=== PATIENT | male | born 1960 | race Caucasian/White ===

== ENCOUNTER → 2019-07-08 | Outpatient (CLI) | payer BC ==
--- NOTE | 2019-07-08 10:59 | CT ---
EXAMINATION TYPE: CT abdomen pelvis w con DATE OF EXAM: 07/08/2019 COMPARISON: None HISTORY: Abdomen and pelvic pain CT DLP: 511.60 mGycm Automated exposure control for dose reduction was used. CONTRAST: CT scan of the abdomen pelvis is performed with IV Contrast, patient injected with 100 ml mL of Isovu e 300. FINDINGS- LUNG BASES-findings suggestive of COPD.. LIVER/GB- No gross abnormality is appreciated. A fat attenuation near the ligamentum teres is most likely related to fatty infiltration PANCREAS- No gross abnormality is seen. SPLEEN- No gross abnormality is seen. ADRENALS- No gross abnormality is seen. KIDNEYS/BLADDER- no hydronephrosis nephrolithiasis or renal mass. BOWEL-there is a hiatal hernia with wall thickening of the distal esophagus correlate for esophagitis or mucosal lesion. Evidence of previous gastric surgery noted. Diverticulosis of the colon. Assessme nt of the colon is limited due to incomplete distention and retained debris.. LYMPH NODES- No greater than 1cm abdominal or pelvic lymph nodes areappreciated. OSSEOUS STRUCTURES-there is a scoliosis with severe multilevel degenerative disc disease and hypertro phic changes. Benign-appearing lucent lesion involving the left iliac bone.. OTHER- atherosclerotic change aorta with no evidence of aneurysm. Prostate calcifications are seen. IMPRESSION- 1. Diverticulosis of the colon. Portions of the colon are limited in assessment due to incomplete dis tention and retained debris correlate with direct visualization as clinically warranted. 2. Postsurgical changes involving the stomach. It does appear to be a hiatal hernia with wall thicken ing of the distal esophagus. Correlate clinically for symptoms of pulsatile lesion or esophagitis. 3. COPD.
== END | disposition home or self-care (01) ==
LOC: RADCTMAIN 08:55
PROVIDERS: ATTEND Family Medicine
DX: K57.30 Diverticulosis of large intestine without perforation or abscess without bleeding (principal); Z98.890 Other specified postprocedural states
CPT/HCPCS: 74177; Q9967

== ENCOUNTER → 2019-07-13 | Outpatient (CLI) | payer BC ==
--- NOTE | 2019-07-14 09:12 | US ---
EXAMINATION TYPE: US prostate transrectal DATE OF EXAM: 07/13/2019 COMPARISON: NONE CLINICAL HISTORY: R97.20 elevated PSA. Elevated PSA This examination was performed using the transrectal probe. EXAM MEASUREMENTS: Gland Size: 3.8 x 2.3 x 4.2cm Volume: 19.41ml Predicted PSA: 2.3 Actual PSA (if available):6.62 on 06/27/19 Heterogeneous gland, calcifications noted. No distinct nodule visualized within peripheral zone at th is time IMPRESSION: Heterogenous prostate gland related to benign prostatic hyperplasia in the enlarged pros pinon gland. No distinct nodule in the peripheral zone on ultrasound. However given the elevated PSA s creening prostate MRI could be performed. Predicted PSA = volume x 0.12 ng/ml Calculated Volume = 0.5236 x L x W x H
== END | disposition home or self-care (01) ==
LOC: RADUSMAIN 07:56
PROVIDERS: ATTEND Family Medicine
DX: N40.0 Benign prostatic hyperplasia without lower urinary tract symptoms (principal)
CPT/HCPCS: 76872

== ENCOUNTER 2020-06-28 10:14 | Day surgery (SDC) | payer BC ==
[2020-06-27 09:15] VITALS: BMI 21.2
[~2020-06-28 10:14] MED LIST: LACTATED RINGERS 1,000 ML IV SCH; LIDOCAINE 1% (10MG/ML) FOR IV START INTRADERMA PRN
[2020-06-28 11:06] VITALS: RESP 16; TEMP 97.8
[2020-06-28] MEDS ORDERED: PROPOFOL 10 MG/ML 20 ML VIAL IV ONE (11:51)
--- NOTE | 2020-06-28 11:58 | P.GSHP ---
History of Present Illness H&P Date: 06/28/20 Chief Complaint: Constipation This a 59-year-old male today for colonoscopy. She's had issues with constipation. Past Medical History Additional Past Medical History / Comment(s): CHANGE IN BOWEL MOVEMENTS History of Any Multi-Drug Resistant Organisms: None Reported Past Surgical History: Bariatric Surgery, Tonsillectomy Additional Past Surgical History / Comment(s): STOMACH STAPLING Past Anesthesia/Blood Transfusion Reactions: No Reported Reaction Smoking Status: Former smoker - Past Family History Mother Family Medical History: No Reported History Medications and Allergies Home Medications Medication Instructions Recorded Confirmed Type Ibuprofen [Motrin] 600 mg PO Q8HR PRN 06/27/20 06/28/20 History Allergies Allergy/AdvReac Type Severity Reaction Status Date / Time No Known Allergies Allergy Verified 06/28/20 11:12 Surgical - Exam Vital Signs Temp Pulse Resp BP Pulse Ox 97.8 F 64 16 114/70 98 06/28/20 11:04 06/28/20 11:04 06/28/20 11:04 06/28/20 11:04 06/28/20 11:04 - General well developed, well nourished, no distress - Eyes PERRL - ENT normal pinna - Neck no masses - Respiratory normal expansion - Cardiovascular Rhythm: regular - Abdomen Abdomen: soft, non tender Assessment and Plan Assessment: Constipation. We'll perform colonoscopy.
--- NOTE | 2020-06-28 12:10 | P.OP ---
Date of Procedure: 06/28/20 Preoperative Diagnosis: Constipation Postoperative Diagnosis: Normal colon Procedure(s) Performed: Colonoscopy Anesthesia: MAC Surgeon: Villa Bynum Pathology: none sent Condition: stable Disposition: PACU Description of Procedure: PROCEDURE: The patient was placed on the endoscopy table in the lateral position. Digital rectal examination was performed which revealed no abnormalities. The prostate was symmetrical without nodules. Flexible colonoscope was then placed in the patient's anus and passed throughout the entire colon. The ileocecal valve was visualized. The cecum, ascending, transverse, descending and sigmoid colon were normal. The rectum was normal as well. There were no masses, polyps or diverticula noted in the entire colon. SUMMARY OF FINDINGS: Normal colonoscopy.
[2020-06-28 12:37] VITALS: BP 120/88; PULSE 61
== END 2020-06-28 13:00 | disposition home or self-care (01) ==
LOC: ORWHC2ENDO 10:14
PROVIDERS: ATTEND Surgery
DX: K59.09 Other constipation (principal); K57.30 Diverticulosis of large intestine without perforation or abscess without bleeding; M25.569 Pain in unspecified knee; N40.0 Benign prostatic hyperplasia without lower urinary tract symptoms; L89.90 Pressure ulcer of unspecified site, unspecified stage; L08.9 Local infection of the skin and subcutaneous tissue, unspecified; J44.9 Chronic obstructive pulmonary disease, unspecified; K20.90 Esophagitis, unspecified without bleeding; I25.10 Atherosclerotic heart disease of native coronary artery without angina pectoris; R97.20 Elevated prostate specific antigen [PSA]; M15.9 Polyosteoarthritis, unspecified; Z80.0 Family history of malignant neoplasm of digestive organs; Z87.891 Personal history of nicotine dependence; Z79.899 Other long term (current) drug therapy; Z98.84 Bariatric surgery status; Z90.89 Acquired absence of other organs; Z97.2 Presence of dental prosthetic device (complete) (partial)
CPT/HCPCS: 45378; J2704

== ENCOUNTER 2021-08-07 17:05 | Inpatient (IN) | payer BC ==
[2021-08-07] MEDS ORDERED: KETOROLAC 15 MG/ML 1 ML VIAL IVP STA (17:29)
--- NOTE | 2021-08-07 17:32 | ED ---
SOB HPI - General Chief Complaint: Shortness of Breath Stated Complaint: possible collapsed lung Time Seen by Provider: 08/07/21 17:13 Source: patient, RN notes reviewed Mode of arrival: wheelchair - History of Present Illness Initial Comments: 60-year-old male who presents with complaints of sharp right-sided chest pain gets worse with coughing movement deep breathing states this started today. Somewhat yesterday. He was seen at a local outpatient clinic and sent here for evaluation for possible pneumothorax. Per family the patient was afebrile at the clinic but on arrival here he was noted have a fever. He has minimal phlegm production. No earache sore throat. Patient states the pain is sharp and 10/10 in severity. MD Complaint: shortness of breath, cough, chest pain - Related Data Home Medications Medication Instructions Recorded Confirmed Omeprazole Magnesium [PriLOSEC OTC] 20 mg PO DAILY PRN 08/07/21 08/07/21 Allergies Allergy/AdvReac Type Severity Reaction Status Date / Time No Known Allergies Allergy Verified 08/07/21 17:45 Review of Systems ROS Statement: Those systems with pertinent positive or pertinent negative responses have been documented in the HPI. ROS Other: All systems not noted in ROS Statement are negative. Past Medical History Additional Past Medical History / Comment(s): CHANGE IN BOWEL MOVEMENTS History of Any Multi-Drug Resistant Organisms: None Reported Past Surgical History: Bariatric Surgery, Tonsillectomy Additional Past Surgical History / Comment(s): STOMACH STAPLING Past Anesthesia/Blood Transfusion Reactions: No Reported Reaction Past Psychological History: No Psychological Hx Reported Smoking Status: Former smoker Past Alcohol Use History: Daily Past Drug Use History: Marijuana - Past Family History Mother Family Medical History: No Reported History General Exam - General Exam Comments Initial Comments: This is a well-developed asthenic appearing male was awake alert oriented 3 General appearance: alert, anxious, in distress Head exam: Present: atraumatic, normocephalic, normal inspection Eye exam: Present: normal appearance, PERRL, EOMI. Absent: scleral icterus, conjunctival injection, periorbital swelling ENT exam: Present: mucous membranes dry Neck exam: Present: normal inspection, full ROM, other. Absent: tenderness, meningismus, lymphadenopathy Respiratory exam: Present: decreased breath sounds (No stridor JVD or bruits). Absent: respiratory distress, wheezes, rales, rhonchi, stridor Cardiovascular Exam: Present: regular rate, normal rhythm, normal heart sounds. Absent: systolic murmur, diastolic murmur, rubs, gallop, clicks GI/Abdominal exam: Present: soft, normal bowel sounds. Absent: distended, tenderness, guarding, rebound, rigid Extremities exam: Present: normal inspection, full ROM, normal capillary refill. Absent: tenderness, pedal edema, joint swelling, calf tenderness Back exam: Present: normal inspection Neurological exam: Present: alert, oriented X3, CN II-XII intact Psychiatric exam: Present: normal affect, normal mood Skin exam: Present: warm, dry, intact, normal color. Absent: rash Course Vital Signs 08/07/21 17:06 Temperature 101.4 F H Pulse Rate 91 Respiratory 18 Rate Blood Pressure 140/77 O2 Sat by Pulse 96 Oximetry - Reevaluation(s) Reevaluation #1: 08/07/21 19:31 Reevaluation patient he is feeling improved with respect to pain and shortness of breath has improved also. Medical Decision Making - Medical Decision Making I did discuss the findings with the patient and family members as well as with Dr. Phillips. Patient be admitted place an IV antibiotics IV fluids consultation by pulmonary medicine - Lab Data Result diagrams: 08/07/21 17:35 08/07/21 17:35 Lab Results 08/07/21 08/07/21 08/07/21 Range/Units 17:35 17:35 17:35 WBC 30.4 H (3.8-10.6) k/uL RBC 4.09 L (4.30-5.90) m/uL Hgb 12.9 L (13.0-17.5) gm/dL Hct 38.1 L (39.0-53.0) % MCV 93.0 (80.0-100.0) fL MCH 31.4 (25.0-35.0) pg MCHC 33.8 (31.0-37.0) g/dL RDW 13.3 (11.5-15.5) % Plt Count 682 H (150-450) k/uL MPV 7.0 Neutrophils % 90 % Lymphocytes % 7 % Monocytes % 3 % Eosinophils % 0 % Basophils % 0 % Neutrophils # 27.3 H (1.3-7.7) k/uL Lymphocytes # 2.0 (1.0-4.8) k/uL Monocytes # 0.8 (0-1.0) k/uL Eosinophils # 0.0 (0-0.7) k/uL Basophils # 0.1 (0-0.2) k/uL Manual Slide Review Performed PT 12.0 (9.0-12.0) sec INR 1.1 (<1.2) APTT 26.7 (22.0-30.0) sec D-Dimer 2.52 H (<0.60) mg/L FEU Sodium 135 L (137-145) mmol/L Potassium 3.9 (3.5-5.1) mmol/L Chloride 98 (98-107) mmol/L Carbon Dioxide 24 (22-30) mmol/L Anion Gap 13 mmol/L BUN 16 (9-20) mg/dL Creatinine 0.71 (0.66-1.25) mg/dL Est GFR (CKD-EPI)AfAm >90 (>60 ml/min/1.73 sqM) Est GFR (CKD-EPI)NonAf >90 (>60 ml/min/1.73 sqM) Glucose 104 H (74-99) mg/dL Plasma Lactic Acid Kaz (0.7-2.0) mmol/L Calcium 8.8 (8.4-10.2) mg/dL Magnesium 2.0 (1.6-2.3) mg/dL Total Bilirubin 0.7 (0.2-1.3) mg/dL AST 38 (17-59) U/L ALT 27 (4-49) U/L Alkaline Phosphatase 123 (38-126) U/L Troponin I (0.000-0.034) ng/mL NT-Pro-B Natriuret Pep pg/mL Total Protein 7.1 (6.3-8.2) g/dL Albumin 3.4 L (3.5-5.0) g/dL 08/07/21 08/07/21 08/07/21 Range/Units 17:35 17:35 17:35 WBC (3.8-10.6) k/uL RBC (4.30-5.90) m/uL Hgb (13.0-17.5) gm/dL Hct (39.0-53.0) % MCV (80.0-100.0) fL MCH (25.0-35.0) pg MCHC (31.0-37.0) g/dL RDW (11.5-15.5) % Plt Count (150-450) k/uL MPV Neutrophils % % Lymphocytes % % Monocytes % % Eosinophils % % Basophils % % Neutrophils # (1.3-7.7) k/uL Lymphocytes # (1.0-4.8) k/uL Monocytes # (0-1.0) k/uL Eosinophils # (0-0.7) k/uL Basophils # (0-0.2) k/uL Manual Slide Review PT (9.0-12.0) sec INR (<1.2) APTT (22.0-30.0) sec D-Dimer (<0.60) mg/L FEU Sodium (137-145) mmol/L Potassium (3.5-5.1) mmol/L Chloride (98-107) mmol/L Carbon Dioxide (22-30) mmol/L Anion Gap mmol/L BUN (9-20) mg/dL Creatinine (0.66-1.25) mg/dL Est GFR (CKD-EPI)AfAm (>60 ml/min/1.73 sqM) Est GFR (CKD-EPI)NonAf (>60 ml/min/1.73 sqM) Glucose (74-99) mg/dL Plasma Lactic Acid Kaz 1.3 (0.7-2.0) mmol/L Calcium (8.4-10.2) mg/dL Magnesium (1.6-2.3) mg/dL Total Bilirubin (0.2-1.3) mg/dL AST (17-59) U/L ALT (4-49) U/L Alkaline Phosphatase (38-126) U/L Troponin I <0.012 (0.000-0.034) ng/mL NT-Pro-B Natriuret Pep 642 pg/mL Total Protein (6.3-8.2) g/dL Albumin (3.5-5.0) g/dL - EKG Data -: EKG Interpreted by Me EKG shows normal: sinus rhythm EKG Comments: Sinus rhythm a 93. Interval 161 QRS yarsanism 87 daily since QTC 361/411 possible left atrial enlargement possible right ventricular conduction delay - Radiology Data Radiology results: report reviewed (Imaging reviewed evidence of right lower lobe infiltrate no pneumothorax.), image reviewed Disposition Clinical Impression: Right lower lobe pneumonia, Pleural effusion, right, Febrile illness, acute, Leukocytosis, Atypical chest pain, D-dimer, elevated Disposition: ADMITTED IP TO THIS HOSP Condition: Fair Referrals: Beka Phillips MD [Primary Care Provider] - 1-2 days
[2021-08-07 17:56] LABS: Basophils # (A) 0.1 k/uL (0-0.2); Basophils % (A) 0 %; Eosinophils % (A) 0 %; HCT 38.1 % (39.0-53.0); HGB 12.9 gm/dL (13.0-17.5); Lymphocytes % (A) 7 %; MCH 31.4 pg (25.0-35.0); MCHC 33.8 g/dL (31.0-37.0); Monocytes # (A) 0.8 k/uL (0-1.0); Monocytes % (A) 3 %; Neutrophils # (A) 27.3 k/uL (1.3-7.7); Neutrophils % (A) 90 %; Platelet Count 682 k/uL (150-450); RBC 4.09 m/uL (4.30-5.90); RDW 13.3 % (11.5-15.5); WBC 30.4 k/uL (3.8-10.6)
[2021-08-07 18:00] LABS: ALT 27 U/L (4-49); AST 38 U/L (17-59); African American GFR (CKD) >90 (>60 ml/min/1.73 sqM); Albumin 3.4 g/dL (3.5-5.0); Alkaline Phosphatase 123 U/L (38-126); Anion Gap 13 mmol/L; Blood Urea Nitrogen 16 mg/dL (9-20); Calcium 8.8 mg/dL (8.4-10.2); Carbon Dioxide 24 mmol/L (22-30); Chloride 98 mmol/L (98-107); Glucose 104 mg/dL (74-99); Non-African American GFR(CKD) >90 (>60 ml/min/1.73 sqM); Potassium 3.9 mmol/L (3.5-5.1); Sodium 135 mmol/L (137-145); Total Bilirubin 0.7 mg/dL (0.2-1.3); Total Protein 7.1 g/dL (6.3-8.2)
[2021-08-07 18:11] LABS: INR 1.1 (<1.2); Partial Thromboplastin Time 26.7 sec (22.0-30.0)
--- NOTE | 2021-08-07 18:13 | XR ---
EXAMINATION TYPE: XR chest 1V portable DATE OF EXAM: 08/07/2021 COMPARISON: NONE HISTORY: Right-sided chest pain and fever. TECHNIQUE: Single frontal view of the chest is obtained. FINDINGS: There is mild to moderate right basilar opacity with small pleural effusion. There is elev ation of the right hemidiaphragm. There is background of mild interstitial edema. No pneumothorax see n. The cardiac silhouette size is within normal limits. The osseous structures are intact. IMPRESSION: Right basilar opacity with small pleural effusion, concerning for infiltrates. Associated elevated right hemidiaphragm and underlying mild interstitial edema.
[2021-08-07] MEDS ORDERED: cefTRIAXone IN SWFI 1,000 MG/10 ML SYRINGE IVP STA ×2 (18:14→19:50)
[2021-08-07] MEDS ORDERED: ACETAMINOPHEN TAB 500 MG TAB PO STA (18:14)
--- NOTE | 2021-08-07 19:04 | CT ---
EXAMINATION TYPE: CT angio chest DATE OF EXAM: 08/07/2021 6:46 PM COMPARISON: CT abdomen 07/08/2019 HISTORY: Suspected PE. SOB. Denies cardiopulmonary hx. CT DLP: 270 mGycm Automated exposure control for dose reduction was used. CONTRAST: CTA scan of the thorax is performed with IV Contrast, patient injected with 100 mL of Isovue 370, pul monary embolism protocol. MIP images are created and reviewed. FINDINGS: LUNGS: There is small to moderate right pleural effusion with accompanying mild to moderate right low er lobe opacities. Focal eventration of the right hemidiaphragm seen. No pneumothorax seen. The trac heobronchial tree is patent. MEDIASTINUM: There is satisfactory enhancement of the pulmonary artery and its branches, there is no CT evidence for pulmonary embolism. There are no greater than 1 cm hilar or mediastinal lymph nodes. No pericardial effusion is seen. OTHER: Moderate thoracic spondylosis with dextroconvex curvature. Incidental 1.6 cm nodule within the left lateral lower chest wall subcutaneous soft tissue at the level of the seventh rib. IMPRESSION: NO ACUTE PE. SMALL TO MODERATE RIGHT PLEURAL EFFUSION WITH ACCOMPANYING BASILAR OPACITIES WHICH MAY REPRESENT ATEL ECTASIS OR DEVELOPING INFILTRATES. Incidental left lower chest wall subcutaneous soft tissue nodule, nonspecific.
[2021-08-07] MEDS ORDERED: PNEUMONIA PROTOCOL UTILIZED 1 EACH MISC PO PRN (19:46)
[2021-08-07] MEDS ORDERED: AZITHROMYCIN 500 MG in SODIUM CHLORIDE 0.9% 250 ML IVPB STA (19:49)
[2021-08-07] MEDS ORDERED: PANTOPRAZOLE 40 MG TABLET PO PRN (19:53)
[2021-08-07] MEDS: SODIUM CHLORIDE 0.9% 1,000 ML IV SCH (21:51)
[2021-08-07] MEDS: HEPARIN SODIUM,PORCINE/PF 5,000 UNIT/0.5 ML SYRINGE SQ SCH (22:50)
[2021-08-07] MEDS: ACETAMINOPHEN TAB 325 MG TAB PO PRN (23:30)
[2021-08-08] MEDS: SODIUM CHLORIDE 0.9% 1,000 ML IV SCH ×2 (05:14→09:45)
[2021-08-08] MEDS: ACETAMINOPHEN TAB 325 MG TAB PO PRN ×3 (07:51→19:25)
[2021-08-08] MEDS: HEPARIN SODIUM,PORCINE/PF 5,000 UNIT/0.5 ML SYRINGE SQ SCH ×2 (08:45→16:46)
[2021-08-08] MEDS: IPRATROPIUM-ALBUTEROL 3 ML NEB INHALATION PRN (09:19)
--- NOTE | 2021-08-08 13:21 | P.CNPUL ---
History of Present Illness Consult date: 08/08/21 Reason for consult: dyspnea, chest pain Chief complaint: Shortness of breath, pleuritic chest pain History of present illness: 60-year-old outpatient with past medical history of bariatric surgery, stomach stapling 30 years ago, former smoker, who came into the emergency department on the 08/07/2021 with complaints of right-sided pleuritic chest pain and shortness of breath. he states initial symptom onset was about a week ago and progressively became worse, he went to the urgent care initially, chest x-ray was taken and he was told that he needed to go to the emergency department as he was right lung appear to be collapsed at the bottom. In addition patient was febrile, and coughing up some purulent phlegm. In the emergency department chest x-ray showing right basilar opacity with small pleural effusion, CTA chest showing small to moderate right pleural effusion with accompanying basilar atelectasis. Lab work showed white blood cell count of 30.4, hemoglobin of 12.9, platelet count of 682, INR of 1.1, d-dimer was 2.5 to but CTA showed no evidence of pulmonary embolism. COVID 19 PCR is negative. Patient was started on azithromycin and Rocephin. This morning he seen sitting up in bed, is still having some pleuritic right lower rib cage pain with inspiration and coughing, but appears to be in no acute distress. On 2 L of oxygen his saturation 94-96%. Review of Systems All systems: negative Constitutional: Denies chills, Denies fever Eyes: denies blurred vision, denies pain Ears, nose, mouth and throat: Denies headache, Denies sore throat Cardiovascular: Reports chest pain, Denies shortness of breath Respiratory: Reports dyspnea, Denies cough Gastrointestinal: Denies abdominal pain, Denies diarrhea, Denies nausea, Denies vomiting Musculoskeletal: Denies myalgias Integumentary: Denies pruritus, Denies rash Neurological: Denies numbness, Denies weakness Psychiatric: Denies anxiety, Denies depression Endocrine: Denies fatigue, Denies weight change Past Medical History Past Medical History: Coronary Artery Disease (CAD), COPD, Prostate Disorder Additional Past Medical History / Comment(s): diverticulitis History of Any Multi-Drug Resistant Organisms: None Reported Past Surgical History: Bariatric Surgery, Tonsillectomy Additional Past Surgical History / Comment(s): STOMACH STAPLING Past Anesthesia/Blood Transfusion Reactions: No Reported Reaction Past Psychological History: No Psychological Hx Reported Smoking Status: Former smoker Past Alcohol Use History: Daily Additional Past Alcohol Use History / Comment(s): QUIT SMOKING 2019. DRINKS 2-3 BEERS DAILY Past Drug Use History: Marijuana Additional Drug Use History / Comment(s): SMOKES MARIJUANA 2-3 TIMES A WEEK- INSTRUCTED TO REFRAIN FROM USE OF MARIJUANA AND ALCOHOL FOR AT LEAST 24 HOURS PRIOR TO PROCEDURE - Past Family History Mother Family Medical History: No Reported History Medications and Allergies Home Medications Medication Instructions Recorded Confirmed Type Omeprazole Magnesium [PriLOSEC OTC] 20 mg PO DAILY PRN 08/07/21 08/07/21 History Allergies Allergy/AdvReac Type Severity Reaction Status Date / Time No Known Allergies Allergy Verified 08/07/21 17:45 Physical Exam Vitals: Vital Signs Temp Pulse Pulse Resp BP BP Pulse Ox 08/08/21 09:22 88 08/08/21 07:51 98.9 F 77 28 H 130/80 96 08/08/21 02:00 98.7 F 85 18 105/70 94 L 08/07/21 22:46 98.8 F 89 16 105/65 95 08/07/21 22:00 87 22 98/65 98 08/07/21 21:51 98.3 F 08/07/21 21:30 87 22 103/67 98 08/07/21 21:00 90 22 102/61 98 08/07/21 20:30 91 20 101/62 97 08/07/21 20:00 22 117/68 99 08/07/21 19:30 105 H 24 135/43 99 08/07/21 18:30 105 H 30 H 177/98 95 08/07/21 18:00 101.1 F H 100 36 H 134/77 92 L 08/07/21 17:30 90 16 140/89 94 L 08/07/21 17:06 101.4 F H 91 18 140/77 96 Intake and Output 08/07/21 08/08/21 08/08/21 22:59 06:59 14:59 Intake Total 600 Output Total 300 Balance 600 -300 Intake: Intake, IV Titration 600 Amount Sodium Chloride 0.9% 1, 600 000 ml @ 100 mls/hr IV . Q10H [facility] Rx#:[id number] Output: Urine 300 Other: Weight 61.235 kg GENERAL EXAM: Alert, very pleasant, 60-year-old white male, on 2 L of oxygen pulse ox of 94-96%, comfortable in no apparent distress. HEAD: Normocephalic/atraumatic. EYES: Normal reaction of pupils, equal size. Conjunctiva pink, sclera white. NOSE: Clear with pink turbinates. THROAT: No erythema or exudates. NECK: No masses, no JVD, no thyroid enlargement, no adenopathy. CHEST: No chest wall deformity. Symmetrical expansion. LUNGS: Equal air entry with diminished breath sounds on the right lower base CVS: Regular rate and rhythm, normal S1 and S2, no gallops, no murmurs, no rubs ABDOMEN: Soft, nontender. No hepatosplenomegaly, normal bowel sounds, no guarding or rigidity. EXTREMITIES: No clubbing, no edema, no cyanosis, 2+ pulses and upper and lower extremities. MUSCULOSKELETAL: Muscle strength and tone normal. SPINE: No scoliosis or deformity SKIN: No rashes CENTRAL NERVOUS SYSTEM: Alert and oriented -3. No focal deficits, tone is normal in all 4 extremities. PSYCHIATRIC: Alert and oriented -3. Appropriate affect. Intact judgment and insight. Results - Laboratory Findings CBC and BMP: 08/07/21 17:35 08/07/21 17:35 PT/INR, D-dimer PT 12.0 sec (9.0-12.0) 08/07/21 17:35 INR 1.1 (<1.2) 08/07/21 17:35 D-Dimer 2.52 mg/L FEU (<0.60) H 08/07/21 17:35 Abnormal lab findings: Abnormal Labs 08/07/21 08/07/21 08/07/21 17:35 17:35 17:35 WBC 30.4 H RBC 4.09 L Hgb 12.9 L Hct 38.1 L Plt Count 682 H Neutrophils # 27.3 H D-Dimer 2.52 H Sodium 135 L Glucose 104 H Albumin 3.4 L - Diagnostic Findings Chest x-ray: report reviewed, image reviewed CT scan - chest: report reviewed, image reviewed Assessment and Plan Plan: Assessment: #1. Acute hypoxic respiratory failure related to right lower lobe pneumonia parapneumonic effusion, community-acquired #2. Former smoker #3. Pleuritic chest pain #4. History of bariatric surgery, with stomach stapling #5. Coronary artery disease #6. BPH #7. COPD Plan: Continue current antibiotics Continue breathing treatments Chest x-ray and CT scan of the chest has been reviewed Radiologic findings, lab work, and clinical findings are consistent with pneumonia, with parapneumonic effusion We'll send a sputum culture Obtain ultrasound of the chest on the right to measure right pleural effusion pocket We may consider right-sided thoracentesis if ultrasound the chest shows sizable pleural effusion pocket For now continue with same antibiotics including azithromycin and Rocephin I have personally seen and examined the patient, performed the documentation and the assessment and plan as written. Number of minutes spent on the visit: [20] Time with Patient: Greater than 30
--- NOTE | 2021-08-08 15:18 | US ---
EXAMINATION TYPE: US chest DATE OF EXAM: 08/08/2021 COMPARISON: CT dated 08/07/2021 CLINICAL HISTORY: chest pain, pleural effusion, pneumonia. TECHNIQUE: Targeted ultrasound of the posterior lower bilateral hemithoraces EXAM MEASUREMENTS: Right Pleural Effusion pocket size to lun.3 cm Left Pleural Effusion pocket size: 0 cm Right side NOT marked for possible thoracentesis outside the dept due to lung location and internal e choes. Left side NOT marked for possible thoracentesis outside the dept. Pulmonologists are able to review the images in the patient?s EMR. Limited scanning performed of the posterior chest IMPRESSIONS: Right pleural effusion
--- NOTE | 2021-08-08 20:15 | HP ---
HISTORY AND PHYSICAL HISTORY OF PRESENT ILLNESS: 60-year-old white male with past medical history of bariatric surgery 30 years ago, came in with right-sided pleuritic chest pain, shortness of breath with pleural effusion and pneumonia with a white count of 30,000, admitted for possible empyema versus pneumonia. Ultrasound of the chest shows just 2.3 cm septal fluid, started on broad-spectrum antibiotics. His pleuritic right lower rib cage pain with inspiration, coughing, no acute distress. 2 L sat 94 to 96. REVIEW OF SYMPTOMS: 14-point review of systems otherwise negative. PAST MEDICAL HISTORY: Coronary artery disease, COPD, prostate disorder. PAST SURGICAL HISTORY: Bariatric surgery, tonsillectomy. SOCIAL HISTORY: Quit smoking in 2019, 2-3 beers a day. MEDICATIONS: Home medicines: Omeprazole. ALLERGIES: Negative. PHYSICAL EXAMINATION: Temperature 98.2 to T-max of 101.4, respiratory 18-20, pulse is 80s to 90s, blood pressure 140/77. HEENT: Normocephalic, atraumatic. Pupils equal, round, reactive. LUNGS show decreased breath sounds right side. CARDIOVASCULAR: S1-S2. PSYCH: Fair mood and affect. NEUROLOGIC: Alert and oriented x3. INTEGUMENT: Some mild dryness to skin and decreased skin turgor. White count 30.4, hemoglobin 12.9, platelets 632. Sodium 135, potassium 3.9. D-dimer is 2.52. IMPRESSION: 1. CT of the chest shows right lower lobe pneumonia, apparent pneumonic effusion community-acquired. 2. Hypoxemic respiratory failure. 3. History of nicotine addiction. 4. History of bariatric surgery. 5. Coronary artery disease. 6. Benign prostatic hypertrophy. 7. Chronic obstructive pulmonary disease. PLAN: Antibiotics updraft treatments. I doubt there is enough fluid to drain. Continue broad-spectrum antibiotics. Home soon. MMODL / IJN: [id number] /
[2021-08-08] MEDS: AZITHROMYCIN 500 MG TAB PO SCH (20:47)
[2021-08-09] MEDS: HEPARIN SODIUM,PORCINE/PF 5,000 UNIT/0.5 ML SYRINGE SQ SCH ×4 (00:02→23:33)
[2021-08-09] MEDS: ACETAMINOPHEN TAB 325 MG TAB PO PRN ×2 (03:58→13:17)
[2021-08-09] MEDS: SODIUM CHLORIDE 0.9% 1,000 ML IV SCH ×3 (03:58→20:34)
[2021-08-09 04:21] LABS: Appearance,Urine Clear (Clear); Bilirubin,Urine Negative (Negative); Blood,Urine Small (Negative); Color,Urine Yellow; Glucose,Urine (UA) Negative (Negative); Ketones,Urine Negative (Negative); Leukocyte Esterase,Urine Negative (Negative); Mucus,Urine Many /hpf; Nitrite,Urine Negative (Negative); Protein,Urine Trace (Negative); RBC,Urine 12 /hpf (0-5); WBC,Urine 6 /hpf (0-5)
[2021-08-09 09:31] LABS: HCT 41.2 % (39.6-50.0); HGB 13.1 g/dL (13.0-17.0); MCHC 31.8 g/dL (32.0-37.0); MCV 91.2 fL (80.0-97.0); Mean Platelet Volume 9.9 fL (9.5-12.2); NRBC Per 100 WBC 0 /100 WBCS (0.0-0.0); Platelet Count 635 X 10*3/uL (140-440); RBC 4.52 X 10*6/uL (4.40-5.60); RDW 13.4 % (11.5-14.5); WBC 27.41 X 10*3/uL (4.50-10.00)
[2021-08-09 10:07] LABS: African American GFR (CKD) 127.6 (60.0-200.0); Albumin 2.5 g/dL (3.8-4.9); Albumin/Globulin Ratio 0.83 (1.60-3.17); Anion Gap 13.6 mmol/L (10.00-18.00); BUN/Creat Ratio 22.67 Ratio (12.00-20.00); Blood Urea Nitrogen 13.6 mg/dL (9.0-27.0); Calcium 8.4 mg/dL (8.7-10.3); Carbon Dioxide 20.4 mmol/L (20.0-27.5); Non-African American GFR(CKD) 110.1 (60.0-200.0); Potassium 4.1 mmol/L (3.5-5.5); Total Bilirubin 0.4 mg/dL (0.30-1.20); Total Protein 5.5 g/dL (6.2-8.2)
[2021-08-09 10:34] LABS: Basophils # (A) 0.08 X 10*3/uL (0.00-0.10); Basophils % (A) 0.3 %; Eosinophils # (A) 0.03 X 10*3/uL (0.04-0.35); Eosinophils % (A) 0.1 %; Immature Grans, Automated 0.8 %; Lymphocytes # (A) 1.57 X 10*3/uL (0.90-5.00); Lymphocytes % (A) 5.7 %; Monocytes # (A) 1.49 X 10*3/uL (0.20-1.00); Monocytes % (A) 5.4 %; Neutrophils # (A) 24.03 X 10*3/uL (1.80-7.70); Neutrophils % (A) 87.7 %
[2021-08-09 10:35] LABS: Acanthocytes 2+
--- NOTE | 2021-08-09 12:12 | P.PN ---
Subjective Progress Note Date: 08/09/21 Principal diagnosis: Shortness of breath, right chest pleuritic pain 60-year-old outpatient with past medical history of bariatric surgery, stomach stapling 30 years ago, former smoker, who came into the emergency department on the 08/07/2021 with complaints of right-sided pleuritic chest pain and shortness of breath. he states initial symptom onset was about a week ago and progressively became worse, he went to the urgent care initially, chest x-ray was taken and he was told that he needed to go to the emergency department as he was right lung appear to be collapsed at the bottom. In addition patient was febrile, and coughing up some purulent phlegm. In the emergency department chest x-ray showing right basilar opacity with small pleural effusion, CTA chest showing small to moderate right pleural effusion with accompanying basilar atelectasis. Lab work showed white blood cell count of 30.4, hemoglobin of 12.9, platelet count of 682, INR of 1.1, d-dimer was 2.5 to but CTA showed no evidence of pulmonary embolism. COVID 19 PCR is negative. Patient was started on azithromycin and Rocephin. This morning he seen sitting up in bed, is still having some pleuritic right lower rib cage pain with inspiration and coughing, but appears to be in no acute distress. On 2 L of oxygen his saturation 94-96%. On 08/09/2021 patient seen in follow-up. Patient is awake and alert, he states he is breathing easier, and right-sided pleuritic chest pain is improved alt mitch still there with deep breathing and coughing. Ultrasound the chest has been reviewed showing 2.3 centimeter pleural fluid pocket and it was not possible to market related to the pocket, lung location and internal echoes. Labs have been reviewed, white blood cell count is slightly improved and is down to 27.4, hemoglobin is 13.1, platelet count is 635, sodium is 134, depressed electrolytes and renal profile are unremarkable. Urinalysis showed small amount of blood, white blood cells, but no clear evidence of infection. COVID-19 PCR was negative. Objective - Vital Signs Vital signs: Vital Signs Temp 98.3 F 08/09/21 07:36 Pulse 81 08/09/21 07:36 Resp 18 08/09/21 07:36 BP 124/83 08/09/21 07:36 Pulse Ox 97 08/09/21 07:36 Intake & Output 08/08/21 08/09/21 08/09/21 18:59 06:59 18:59 Output Total 300 Balance -300 Output: Urine 300 Other: Voiding Method Urinal Urinal # Voids 1 500 - Exam GENERAL EXAM: Alert, very pleasant, 60-year-old white male, on 2 L of oxygen pulse ox of 97%, comfortable in no apparent distress. HEAD: Normocephalic/atraumatic. EYES: Normal reaction of pupils, equal size. Conjunctiva pink, sclera white. NOSE: Clear with pink turbinates. THROAT: No erythema or exudates. NECK: No masses, no JVD, no thyroid enlargement, no adenopathy. CHEST: No chest wall deformity. Symmetrical expansion. LUNGS: Equal air entry with diminished breath sounds on the right lower base CVS: Regular rate and rhythm, normal S1 and S2, no gallops, no murmurs, no rubs ABDOMEN: Soft, nontender. No hepatosplenomegaly, normal bowel sounds, no guarding or rigidity. EXTREMITIES: No clubbing, no edema, no cyanosis, 2+ pulses and upper and lower extremities. MUSCULOSKELETAL: Muscle strength and tone normal. SPINE: No scoliosis or deformity SKIN: No rashes CENTRAL NERVOUS SYSTEM: Alert and oriented -3. No focal deficits, tone is normal in all 4 extremities. PSYCHIATRIC: Alert and oriented -3. Appropriate affect. Intact judgment and insight. - Labs CBC & Chem 7: 08/09/21 04:20 08/09/21 04:20 Labs: Abnormal Lab Results - Last 24 Hours (Table) 08/09/21 08/09/21 08/09/21 Range/Units 03:45 04:20 04:20 WBC 27.41 H (4.50-10.00) X 10*3/uL MCHC 31.8 L (32.0-37.0) g/dL Plt Count 635 H (140-440) X 10*3/uL Plt Count Comment INCREASED A Immature Gran # 0.21 H (0.00-0.04) X 10*3/uL Neutrophils # 24.03 H (1.80-7.70) X 10*3/uL Monocytes # 1.49 H (0.20-1.00) X 10*3/uL Eosinophils # 0.03 L (0.04-0.35) X 10*3/uL Sodium 134 L (135-145) mmol/L BUN/Creatinine Ratio 22.67 H (12.00-20.00) Ratio Calcium 8.4 L (8.7-10.3) mg/dL Total Protein 5.5 L (6.2-8.2) g/dL Albumin 2.5 L (3.8-4.9) g/dL Albumin/Globulin Ratio 0.83 L (1.60-3.17) g/dL Urine Protein Trace H (Negative) Urine Blood Small H (Negative) Urine RBC 12 H (0-5) /hpf Urine WBC 6 H (0-5) /hpf Urine Mucus Many H (None) /hpf Microbiology - Last 24 Hours (Table) 08/08/21 20:11 Gram Stain - Preliminary Sputum Sputum Culture - Preliminary 08/07/21 17:50 Blood Culture - Preliminary Blood No Growth after 24 hours 08/07/21 17:35 Blood Culture - Preliminary Blood No Growth after 24 hours Assessment and Plan Plan: Assessment: #1. Acute hypoxic respiratory failure related to right lower lobe pneumonia parapneumonic effusion, community-acquired. Ultrasound of the chest showed a 2.3 cm fluid pocket with internal echoes. We'll consult interventional radiology for ultrasound-guided thoracentesis #2. Former smoker #3. Pleuritic chest pain #4. History of bariatric surgery, with stomach stapling #5. Coronary artery disease #6. BPH #7. COPD Plan: Continue current antibiotics Continue breathing treatments The findings of the ultrasound of the chest have been discussed with the patient Fluid pocket is not large enough for drainage, and his possibility of loculated fluid We'll consult interventional radiology for possibility of ultrasound-guided thoracentesis Pleural fluid cultures will be sent, we'll request pleural fluid analysis, We'll continue to follow patient's clinical course Continue on current antibiotics Continue GI and DVT prophylaxis I have personally seen and examined the patient, performed the documentation and the assessment and plan as written. Number of minutes spent on the visit: [10] Time with Patient: Less than 30
--- NOTE | 2021-08-09 14:14 | P.PCN ---
Date of Procedure: 08/09/21 Preoperative Diagnosis: pleural effusion Postoperative Diagnosis: same Anesthesia: local Estimated Blood Loss (ml): 5 Pathology: other (serous and sanguinous fluid 15 cc for cytology and lab analysis) Condition: stable Disposition: no change
--- NOTE | 2021-08-09 14:32 | XR ---
EXAMINATION TYPE: XR chest 1V DATE OF EXAM: 08/09/2021 HISTORY: Status post right-sided thoracentesis. COMPARISON: 08/07/2021 TECHNIQUE: Single view of the chest is submitted. FINDINGS: There is a large right-sided pleural effusion. Underlying infiltrate mass and/or atelectasis is diffi cult to exclude. No evidence for pneumothorax. The left lung is clear with granuloma noted at the lef t lung base. The heart is stable. Hilar and mediastinal structures are within normal limits. Degenerative changes are seen of the dorsal spine. IMPRESSION: 1. There is a large right-sided pleural effusion. Underlying infiltrate mass and/or atelectasis is d ifficult to exclude. No evidence for pneumothorax.
--- NOTE | 2021-08-09 15:09 | P.PN ---
Progress Note - Text Progress Note Date: 08/09/21 Discussed abnormal post thoracentesis chest xray with Dr. Daniel, requested evaluation. Patient stable clinically at this time, states "feeling better".
--- NOTE | 2021-08-09 15:40 | US ---
EXAMINATION TYPE: US thoracentesis DATE OF EXAM: 08/09/2021 COMPARISON: NONE HISTORY: Pleural effusion on the right. FINDINGS: Maximal barrier technique was utilized. The skin overlying a suitable pocket of fluid was localized and the overlying skin prepped and draped. Lidocaine was used for local anesthesia. Ultras ound was used with sterile technique. A 5 Setswana catheter over guide needle was advanced into the pl eural fluid collection using ultrasound guidance and the catheter advanced, needle removed. 5 cc of l idocaine were aspirated. Catheter was removed. 20-gauge Angiocath was subsequently advanced under ult rasound guidance. 15 cc of grayish turbid fluid were obtained. Catheter was withdrawn and hemostasis achieved. There is no immediate complication. The patient discharged in stable condition without co mplication. Post procedure chest x-ray pending. IMPRESSION: STATUS POST ULTRASOUND GUIDED THORACENTESIS, POST PROCEDURE CHEST X-RAY PENDING. THIS NV OCEDURE WAS PERFORMED BY THE UNDERSIGNED. Specimen sent for laboratory analysis.
--- NOTE | 2021-08-09 18:39 | PN ---
PROGRESS NOTE The patient was admitted with right lower lobe pneumonia, parapneumonic effusion. He had possible empyema with severe white count up to 30,000. He had apparently two little brown tubes of fluid taken out today he states. Suggests he has some empyema. Temperature 98.3, pulse 81, respiratory 18, blood pressure is 120s over 80s, O2 97 on 2 L cardiovascular S1-S2. Lungs clear. GI soft. Hematology: Negative Homans. Psych: Fair mood and affect. ASSESSMENT AND PLAN: 1. Possible empyema versus pneumonia with elevated white count secondary to this. 2. Acute hypoxemic respiratory failure. 3. Right lower lobe pneumonia. 4. Wait for the drainage to be evaluated in the lab. 5. Continue with broad-spectrum antibiotics. 6. He feels much better status post thoracentesis. 7. Continue on current antibiotics. 8. We will check white count in the morning. 9. Await for the fluid analysis. MMODL / IJN: [id number] /
[2021-08-09] MEDS: AZITHROMYCIN 500 MG TAB PO SCH (20:33)
[2021-08-09 23:41] LABS: Appearance,BF CLOUDY CLUMPED
[2021-08-10] MEDS: ACETAMINOPHEN TAB 325 MG TAB PO PRN ×2 (02:14→14:22)
[2021-08-10 05:59] LABS: T. Protein, Body Fluid Source Pleural Fluid; Total Protein, Body Fluid 4190 mg/dL
[2021-08-10 06:09] LABS: Glucose, BF Source Pleural Fluid; Glucose, Body Fluid <2 mg/dL
[2021-08-10 06:11] LABS: LDH, Body Fluid Source Pleural Fluid
--- NOTE | 2021-08-10 07:09 | XR ---
EXAMINATION TYPE: XR chest 2V DATE OF EXAM: 08/10/2021 COMPARISON: 08/09/2021 HISTORY: Shortness of breath TECHNIQUE: Frontal and lateral views of the chest are obtained. FINDINGS: There is a large right pleural effusion unchanged compared to previous. The left lung suad ins clear. The pulmonary vasculature is not congested. The osseous structures are intact. IMPRESSION: Large right pleural effusion unchanged compared to previous.
[2021-08-10] MEDS: HEPARIN SODIUM,PORCINE/PF 5,000 UNIT/0.5 ML SYRINGE SQ SCH ×3 (07:44→22:28)
[2021-08-10] MEDS: SODIUM CHLORIDE 0.9% 1,000 ML IV SCH ×2 (07:45→17:18)
[2021-08-10] MEDS: IPRATROPIUM-ALBUTEROL 3 ML NEB INHALATION PRN ×2 (08:16→21:41)
[2021-08-10 08:37] LABS: Basophils # (A) 0.04 X 10*3/uL (0.00-0.10); Basophils % (A) 0.2 %; Eosinophils # (A) 0.05 X 10*3/uL (0.04-0.35); Eosinophils % (A) 0.2 %; HGB 11.4 g/dL (13.0-17.0); Immature Grans, Automated 1.4 %; Lymphocytes # (A) 1.51 X 10*3/uL (0.90-5.00); Lymphocytes % (A) 6.5 %; MCH 29.8 pg (27.0-32.0); MCHC 32.6 g/dL (32.0-37.0); MCV 91.6 fL (80.0-97.0); Mean Platelet Volume 9.5 fL (9.5-12.2); Monocytes # (A) 1.44 X 10*3/uL (0.20-1.00); Monocytes % (A) 6.2 %; NRBC Per 100 WBC 0 /100 WBCS (0.0-0.0); Neutrophils # (A) 20.04 X 10*3/uL (1.80-7.70); Neutrophils % (A) 85.5 %; Platelet Count 512 X 10*3/uL (140-440); RBC 3.82 X 10*6/uL (4.40-5.60); RDW 13.6 % (11.5-14.5)
[2021-08-10 08:48] LABS: African American GFR (CKD) 127.6 (60.0-200.0); Albumin 2.3 g/dL (3.8-4.9); Albumin/Globulin Ratio 0.92 (1.60-3.17); Anion Gap 11.2 mmol/L (10.00-18.00); Blood Urea Nitrogen 14.4 mg/dL (9.0-27.0); Calcium 7.9 mg/dL (8.7-10.3); Carbon Dioxide 21.8 mmol/L (20.0-27.5); Globulin 2.5 g/dL (1.6-3.3); Non-African American GFR(CKD) 110.1 (60.0-200.0); Total Bilirubin 0.3 mg/dL (0.30-1.20); Total Protein 4.8 g/dL (6.2-8.2)
--- NOTE | 2021-08-10 15:03 | PN ---
PROGRESS NOTE White male, 60 years old, who is status post paracentesis, thoracentesis for pleural effusion on the right side for pneumonia. Repeat chest x-ray today shows large right pleural effusion, unchanged compared to previous even after the fluid was drained out on prior thoracentesis done yesterday. His white count continues to improve from 30,000-27,000, now 23,000. Remains on broad-spectrum antibiotics. We are waiting for the pleural fluid to be evaluated. It came out brown thick stuff, maybe some empyema going on. So far blood cultures are no growth. Acid-fast bacilli is pending as well as other cultures of the fluid. Continue broad-spectrum antibiotics. Await for further recommendations from Pulmonary. So far, sating 97 on 2 L which is improved. Blood pressure is 112/75, temp 96, pulse 80, respiratory 16 to 18. Please see further orders. Await for broad-spectrum antibiotics for pleural effusion and community-acquired pneumonia. PROGNOSIS: Guarded. MMODL / IJN: [id number] /
--- NOTE | 2021-08-10 15:40 | P.PN ---
Subjective Progress Note Date: 08/10/21 Principal diagnosis: Pneumonia with parapneumonic effusion. Shortness of breath, right chest pleuritic pain 60-year-old outpatient with past medical history of bariatric surgery, stomach stapling 30 years ago, former smoker, who came into the emergency department on the 08/07/2021 with complaints of right-sided pleuritic chest pain and shortness of breath. he states initial symptom onset was about a week ago and progressively became worse, he went to the urgent care initially, chest x-ray was taken and he was told that he needed to go to the emergency department as he was right lung appear to be collapsed at the bottom. In addition patient was febrile, and coughing up some purulent phlegm. In the emergency department chest x-ray showing right basilar opacity with small pleural effusion, CTA chest showing small to moderate right pleural effusion with accompanying basilar atelectasis. Lab work showed white blood cell count of 30.4, hemoglobin of 12.9, platelet count of 682, INR of 1.1, d-dimer was 2.5 to but CTA showed no evidence of pulmonary embolism. COVID 19 PCR is negative. Patient was started on azithromycin and Rocephin. This morning he seen sitting up in bed, is still having some pleuritic right lower rib cage pain with inspiration and coughing, but appears to be in no acute distress. On 2 L of oxygen his saturation 94-96%. On 08/09/2021 patient seen in follow-up. Patient is awake and alert, he states he is breathing easier, and right-sided pleuritic chest pain is improved although still there with deep breathing and coughing. Ultrasound the chest has been reviewed showing 2.3 centimeter pleural fluid pocket and it was not possible to market related to the pocket, lung location and internal echoes. Labs have been reviewed, white blood cell count is slightly improved and is down to 27.4, hemoglobin is 13.1, platelet count is 635, sodium is 134, depressed electrolytes and renal profile are unremarkable. Urinalysis showed small amount of blood, white blood cells, but no clear evidence of infection. COVID-19 PCR was negative. Progress note dated 08/10/2021. This is a 60-year-old male, again seen in room 457. Yesterday, Dr. Erickson did a diagnostic thoracentesis on the patient. He states that the material that he was able to get out of the right pleural space, was purulent. He sent for cytology, chemistry, and microbiology. It appears to be pus. The glucose extremely low. It is an exudate. There is a predominance of white blood cells, mostly polymorphonuclear neutrophils. We are going to ask interventional r adiology to consider placing a pigtail catheter. We did ask cardiothoracic surgery to see the patient. They would prefer to avoid chest tube placement. Currently, the patient doesn't feel horrible. He remains on 3 L of oxygen. Saturations are between 94 to 97%. White count 23.4, hemoglobin 11.4, hematocrit 35, and platelet count 512,000. Sodium 133, potassium, chloride, CO2, anion gap, BUN, and creatinine all normal. Sputum was only positive for Milli. Fluid analysis reveals 28,971 white blood cells, of which 97% of PMNs. In addition, the glucose was less than 2. The protein was 4.19 g, and the LDH was greater than 2500. This is consistent with an empyema. We will ask interventional radiology consider placing a pigtail catheter. Objective - Vital Signs Vital signs: Vital Signs Temp 102.3 F H 08/10/21 14:00 Pulse 92 08/10/21 14:00 Resp 18 08/10/21 14:00 BP 132/88 08/10/21 14:00 Pulse Ox 94 L 08/10/21 14:00 Intake & Output 08/09/21 08/10/21 08/10/21 18:59 06:59 18:59 Intake Total 100 Balance 100 Intake: Intake, IV Titration 100 Amount cefTRIAXone 2 gm In 100 Sodium Chloride 0.9% 50 ml @ 100 mls/hr IVPB Q24HR [facility] Rx#:[id number] Other: Voiding Method Urinal Urinal - Exam No acute distress, oriented 3. No respiratory distress or difficulty. No conversational dyspnea or use of accessory muscles. HEENT examination is grossly unremarkable. Neck supple. Full range of motion. No adenopathy thyromegaly or neck vein distention. Cardiovascular examination reveals regular rhythm rate. S1-S2 normal. No S3 or S4. No discernible murmur noted. Heart rate 92 bpm. Lungs reveal clear breath sounds on the left. Significantly diminished breath sounds on the right. No wheezes, rhonchi, or crackles. Abdomen soft bowel sounds are heard. No masses or tenderness. Extremities are intact. No cyanosis clubbing or edema. Skin is without rash or lesion. Neurologic examination is brief but nonfocal. - Labs CBC & Chem 7: 08/10/21 04:53 08/10/21 04:53 Labs: Abnormal Lab Results - Last 24 Hours (Table) 08/10/21 08/10/21 Range/Units 04:53 04:53 WBC 23.40 H (4.50-10.00) X 10*3/uL RBC 3.82 L (4.40-5.60) X 10*6/uL Hgb 11.4 L (13.0-17.0) g/dL Hct 35.0 L (39.6-50.0) % Plt Count 512 H (140-440) X 10*3/uL Immature Gran # 0.32 H (0.00-0.04) X 10*3/uL Neutrophils # 20.04 H (1.80-7.70) X 10*3/uL Monocytes # 1.44 H (0.20-1.00) X 10*3/uL Sodium 133 L (135-145) mmol/L BUN/Creatinine Ratio 24.00 H (12.00-20.00) Ratio Calcium 7.9 L (8.7-10.3) mg/dL Total Protein 4.8 L (6.2-8.2) g/dL Albumin 2.3 L (3.8-4.9) g/dL Albumin/Globulin Ratio 0.92 L (1.60-3.17) g/dL Microbiology - Last 24 Hours (Table) 08/08/21 20:11 Gram Stain - Final Sputum Sputum Culture - Final Milli albicans 08/09/21 14:20 Gram Stain - Preliminary Pleural Fluid Body Fluid Culture - Preliminary 08/09/21 14:20 Acid Fast Bacilli Culture - Preliminary Pleural Fluid 08/09/21 14:20 Fungal Culture - Preliminary Pleural Fluid 08/07/21 17:50 Blood Culture - Preliminary Blood No Growth after 48 hours 08/07/21 17:35 Blood Culture - Preliminary Blood No Growth after 48 hours Assessment and Plan Assessment: Pneumonia, right lower lobe, with parapneumonic effusion/empyema. Previous history of tobacco use. Pleuritic chest pain, secondary to process, within the right lung. Previous bariatric surgery with stomach stapling. History of CAD. History of BPH. History of COPD. Plan: Plan dated 08/10/2021. The fluid analysis, from the diagnostic thoracentesis performed by interventional radiology, suggested empyema. We will ask interventional radiology to consider pigtail catheter placement. We did ask thoracic surgery to see the patient, but they felt that pigtail catheter placement by interventional radiology would be more appropriate than chest tube placement. We will continue to follow along. The patient's currently on antibiotics. The patient doesn't feel any worse today than he did yesterday. I did explain the process to the patient, and what to expect. He does understand. We will continue to follow along and make recommendations where appropriate. Prognosis is guarded. Time with Patient: Less than 30
[2021-08-10] MEDS: AZITHROMYCIN 500 MG TAB PO SCH (22:28)
[2021-08-11] MEDS: ACETAMINOPHEN TAB 325 MG TAB PO PRN ×2 (03:20→14:14)
[2021-08-11] MEDS: SODIUM CHLORIDE 0.9% 1,000 ML IV SCH ×3 (07:01→23:16)
[2021-08-11] MEDS: HEPARIN SODIUM,PORCINE/PF 5,000 UNIT/0.5 ML SYRINGE SQ SCH ×3 (07:46→23:16)
--- NOTE | 2021-08-11 08:40 | P.GSCN ---
History of Present Illness Consult date: 08/11/21 Reason for Consult: Right chest empyema Requesting physician: Steve Daniel History of present illness: This is a 60-year-old active gentleman who follows on an outpatient basis with Dr. Beka Phillips. He has a previous medical history of tobacco dependence which he quit 3 years ago, 2 beers per day EtOH use, occasional marijuana use, previous stomach stapling, and family history of heart and lung disease. He pre sented to [facility] emergency room on 08/07/2021 with complaints of right-sided chest pain and shortness of breath. His symptoms have been ongoing for approximately 1 week but had been getting progressively worse. He initially presented to an urgent care center, a chest x-ray was taken and he was recommended to report to the emergency room. Associated symptoms include productive cough as well as fever. In the ER chest x-ray demonstrated right basilar opacity with small pleural effusion. CTA of the chest was also completed demonstrating no acute pulmonary embolism but confirming small to moderate right pleural effusion with accompanying basilar opacities. WBC was 30.4, d-dimer was 2.52, lactic acid was 1.3, troponin was negative, and coronavirus PCR was undetected. The patient was admitted with right lower lobe pneumonia and pleural effusion, started on antibiotics, and consultation was placed to pulmonology for treatment recommendations. The patient did have an ultrasound of the chest, diagnostic thoracentesis was completed 08/09/2021 demonstrating 28,971 white blood cells protein 4190, LDH greater than 2500, and glucose less than 2, felt to be consistent with empyema. Consultation was then placed to Dr. Irene from cardiothoracic surgery for possible chest tube placement. Review of Systems Review of systems was completed and was negative except as noted - Constitutional Reports fever - Cardiovascular Reports chest pain, Reports shortness of breath - Respiratory Reports cough with sputum Past Medical History Past Medical History: COPD, Prostate Disorder Additional Past Medical History / Comment(s): diverticulitis History of Any Multi-Drug Resistant Organisms: None Reported Past Surgical History: Appendectomy, Bariatric Surgery, Tonsillectomy Additional Past Surgical History / Comment(s): STOMACH STAPLING Past Anesthesia/Blood Transfusion Reactions: No Reported Reaction Past Psychological History: No Psychological Hx Reported Smoking Status: Former smoker Past Alcohol Use History: Daily Additional Past Alcohol Use History / Comment(s): QUIT SMOKING 2019. DRINKS 2-3 BEERS DAILY Past Drug Use History: Marijuana Additional Drug Use History / Comment(s): SMOKES MARIJUANA 2-3 TIMES A WEEK - Past Family History Mother Family Medical History: COPD Father Family Medical History: Coronary Artery Disease (CAD) Medications and Allergies Home Medications Medication Instructions Recorded Confirmed Type Omeprazole Magnesium [PriLOSEC OTC] 20 mg PO DAILY PRN 08/07/21 08/07/21 History Allergies Allergy/AdvReac Type Severity Reaction Status Date / Time No Known Allergies Allergy Verified 08/07/21 17:45 Surgical - Exam Vital Signs Temp Pulse Resp BP Pulse Ox 101.4 F H 91 18 140/77 96 08/07/21 17:06 08/07/21 17:06 08/07/21 17:06 08/07/21 17:06 08/07/21 17:06 CONSTITUTIONAL: Awake and alert, appears comfortable, cooperative, well- developed, well-nourished, no pain, no acute distress EYES: Pupils equal, round, reactive to light, normal ocular movement ENT: Moist mucous membranes without oral lesions present NECK: No masses, no bruits, trachea midline RESPIRATORY: Lungs sounds diminished bilaterally, right greater than left especially in the right base. Respirations even, nonlabored. Currently on 2 L nasal cannula with oxygen saturation 96%. Strong productive cough. CARDIOVASCULAR: S1, S2 present. Regular rate and rhythm. Palpable peripheral pulses bilaterally. No edema present. GASTROINTESTINAL: Abdomen soft, nontender, nondistended without masses or organomegaly noted. There is no rebound or guarding present. Active bowel sounds present 4 quadrants. GENITOURINARY: Deferred INTEGUMENTARY: Skin is warm and dry with evidence of good perfusion. NEUROLOGIC: Cranial nerves II through XII intact, normal coordination, no obvious motor or sensory deficits, speech is normal MUSKULOSKELETAL: Able to move all extremities, strength equal bilaterally, normal posture PSYCHIATRIC: Alert and oriented to person place and time, appropriate affect, intact judgment and insight Results - Labs 08/10/21 04:53 08/10/21 04:53 Abnormal Lab Results - Last 24 Hours (Table) 08/10/21 08/10/21 Range/Units 04:53 04:53 WBC 23.40 H (4.50-10.00) X 10*3/uL RBC 3.82 L (4.40-5.60) X 10*6/uL Hgb 11.4 L (13.0-17.0) g/dL Hct 35.0 L (39.6-50.0) % Plt Count 512 H (140-440) X 10*3/uL Immature Gran # 0.32 H (0.00-0.04) X 10*3/uL Neutrophils # 20.04 H (1.80-7.70) X 10*3/uL Monocytes # 1.44 H (0.20-1.00) X 10*3/uL Sodium 133 L (135-145) mmol/L BUN/Creatinine Ratio 24.00 H (12.00-20.00) Ratio Calcium 7.9 L (8.7-10.3) mg/dL Total Protein 4.8 L (6.2-8.2) g/dL Albumin 2.3 L (3.8-4.9) g/dL Albumin/Globulin Ratio 0.92 L (1.60-3.17) g/dL Microbiology - Last 24 Hours (Table) 08/09/21 14:20 Acid Fast Bacilli Smear - Final Pleural Fluid Acid Fast Bacilli Culture - Preliminary 08/07/21 17:50 Blood Culture - Preliminary Blood No Growth after 72 hours 08/09/21 14:20 Gram Stain - Preliminary Pleural Fluid Body Fluid Culture - Preliminary 08/07/21 17:35 Blood Culture - Preliminary Blood No Growth after 72 hours 08/08/21 20:11 Gram Stain - Final Sputum Sputum Culture - Final Milli albicans Diabetes panel 08/10/21 Range/Units 04:53 Sodium 133 L (135-145) mmol/L Potassium 4.0 (3.5-5.5) mmol/L Chloride 100 (96-109) mmol/L Carbon Dioxide 21.8 (20.0-27.5) mmol/L BUN 14.4 (9.0-27.0) mg/dL Creatinine 0.6 (0.6-1.5) mg/dL Glucose 87 (70-110) mg/dL Calcium 7.9 L (8.7-10.3) mg/dL AST 20 (14-35) U/L ALT 17 (10-49) U/L Alkaline Phosphatase 80 (41-126) U/L Total Protein 4.8 L (6.2-8.2) g/dL Albumin 2.3 L (3.8-4.9) g/dL Calcium panel 08/10/21 Range/Units 04:53 Calcium 7.9 L (8.7-10.3) mg/dL Albumin 2.3 L (3.8-4.9) g/dL Pituitary panel 08/10/21 Range/Units 04:53 Sodium 133 L (135-145) mmol/L Potassium 4.0 (3.5-5.5) mmol/L Chloride 100 (96-109) mmol/L Carbon Dioxide 21.8 (20.0-27.5) mmol/L BUN 14.4 (9.0-27.0) mg/dL Creatinine 0.6 (0.6-1.5) mg/dL Glucose 87 (70-110) mg/dL Calcium 7.9 L (8.7-10.3) mg/dL Adrenal panel 08/10/21 Range/Units 04:53 Sodium 133 L (135-145) mmol/L Potassium 4.0 (3.5-5.5) mmol/L Chloride 100 (96-109) mmol/L Carbon Dioxide 21.8 (20.0-27.5) mmol/L BUN 14.4 (9.0-27.0) mg/dL Creatinine 0.6 (0.6-1.5) mg/dL Glucose 87 (70-110) mg/dL Calcium 7.9 L (8.7-10.3) mg/dL Total Bilirubin 0.30 (0.30-1.20) mg/dL AST 20 (14-35) U/L ALT 17 (10-49) U/L Alkaline Phosphatase 80 (41-126) U/L Total Protein 4.8 L (6.2-8.2) g/dL Albumin 2.3 L (3.8-4.9) g/dL - Imaging Chest x-ray: report reviewed, image reviewed CT scan - chest: report reviewed, image reviewed Assessment and Plan Assessment: 1. Right lower lobe pneumonia, parapneumonic effusion, thoracentesis fluid analysis consistent with empyema 2. Shortness of breath, right-sided chest pain secondary to above 3. History of tobacco dependence with cessation 3 years ago 4. Daily EtOH use 5. Occasional marijuana use 6. Previous stomach stapling 7. Family history of heart and lung disease Plan: The patient was seen and examined this morning at the bedside sitting up eating breakfast in no acute distress. He states he feels better since admission. Remains on 2 L nasal cannula with good oxygen saturation. Remains on Zithromax and ceftriaxone for antibiotics. The patient's films were reviewed in detail by Dr. Irene yesterday, discussion was had between Dr. Irene and Dr. Daniel. At this time our recommendation is for right-sided pigtail catheter placement by interventional radiology for drainage of his effusion. Will monitor daily x- rays. Incentive spirometry ordered and should be encouraged. Medical management with her comorbidities per primary care service. More recommendations to follow. Thank you Dr. Daniel for this consult. We look forward to working with you in the care of your patient. I have personally seen and examined the patient, performed the documentation and the assessment and plan as written. Number of minutes spent on the visit: 30. Time with Patient: Greater than 30
[2021-08-11 09:22] LABS: Basophils # (A) 0.03 X 10*3/uL (0.00-0.10); Basophils % (A) 0.2 %; Eosinophils # (A) 0.04 X 10*3/uL (0.04-0.35); Eosinophils % (A) 0.2 %; HCT 32.6 % (39.6-50.0); HGB 10.3 g/dL (13.0-17.0); Immature Grans, Automated 0.6 %; Lymphocytes % (A) 8.5 %; MCH 28.8 pg (27.0-32.0); MCHC 31.6 g/dL (32.0-37.0); MCV 91.1 fL (80.0-97.0); Mean Platelet Volume 9.4 fL (9.5-12.2); Monocytes # (A) 1.35 X 10*3/uL (0.20-1.00); Monocytes % (A) 7.6 %; NRBC Per 100 WBC 0 /100 WBCS (0.0-0.0); Neutrophils # (A) 14.66 X 10*3/uL (1.80-7.70); Neutrophils % (A) 82.9 %; Platelet Count 458 X 10*3/uL (140-440); RBC 3.58 X 10*6/uL (4.40-5.60); RDW 13.5 % (11.5-14.5); WBC 17.68 X 10*3/uL (4.50-10.00)
[2021-08-11 09:33] LABS: African American GFR (CKD) 136.1 (60.0-200.0); Albumin 2.1 g/dL (3.8-4.9); Albumin/Globulin Ratio 0.84 (1.60-3.17); Anion Gap 11.4 mmol/L (10.00-18.00); BUN/Creat Ratio 16.72 Ratio (12.00-20.00); Blood Urea Nitrogen 8.6 mg/dL (9.0-27.0); Calcium 7.7 mg/dL (8.7-10.3); Carbon Dioxide 20.7 mmol/L (20.0-27.5); Globulin 2.5 g/dL (1.6-3.3); Non-African American GFR(CKD) 117.5 (60.0-200.0); Potassium 3.5 mmol/L (3.5-5.5); Total Bilirubin 0.3 mg/dL (0.30-1.20); Total Protein 4.6 g/dL (6.2-8.2)
[2021-08-11] MEDS: IPRATROPIUM-ALBUTEROL 3 ML NEB INHALATION PRN ×2 (11:19→11:23)
--- NOTE | 2021-08-11 12:35 | PN ---
PROGRESS NOTE This 60-year-old white male had a large pleural effusion. White cell count was protein 4190. LDH greater than 2500. Glucose less than 2. with empyema. Cardiothoracic Surgery is going to possibly put a chest tube in to drain the rest of the pus. There still remains a large pleural effusion. He is having shortness of breath with deep breathing and right-sided chest pain. HEART: S1, S2. He is saturating 96 on 2 L. GI soft. White count 23,000, hemoglobin 11.4. ASSESSMENT: 1. Right lower lobe pneumonia. 2. Parapneumonic effusion. 3. Empyema. 4. Shortness of breath. 5. Chest pain secondary to above. 6. Nicotine addiction. 7. Alcohol abuse. 8. Marijuana use. 9. Previous stomach stapling. Remains on 2 L going to do a catheter by Interventional Radiology for drainage of his effusion. Will monitor daily x-rays. Prognosis guarded. MMODL / IJN: [id number] /
--- NOTE | 2021-08-11 13:02 | P.PN ---
Subjective Progress Note Date: 08/11/21 60-year-old outpatient with past medical history of bariatric surgery, stomach stapling 30 years ago, former smoker, who came into the emergency department on the 08/07/2021 with complaints of right-sided pleuritic chest pain and shortness of breath. he states initial symptom onset was about a week ago and progressively became worse, he went to the urgent care initially, chest x-ray was taken and he was told that he needed to go to the emergency department as he was right lung appear to be collapsed at the bottom. In addition patient was febrile, and coughing up some purulent phlegm. In the emergency department chest x-ray showing right basilar opacity with small pleural effusion, CTA chest showing small to moderate right pleural effusion with accompanying basilar atelectasis. Lab work showed white blood cell count of 30.4, hemoglobin of 12.9, platelet count of 682, INR of 1.1, d-dimer was 2.5 to but CTA showed no evidence of pulmonary embolism. COVID 19 PCR is negative. Patient was started on azithromycin and Rocephin. This morning he seen sitting up in bed, is still having some pleuritic right lower rib cage pain with inspiration and coughing, but appears to be in no acute distress. On 2 L of oxygen his saturation 94-96%. On 08/09/2021 patient seen in follow-up. Patient is awake and alert, he states he is breathing easier, and right-sided pleuritic chest pain is improved although still there with deep breathing and coughing. Ultrasound the chest has been reviewed showing 2.3 centimeter pleural fluid pocket and it was not possible to market related to the pocket, lung location and internal echoes. Labs have been reviewed, white blood cell count is slightly improved and is down to 27.4, hemoglobin is 13.1, platelet count is 635, sodium is 134, depressed electrolytes and renal profile are unremarkable. Urinalysis showed small amount of blood, white blood cells, but no clear evidence of infection. COVID-19 PCR was negative. Progress note dated 08/10/2021. This is a 60-year-old male, again seen in room 457. Yesterday, Dr. Erickson did a diagnostic thoracentesis on the patient. He states that the material that he was able to get out of the right pleural space, was purulent. He sent for cytology, chemistry, and microbiology. It appears to be pus. The glucose extremely low. It is an exudate. There is a predominance of white blood cells, mostly polymorphonuclear neutrophils. We are going to ask interventional radiology to consider placing a pigtail catheter. We did ask cardiothoracic surgery to see the patient. They would prefer to avoid chest tube placement. Currently, the patient doesn't feel horrible. He remains on 3 L of oxygen. Saturations are between 94 to 97%. White count 23.4, hemoglobin 11.4, hematocrit 35, and platelet count 512,000. Sodium 133, potassium, chloride, CO2, anion gap, BUN, and creatinine all normal. Sputum was only positive for Milli. Fluid analysis reveals 28,971 white blood cells, of which 97% of PMNs. In addition, the glucose was less than 2. The protein was 4.19 g, and the LDH was greater than 2500. This is consistent with an empyema. We will ask interventional radiology consider placing a pigtail catheter. The patient is seen today 08/11/2021 in follow-up on the regular medical floor. He has been up ambulating in the room. He is still dyspneic with minimal exertion. Denies any fever, chills or night sweats. He is maintaining good O2 saturations in the mid to upper 90s on 3 L/m per nasal cannula. He remains afebrile. Hemodynamically stable. Pleural fluid cultures are pending. Sputum culture positive for Milli only. Blood cultures are showing no growth. White count 18. Hemoglobin 10.3. Platelets 455. Sodium 1:30. Potassium 3.5. Bicarb 21. Creatinine 0.5. He remains on antibiotics in the form of ceftriaxone and azithromycin. Continue bronchodilators. Heparin for DVT prophylaxis. Normal saline at 100 ML's per hour. He has been seen by CT services who are recommending INR place a pigtail catheter. He'll be nothing by mouth tonight. Objective - Vital Signs Vital signs: Vital Signs Temp 98.4 F 08/11/21 08:00 Pulse 87 08/11/21 11:31 Resp 18 08/11/21 08:00 BP 119/76 08/11/21 08:00 Pulse Ox 98 08/11/21 11:23 Intake & Output 08/10/21 08/11/21 08/11/21 17:59 06:59 18:59 Intake Total Balance Intake: Intake, IV Titration Amount Sodium Chloride 0.9% 1, 000 ml @ 100 mls/hr IV . Q10H [facility] Rx#:[id number] Oral Other: Voiding Method # Voids # Bowel Movements - Exam GENERAL EXAM: Alert, active, pleasant 60-year-old male patient, on 3 L nasal cannula, comfortable in no apparent distress. HEAD: Normocephalic. EYES: Normal reaction of pupils, equal size. NOSE: Clear with pink turbinates. THROAT: No erythema or exudates. NECK: No masses, no JVD. CHEST: No chest wall deformity. LUNGS: Equal air entry with crackles in the right lung base. Diminished.. CVS: S1 and S2 normal with no audible murmur, regular rhythm. ABDOMEN: No hepatosplenomegaly, normal bowel sounds, no guarding or rigidity. SPINE: No scoliosis or deformity SKIN: No rashes CENTRAL NERVOUS SYSTEM: No focal deficits, tone is normal in all 4 extremities. EXTREMITIES: There is no peripheral edema. No clubbing, no cyanosis. Peripheral pulses are intact. - Labs CBC & Chem 7: 08/11/21 04:08 08/11/21 04:08 Labs: Abnormal Lab Results - Last 24 Hours (Table) 08/11/21 08/11/21 Range/Units 04:08 04:08 WBC 17.68 H (4.50-10.00) X 10*3/uL RBC 3.58 L (4.40-5.60) X 10*6/uL Hgb 10.3 L (13.0-17.0) g/dL Hct 32.6 L (39.6-50.0) % MCHC 31.6 L (32.0-37.0) g/dL Plt Count 458 H (140-440) X 10*3/uL MPV 9.4 L (9.5-12.2) fL Immature Gran # 0.10 H (0.00-0.04) X 10*3/uL Neutrophils # 14.66 H (1.80-7.70) X 10*3/uL Monocytes # 1.35 H (0.20-1.00) X 10*3/uL Sodium 130 L (135-145) mmol/L BUN 8.6 L (9.0-27.0) mg/dL Creatinine 0.5 L (0.6-1.5) mg/dL Calcium 7.7 L (8.7-10.3) mg/dL Total Protein 4.6 L (6.2-8.2) g/dL Albumin 2.1 L (3.8-4.9) g/dL Albumin/Globulin Ratio 0.84 L (1.60-3.17) g/dL Microbiology - Last 24 Hours (Table) 08/09/21 14:20 Acid Fast Bacilli Smear - Final Pleural Fluid Acid Fast Bacilli Culture - Preliminary 08/07/21 17:50 Blood Culture - Preliminary Blood No Growth after 72 hours 08/09/21 14:20 Gram Stain - Preliminary Pleural Fluid Body Fluid Culture - Preliminary 08/07/21 17:35 Blood Culture - Preliminary Blood No Growth after 72 hours 08/08/21 20:11 Gram Stain - Final Sputum Sputum Culture - Final Milli albicans Assessment and Plan Assessment: 1 Acute hypoxemic respiratory failure secondary to community acquired pneumonia, right lower lobe, with parapneumonic effusion/empyema. 2 Previous history of tobacco use. 3 Pleuritic chest pain, secondary to pneumonia within the right lung. 4 Previous bariatric surgery with stomach stapling. 5 History of CAD. 6 History of BPH. 7 History of COPD. Plan: The patient was seen and evaluated Plan is for pigtail catheter placement tomorrow with interventional radiology Nothing by mouth after midnight Continue ceftriaxone and azithromycin for now We will continue to follow I have personally seen and examined the patient, performed the documentation and the assessment and plan as written. Number of minutes spent on the visit: 10.
[2021-08-11] MEDS: AZITHROMYCIN 500 MG TAB PO SCH (20:12)
[2021-08-12] MEDS: ACETAMINOPHEN TAB 325 MG TAB PO PRN ×3 (00:43→20:32)
--- NOTE | 2021-08-12 08:21 | XR ---
EXAMINATION TYPE: XR chest 2V DATE OF EXAM: 08/12/2021 COMPARISON: 08/10/2021 HISTORY: 60-year-old male pneumonia TECHNIQUE: PA and lateral views FINDINGS: Slight leftward cardiac shift. Stable calcified granuloma left base. Worsening white out of the right hemithorax with worsening aeration now of the medial right upper lobe. Levoconvex curvature of the t horacic spine. IMPRESSION: Interval worsening now with white out of the right hemithorax. Suspect some mass effect causing sligh t leftward shift of the heart.
--- NOTE | 2021-08-12 08:57 | P.PN ---
Subjective Progress Note Date: 08/12/21 Principal diagnosis: Right lower lobe pneumonia, parapneumonic effusion, thoracentesis fluid analysis consistent with empyema. Previous medical history of tobacco dependence with cessation 3 years ago, daily EtOH use, occasional marijuana use, previous stomach stapling The patient was seen and examined sitting up in bed this morning on the medical surgical unit in no acute distress. Patient is a little bit more short of breath this morning with activity, no increased oxygen demand, actively using incentive spirometry. Chest x-ray reviewed this morning, right lung appears worse, awaiting placement of pigtail catheter. Remains on IV antibiotics. No other new concerns. Objective - Vital Signs Vital signs: Vital Signs Temp 98.6 F 08/12/21 07:31 Pulse 95 08/12/21 07:31 Resp 17 08/12/21 07:31 BP 127/81 08/12/21 07:31 Pulse Ox 95 08/12/21 07:31 Intake & Output 08/11/21 08/12/21 08/12/21 18:59 06:59 18:59 Intake Total 1400 Balance 1400 Intake: Intake, IV Titration 1100 Amount Sodium Chloride 0.9% 1, 1100 000 ml @ 100 mls/hr IV . Q10H [facility] Rx#:[id number] Oral 300 Other: Voiding Method Urinal # Voids 2 3 - Exam CONSTITUTIONAL: Appears comfortable, cooperative, no acute distress RESPIRATORY: Lungs sounds diminished bilaterally. Respirations even, non labored. Currently on 3 L nasal cannula with oxygen saturation 95%. Able to achieve 1250 mL on incentive spirometry. Strong cough. CARDIOVASCULAR: S1, S2 present. Regular rate and rhythm, sinus rhythm on telemetry. Palpable peripheral pulses bilaterally. No edema present. No calf pain or tenderness noted. SCDs present. GASTROINTESTINAL: Abdomen soft, nontender, nondistended. Active bowel sounds present 4 quadrants. Currently nothing by mouth for procedure GENITOURINARY: Continues to void clear, yellow urine INTEGUMENTARY: Skin is warm and dry with evidence of good perfusion NEUROLOGIC: Cranial nerves II through XII intact MUSKULOSKELETAL: Able to move all extremities, strength equal bilaterally, gait normal PSYCHIATRIC: Alert and oriented to person place and time, appropriate affect, intact judgment and insight - Allied health notes Allied health notes reviewed: nursing - Labs CBC & Chem 7: 08/11/21 04:08 08/11/21 04:08 Labs: Abnormal Lab Results - Last 24 Hours (Table) 08/11/21 08/11/21 Range/Units 04:08 04:08 WBC 17.68 H (4.50-10.00) X 10*3/uL RBC 3.58 L (4.40-5.60) X 10*6/uL Hgb 10.3 L (13.0-17.0) g/dL Hct 32.6 L (39.6-50.0) % MCHC 31.6 L (32.0-37.0) g/dL Plt Count 458 H (140-440) X 10*3/uL MPV 9.4 L (9.5-12.2) fL Immature Gran # 0.10 H (0.00-0.04) X 10*3/uL Neutrophils # 14.66 H (1.80-7.70) X 10*3/uL Monocytes # 1.35 H (0.20-1.00) X 10*3/uL Sodium 130 L (135-145) mmol/L BUN 8.6 L (9.0-27.0) mg/dL Creatinine 0.5 L (0.6-1.5) mg/dL Calcium 7.7 L (8.7-10.3) mg/dL Total Protein 4.6 L (6.2-8.2) g/dL Albumin 2.1 L (3.8-4.9) g/dL Albumin/Globulin Ratio 0.84 L (1.60-3.17) g/dL Microbiology - Last 24 Hours (Table) 08/07/21 17:50 Blood Culture - Preliminary Blood No Growth after 96 hours 08/07/21 17:35 Blood Culture - Preliminary Blood No Growth after 96 hours - Imaging and Cardiology Chest x-ray: report reviewed, image reviewed Assessment and Plan Assessment: 1. Right lower lobe pneumonia, parapneumonic effusion, thoracentesis fluid analysis consistent with empyema 2. Shortness of breath, right-sided chest pain secondary to above 3. History of tobacco dependence with cessation 3 years ago 4. Daily EtOH use 5. Occasional marijuana use 6. Previous stomach stapling 7. Family history of heart and lung disease Plan: 1. Await placement of pigtail catheter by interventional radiology 2. Wean O2 as tolerated. Encourage incentive spirometry use 10 times every hour while awake 3. Continue with antibiotics 4. Increase activity as tolerated 5. Medical management of other comorbidities per primary care service 6. More recommendations to follow Time with Patient: Greater than 30
[2021-08-12 09:42] LABS: HCT 35.3 % (39.6-50.0); HGB 11.2 g/dL (13.0-17.0); MCH 28.9 pg (27.0-32.0); MCHC 31.7 g/dL (32.0-37.0); Mean Platelet Volume 9.7 fL (9.5-12.2); NRBC Per 100 WBC 0 /100 WBCS (0.0-0.0); Platelet Count 504 X 10*3/uL (140-440); RBC 3.88 X 10*6/uL (4.40-5.60); RDW 13.6 % (11.5-14.5); WBC 17.12 X 10*3/uL (4.50-10.00)
[2021-08-12 09:52] LABS: African American GFR (CKD) 137.5 (60.0-200.0); Albumin 2.5 g/dL (3.8-4.9); Anion Gap 11.9 mmol/L (10.00-18.00); BUN/Creat Ratio 15.6 Ratio (12.00-20.00); Blood Urea Nitrogen 7.8 mg/dL (9.0-27.0); Calcium 7.8 mg/dL (8.7-10.3); Carbon Dioxide 22.1 mmol/L (20.0-27.5); Globulin 2.5 g/dL (1.6-3.3); Non-African American GFR(CKD) 118.6 (60.0-200.0); Potassium 3.5 mmol/L (3.5-5.5); Total Bilirubin 0.4 mg/dL (0.30-1.20)
--- NOTE | 2021-08-12 10:21 | US ---
EXAMINATION TYPE: US guided chest tube insertion DATE OF EXAM: 08/12/2021 COMPARISON: NONE HISTORY: Right Pleural effusion. FINDINGS: Maximal barrier technique was utilized. The skin overlying a suitable pocket of fluid in t he posterior right chest was localized and the overlying skin prepped and draped. Lidocaine was used for local anesthesia. Ultrasound was used with sterile technique. A 21-gauge needle was advanced in to the pleural fluid collection in the posterior right chest using ultrasound guidance and turbid ser ous fluid was aspirated. 0.018 inch wire was advanced and the access site was upsized with a transiti onal dilator, 0.038 inch wire advanced and the access site was dilated and subsequently an 8.5 Kinyarwanda tube was advanced over the wire deployed within the right chest. Catheter attached to water seal. Po st procedure chest x-ray pending. There is no immediate complication. The patient discharged in stab le condition without complication with unchanged disposition. IMPRESSION: STATUS POST ULTRASOUND GUIDED PLEURAL DRAINAGE TUBE CATHETER PLACEMENT, POST PROCEDURE CH EST X-RAY PENDING. THIS PROCEDURE WAS PERFORMED BY THE UNDERSIGNED.
--- NOTE | 2021-08-12 10:39 | XR ---
EXAMINATION TYPE: XR chest 1V portable DATE OF EXAM: 08/12/2021 COMPARISON: Chest x-ray 08/12/2021 HISTORY: Chest tube placement TECHNIQUE: Single frontal view of the chest is obtained. FINDINGS: There is been interval placement of a pigtail catheter in the posterior right chest. There is an interval improvement in aeration, diminution in the right-sided pleural effusion. No evident p neumothorax. IMPRESSION: Interval chest tube placement as described.
[2021-08-12 10:57] LABS: Basophils # (A) 0.04 X 10*3/uL (0.00-0.10); Basophils % (A) 0.2 %; Eosinophils # (A) 0.04 X 10*3/uL (0.04-0.35); Eosinophils % (A) 0.2 %; Immature Grans, Automated 0.7 %; Lymphocytes # (A) 1.75 X 10*3/uL (0.90-5.00); Lymphocytes % (A) 10.2 %; Monocytes # (A) 1.69 X 10*3/uL (0.20-1.00); Monocytes % (A) 9.9 %; Neutrophils # (A) 13.48 X 10*3/uL (1.80-7.70); Neutrophils % (A) 78.8 %; RBC Morphology NORMAL
[2021-08-12] MEDS: HEPARIN SODIUM,PORCINE/PF 5,000 UNIT/0.5 ML SYRINGE SQ SCH ×4 (11:28→23:19)
[2021-08-12] MEDS: SODIUM CHLORIDE 0.9% 1,000 ML IV SCH ×2 (11:28→20:32)
[2021-08-12] MEDS: ALBUTEROL NEBULIZED 2.5 MG/3 ML INHALATION PRN (12:03)
--- NOTE | 2021-08-12 13:01 | XR ---
EXAMINATION TYPE: XR chest 1V portable DATE OF EXAM: 08/12/2021 Comparison: 08/12/2021 Clinical History: 60-year-old male S/P R pigtail drainage, F/U effusion Findings: Heart normal size. Mild hyperinflation. Decreasing, now moderate sized right pleural effusion though it continues to extend up to the apex. A right basilar pigtail pleural catheter is present. No pneumo thorax. Bilateral rotator cuff arthropathy. Impression: Decreasing, now moderate-sized right effusion though the meniscus of the effusion continues to extend to the apex. Pigtail pleural catheter is present at the right base.
[2021-08-12] MEDS ORDERED: ALTEPLASE 10 MG in SODIUM CHLORIDE 0.9% 50 ML IRRIGATION ONE (13:34)
[2021-08-12] MEDS ORDERED: DORNASE ALFA 5 MG in SODIUM CHLORIDE 0.9% 50 ML IRRIGATION ONE (13:34)
--- NOTE | 2021-08-12 13:57 | PN ---
PROGRESS NOTE This 60-year-old white male was admitted with empyema. He had a chest tube placed in his right chest today for drainage. His white count remains 17,000. Waiting for pathology on the prior tap tube fluid to take his pain away. He has Milli albicans in his sputum. Will possibly have to put him on Diflucan for now. Blood cultures are negative. Waiting for other cultures at this point. Prognosis is guarded. He continues to have less chest pain breathing. Lungs with scattered rhonchi and wheeze. Cardiovascular S1, S2. He is 96% on 3 L. Blood pressure 130/78, pulse 90s, respiratory rate 16 to 18. PLAN: Continue drainage with pleural tube. Wait for cultures. Continue broad-spectrum antibiotics. Get infectious disease consult. Prognosis guarded. MMODL / IJN: [id number] /
--- NOTE | 2021-08-12 15:52 | P.PN ---
<Cyn Jackson M - Last Filed: 08/12/21 15:45> Subjective Progress Note Date: 08/12/21 Principal diagnosis: Shortness of breath, right chest pleuritic pain 60-year-old outpatient with past medical history of bariatric surgery, stomach stapling 30 years ago, former smoker, who came into the emergency department on the 08/07/2021 with complaints of right-sided pleuritic chest pain and shortness of breath. he states initial symptom onset was about a week ago and progressively became worse, he went to the urgent care initially, chest x-ray was taken and he was told that he needed to go to the emergency department as he was right lung appear to be collapsed at the bottom. In addition patient was febrile, and coughing up some purulent phlegm. In the emergency department chest x-ray showing right basilar opacity with small pleural effusion, CTA chest showing small to moderate right pleural effusion with accompanying basilar atelectasis. Lab work showed white blood cell count of 30.4, hemoglobin of 12.9, platelet count of 682, INR of 1.1, d-dimer was 2.5 to but CTA showed no evidence of pulmonary embolism. COVID 19 PCR is negative. Patient was started on azithromycin and Rocephin. This morning he seen sitting up in bed, is still having some pleuritic right lower rib cage pain with inspiration and coughing, but appears to be in no acute distress. On 2 L of oxygen his saturation 94-96%. On 08/09/2021 patient seen in follow-up. Patient is awake and alert, he states he is breathing easier, and right-sided pleuritic chest pain is improved although still there with deep breathing and coughing. Ultrasound the chest has been reviewed showing 2.3 centimeter pleural fluid pocket and it was not possible to market related to the pocket, lung location and internal echoes. Labs have been reviewed, white blood cell count is slightly improved and is down to 27.4, hemoglobin is 13.1, platelet count is 635, sodium is 134, depressed electrolytes and renal profile are unremarkable. Urinalysis showed small amount of blood, white blood cells, but no clear evidence of infection. COVID-19 PCR was negative. On 08/12/2021 patient is seen in follow-up on medical surgical floor. Patient had a right-sided pigtail chest tube catheter inserted and there was 1.5 L of purulent pleural fluid evacuated into the Pleur-evac. Chest tube remains in place, patient tolerated procedure very well. He is on 2 L of oxygen pulse ox is 94%, he is afebrile. Blood pressure stable, no altered mentation. Remains on combination of azithromycin and Rocephin. His white blood cell count is improved and is down to 17.1 on today's labs compared to 30.4 on admission, Hemoglobin is 11.2, sodium is 133, dressed electrolytes and renal profile are negative. Pleural fluid analysis has been reviewed and was consistent with empyema. Pleural fluid cultures remain negative so far. Sputum culture only showed Milli albicans, blood cultures have been negative. Objective - Vital Signs Vital signs: Vital Signs Temp 98.9 F 08/12/21 14:00 Pulse 113 H 08/12/21 14:00 Resp 18 08/12/21 14:00 BP 118/69 08/12/21 14:00 Pulse Ox 94 L 08/12/21 14:00 Intake & Output 08/11/21 08/12/21 08/12/21 18:59 06:59 18:59 Intake Total 1400 Output Total 1650 Balance 1400 -1650 Intake: Intake, IV Titration 1100 Amount Sodium Chloride 0.9% 1, 1100 000 ml @ 100 mls/hr IV . Q10H [facility] Rx#:[id number] Oral 300 Output: Chest Tube Drainage 1650 Chest Tube Right 1650 Other: Voiding Method Urinal Toilet # Voids 2 3 - Exam GENERAL EXAM: Alert, very pleasant, 60-year-old white male, on 2 L of oxygen pulse ox of 94%, comfortable in no apparent distress. HEAD: Normocephalic/atraumatic. EYES: Normal reaction of pupils, equal size. Conjunctiva pink, sclera white. NOSE: Clear with pink turbinates. THROAT: No erythema or exudates. NECK: No masses, no JVD, no thyroid enlargement, no adenopathy. CHEST: No chest wall deformity. Symmetrical expansion. Right-sided PICC down chest catheter connected to a Pleur-evac with 1500 mL of purulent colored pleural fluid LUNGS: Equal air entry with diminished breath sounds on the right lower base CVS: Regular rate and rhythm, normal S1 and S2, no gallops, no murmurs, no rubs ABDOMEN: Soft, nontender. No hepatosplenomegaly, normal bowel sounds, no g uarding or rigidity. EXTREMITIES: No clubbing, no edema, no cyanosis, 2+ pulses and upper and lower extremities. MUSCULOSKELETAL: Muscle strength and tone normal. SPINE: No scoliosis or deformity SKIN: No rashes CENTRAL NERVOUS SYSTEM: Alert and oriented -3. No focal deficits, tone is normal in all 4 extremities. PSYCHIATRIC: Alert and oriented -3. Appropriate affect. Intact judgment and insight. - Labs CBC & Chem 7: 08/12/21 04:31 08/12/21 04:31 Labs: Abnormal Lab Results - Last 24 Hours (Table) 08/12/21 08/12/21 Range/Units 04:31 04:31 WBC 17.12 H (4.50-10.00) X 10*3/uL RBC 3.88 L (4.40-5.60) X 10*6/uL Hgb 11.2 L (13.0-17.0) g/dL Hct 35.3 L (39.6-50.0) % MCHC 31.7 L (32.0-37.0) g/dL Plt Count 504 H (140-440) X 10*3/uL Plt Count Comment INCREASED A Immature Gran # 0.12 H (0.00-0.04) X 10*3/uL Neutrophils # 13.48 H (1.80-7.70) X 10*3/uL Monocytes # 1.69 H (0.20-1.00) X 10*3/uL Sodium 133 L (135-145) mmol/L BUN 7.8 L (9.0-27.0) mg/dL Creatinine 0.5 L (0.6-1.5) mg/dL Calcium 7.8 L (8.7-10.3) mg/dL Total Protein 5.0 L (6.2-8.2) g/dL Albumin 2.5 L (3.8-4.9) g/dL Albumin/Globulin Ratio 1.00 L (1.60-3.17) g/dL Microbiology - Last 24 Hours (Table) 08/07/21 17:50 Blood Culture - Preliminary Blood No Growth after 96 hours 08/07/21 17:35 Blood Culture - Preliminary Blood No Growth after 96 hours Assessment and Plan Plan: Assessment: #1. Acute hypoxic respiratory failure related to right lower lobe pneumonia parapneumonic effusion, community-acquired. Ultrasound of the chest showed a 2.3 cm fluid pocket with internal echoes. Patient had diagnostic right-sided thoracentesis done by interventional radiology, and pleural fluid analysis was consistent with empyema. Patient had right-sided pigtail chest tube insertion on 08/12/2021, with evacuation of 1.5 L of purulent pleural fluid. So far pleural fluid cultures are negative. #2. Former smoker #3. Pleuritic chest pain #4. History of bariatric surgery, with stomach stapling #5. Coronary artery disease #6. BPH #7. COPD Plan: Continue current antibiotics Continue breathing treatments Chest tube has been inserted on the right side with evacuation of large amount of purulent pleural fluid Follow-up chest x-ray tomorrow CT surgeries on the case May possibly need TPA, CT surgery recs We will follow cultures I have personally seen and examined the patient, performed the documentation and the assessment and plan as written. Number of minutes spent on the visit: [10] Time with Patient: Less than 30 <Renata Bermeo - Last Filed: 08/12/21 18:15> Objective - Vital Signs Vital signs: Vital Signs Temp 98.9 F 08/12/21 14:00 Pulse 102 H 08/12/21 15:57 Resp 18 08/12/21 14:00 BP 118/69 08/12/21 14:00 Pulse Ox 94 L 08/12/21 15:57 Intake & Output 08/11/21 08/12/21 08/12/21 18:59 06:59 18:59 Intake Total 1400 Output Total 1750 Balance 1400 -1750 Intake: Intake, IV Titration 1100 Amount Sodium Chloride 0.9% 1, 1100 000 ml @ 100 mls/hr IV . Q10H [facility] Rx#:[id number] Oral 300 Output: Chest Tube Drainage 1650 Chest Tube Right 1650 Urine 100 Other: Voiding Method Urinal Toilet # Voids 2 3 - Labs CBC & Chem 7: 08/12/21 04:31 08/12/21 04:31 Labs: Abnormal Lab Results - Last 24 Hours (Table) 08/12/21 08/12/21 Range/Units 04:31 04:31 WBC 17.12 H (4.50-10.00) X 10*3/uL RBC 3.88 L (4.40-5.60) X 10*6/uL Hgb 11.2 L (13.0-17.0) g/dL Hct 35.3 L (39.6-50.0) % MCHC 31.7 L (32.0-37.0) g/dL Plt Count 504 H (140-440) X 10*3/uL Plt Count Comment INCREASED A Immature Gran # 0.12 H (0.00-0.04) X 10*3/uL Neutrophils # 13.48 H (1.80-7.70) X 10*3/uL Monocytes # 1.69 H (0.20-1.00) X 10*3/uL Sodium 133 L (135-145) mmol/L BUN 7.8 L (9.0-27.0) mg/dL Creatinine 0.5 L (0.6-1.5) mg/dL Calcium 7.8 L (8.7-10.3) mg/dL Total Protein 5.0 L (6.2-8.2) g/dL Albumin 2.5 L (3.8-4.9) g/dL Albumin/Globulin Ratio 1.00 L (1.60-3.17) g/dL Microbiology - Last 24 Hours (Table) 08/07/21 17:50 Blood Culture - Preliminary Blood No Growth after 96 hours 08/07/21 17:35 Blood Culture - Preliminary Blood No Growth after 96 hours Assessment and Plan Plan: I have personally seen and examined the patient and reviewed the documentation. I performed a joint evaluation with the nurse practitioner in this evaluation was done more than 20 minutes. I fully agree with the documentation above and the plan of care.. I evaluated this patient. I discussed the case with the cardiothoracic surgeon. The chest tube will be kept in place for now. May need alteplase within next 2448 hrs. Daily chest x-rays.
[2021-08-12] MEDS: KETOROLAC 15 MG/ML 1 ML VIAL IVP PRN (23:18)
[2021-08-12] MEDS: CLINDAMYCIN 900 MG in DEXTROSE 5% IN WATER 50 ML IVPB SCH ×2 (23:19)
--- NOTE | 2021-08-13 00:24 | P.CONS ---
History of Present Illness - Reason for Consult Consult date: 08/12/21 Empyema Requesting physician: Beka Phillips - Chief Complaint Shortness of breath and cough x few weeks - History of Present Illness Patient is a 60-year male presenting to the ER about a week ago for evaluation of sharp right-sided chest pain that apparently started the day of presentation to the hospital patient pain was sharp intensity almost 7-8 out of 10 and no radiation and was worse with deep breathing and coughing, patient on presentation to the hospital did have a fever of 101.4 F and the patient has been running a fever for the last 3 to 4 days patient did have elevated white count of 27,000 creatinine has been normal, patient did have a CT angiogram of the chest negative for PE did shows moderate right pleural effusion with accompanying infiltrate the patient is status post chest tube placement on the in the pleural fluid did shows 28,000 WBC patient has been treated with Rocephin infectious disease was consulted today for empyema and further management of antibiotic therapy Review of Systems Positive point has been mentioned in the HPI rest of the systems are negative Past Medical History Past Medical History: COPD, Prostate Disorder Additional Past Medical History / Comment(s): diverticulitis History of Any Multi-Drug Resistant Organisms: None Reported Past Surgical History: Appendectomy, Bariatric Surgery, Tonsillectomy Additional Past Surgical History / Comment(s): STOMACH STAPLING Past Anesthesia/Blood Transfusion Reactions: No Reported Reaction Past Psychological History: No Psychological Hx Reported Smoking Status: Former smoker Past Alcohol Use History: Daily Additional Past Alcohol Use History / Comment(s): QUIT SMOKING 2019. DRINKS 2-3 BEERS DAILY Past Drug Use History: Marijuana Additional Drug Use History / Comment(s): SMOKES MARIJUANA 2-3 TIMES A WEEK - Past Family History Mother Family Medical History: COPD Father Family Medical History: Coronary Artery Disease (CAD) Medications and Allergies Home Medications Medication Instructions Recorded Confirmed Type Omeprazole Magnesium [PriLOSEC OTC] 20 mg PO DAILY PRN 08/07/21 08/07/21 History Allergies Allergy/AdvReac Type Severity Reaction Status Date / Time No Known Allergies Allergy Verified 08/07/21 17:45 Physical Exam Vitals: Vital Signs Temp Pulse Pulse Resp BP Pulse Ox 08/12/21 12:11 84 08/12/21 12:03 82 08/12/21 10:30 94 18 130/78 96 03/14/22 10:00 96 18 132/79 97 08/12/21 09:40 89 18 129/78 98 08/12/21 07:31 98.6 F 95 17 127/81 95 08/11/21 19:13 17 08/11/21 19:12 99.6 F 94 17 133/79 97 08/11/21 14:30 101.2 F H 96 17 120/73 95 Intake and Output 08/11/21 08/12/21 08/12/21 22:59 06:59 14:59 Intake Total 1400 Balance 1400 Intake: Intake, IV Titration 1100 Amount Sodium Chloride 0.9% 1, 1100 000 ml @ 100 mls/hr IV . Q10H [facility] Rx#:[id number] Oral 300 Other: Voiding Method Urinal Toilet # Voids 1 3 GENERAL DESCRIPTION: Middle-aged male up in the chair, no distress. No tachypnea or accessory muscle of respiration use. HEENT: Shows Pallor , no scleral icterus. Oral mucous membrane is dry. No pharyngeal erythema or thrush NECK: Trachea central, no thyromegaly. LUNGS: Unlabored breathing. Decreased breath sound At the Base. No wheeze or crackle. HEART: S1, S2, regular rate and rhythm. No loud murmur ABDOMEN: Soft, no tenderness , guarding or rigidity, no organomegaly EXTREMITIES: No edema of feet. SKIN: No rash, no masses palpable. NEUROLOGICAL: The patient is awake, alert, oriented x3, mood and affect normal. Results CBC & Chem 7: 08/12/21 04:31 08/12/21 04:31 Labs: Abnormal Lab Results - Last 24 Hours (Table) 08/12/21 08/12/21 Range/Units 04:31 04:31 WBC 17.12 H (4.50-10.00) X 10*3/uL RBC 3.88 L (4.40-5.60) X 10*6/uL Hgb 11.2 L (13.0-17.0) g/dL Hct 35.3 L (39.6-50.0) % MCHC 31.7 L (32.0-37.0) g/dL Plt Count 504 H (140-440) X 10*3/uL Plt Count Comment INCREASED A Immature Gran # 0.12 H (0.00-0.04) X 10*3/uL Neutrophils # 13.48 H (1.80-7.70) X 10*3/uL Monocytes # 1.69 H (0.20-1.00) X 10*3/uL Sodium 133 L (135-145) mmol/L BUN 7.8 L (9.0-27.0) mg/dL Creatinine 0.5 L (0.6-1.5) mg/dL Calcium 7.8 L (8.7-10.3) mg/dL Total Protein 5.0 L (6.2-8.2) g/dL Albumin 2.5 L (3.8-4.9) g/dL Albumin/Globulin Ratio 1.00 L (1.60-3.17) g/dL Microbiology - Last 24 Hours (Table) 08/07/21 17:50 Blood Culture - Preliminary Blood No Growth after 96 hours 08/07/21 17:35 Blood Culture - Preliminary Blood No Growth after 96 hours Assessment and Plan (1) Empyema Current Visit: Yes Status: Acute Code(s): J86.9 - PYOTHORAX WITHOUT FISTULA SNOMED Code(s): 853914949 Plan: 1patient presented to hospital with right-sided empyema in this patient status post chest tube placement and the culture showing group C strep. 2continue with Rocephin however will add clindamycin. 3patient will likely need a PICC line and outpatient IV antibiotic therapy. We will follow on clinical condition and cultures to further adjust medication if needed Thank you for this consultation will follow this patient along with you Time with Patient: Greater than 30
[2021-08-13] MEDS ORDERED: ALTEPLASE 10 MG in SODIUM CHLORIDE 0.9% 50 ML IRRIGATION ONE (07:06)
[2021-08-13] MEDS ORDERED: DORNASE ALFA 5 MG in SODIUM CHLORIDE 0.9% 50 ML IRRIGATION ONE (07:06)
--- NOTE | 2021-08-13 07:15 | P.PN ---
Subjective Progress Note Date: 08/13/21 Principal diagnosis: Right lower lobe pneumonia, parapneumonic effusion, thoracentesis fluid analysis consistent with empyema. Previous medical history of tobacco dependence with cessation 3 years ago, daily EtOH use, occasional marijuana use, previous stomach stapling POD #1 placement of right sided pigtail catheter by interventional radiology The patient was seen and examined sitting up in bed this morning on the medical surgical unit in no acute distress. Pigtail catheter placed yesterday with evacuation of 1650 mL thick yellow fluid within the first few hours, instilled alteplase and dornase yesterday with evacuation of another 450 mL thick espino fluid. Patient did report pain last night which was mostly relieved with addition of Toradol. Chest x-ray reviewed this morning, right lung appears better. Remains on IV antibiotics. No other new concerns. Objective - Vital Signs Vital signs: Vital Signs Temp 99.4 F 08/13/21 02:52 Pulse 87 08/13/21 02:52 Resp 19 08/13/21 02:52 BP 104/66 08/13/21 02:52 Pulse Ox 94 L 08/13/21 02:52 Intake & Output 08/12/21 08/13/21 08/13/21 18:59 06:59 18:59 Output Total 2049 700 Balance -2049 - Output: Chest Tube Drainage 1950 Chest Tube Right 1950 Drainage 400 Right Back 400 Urine 100 300 Other: Voiding Method Toilet Toilet Urinal # Voids 1 # Bowel Movements 0 - Exam CONSTITUTIONAL: Appears comfortable, cooperative, no acute distress RESPIRATORY: Lungs sounds diminished bilaterally. Respirations even, n onlabored. Currently on 2 L nasal cannula with oxygen saturation 94%. Able to achieve 1000 mL on incentive spirometry. Strong cough. Right-sided pigtail catheter present, 1650 mL thick yellow drainage after placement, another 450 mL thick espino drainage after instillation of alteplase and dornase yesterday CARDIOVASCULAR: S1, S2 present. Regular rate and rhythm. Palpable peripheral pulses bilaterally. No edema present. No calf pain or tenderness noted. GASTROINTESTINAL: Abdomen soft, nontender, nondistended. Active bowel sounds present 4 quadrants. Tolerating dietINVASIVE LINES/TUBES: GENITOURINARY: Continues to void clear, yellow urine INTEGUMENTARY: Skin is warm and dry with evidence of good perfusion NEUROLOGIC: Cranial nerves II through XII intact MUSKULOSKELETAL: Able to move all extremities, strength equal bilaterally, gait normal PSYCHIATRIC: Alert and oriented to person place and time, appropriate affect, intact judgment and insight - Allied health notes Allied health notes reviewed: nursing - Labs CBC & Chem 7: 08/13/21 03:30 08/13/21 03:30 Labs: Abnormal Lab Results - Last 24 Hours (Table) 08/12/21 08/12/21 Range/Units 04:31 04:31 WBC 17.12 H (4.50-10.00) X 10*3/uL RBC 3.88 L (4.40-5.60) X 10*6/uL Hgb 11.2 L (13.0-17.0) g/dL Hct 35.3 L (39.6-50.0) % MCHC 31.7 L (32.0-37.0) g/dL Plt Count 504 H (140-440) X 10*3/uL Plt Count Comment INCREASED A Immature Gran # 0.12 H (0.00-0.04) X 10*3/uL Neutrophils # 13.48 H (1.80-7.70) X 10*3/uL Monocytes # 1.69 H (0.20-1.00) X 10*3/uL Sodium 133 L (135-145) mmol/L BUN 7.8 L (9.0-27.0) mg/dL Creatinine 0.5 L (0.6-1.5) mg/dL Calcium 7.8 L (8.7-10.3) mg/dL Total Protein 5.0 L (6.2-8.2) g/dL Albumin 2.5 L (3.8-4.9) g/dL Albumin/Globulin Ratio 1.00 L (1.60-3.17) g/dL Microbiology - Last 24 Hours (Table) 08/07/21 17:50 Blood Culture - Preliminary Blood No Growth after 120 hours 08/07/21 17:35 Blood Culture - Preliminary Blood No Growth after 120 hours 08/09/21 14:20 Gram Stain - Preliminary Pleural Fluid Body Fluid Culture - Preliminary Beta Hemolytic Strep Group C - Imaging and Cardiology Chest x-ray: image reviewed Assessment and Plan Assessment: 1. Right lower lobe pneumonia, parapneumonic effusion, thoracentesis fluid analysis consistent with empyema, status post pigtail catheter placement by interventional radiology 2. Shortness of breath, right-sided chest pain secondary to above 3. History of tobacco dependence with cessation 3 years ago 4. Daily EtOH use 5. Occasional marijuana use 6. Previous stomach stapling 7. Family history of heart and lung disease Plan: 1. Will instill alteplase/dornase again today, second dose. Clamp chest tube for 1 hour dwell time 2. Wean O2 as tolerated. Encourage incentive spirometry use 10 times every hour while awake 3. Continue with antibiotics 4. Increase activity as tolerated 5. Pain control with current medication regimen, Toradol and tramadol added 6. Medical management of other comorbidities per primary care service 7. More recommendations to follow Time with Patient: Greater than 30
--- NOTE | 2021-08-13 08:01 | XR ---
EXAMINATION TYPE: XR chest 1V portable DATE OF EXAM: 08/13/2021 CLINICAL HISTORY: Difficulty breathing progress study. TECHNIQUE: Single AP portable upright view of the chest is obtained. COMPARISON: Chest x-ray from one day earlier and older studies. FINDINGS: Persistent right pleural pigtail drainage catheter with moderate sized right pleural fluid collection and superior air on current study. Overall size stable. There is associated right mid to lower lung opacity favoring atelectasis. Left lung remains clear. No mediastinal shift is evident. Un derlying S-shaped scoliosis with multilevel spurring in the spine. High riding humeral heads suggesti ng chronic rotator cuff tear is redemonstrated. Cardiac silhouette size remains within normal limits. Background mild underlying emphysematous change noted. IMPRESSION: Persistent moderate sized right-sided pleural fluid collection despite pigtail pleural dr ainage catheter. Associated right lower lung opacity favors atelectatic change. Some interval replace ment of apical fluid by air on current study, otherwise no significant change from one day earlier.
[2021-08-13] MEDS: KETOROLAC 15 MG/ML 1 ML VIAL IVP PRN ×2 (08:27→22:28)
[2021-08-13] MEDS: CLINDAMYCIN 900 MG in DEXTROSE 5% IN WATER 50 ML IVPB SCH ×6 (08:28→23:28)
[2021-08-13] MEDS: PANTOPRAZOLE 40 MG TABLET PO SCH ×2 (08:28→09:51)
[2021-08-13] MEDS: SODIUM CHLORIDE 0.9% 1,000 ML IV SCH ×2 (08:37→17:07)
[2021-08-13 08:59] LABS: Basophils # (A) 0.06 X 10*3/uL (0.00-0.10); Basophils % (A) 0.4 %; Eosinophils # (A) 0.04 X 10*3/uL (0.04-0.35); Eosinophils % (A) 0.2 %; HCT 35.6 % (39.6-50.0); HGB 11.5 g/dL (13.0-17.0); Immature Grans, Automated 1.5 %; Lymphocytes # (A) 2.12 X 10*3/uL (0.90-5.00); Lymphocytes % (A) 12.9 %; MCH 29.1 pg (27.0-32.0); MCHC 32.3 g/dL (32.0-37.0); MCV 90.1 fL (80.0-97.0); Mean Platelet Volume 9.7 fL (9.5-12.2); Monocytes # (A) 1.66 X 10*3/uL (0.20-1.00); Monocytes % (A) 10.1 %; NRBC Per 100 WBC 0 /100 WBCS (0.0-0.0); Neutrophils % (A) 74.9 %; Platelet Count 535 X 10*3/uL (140-440); RBC 3.95 X 10*6/uL (4.40-5.60); RDW 13.5 % (11.5-14.5); WBC 16.42 X 10*3/uL (4.50-10.00)
[2021-08-13 09:08] LABS: African American GFR (CKD) 137.5 (60.0-200.0); Albumin 2.1 g/dL (3.8-4.9); Albumin/Globulin Ratio 0.81 (1.60-3.17); Anion Gap 13.1 mmol/L (10.00-18.00); Calcium 7.6 mg/dL (8.7-10.3); Carbon Dioxide 23.7 mmol/L (20.0-27.5); Globulin 2.6 g/dL (1.6-3.3); Non-African American GFR(CKD) 118.6 (60.0-200.0); Potassium 3.6 mmol/L (3.5-5.5); Total Bilirubin 0.4 mg/dL (0.30-1.20); Total Protein 4.7 g/dL (6.2-8.2)
[2021-08-13] MEDS: HEPARIN SODIUM,PORCINE/PF 5,000 UNIT/0.5 ML SYRINGE SQ SCH ×3 (09:30→23:28)
--- NOTE | 2021-08-13 13:31 | P.PN ---
<Cyn Jackson M - Last Filed: 08/13/21 13:22> Subjective Progress Note Date: 08/13/21 Principal diagnosis: Shortness of breath, right chest pleuritic pain 60-year-old outpatient with past medical history of bariatric surgery, stomach stapling 30 years ago, former smoker, who came into the emergency department on the 08/07/2021 with complaints of right-sided pleuritic chest pain and shortness of breath. he states initial symptom onset was about a week ago and progressively became worse, he went to the urgent care initially, chest x-ray was taken and he was told that he needed to go to the emergency department as he was right lung appear to be collapsed at the bottom. In addition patient was febrile, and coughing up some purulent phlegm. In the emergency department chest x-ray showing right basilar opacity with small pleural effusion, CTA chest showing small to moderate right pleural effusion with accompanying basilar atelectasis. Lab work showed white blood cell count of 30.4, hemoglobin of 12.9, platelet count of 682, INR of 1.1, d-dimer was 2.5 to but CTA showed no evidence of pulmonary embolism. COVID 19 PCR is negative. Patient was started on azithromycin and Rocephin. This morning he seen sitting up in bed, is still having some pleuritic right lower rib cage pain with inspiration and coughing, but appears to be in no acute distress. On 2 L of oxygen his saturation 94-96%. On 08/09/2021 patient seen in follow-up. Patient is awake and alert, he states he is breathing easier, and right-sided pleuritic chest pain is improved although still there with deep breathing and coughing. Ultrasound the chest has been reviewed showing 2.3 centimeter pleural fluid pocket and it was not possible to market related to the pocket, lung location and internal echoes. Labs have been reviewed, white blood cell count is slightly improved and is down to 27.4, hemoglobin is 13.1, platelet count is 635, sodium is 134, depressed electrolytes and renal profile are unremarkable. Urinalysis showed small amount of blood, white blood cells, but no clear evidence of infection. COVID-19 PCR was negative. On 08/12/2021 patient is seen in follow-up on medical surgical floor. Patient had a right-sided pigtail chest tube catheter inserted and there was 1.5 L of purulent pleural fluid evacuated into the Pleur-evac. Chest tube remains in place, patient tolerated procedure very well. He is on 2 L of oxygen pulse ox is 94%, he is afebrile. Blood pressure stable, no altered mentation. Remains on combination of azithromycin and Rocephin. His white blood cell count is improved and is down to 17.1 on today's labs compared to 30.4 on admission, Hemoglobin is 11.2, sodium is 133, dressed electrolytes and renal profile are negative. Pleural fluid analysis has been reviewed and was consistent with empyema. Pleural fluid cultures remain negative so far. Sputum culture only showed Milli albicans, blood cultures have been negative. On 08/13/2021 patient seen in follow-up on medical surgical floor. He is breathing comfortably, sitting up in bed, he is on 2 L of oxygen, his pulse ox of 97%, yesterday he had right-sided posterior pigtail chest tube inserted by interventional radiology, with initial output of 1500 of purulent pleural fluid. There has been additional 350 mL of pleural fluid since then. Patient had first alteplase infused by CT surgery, and again today. He remains on combination of Rocephin and clindamycin. his pleural fluid cultures were positive for beta hemolytic strep group C. Fever pattern has improved, and T-max in the last 24 hours was 99.8F.his chest x-ray shows persistent moderate size right-sided pleural fluid collection with the pigtail pleural drainage catheter in place. There is associated right lower lung opacity favoring atelectatic changes. Today's labs show improvement in the white blood cell count, which is down to 16.42, hemoglobin is 11.5, platelet count is 535, sodium is 134, the rest of the electrolytes and renal profile are unremarkable. Objective - Vital Signs Vital signs: Vital Signs Temp 99.8 F H 08/13/21 08:00 Pulse 72 08/13/21 08:00 Resp 19 08/13/21 08:00 BP 129/73 08/13/21 08:00 Pulse Ox 97 08/13/21 08:00 Intake & Output 08/12/21 08/13/21 08/13/21 18:59 06:59 18:59 Output Total 2049 Balance -2049 - Output: Chest Tube Drainage 1950 Chest Tube Right 1950 Drainage 400 Right Back 400 Urine 100 300 Other: Voiding Method Toilet Toilet Toilet Urinal Urinal # Voids 1 # Bowel Movements 0 - Exam GENERAL EXAM: Alert, very pleasant, 60-year-old white male, on 2 L of oxygen pulse ox of 97%, comfortable in no apparent distress. HEAD: Normocephalic/atraumatic. EYES: Normal reaction of pupils, equal size. Conjunctiva pink, sclera white. NOSE: Clear with pink turbinates. THROAT: No erythema or exudates. NECK: No masses, no JVD, no thyroid enlargement, no adenopathy. CHEST: No chest wall deformity. Symmetrical expansion. Right-sided PICC down chest catheter connected to a Pleur-evac with 1900 mL of purulent colored pleural fluid LUNGS: Equal air entry with diminished breath sounds on the right lower base CVS: Regular rate and rhythm, normal S1 and S2, no gallops, no murmurs, no rubs ABDOMEN: Soft, nontender. No hepatosplenomegaly, normal bowel sounds, no guarding or rigidity. EXTREMITIES: No clubbing, no edema, no cyanosis, 2+ pulses and upper and lower extremities. MUSCULOSKELETAL: Muscle strength and tone normal. SPINE: No scoliosis or deformity SKIN: No rashes CENTRAL NERVOUS SYSTEM: Alert and oriented -3. No focal deficits, tone is normal in all 4 extremities. PSYCHIATRIC: Alert and oriented -3. Appropriate affect. Intact judgment and insight. - Labs CBC & Chem 7: 08/13/21 03:30 08/13/21 03:30 Labs: Abnormal Lab Results - Last 24 Hours (Table) 08/13/21 08/13/21 Range/Units 03:30 03:30 WBC 16.42 H (4.50-10.00) X 10*3/uL RBC 3.95 L (4.40-5.60) X 10*6/uL Hgb 11.5 L (13.0-17.0) g/dL Hct 35.6 L (39.6-50.0) % Plt Count 535 H (140-440) X 10*3/uL Immature Gran # 0.24 H (0.00-0.04) X 10*3/uL Neutrophils # 12.30 H (1.80-7.70) X 10*3/uL Monocytes # 1.66 H (0.20-1.00) X 10*3/uL Sodium 134 L (135-145) mmol/L Creatinine 0.5 L (0.6-1.5) mg/dL BUN/Creatinine Ratio 22.00 H (12.00-20.00) Ratio Calcium 7.6 L (8.7-10.3) mg/dL Total Protein 4.7 L (6.2-8.2) g/dL Albumin 2.1 L (3.8-4.9) g/dL Albumin/Globulin Ratio 0.81 L (1.60-3.17) g/dL Microbiology - Last 24 Hours (Table) 08/07/21 17:50 Blood Culture - Preliminary Blood No Growth after 120 hours 08/07/21 17:35 Blood Culture - Preliminary Blood No Growth after 120 hours 08/09/21 14:20 Gram Stain - Preliminary Pleural Fluid Body Fluid Culture - Preliminary Beta Hemolytic Strep Group C Assessment and Plan Plan: Assessment: #1. Acute hypoxic respiratory failure related to right lower lobe pneumonia parapneumonic effusion, community-acquired, related to beta hemolytic strep group C. Ultrasound of the chest showed a 2.3 cm fluid pocket with internal echoes. Patient had diagnostic right-sided thoracentesis done by interventional radiology, and pleural fluid analysis was consistent with empyema. Patient had right-sided pigtail chest tube insertion on 08/12/2021, with evacuation of 1.5 L of purulent pleural fluid. Pleural fluid cultures were positive for beta hemolytic strep group C. Patient has been receiving alteplase, received a dose on 08/12/2021 and again today on 08/13/2021 #2. Former smoker #3. Pleuritic chest pain #4. History of bariatric surgery, with stomach stapling #5. Coronary artery disease #6. BPH #7. COPD Plan: Today's chest x-ray has been reviewed Agree with additional dose of alteplase which was already given today Follow-up chest x-ray tomorrow Pleural fluid culture results noted Patient is currently on Rocephin and clindamycin Encourage deep breathing and coughing Will continue to follow Fever is improved Patient educated to be careful not to pull out pig tail chest tube accidentally May need additional doses of Alteplase Will continue to follow clinical course I have personally seen and examined the patient, performed the documentation and the assessment and plan as written. Number of minutes spent on the visit: [10] Time with Patient: Less than 30 <Renata Bermeo - Last Filed: 08/13/21 16:08> Objective - Vital Signs Vital signs: Vital Signs Temp 98.2 F 08/13/21 14:00 Pulse 89 08/13/21 15:45 Resp 20 08/13/21 14:00 BP 120/60 08/13/21 14:00 Pulse Ox 94 L 08/13/21 14:00 Intake & Output 08/12/21 08/13/21 08/13/21 18:59 06:59 18:59 Output Total 2049 Balance -2049 Output: Chest Tube Drainage 1950 Chest Tube Right 1950 Drainage 400 Right Back 400 Urine 100 300 Other: Voiding Method Toilet Toilet Toilet Urinal Urinal # Voids 1 # Bowel Movements 0 - Labs CBC & Chem 7: 08/13/21 03:30 08/13/21 03:30 Labs: Abnormal Lab Results - Last 24 Hours (Table) 08/13/21 08/13/21 Range/Units 03:30 03:30 WBC 16.42 H (4.50-10.00) X 10*3/uL RBC 3.95 L (4.40-5.60) X 10*6/uL Hgb 11.5 L (13.0-17.0) g/dL Hct 35.6 L (39.6-50.0) % Plt Count 535 H (140-440) X 10*3/uL Immature Gran # 0.24 H (0.00-0.04) X 10*3/uL Neutrophils # 12.30 H (1.80-7.70) X 10*3/uL Monocytes # 1.66 H (0.20-1.00) X 10*3/uL Sodium 134 L (135-145) mmol/L Creatinine 0.5 L (0.6-1.5) mg/dL BUN/Creatinine Ratio 22.00 H (12.00-20.00) Ratio Calcium 7.6 L (8.7-10.3) mg/dL Total Protein 4.7 L (6.2-8.2) g/dL Albumin 2.1 L (3.8-4.9) g/dL Albumin/Globulin Ratio 0.81 L (1.60-3.17) g/dL Microbiology - Last 24 Hours (Table) 08/07/21 17:50 Blood Culture - Preliminary Blood No Growth after 120 hours 08/07/21 17:35 Blood Culture - Preliminary Blood No Growth after 120 hours 08/09/21 14:20 Gram Stain - Preliminary Pleural Fluid Body Fluid Culture - Preliminary Beta Hemolytic Strep Group C Assessment and Plan Plan: I have personally seen and examined the patient and reviewed the documentation. I performed a joint evaluation with the nurse practitioner in this evaluation was done more than 20 minutes. I fully agree with the documentation above and the plan of care.. The patient is currently improving. However, the patient continues to have significant opacification of the right lung. The patient is going to undergo alteplase treatment and repeat chest x-ray was done tomorrow. Output from the pectoralis been in the order of 400 mL over the past 24 hours. Continue using incentive spirometer. Cultures are positive for strep group C the patient is on IV Rocephin.
[2021-08-13] MEDS: traMADol 50 MG TAB PO PRN (14:05)
[2021-08-13] MEDS: ALBUTEROL NEBULIZED 2.5 MG/3 ML INHALATION PRN ×2 (15:37→20:21)
--- NOTE | 2021-08-13 21:55 | P.PN ---
Progress Note - Text Progress Note Date: 08/13/21 Presenting complaint: Chest pain, shortness of breath Hospital course: I'm rounding for Dr. Beka Phillips. August 13: Patient is on 2 L of oxygen. Oral intake good. Has had a good output of clear fluid. Received alteplase. Some cough. Oral intake good. Has been out of bed. Active Medications Acetaminophen (Acetaminophen Tab 325 Mg Tab) 650 mg PO Q4HR PRN PRN Reason: Fever and/ or Pain Last Admin: 08/12/21 20:32 Dose: 650 mg Documented by: Albuterol Sulfate (Albuterol Nebulized 2.5 Mg/3 Ml) 2.5 mg INHALATION RT-Q4H PRN PRN Reason: Shortness Of Breath Or Wheezing Last Admin: 08/13/21 20:21 Dose: 2.5 mg Documented by: Albuterol/Ipratropium (Ipratropium-Albuterol 3 Ml Neb) 3 ml INHALATION RT-Q4H PRN PRN Reason: shortness of breath Last Admin: 08/11/21 11:23 Dose: 3 ml Documented by: Heparin Sodium (Porcine) (Heparin Sodium,Porcine/Pf 5,000 Unit/0.5 Ml Syringe) 5,000 unit SQ Q8HR RAIMUNDO Last Admin: 08/13/21 18:19 Dose: 5,000 unit Documented by: Sodium Chloride (Saline 0.9%) 1,000 mls @ 100 mls/hr IV .Q10H RAIMUNDO Last Admin: 08/13/21 17:07 Dose: Not Given Documented by: Ceftriaxone Sodium 2 gm/ (Sodium Chloride) 50 mls @ 100 mls/hr IVPB Q24HR RAIMUNDO; Protocol Last Admin: 08/13/21 09:30 Dose: 100 mls/hr Documented by: Clindamycin Phosphate 900 mg/ (Dextrose/Water) 56 mls @ 50 mls/hr IVPB Q8HR RAIMUNDO; Protocol Last Admin: 08/13/21 17:03 Dose: 50 mls/hr Documented by: Ketorolac Tromethamine (Ketorolac 15 Mg/Ml 1 Ml Vial) 15 mg IVP Q6HR PRN PRN Reason: Pain Control Stop: 08/15/21 22:45 Last Admin: 08/13/21 08:27 Dose: 15 mg Documented by: Miscellaneous Information (Pneumonia Protocol Utilized 1 Each Misc) 1 each PO ONCE PRN PRN Reason: Per Protocol Pantoprazole Sodium (Pantoprazole 40 Mg Tablet) 40 mg PO DAILY RAIMUNDO Last Admin: 08/13/21 09:51 Dose: Not Given Documented by: Tramadol HCl (Tramadol 50 Mg Tab) 50 mg PO QID PRN PRN Reason: Pain Last Admin: 08/13/21 14:05 Dose: 50 mg Documented by: On examination: VITAL SIGNS: 99.8, 91, 19, 100/63, 91% on 2 L GENERAL APPEARANCE: BMI 23.2, reclining in bed, awake . Right-sided chest tube HEENT: Normal external appearance of nose and ear. Oral cavity normal EYES: Pupils equal. Conjunctiva normal. NECK: JVD not raised. Mass not palpable. RESPIRATORY: Respiratory effort increased. Lungs decreased breath sounds. CARDIOVASCULAR: First and second sounds normal. No edema. ABDOMEN: Soft. Liver and spleen not palpable. No tenderness. No mass palpable. PSYCHIATRY: Alert and oriented x3. Mood and affect normal. INVESTIGATIONS, reviewed in the clinical context: White count 16.4 hemoglobin 11.5 platelets 535 sodium 134 potassium 3.6 creatini ne 0.5 Pleural fluid: Beta-hemolytic streptococcus group C Assessment and plan: -Acute hypoxic respiratory failure secondary to pneumonia and empyema Currently on 2 L nasal cannula -Right-sided pneumonia with empyema from beta-hemolytic streptococcus group C IV ceftriaxone -Right-sided empyema: Slow to respond Put out 3 50 mL today. Pigtail catheter to drainage. Getting alteplase -COPD in a previous smoker DuoNeb -Recreational marijuana use a -B geriatrics surgery with a history of stomach stapling
[2021-08-14] MEDS: SODIUM CHLORIDE 0.9% 1,000 ML IV SCH ×3 (02:31→21:59)
[2021-08-14] MEDS ORDERED: ALTEPLASE 10 MG in SODIUM CHLORIDE 0.9% 50 ML IRRIGATION ONE (07:30)
[2021-08-14] MEDS ORDERED: DORNASE ALFA 5 MG in SODIUM CHLORIDE 0.9% 50 ML IRRIGATION ONE (07:30)
[2021-08-14] MEDS: HEPARIN SODIUM,PORCINE/PF 5,000 UNIT/0.5 ML SYRINGE SQ SCH ×2 (08:27→15:32)
[2021-08-14] MEDS: PANTOPRAZOLE 40 MG TABLET PO SCH (08:27)
[2021-08-14] MEDS: traMADol 50 MG TAB PO PRN ×2 (08:35→21:58)
--- NOTE | 2021-08-14 08:40 | XR ---
EXAMINATION TYPE: XR chest 1V portable DATE OF EXAM: 08/14/2021 COMPARISON: Chest x-ray 08/13/2021 HISTORY: Empyema TECHNIQUE: Single frontal view of the chest is obtained. FINDINGS: Right-sided hydropneumothorax is present. No significant diminution in the amount of pleur al fluid on the right. Left lung is stable. There is an underlying scoliotic curvature. Pigtail andrew ter again noted in the right hemithorax. IMPRESSION: Right sided empyema is likely loculated, there is associated small apical pneumothorax
--- NOTE | 2021-08-14 08:42 | P.PN ---
Subjective Progress Note Date: 08/14/21 Principal diagnosis: Right lower lobe pneumonia, parapneumonic effusion, thoracentesis fluid analysis consistent with empyema. Past medical history significant for tobacco depende nce with cessation 3 years ago, daily EtOH use, occasional marijuana use, previous stomach stapling. POD #2 placement of right sided pigtail catheter by interventional radiology. The patient was seen in follow-up today 08/14/2021 at his bedside on the fourth floor medical surgical unit. Currently he is laying in bed with his head elevated, eating breakfast and is in no acute distress. He is awake, alert and oriented 3. Denies any complaints of pain or shortness of breath at this time and reports that he is feeling much improved since his admission. Right chest pigtail catheter remains in place with Pleur-evac connected to low continuous wall suction -20 cm H2O. No air leak is present, draining thick serosanguineous espino colored drainage with 460 mL of output in the last 8 hours and 900 mL output last 24 hours. He has received 2 doses of alteplase/dornase pleural instillation treatments. Oxygen saturations are 98% on 3 L nasal cannula and he is achieving 1500 mL on his incentive spirometry. His T-max temperature in the last 24 hours 99.8F. Chest x-ray this morning shows a persistent moderate sized right-sided pleural fluid collection with pigtail pleural chest drainage c atheter in place. He remains on Cleocin and Rocephin for IV antibiotic coverage. Lab results this morning show a trending down WBC count of 16.4, hemoglobin is 11.5, platelets 535, sodium 134, potassium 3.6, BUN 11, and creatinine 0.5. Gram stain from his pleural fluid shows positive for beta hem olytic strep group C. Final blood culture results show no growth. No new concerns. Objective - Vital Signs Vital signs: Vital Signs Temp 98.8 F 08/14/21 07:48 Pulse 83 08/14/21 07:48 Resp 17 08/14/21 07:48 BP 105/68 08/14/21 07:48 Pulse Ox 96 08/14/21 07:48 Intake & Output 08/13/21 08/14/21 08/14/21 18:59 06:59 18:59 Output Total 450 460 Balance -450 -460 Output: Chest Tube Drainage 450 Chest Tube Right 450 Drainage 460 Right Back 460 Other: Voiding Method Toilet Toilet Urinal Urinal # Voids 3 # Bowel Movements 2 - Exam CONSTITUTIONAL: Resting in bed eating breakfast on the fourth floor medical surgical unit. Appears comfortable, cooperative, and is in no acute distress. RESPIRATORY: Lungs sounds diminished bilaterally, right greater than left. Respirations are symmetrical and nonlabored. Currently on 3 L nasal cannula with oxygen saturation 98%. Able to achieve 1500 mL on incentive spirometry. Strong cough. Right-sided pigtail catheter present, connected to low aranza nuous wall suction -20 cm H2O. No air leak is present. 460 mL thick serosanguineous espino drainage in the last 8 hours and 900 mL of drainage in the last 24 hours. CARDIOVASCULAR: S1, S2 present, negative for S3, gallop or murmur. Regular rhythm and rate and rhythm. Palpable peripheral pulses bilaterally. No edema present. No calf pain or tenderness noted. GASTROINTESTINAL: Abdomen soft, nontender, and nondistended. Active bowel sounds present 4 quadrants. Tolerating diet. GENITOURINARY: Continues to void clear, yellow urine. INTEGUMENTARY: Skin is warm and dry, no clubbing or cyanosis. Dressing is clean, dry and intact to his right chest pigtail catheter. NEUROLOGIC: Cranial nerves II through XII intact, no focal deficits. MUSKULOSKELETAL: Able to move all extremities, strength equal bilaterally, gait normal. PSYCHIATRIC: Alert and oriented to person, place and time, appropriate affect, intact judgment and insight. - Allied health notes Allied health notes reviewed: nursing - Labs CBC & Chem 7: 08/13/21 03:30 08/13/21 03:30 Labs: Abnormal Lab Results - Last 24 Hours (Table) 08/13/21 08/13/21 Range/Units 03:30 03:30 WBC 16.42 H (4.50-10.00) X 10*3/uL RBC 3.95 L (4.40-5.60) X 10*6/uL Hgb 11.5 L (13.0-17.0) g/dL Hct 35.6 L (39.6-50.0) % Plt Count 535 H (140-440) X 10*3/uL Immature Gran # 0.24 H (0.00-0.04) X 10*3/uL Neutrophils # 12.30 H (1.80-7.70) X 10*3/uL Monocytes # 1.66 H (0.20-1.00) X 10*3/uL Sodium 134 L (135-145) mmol/L Creatinine 0.5 L (0.6-1.5) mg/dL BUN/Creatinine Ratio 22.00 H (12.00-20.00) Ratio Calcium 7.6 L (8.7-10.3) mg/dL Total Protein 4.7 L (6.2-8.2) g/dL Albumin 2.1 L (3.8-4.9) g/dL Albumin/Globulin Ratio 0.81 L (1.60-3.17) g/dL Microbiology - Last 24 Hours (Table) 08/07/21 17:50 Blood Culture - Final Blood No Growth after 144 hours 08/07/21 17:35 Blood Culture - Final Blood No Growth after 144 hours 08/09/21 14:20 Gram Stain - Preliminary Pleural Fluid Body Fluid Culture - Final Beta Hemolytic Strep Group C - Imaging and Cardiology Chest x-ray: report reviewed, image reviewed Assessment and Plan Assessment: 1. Right lower lobe pneumonia, parapneumonic effusion, thoracentesis fluid analysis consistent with empyema, status post pigtail catheter placement by interventional radiology 2. Shortness of breath, right-sided chest pain secondary to above 3. History of tobacco dependence with cessation 3 years ago 4. Daily EtOH use 5. Occasional marijuana use 6. Previous stomach stapling 7. Family history of heart and lung disease Plan: 1. Will instill alteplase/dornase again today, third dose. Clamp chest tube for 1 hour dwell time. 2. Wean O2 as tolerated. Encourage incentive spirometry use 10 times every hour while awake. 3. Continue with antibiotics, managed by primary care and pulmonary medicine. 4. Increase activity as tolerated. 5. Pain control with current medication regimen. 6. Medical management of other comorbidities per primary care service. 7. Continue to monitor daily chest x-rays. 8. Continue right chest pigtail catheter to low continuous wall suction -20 cm H2O. 9. Importance of risk modification including cessation of smoking marijuana discussed with the patient. 10. More recommendations to follow based on patient's clinical course. Time with Patient: Greater than 30
[2021-08-14] MEDS: IPRATROPIUM-ALBUTEROL 3 ML NEB INHALATION SCH ×4 (09:11→21:10)
[2021-08-14] MEDS: CLINDAMYCIN 900 MG in DEXTROSE 5% IN WATER 50 ML IVPB SCH ×4 (09:38→15:30)
--- NOTE | 2021-08-14 10:42 | P.PN ---
Subjective Progress Note Date: 08/14/21 60-year-old outpatient with past medical history of bariatric surgery, stomach stapling 30 years ago, former smoker, who came into the emergency department on the 08/07/2021 with complaints of right-sided pleuritic chest pain and shortness of breath. he states initial symptom onset was about a week ago and progressively became worse, he went to the urgent care initially, chest x-ray was taken and he was told that he needed to go to the emergency department as he was right lung appear to be collapsed at the bottom. In addition patient was febrile, and coughing up some purulent phlegm. In the emergency department chest x-ray showing right basilar opacity with small pleural effusion, CTA chest showing small to moderate right pleural effusion with accompanying basilar atelectasis. Lab work showed white blood cell count of 30.4, hemoglobin of 12.9, platelet count of 682, INR of 1.1, d-dimer was 2.5 to but CTA showed no evidence of pulmonary embolism. COVID 19 PCR is negative. Patient was started on azithromycin and Rocephin. This morning he seen sitting up in bed, is still having some pleuritic right lower rib cage pain with inspiration and coughing, but appears to be in no acute distress. On 2 L of oxygen his saturation 94-96%. On 08/09/2021 patient seen in follow-up. Patient is awake and alert, he states he is breathing easier, and right-sided pleuritic chest pain is improved although still there with deep breathing and coughing. Ultrasound the chest has been reviewed showing 2.3 centimeter pleural fluid pocket and it was not possible to market related to the pocket, lung location and internal echoes. Labs have been reviewed, white blood cell count is slightly improved and is down to 27.4, hemoglobin is 13.1, platelet count is 635, sodium is 134, depressed electrolytes and renal profile are unremarkable. Urinalysis showed small amount of blood, white blood cells, but no clear evidence of infection. COVID-19 PCR was negative. On 08/12/2021 patient is seen in follow-up on medical surgical floor. Patient had a right-sided pigtail chest tube catheter inserted and there was 1.5 L of purulent pleural fluid evacuated into the Pleur-evac. Chest tube remains in place, patient tolerated procedure very well. He is on 2 L of oxygen pulse ox is 94%, he is afebrile. Blood pressure stable, no altered mentation. Remains on combination of azithromycin and Rocephin. His white blood cell count is improved and is down to 17.1 on today's labs compared to 30.4 on admission, Hemoglobin is 11.2, sodium is 133, dressed electrolytes and renal profile are negative. Pleural fluid analysis has been reviewed and was consistent with empyema. Pleural fluid cultures remain negative so far. Sputum culture only showed Milli albicans, blood cultures have been negative. On 08/13/2021 patient seen in follow-up on medical surgical floor. He is breathing comfortably, sitting up in bed, he is on 2 L of oxygen, his pulse ox of 97%, yesterday he had right-sided posterior pigtail chest tube inserted by interventional radiology, with initial output of 1500 of purulent pleural fluid. There has been additional 350 mL of pleural fluid since then. Patient had first alteplase infused by CT surgery, and again today. He remains on combination of Rocephin and clindamycin. his pleural fluid cultures were positive for beta hemolytic strep group C. Fever pattern has improved, and T-max in the last 24 hours was 99.8F.his chest x-ray shows persistent moderate size right-sided pleural fluid collection with the pigtail pleural drainage catheter in place. There is associated right lower lung opacity favoring atelectatic changes. Today's labs show improvement in the white blood cell count, which is down to 16.42, hemoglobin is 11.5, platelet count is 535, sodium is 134, the rest of the electrolytes and renal profile are unremarkable. 08/14/2021, the patient is doing well. He remains on 2 L O2. Another 450 mL of fluid came out over the past 24 hours from his right-sided pigtail catheter. Another alteplase treatment was done today. Remains on IV Rocephin. Remains hemodynamically stable. His white cell count is elevated at 16.4. The rest of the electrodes are all within normal limits. He remains on IV Rocephin. He is afebrile. Pulse ox is 95% on 3 L of oxygen by nasal cannula. Repeat chest x- ray shows a tiny pneumothorax on the right. Right lower lung is still opacified and there is pigtail catheter remains in a good location. As such, we're going to continue our conservative drainage with a pigtail catheter and alteplase in an attempt to avoid surgical intervention on this patient. Objective - Vital Signs Vital signs: Vital Signs Temp 98.8 F 08/14/21 07:48 Pulse 88 08/14/21 09:26 Resp 18 08/14/21 09:05 BP 105/68 08/14/21 07:48 Pulse Ox 95 08/14/21 09:13 Intake & Output 08/13/21 08/14/21 08/14/21 18:59 06:59 18:59 Intake Total 200 Output Total 450 460 Balance -450 -460 200 Intake: Oral 200 Output: Chest Tube Drainage 450 Chest Tube Right 450 Drainage 460 Right Back 460 Other: Voiding Method Toilet Toilet Toilet Urinal Urinal Urinal # Voids 3 # Bowel Movements 2 - Exam CONSTITUTIONAL: Resting in bed eating breakfast on the fourth floor medical surgical unit. Appears comfortable, cooperative, and is in no acute distress. RESPIRATORY: Lungs sounds diminished bilaterally, right greater than left. Respirations are symmetrical and nonlabored. Currently on 3 L nasal cannula with oxygen saturation 98%. Able to achieve 1500 mL on incentive spirometry. Strong cough. Right-sided pigtail catheter present, connected to low continuous wall suction -20 cm H2O. No air leak is present. 460 mL thick serosanguineous espino drainage in the last 8 hours and 900 mL of drainage in the last 24 hours. CARDIOVASCULAR: S1, S2 present, negative for S3, gallop or murmur. Regular rhythm and rate and rhythm. Palpable peripheral pulses bilaterally. No edema present. No calf pain or tenderness noted. GASTROINTESTINAL: Abdomen soft, nontender, and nondistended. Active bowel sounds present 4 quadrants. Tolerating diet. GENITOURINARY: Continues to void clear, yellow urine. INTEGUMENTARY: Skin is warm and dry, no clubbing or cyanosis. Dressing is clean, dry and intact to his right chest pigtail catheter. NEUROLOGIC: Cranial nerves II through XII intact, no focal deficits. MUSKULOSKELETAL: Able to move all extremities, strength equal bilaterally, gait normal. PSYCHIATRIC: Alert and oriented to person, place and time, appropriate affect, intact judgment and insight. - Labs CBC & Chem 7: 08/13/21 03:30 08/13/21 03:30 Labs: Microbiology - Last 24 Hours (Table) 08/07/21 17:50 Blood Culture - Final Blood No Growth after 144 hours 08/07/21 17:35 Blood Culture - Final Blood No Growth after 144 hours 08/09/21 14:20 Gram Stain - Preliminary Pleural Fluid Body Fluid Culture - Final Beta Hemolytic Strep Group C Assessment and Plan Plan: #1. Acute hypoxic respiratory failure related to right lower lobe pneumonia parapneumonic effusion, community-acquired, related to beta hemolytic strep group C. Ultrasound of the chest showed a 2.3 cm fluid pocket with internal echoes. Patient had diagnostic right-sided thoracentesis done by interventional radiology, and pleural fluid analysis was consistent with empyema. Patient had right-sided pigtail chest tube insertion on 08/12/2021, with evacuation of 1.5 L of purulent pleural fluid. Pleural fluid cultures were positive for beta hemolytic strep group C. Patient has been receiving alteplase, received a dose on 08/12/2021, 08/13/2021, and 08/14/2021. Output over the past 24 hours was - 450 mL. We will going to unclamp the pigtail and continue monitoring the output. Meanwhile, the chest x-ray from today shows a right apical pneumothorax, significant opacification of the right lung. #2. Former smoker #3. Pleuritic chest pain #4. History of bariatric surgery, with stomach stapling #5. Coronary artery disease #6. BPH #7. COPD Plan: Daily chest x-rays Data alteplase treatment Continue incentive spirometer Patient is currently on Rocephin and clindamycin Encourage deep breathing and coughing Will continue to follow Fever is improved Patient educated to be careful not to pull out pig tail chest tube accidentally may ultimately need a surgical thoracoscopic drainage/decortication/80. Patient failed to show improvement. We'll continue to follow.
[2021-08-14] MEDS: KETOROLAC 15 MG/ML 1 ML VIAL IVP PRN ×2 (12:28→18:47)
--- NOTE | 2021-08-14 14:17 | P.PN ---
Progress Note - Text Progress Note Date: 08/14/21 Presenting complaint: Chest pain, shortness of breath Hospital course: I'm rounding for Dr. Beka Phillips. August 13: Patient is on 2 L of oxygen. Oral intake good. Has had a good output of clear fluid. Received alteplase. Some cough. Oral intake good. Has been out of bed. August 14: Chest tube remains in place. Eating well. Some cough. Alteplase today. Active Medications Acetaminophen (Acetaminophen Tab 325 Mg Tab) 650 mg PO Q4HR PRN PRN Reason: Fever and/ or Pain Last Admin: 08/12/21 20:32 Dose: 650 mg Documented by: Albuterol Sulfate (Albuterol Nebulized 2.5 Mg/3 Ml) 2.5 mg INHALATION RT-Q4H PRN PRN Reason: Shortness Of Breath Or Wheezing Last Admin: 08/13/21 20:21 Dose: 2.5 mg Documented by: Albuterol/Ipratropium (Ipratropium-Albuterol 3 Ml Neb) 3 ml INHALATION RT-Q4H PRN PRN Reason: shortness of breath Last Admin: 08/11/21 11:23 Dose: 3 ml Documented by: Albuterol/Ipratropium (Ipratropium-Albuterol 3 Ml Neb) 3 ml INHALATION RT-QID RAIMUNDO Last Admin: 08/14/21 12:57 Dose: 3 ml Documented by: Heparin Sodium (Porcine) (Heparin Sodium,Porcine/Pf 5,000 Unit/0.5 Ml Syringe) 5,000 unit SQ Q8HR RAIMUNDO Last Admin: 08/14/21 08:27 Dose: 5,000 unit Documented by: Sodium Chloride (Saline 0.9%) 1,000 mls @ 100 mls/hr IV .Q10H RAIMUNDO Last Admin: 08/14/21 11:31 Dose: Not Given Documented by: Ceftriaxone Sodium 2 gm/ (Sodium Chloride) 50 mls @ 100 mls/hr IVPB Q24HR RAIMUNDO; Protocol Last Admin: 08/14/21 08:27 Dose: 100 mls/hr Documented by: Clindamycin Phosphate 900 mg/ (Dextrose/Water) 56 mls @ 50 mls/hr IVPB Q8HR RAIMUNDO; Protocol Last Admin: 08/14/21 09:38 Dose: 50 mls/hr Documented by: Ketorolac Tromethamine (Ketorolac 15 Mg/Ml 1 Ml Vial) 15 mg IVP Q6HR PRN PRN Reason: Pain Control Stop: 08/15/21 22:45 Last Admin: 08/14/21 12:28 Dose: 15 mg Documented by: Miscellaneous Information (Pneumonia Protocol Utilized [address] [facility]) 1 each PO ONCE PRN PRN Reason: Per Protocol Pantoprazole Sodium (Pantoprazole 40 Mg Tablet) 40 mg PO DAILY RAIMUNDO Last Admin: 08/14/21 08:27 Dose: 40 mg Documented by: Tramadol HCl (Tramadol 50 Mg Tab) 50 mg PO QID PRN PRN Reason: Pain Last Admin: 08/14/21 08:35 Dose: 50 mg Documented by: On examination: VITAL SIGNS: 98.8, 83, 17, 105/68, 96% on 3 L GENERAL APPEARANCE: Sitting up in bed, awake . Right-sided chest tube HEENT: Normal external appearance of nose and ear. Oral cavity normal EYES: Pupils equal. Conjunctiva normal. NECK: JVD not raised. Mass not palpable. RESPIRATORY: Respiratory effort increased. Lungs decreased breath sounds. CARDIOVASCULAR: First and second sounds normal. No edema. ABDOMEN: Soft. Liver and spleen not palpable. No tenderness. No mass palpable. PSYCHIATRY: Alert and oriented x3. Mood and affect normal. INVESTIGATIONS, reviewed in the clinical context: Chest x-ray: Right-sided empyema is likely low platelet. Small apical pneumothorax. White count 16.4 hemoglobin 11.5 platelets 535 sodium 134 potassium 3.6 creatinine 0.5 Pleural fluid: Beta-hemolytic streptococcus group C Assessment and plan: -Acute hypoxic respiratory failure secondary to pneumonia and empyema Currently on 2 L nasal cannula -Right-sided pneumonia with empyema from beta-hemolytic streptococcus group C IV ceftriaxone -Right-sided empyema: Slow to respond . Pigtail catheter to drainage. Getting alteplase -COPD in a previous smoker DuoNeb -Recreational marijuana use -B geriatrics surgery with a history of stomach stapling Continue with current antibiotics other medications. Discussed with patient.
--- NOTE | 2021-08-14 14:29 | P.PN ---
Subjective Progress Note Date: 08/13/21 Principal diagnosis: empyema patient is a 60-year-old male presenting to the hospital for evaluation of increasing shortness of breath and cough has been diagnosed with e mpyema, patient is status post right sided drainage catheter placement, pleural fluid culture be positive for group C strep on today's evaluation that is 08/13/2021, the patient denies having any fever or chills, the patient is breathing more comfortably, did have some pain at the chest tube insertion site but no worsening no nausea no vomiting no abdominal pain and no diarrhea Objective - Vital Signs Vital signs: Vital Signs Temp 99.8 F H 08/13/21 08:00 Pulse 72 08/13/21 08:00 Resp 19 08/13/21 08:00 BP 129/73 08/13/21 08:00 Pulse Ox 97 08/13/21 08:00 Intake & Output 08/12/21 08/13/21 08/13/21 18:59 06:59 18:59 Output Total 2049 Balance -2049 - Output: Chest Tube Drainage 1950 Chest Tube Right 1950 Drainage 400 Right Back 400 Urine 100 300 Other: Voiding Method Toilet Toilet Toilet Urinal Urinal # Voids 1 # Bowel Movements 0 - Exam GENERAL DESCRIPTION: Middle-aged male lying in bed in no distress RESPIRATORY SYSTEM: Unlabored breathing , decreased breath sounds at bases HEART: S1 S2 regular rate and rhythm , ABDOMEN: Soft , no tenderness EXTREMITIES: No edema feet - Labs CBC & Chem 7: 08/13/21 03:30 08/13/21 03:30 Labs: Abnormal Lab Results - Last 24 Hours (Table) 08/13/21 08/13/21 Range/Units 03:30 03:30 WBC 16.42 H (4.50-10.00) X 10*3/uL RBC 3.95 L (4.40-5.60) X 10*6/uL Hgb 11.5 L (13.0-17.0) g/dL Hct 35.6 L (39.6-50.0) % Plt Count 535 H (140-440) X 10*3/uL Immature Gran # 0.24 H (0.00-0.04) X 10*3/uL Neutrophils # 12.30 H (1.80-7.70) X 10*3/uL Monocytes # 1.66 H (0.20-1.00) X 10*3/uL Sodium 134 L (135-145) mmol/L Creatinine 0.5 L (0.6-1.5) mg/dL BUN/Creatinine Ratio 22.00 H (12.00-20.00) Ratio Calcium 7.6 L (8.7-10.3) mg/dL Total Protein 4.7 L (6.2-8.2) g/dL Albumin 2.1 L (3.8-4.9) g/dL Albumin/Globulin Ratio 0.81 L (1.60-3.17) g/dL Microbiology - Last 24 Hours (Table) 08/07/21 17:50 Blood Culture - Preliminary Blood No Growth after 120 hours 08/07/21 17:35 Blood Culture - Preliminary Blood No Growth after 120 hours 08/09/21 14:20 Gram Stain - Preliminary Pleural Fluid Body Fluid Culture - Preliminary Beta Hemolytic Strep Group C Assessment and Plan (1) Empyema Current Visit: Yes Status: Acute Code(s): J86.9 - PYOTHORAX WITHOUT FISTULA SNOMED Code(s): 025759086 Plan: 1patient presented to hospital with right-sided empyema in this patient status post chest tube placement and the culture showing group C strep. 2patient to continue with Rocephin and clindamycin. 3patient will likely need a PICC line and outpatient IV antibiotic therapy. Time with Patient: Less than 30
--- NOTE | 2021-08-14 14:31 | P.PN ---
Subjective Progress Note Date: 08/14/21 Principal diagnosis: empyema patient is a 60-year-old male presenting to the hospital for evaluation of increasing shortness of breath and cough has been diagnosed with e mpyema, patient is status post right sided drainage catheter placement, pleural fluid culture be positive for group C strep on today's evaluation that is 08/14/2021, the patient is afebrile, the patient is breathing more comfortably, the patient denies any worsening pain at the chest tube insertion site but no worsening no nausea no vomiting no abdominal pain and no diarrhea Objective - Vital Signs Vital signs: Vital Signs Temp 98.8 F 08/14/21 07:48 Pulse 80 08/14/21 12:59 Resp 18 08/14/21 09:05 BP 105/68 08/14/21 07:48 Pulse Ox 95 08/14/21 09:13 Intake & Output 08/13/21 08/14/21 08/14/21 18:59 06:59 18:59 Intake Total 450 Output Total 450 460 Balance -450 -460 450 Intake: Oral 450 Output: Chest Tube Drainage 450 Chest Tube Right 450 Drainage 460 Right Back 460 Other: Voiding Method Toilet Toilet Toilet Urinal Urinal Urinal # Voids 3 # Bowel Movements 2 - Exam GENERAL DESCRIPTION: Middle-aged male lying in bed in no distress RESPIRATORY SYSTEM: Unlabored breathing , decreased breath sounds at bases HEART: S1 S2 regular rate and rhythm , ABDOMEN: Soft , no tenderness EXTREMITIES: No edema feet - Labs CBC & Chem 7: 08/13/21 03:30 08/13/21 03:30 Labs: Microbiology - Last 24 Hours (Table) 08/07/21 17:50 Blood Culture - Final Blood No Growth after 144 hours 08/07/21 17:35 Blood Culture - Final Blood No Growth after 144 hours 08/09/21 14:20 Gram Stain - Preliminary Pleural Fluid Body Fluid Culture - Final Beta Hemolytic Strep Group C Assessment and Plan (1) Empyema Current Visit: Yes Status: Acute Code(s): J86.9 - PYOTHORAX WITHOUT FISTULA SNOMED Code(s): 186230079 Plan: 1patient presented to hospital with right-sided empyema in this patient status post chest tube placement and the culture showing group C strep. 2patient to continue with Rocephin and clindamycin. With the plan to finish therapy with IV Rocephin on discharge, discussed with the case packer Time with Patient: Less than 30
[2021-08-14 14:32] VITALS: BMI 23.1
[2021-08-15] MEDS: HEPARIN SODIUM,PORCINE/PF 5,000 UNIT/0.5 ML SYRINGE SQ SCH ×4 (00:29→23:50)
[2021-08-15] MEDS: CLINDAMYCIN 900 MG in DEXTROSE 5% IN WATER 50 ML IVPB SCH ×8 (00:29→22:58)
[2021-08-15] MEDS: KETOROLAC 15 MG/ML 1 ML VIAL IVP PRN ×3 (00:30→18:53)
[2021-08-15] MEDS: traMADol 50 MG TAB PO PRN ×4 (03:38→22:15)
--- NOTE | 2021-08-15 07:13 | XR ---
EXAMINATION TYPE: XR chest 1V portable DATE OF EXAM: 08/15/2021 CLINICAL HISTORY: Loculated pleural effusion progress study. TECHNIQUE: Single AP portable frontal view of the chest is obtained. COMPARISON: Chest x-ray from one day earlier and older studies FINDINGS: Persistent right pleural pigtail drainage catheter with moderate sized right pleural fluid collection. Slight improvement in superior air collection. Overall size fairly stable to slightly im proved. There is associated right mid to lower lung opacity favoring atelectasis. Left lung today dionicio ws new opacity favoring atelectasis. No new mediastinal shift is evident. Underlying S-shaped scoliosis with multilevel spurring in the spine is redemonstrated. High riding hu meral heads suggesting chronic rotator cuff tears are redemonstrated. Cardiac silhouette size remains within normal limits. Background mild underlying emphysematous change noted. IMPRESSION: Persistent moderate sized right-sided pleural fluid collection despite pigtail pleural dr ainage catheter. Associated right lower lung opacity favors atelectatic change again seen. New left b asilar opacity favors developing atelectasis.
[2021-08-15] MEDS: PANTOPRAZOLE 40 MG TABLET PO SCH (07:14)
[2021-08-15] MEDS: SODIUM CHLORIDE 0.9% 1,000 ML IV SCH (07:18)
[2021-08-15] MEDS ORDERED: ALTEPLASE 10 MG in SODIUM CHLORIDE 0.9% 50 ML IRRIGATION ONE (07:57)
[2021-08-15] MEDS ORDERED: DORNASE ALFA 5 MG in SODIUM CHLORIDE 0.9% 50 ML IRRIGATION ONE (07:57)
[2021-08-15] MEDS: IPRATROPIUM-ALBUTEROL 3 ML NEB INHALATION SCH ×4 (08:53→19:05)
--- NOTE | 2021-08-15 09:11 | P.PN ---
Subjective Progress Note Date: 08/15/21 Principal diagnosis: Right lower lobe pneumonia, parapneumonic effusion, thoracentesis fluid analysis consistent with empyema. Past medical history significant for tobacco depende nce with cessation 3 years ago, daily EtOH use, occasional marijuana use, previous stomach stapling. POD #3 placement of right sided pigtail catheter by interventional radiology. The patient was seen in follow-up today 08/15/2021 at his bedside on the fourth floor medical surgical unit. Currently he is sitting up to the bedside edge, eating his breakfast, he is awake, alert, and oriented 3. He is in no acute apparent distress. Denies any complaints of shortness of breath or pain at this time. Continues to report that he feels like he is improving on a daily basis. Oxygen saturations are 95% on 2 L nasal cannula and he is achieving 1500 mL on his incentive spirometry. Right chest pigtail pleural catheter remains in place to low continuous wall suction -20 cm H2O. No air leak is present. Draining thin serosanguineous espino colored drainage with 1050 milliliters output in the last 24 hours. He was given a third dose of alteplase/dornase yesterday and tolerated well. Chest x-ray this morning shows a persistent moderate sized right-sided pleural fluid collection. T-max temperature in the last 24 hours is 99.4F. He remains on antibiotic coverage with Rocephin and Cleocin managed by infectious disease. Pleural fluid culture shows beta hemolytic strep group C anaerobic gram-negative bacilli. No new concerns. Objective - Vital Signs Vital signs: Vital Signs Temp 98.2 F 08/15/21 07:49 Pulse 90 08/15/21 07:49 Resp 18 08/15/21 07:49 BP 97/63 08/15/21 07:49 Pulse Ox 95 08/15/21 07:49 Intake & Output 08/14/21 08/15/21 08/15/21 18:59 06:59 18:59 Intake Total 450 200 Output Total 1305 615 Balance -855 -615 200 Weight 61.235 kg Intake: Oral 450 200 Output: Drainage 755 215 Right Back 755 215 Urine 550 400 Other: Voiding Method Toilet Toilet Urinal Urinal # Voids 3 - Exam CONSTITUTIONAL: Sitting up to bedside edge eating breakfast on the fourth floor medical surgical unit. Appears comfortable, cooperative, and is in no acute distress. RESPIRATORY: Lungs sounds diminished bilaterally, right greater than left. Respirations are symmetrical and nonlabored. Currently on 2 L nasal cannula with oxygen saturation 95%. Able to achieve 1500 mL on incentive spirometry. Strong cough. Right-sided pigtail catheter present, connected to low continuous wall suction -20 cm H2O. No air leak is present. 1050 mL of thin serosanguineous espino drainage in the last 24 hours. CARDIOVASCULAR: S1, S2 present, negative for S3, gallop or murmur. Regular rhythm and rate and rhythm. Palpable peripheral pulses bilaterally. No edema present. No calf pain or tenderness noted. GASTROINTESTINAL: Abdomen soft, nontender, and nondistended. Active bowel sounds present 4 quadrants. Tolerating diet. GENITOURINARY: Continues to void clear, yellow urine. INTEGUMENTARY: Skin is warm and dry, no clubbing or cyanosis. Dressing is clean, dry and intact to his right chest pigtail catheter. NEUROLOGIC: Cranial nerves II through XII intact, no focal deficits. MUSKULOSKELETAL: Able to move all extremities, strength equal bilaterally, gait normal. PSYCHIATRIC: Alert and oriented to person, place and time, appropriate affect, intact judgment and insight. - Allied health notes Allied health notes reviewed: nursing - Labs CBC & Chem 7: 08/13/21 03:30 08/13/21 03:30 Labs: Microbiology - Last 24 Hours (Table) 08/09/21 14:20 Gram Stain - Preliminary Pleural Fluid Body Fluid Culture - Preliminary Beta Hemolytic Strep Group C Anaerobic Gm Negative Bacilli - Imaging and Cardiology Chest x-ray: report reviewed, image reviewed Assessment and Plan Assessment: 1. Right lower lobe pneumonia, parapneumonic effusion, thoracentesis fluid analysis consistent with empyema, status post pigtail catheter placement by interventional radiology 2. Shortness of breath, right-sided chest pain secondary to above 3. History of tobacco dependence with cessation 3 years ago 4. Daily EtOH use 5. Occasional marijuana use 6. Previous stomach stapling 7. Family history of heart and lung disease Plan: 1. Will instill alteplase/dornase again today, fourth dose. Clamp chest tube for 1 hour dwell time. 2. Wean O2 as tolerated. Encourage incentive spirometry use 10 times every hour while awake. 3. Continue with antibiotics, managed by infectious disease. Pleural fluid culture positive for beta hemolytic strep group C, anaerobic gram-negative bacilli. 4. Increase activity as tolerated. 5. Pain control with current medication regimen. 6. Medical management of other comorbidities per primary care service. 7. Continue to monitor daily chest x-rays. We will obtain a computed tomography scan of his chest without contrast tomorrow. 8. Continue right chest pigtail catheter to low continuous wall suction -20 cm H2O. 9. Importance of risk modification including cessation of smoking marijuana discussed with the patient. 10. More recommendations to follow based on patient's clinical course. Time with Patient: Greater than 30
--- NOTE | 2021-08-15 14:17 | P.PN ---
Subjective Progress Note Date: 08/15/21 60-year-old outpatient with past medical history of bariatric surgery, stomach stapling 30 years ago, former smoker, who came into the emergency department on the 08/07/2021 with complaints of right-sided pleuritic chest pain and shortness of breath. he states initial symptom onset was about a week ago and progressively became worse, he went to the urgent care initially, chest x-ray was taken and he was told that he needed to go to the emergency department as he was right lung appear to be collapsed at the bottom. In addition patient was febrile, and coughing up some purulent phlegm. In the emergency department chest x-ray showing right basilar opacity with small pleural effusion, CTA chest showing small to moderate right pleural effusion with accompanying basilar atelectasis. Lab work showed white blood cell count of 30.4, hemoglobin of 12.9, platelet count of 682, INR of 1.1, d-dimer was 2.5 to but CTA showed no evidence of pulmonary embolism. COVID 19 PCR is negative. Patient was started on azithromycin and Rocephin. This morning he seen sitting up in bed, is still having some pleuritic right lower rib cage pain with inspiration and coughing, but appears to be in no acute distress. On 2 L of oxygen his saturation 94-96%. On 08/09/2021 patient seen in follow-up. Patient is awake and alert, he states he is breathing easier, and right-sided pleuritic chest pain is improved although still there with deep breathing and coughing. Ultrasound the chest has been reviewed showing 2.3 centimeter pleural fluid pocket and it was not possible to market related to the pocket, lung location and internal echoes. Labs have been reviewed, white blood cell count is slightly improved and is down to 27.4, hemoglobin is 13.1, platelet count is 635, sodium is 134, depressed electrolytes and renal profile are unremarkable. Urinalysis showed small amount of blood, white blood cells, but no clear evidence of infection. COVID-19 PCR was negative. Progress note dated 08/10/2021. This is a 60-year-old male, again seen in room 457. Yesterday, Dr. Erickson did a diagnostic thoracentesis on the patient. He states that the material that he was able to get out of the right pleural space, was purulent. He sent for cytology, chemistry, and microbiology. It appears to be pus. The glucose extremely low. It is an exudate. There is a predominance of white blood cells, mostly polymorphonuclear neutrophils. We are going to ask interventional radiology to consider placing a pigtail catheter. We did ask cardiothoracic surgery to see the patient. They would prefer to avoid chest tube placement. Currently, the patient doesn't feel horrible. He remains on 3 L of oxygen. Saturations are between 94 to 97%. White count 23.4, hemoglobin 11.4, hematocrit 35, and platelet count 512,000. Sodium 133, potassium, chloride, CO2, anion gap, BUN, and creatinine all normal. Sputum was only positive for Milli. Fluid analysis reveals 28,971 white blood cells, of which 97% of PMNs. In addition, the glucose was less than 2. The protein was 4.19 g, and the LDH was greater than 2500. This is consistent with an empyema. We will ask interventional radiology consider placing a pigtail catheter. The patient is seen today 08/11/2021 in follow-up on the regular medical floor. He has been up ambulating in the room. He is still dyspneic with minimal exertion. Denies any fever, chills or night sweats. He is maintaining good O2 saturations in the mid to upper 90s on 3 L/m per nasal cannula. He remains afebrile. Hemodynamically stable. Pleural fluid cultures are pending. Sputum culture positive for Milli only. Blood cultures are showing no growth. White count 18. Hemoglobin 10.3. Platelets 455. Sodium 1:30. Potassium 3.5. Bicarb 21. Creatinine 0.5. He remains on antibiotics in the form of ceftriaxone and azithromycin. Continue bronchodilators. Heparin for DVT prophylaxis. Normal saline at 100 ML's per hour. He has been seen by CT services who are recommending INR place a pigtail catheter. He'll be nothing by mouth tonight. On 08/12/2021 patient is seen in follow-up on medical surgical floor. Patient had a right-sided pigtail chest tube catheter inserted and there was 1.5 L of purulent pleural fluid evacuated into the Pleur-evac. Chest tube remains in place, patient tolerated procedure very well. He is on 2 L of oxygen pulse ox is 94%, he is afebrile. Blood pressure stable, no altered mentation. Remains on combination of azithromycin and Rocephin. His white blood cell count is improved and is down to 17.1 on today's labs compared to 30.4 on admission, Hemoglobin is 11.2, sodium is 133, dressed electrolytes and renal profile are negative. Pleural fluid analysis has been reviewed and was consistent with empyema. Pleural fluid cultures remain negative so far. Sputum culture only showed Milli albicans, blood cultures have been negative. On 08/13/2021 patient seen in follow-up on medical surgical floor. He is breathing comfortably, sitting up in bed, he is on 2 L of oxygen, his pulse ox of 97%, yesterday he had right-sided posterior pigtail chest tube inserted by interventional radiology, with initial output of 1500 of purulent pleural fluid. There has been additional 350 mL of pleural fluid since then. Patient had first alteplase infused by CT surgery, and again today. He remains on combination of Rocephin and clindamycin. his pleural fluid cultures were positive for beta hemolytic strep group C. Fever pattern has improved, and T-max in the last 24 hours was 99.8F.his chest x-ray shows persistent moderate size right-sided pleural fluid collection with the pigtail pleural drainage catheter in place. There is associated right lower lung opacity favoring atelectatic changes. Today's labs show improvement in the white blood cell count, which is down to 16.42, hemoglobin is 11.5, platelet count is 535, sodium is 134, the rest of the electrolytes and renal profile are unremarkable. 08/14/2021, the patient is doing well. He remains on 2 L O2. Another 450 mL of fluid came out over the past 24 hours from his right-sided pigtail catheter. Another alteplase treatment was done today. Remains on IV Rocephin. Remains hemodynamically stable. His white cell count is elevated at 16.4. The rest of the electrodes are all within normal limits. He remains on IV Rocephin. He is afebrile. Pulse ox is 95% on 3 L of oxygen by nasal cannula. Repeat chest x- ray shows a tiny pneumothorax on the right. Right lower lung is still opacified and there is pigtail catheter remains in a good location. As such, we're going to continue our conservative drainage with a pigtail catheter and alteplase in an attempt to avoid surgical intervention on this patient. The patient is seen today 08/15/2021 in follow-up on the regular medical floor. He is currently sitting up in a chair at the bedside. Awake and alert in no acute distress. Chest x-ray continues to revealed persistent moderate sized right pleural effusion. Associated right lower lobe opacity favors atelectasis. Basilar opacity developing. Right-sided pigtail catheter remains in place. Continue to low continuous wall suction. No air leak present. Approximately 1000 mL of tannish serosanguineous drainage in the past 24 hours output. He is continued working well with the incentive spirometer pulling approximately 1500 ML's. He is maintaining good O2 saturations in the 90s on 2 L/m per nasal cannula. Pleural fluid cultures are positive for beta hemolytic strep group C and anaerobic gram-negative bacilli. He is continued on ceftriaxone and clindamycin. Heparin for DVT prophylaxis. Remains on bronchodilators. Objective - Vital Signs Vital signs: Vital Signs Temp 98.1 F 08/15/21 13:53 Pulse 88 08/15/21 13:53 Resp 18 08/15/21 13:53 BP 90/64 08/15/21 13:53 Pulse Ox 90 L 08/15/21 13:53 Intake & Output 08/14/21 08/15/21 08/15/21 18:59 06:59 18:59 Intake Total 450 400 Output Total 1305 615 Balance -855 -615 400 Weight 61.235 kg Intake: Oral 450 400 Output: Drainage 755 215 Right Back 755 215 Urine 550 400 Other: Voiding Method Toilet Toilet Urinal Urinal # Voids 3 - Exam GENERAL EXAM: Alert, active, pleasant 60-year-old male patient, on 3 L nasal cannula, comfortable in no apparent distress. HEAD: Normocephalic. EYES: Normal reaction of pupils, equal size. NOSE: Clear with pink turbinates. THROAT: No erythema or exudates. NECK: No masses, no JVD. CHEST: No chest wall deformity. Right sided pigtail catheter in place to low continuous wall suction. No leak noted. LUNGS: Equal air entry with crackles in the right lung base. Diminished.. CVS: S1 and S2 normal with no audible murmur, regular rhythm. ABDOMEN: No hepatosplenomegaly, normal bowel sounds, no guarding or rigidity. SPINE: No scoliosis or deformity SKIN: No rashes CENTRAL NERVOUS SYSTEM: No focal deficits, tone is normal in all 4 extremities. EXTREMITIES: There is no peripheral edema. No clubbing, no cyanosis. Peripheral pulses are intact. - Labs CBC & Chem 7: 08/13/21 03:30 08/13/21 03:30 Labs: Microbiology - Last 24 Hours (Table) 08/09/21 14:20 Gram Stain - Preliminary Pleural Fluid Body Fluid Culture - Preliminary Beta Hemolytic Strep Group C Anaerobic Gm Negative Bacilli Assessment and Plan Assessment: 1 Acute hypoxemic respiratory failure secondary to community acquired pneumonia, right lower lobe, with parapneumonic effusion/empyema. Patient had diagnostic right-sided thoracentesis done by interventional radiology, and pleural fluid analysis was consistent with empyema. Patient had right-sided pigtail chest tube insertion on 08/12/2021, with evacuation of 1.5 L of purulent pleural fluid. Pleural fluid cultures were positive for beta hemolytic strep group C. Patient has been receiving alteplase, received a dose on 08/12/2021, 08/13/2021, 08/14/2021 , and today 08/15/2021. Output over the past 24 hours was -1050 mL. Meanwhile, the chest x-ray from today shows a right apical pneumothorax, significant opacification of the right lung. 2 Previous history of tobacco use. 3 Pleuritic chest pain, secondary to pneumonia within the right lung. 4 Previous bariatric surgery with stomach stapling. 5 History of CAD. 6 History of BPH. 7 History of COPD. Plan: The patient was seen and evaluated Chest x-ray reviewed Received alteplase again today CT services are on the case Plan is for a follow-up computed tomography scan of the chest tomorrow Pleural fluid cultures positive for beta hemolytic group strep C and anaerobic gram-negative bacilli Continue ceftriaxone and clindamycin for now We will continue to follow I have personally seen and examined the patient, performed the documentation and the assessment and plan as written. Number of minutes spent on the visit: 10. I have personally seen and examined the patient and reviewed the documentation. I performed a joint evaluation with the nurse practitioner in this evaluation was done more than 20 minutes. I fully agree with the documentation above and the plan of care.. I am seeing this patient for a follow-up. We'll continue the same treatment. Follow-up CAT scan of the chest will be obtained tomorrow regarding successful percutaneous drainage and alteplase treatment. Continue same antibiotic coverage. We'll continue to follow.
--- NOTE | 2021-08-15 17:20 | P.PN ---
Subjective Progress Note Date: 08/15/21 Principal diagnosis: empyema patient is a 60-year-old male presenting to the hospital for evaluation of increasing shortness of breath and cough has been diagnosed with e mpyema, patient is status post right sided drainage catheter placement, pleural fluid culture be positive for group C strep on today's evaluation that is 08/15/2021, the patient remains to be afebrile, the patient is breathing comfortably on his oxygen, the patient pain at the chest tube insertion site is currently controlled, the patient denies nausea no vomiting no abdominal pain and no diarrhea Objective - Vital Signs Vital signs: Vital Signs Temp 98.1 F 08/15/21 13:53 Pulse 88 08/15/21 13:53 Resp 18 08/15/21 13:53 BP 90/64 08/15/21 13:53 Pulse Ox 90 L 08/15/21 13:53 Intake & Output 08/14/21 08/15/21 08/15/21 18:59 06:59 18:59 Intake Total 450 600 Output Total 1305 615 400 Balance -855 -615 200 Weight 61.235 kg Intake: Oral 450 600 Output: Drainage 755 215 Right Back 755 215 Urine 550 400 400 Other: Voiding Method Toilet Toilet Urinal Urinal # Voids 3 - Exam GENERAL DESCRIPTION: Middle-aged male lying in bed in no distress RESPIRATORY SYSTEM: Unlabored breathing , decreased breath sounds at bases HEART: S1 S2 regular rate and rhythm , ABDOMEN: Soft , no tenderness EXTREMITIES: No edema feet - Labs CBC & Chem 7: 08/13/21 03:30 08/13/21 03:30 Labs: Microbiology - Last 24 Hours (Table) 08/09/21 14:20 Gram Stain - Preliminary Pleural Fluid Body Fluid Culture - Preliminary Beta Hemolytic Strep Group C Anaerobic Gm Negative Bacilli Assessment and Plan (1) Empyema Current Visit: Yes Status: Acute Code(s): J86.9 - PYOTHORAX WITHOUT FISTULA SNOMED Code(s): 843153670 Plan: 1patient presented to hospital with right-sided empyema in this patient status post chest tube placement and the culture showing group C strep. 2patient is currently being treated with Rocephin and clindamycin which will be continued while monitoring his clinical course closely Time with Patient: Less than 30
--- NOTE | 2021-08-15 23:18 | PN ---
PROGRESS NOTE This 60-year-old white male was admitted to get a chest tube in. He is saturating 91 on 2 L. Blood pressure 90s over 50s, temperature 98.5, pulse 70s to 80s, respiratory rate 16 to 18. He is being treated for empyema. He is on IV clindamycin, IV Rocephin. Going to get a CT scan in the morning. His white count has not been done in a few days. It was 17,000 then. We are going to do a CT scan in the morning to see what the progression is with the chest tube. Will try to wean him off the chest tube in the next few days. He is afebrile. No nausea, vomiting, diarrhea. He is breathing better. Do a CT scan in the morning for the prognosis at that point. HEART: S1, S2. Abdomen soft. Lungs clear. Extremities: No edema. ASSESSMENT: 1. Empyema. 2. thorax without fistula. 3. Group C strep. Rocephin, clindamycin. Check CT scan in the morning. MMODL / IJN: [id number] /
[2021-08-16] MEDS: ACETAMINOPHEN TAB 325 MG TAB PO PRN (00:41)
[2021-08-16] MEDS: HEPARIN SODIUM,PORCINE/PF 5,000 UNIT/0.5 ML SYRINGE SQ SCH ×3 (07:12→22:45)
[2021-08-16] MEDS: traMADol 50 MG TAB PO PRN ×3 (07:12→20:58)
[2021-08-16] MEDS: PANTOPRAZOLE 40 MG TABLET PO SCH (07:17)
[2021-08-16] MEDS: CLINDAMYCIN 900 MG in DEXTROSE 5% IN WATER 50 ML IVPB SCH ×6 (08:44→22:45)
[2021-08-16 09:11] LABS: HCT 32.7 % (39.6-50.0); HGB 10.5 g/dL (13.0-17.0); MCH 28.9 pg (27.0-32.0); MCHC 32.1 g/dL (32.0-37.0); MCV 90.1 fL (80.0-97.0); Mean Platelet Volume 9.2 fL (9.5-12.2); NRBC Per 100 WBC 0 /100 WBCS (0.0-0.0); Platelet Count 609 X 10*3/uL (140-440); RBC 3.63 X 10*6/uL (4.40-5.60); RDW 14.1 % (11.5-14.5); WBC 13.82 X 10*3/uL (4.50-10.00)
[2021-08-16 09:24] LABS: C Reactive Protein 12.1 mg/dL (0.00-0.80)
[2021-08-16 09:28] LABS: African American GFR (CKD) 150.7 (60.0-200.0); Albumin/Globulin Ratio 0.8 (1.60-3.17); Anion Gap 8.8 mmol/L (10.00-18.00); Blood Urea Nitrogen 10.4 mg/dL (9.0-27.0); Carbon Dioxide 27.2 mmol/L (20.0-27.5); Globulin 2.5 g/dL (1.6-3.3); Potassium 4.3 mmol/L (3.5-5.5); Total Bilirubin 0.3 mg/dL (0.30-1.20); Total Protein 4.5 g/dL (6.2-8.2)
[2021-08-16] MEDS: IPRATROPIUM-ALBUTEROL 3 ML NEB INHALATION SCH ×4 (09:28→19:35)
[2021-08-16 10:56] LABS: Neutrophils # (M) 12.02 X 10*3/uL (2.00-8.90)
--- NOTE | 2021-08-16 11:02 | CT ---
EXAMINATION TYPE: CT chest wo con DATE OF EXAM: 08/16/2021 COMPARISON: 08/07/2021 HISTORY: 60-year-old male Right lower lobe pneumonia. TECHNIQUE: Contiguous axial scanning of the chest without IV contrast. Coronal and sagittal reconstru ctions performed. CT DLP: 303.8 mGycm Automated exposure control for dose reduction was used. FINDINGS: Heart normal size. Small anterior pericardial effusion measuring 5 mm thick. Generalized anasarca lupillo nge also noted. Mild aneurysmal ascending aorta at 4.2 cm, unchanged. Disregard calcifications. Conventional arch vessel branching anatomy. Some scattered nonenlarged and portal to mildly enlarged mediastinal lymph nodes measuring up to 1.2 cm along the paratracheal region are unchanged. Calcified subcarinal and left hilar lymph nodes antony tible with prior granulomatous disease. No progressive lymphadenopathy seen. There appears to be a pigtail pleural catheter which is dislodged outside of the pleural space avionics manager iorly on the right. Moderate right-sided pleural effusion is increased in the interval. Small foci of air are present wit hin the fluid likely relating to the instrumentation. Mild emphysematous change. There is progressive and volume loss and airspace disease of the right middle lobe and to a lesser extent, right lower lo be. Calcified granuloma left lower lobe. No consolidation or pleural effusion on the left. Visualized upper abdomen shows a small hiatal hernia and some postsurgical change along the proximal stomach. Generalized anasarca change again noted. Bones: There is dish and a levoconvex scoliotic curvature centered along the thoracolumbar junction. Advanced degenerative disc disease upper third thoracic spine. IMPRESSION: 1. THE PATIENT'S RIGHT-SIDED PIGTAIL PLEURAL CATHETER IS DISLODGED. THE LOOP IS WITHIN THE THORACIC W ALL SOFT TISSUES OUTSIDE THE PLEURAL SPACE. 2. INCREASING, NOW MODERATE RIGHT PLEURAL EFFUSION. SCATTERED FOCI OF AIR WITHIN THE FLUID LIKELY REL ATES TO THE INSTRUMENTATION. 3. WORSENING VOLUME LOSS AND CONSOLIDATION THROUGHOUT THE RIGHT MIDDLE LOBE AND BASILAR RIGHT LOWER L OBE. PNEUMONIA IN THE CORRECT CLINICAL SETTING. 4. STABLE MILD ANEURYSM ASCENDING AORTA 4.2 CM. BACKGROUND COPD WITH MILD EMPHYSEMA. 5. NEW 5 MM SMALL PERICARDIAL EFFUSION. GENERALIZED ANASARCA CHANGE HAS DEVELOPED IN THE INTERVAL; CO RRELATE FOR THIRD SPACING/FLUID OVERLOAD STATE.
--- NOTE | 2021-08-16 14:30 | P.PN ---
Subjective Progress Note Date: 08/16/21 Principal diagnosis: Right lower lobe pneumonia, parapneumonic effusion, thoracentesis fluid analysis consistent with empyema. Past medical history significant for tobacco depende nce with cessation 3 years ago, daily EtOH use, occasional marijuana use, previous stomach stapling. POD #4 placement of right sided pigtail catheter by interventional radiology. The patient was seen in follow-up today 08/16/2021 at his bedside on the fourth floor medical surgical unit. He is currently sitting up to the bedside edge, is awake, alert, and oriented 3 and is in no acute apparent distress. Denies any complaints of shortness of breath, although is complaining of some pain to his right chest with taking a deep breath. Currently rates his pain 6 out of 10 on the pain scale and is receiving pain medication at this time for his pain. T- max temperature in the last 24 hours is 99.8F. Heart rate is 88 BPM, blood pressure is 97/61 and his oxygen saturations are 96% on 3 L nasal cannula. He is achieving 1500 mL on his incentive spirometry with encouragement. Right chest pigtail catheter remains in place to low continuous wall suction -20 cm H2O. No air leak is present. Continues to drain thin serosanguineous espino drainage, 150 mL output in the last 8 hours and 1250 mL output in the last 24 hours. He is scheduled for a computed tomography scan of his chest without co ntrast this morning. Pleural fluid culture from 08/09/2021 final report shows beta-hemolytic strep group C and Bacteroides species. He remains on Cleocin and Rocephin IV piggyback for antibiotic coverage which is managed by infectious disease. No new concerns. Objective - Vital Signs Vital signs: Vital Signs Temp 99.8 F H 08/16/21 00:49 Pulse 89 08/16/21 00:49 Resp 17 08/16/21 00:49 BP 97/61 08/16/21 00:49 Pulse Ox 96 08/16/21 00:49 Intake & Output 08/15/21 08/16/21 08/16/21 18:59 06:59 18:59 Intake Total 600 Output Total 1225 530 Balance -625 -530 Intake: Oral 600 Output: Drainage 825 430 Right Back 825 430 Urine 400 100 Other: Voiding Method Toilet Urinal - Exam CONSTITUTIONAL: Sitting up to bedside edge on the fourth floor medical surgical unit. Appears comfortable, cooperative, and is in no acute distress. RESPIRATORY: Lungs sounds diminished bilaterally, right greater than left, few scattered rhonchi throughout. Respirations are symmetrical and nonlabored. Currently on 3 L nasal cannula with oxygen saturation 96%. Able to achieve 1500 mL on incentive spirometry. Strong productive cough. Right-sided pigtail catheter present, connected to low continuous wall suction -20 cm H2O. No air leak is present. 1250 mL of thin serosanguineous espino drainage in the last 24 ho urs. CARDIOVASCULAR: S1, S2 present, negative for S3, gallop or murmur. Regular rhythm and rate and rhythm. Palpable peripheral pulses bilaterally. No edema present. No calf pain or tenderness noted. GASTROINTESTINAL: Abdomen soft, nontender, and nondistended. Active bowel sounds present 4 quadrants. Tolerating diet. GENITOURINARY: Continues to void clear, yellow urine. INTEGUMENTARY: Skin is warm and dry, no clubbing or cyanosis. Some localized swelling around the right chest pigtail catheter insertion site. Dressing is clean, dry and intact to his right chest pigtail catheter. No redness or drainage is present. NEUROLOGIC: Cranial nerves II through XII intact, no focal deficits. MUSKULOSKELETAL: Able to move all extremities, strength equal bilaterally, gait normal. PSYCHIATRIC: Alert and oriented to person, place and time, appropriate affect, intact judgment and insight. - Labs CBC & Chem 7: 08/16/21 04:40 08/16/21 04:40 Labs: Microbiology - Last 24 Hours (Table) 08/09/21 14:20 Gram Stain - Final Pleural Fluid Body Fluid Culture - Final Beta Hemolytic Strep Group C Bacteroides species - Imaging and Cardiology CT scan - chest: report reviewed, image reviewed Assessment and Plan Assessment: 1. Right lower lobe pneumonia, parapneumonic effusion, thoracentesis fluid analysis consistent with empyema, status post pigtail catheter placement by interventional radiology 2. Shortness of breath, right-sided chest pain secondary to above 3. History of tobacco dependence with cessation 3 years ago 4. Daily EtOH use 5. Occasional marijuana use 6. Previous stomach stapling 7. Family history of heart and lung disease Plan: 1. We will hold off on the alteplase/dornase today until after the computed tomography scan of his chest has been reviewed. 2. Wean O2 as tolerated. Encourage incentive spirometry use 10 times every hour while awake. 3. Continue with antibiotics, managed by infectious disease. Pleural fluid culture positive for beta hemolytic strep group C, and Bacteroides species. 4. Increase activity as tolerated. 5. Pain control with current medication regimen. 6. Medical management of other comorbidities per primary care service. 7. Continue to monitor daily chest x-rays. Computed tomography scan of his chest without contrast is scheduled and pending. 8. Continue right chest pigtail catheter to low continuous wall suction -20 cm H2O. Record accurate I's and O's. 9. Importance of risk modification including cessation of smoking marijuana discussed with the patient. 10. More recommendations to follow based on patient's clinical course. Time with Patient: Greater than 30
--- NOTE | 2021-08-16 14:30 | CT ---
EXAMINATION TYPE: CT chest tube insertion DATE OF EXAM: 08/16/2021 COMPARISON: 08/12/2021 HISTORY: chest tube insertion RT side for right-sided empyema CT DLP: 422 mGycm The procedure is discussed with the patient, the risks, complications, benefits and alternatives, wer e discussed and any questions were answered. Informed consent was obtained. The patient is placed p geri on the CT table, prepped and draped in the usual sterile fashion. Utilizing a 22-gauge Chiba needle access into the right pleural space was achieved and there is place ment of a 1018 guidewire. There is conversion to Adduplexnox 3 5 system, placement of an 0.035 guidewire. Serial dilation 8 Romanian with placement 8 Romanian drainage pigtail catheter. Sample of fluid was obta ined and sent to pathology for analysis as requested. Pathology pending. All elements of maximal barrier and sterile technique were utilized. The patient remained stable throughout the procedure with no immediate postprocedural complication. IMPRESSION: 1. Successful CT guided right-sided chest tube insertion for empyema.
[2021-08-16] MEDS: KETOROLAC 15 MG/ML 1 ML VIAL IVP PRN (15:02)
--- NOTE | 2021-08-16 15:27 | P.PN ---
Subjective Progress Note Date: 08/16/21 60-year-old outpatient with past medical history of bariatric surgery, stomach stapling 30 years ago, former smoker, who came into the emergency department on the 08/07/2021 with complaints of right-sided pleuritic chest pain and shortness of breath. he states initial symptom onset was about a week ago and progressively became worse, he went to the urgent care initially, chest x-ray was taken and he was told that he needed to go to the emergency department as he was right lung appear to be collapsed at the bottom. In addition patient was febrile, and coughing up some purulent phlegm. In the emergency department chest x-ray showing right basilar opacity with small pleural effusion, CTA chest showing small to moderate right pleural effusion with accompanying basilar atelectasis. Lab work showed white blood cell count of 30.4, hemoglobin of 12.9, platelet count of 682, INR of 1.1, d-dimer was 2.5 to but CTA showed no evidence of pulmonary embolism. COVID 19 PCR is negative. Patient was started on azithromycin and Rocephin. This morning he seen sitting up in bed, is still having some pleuritic right lower rib cage pain with inspiration and coughing, but appears to be in no acute distress. On 2 L of oxygen his saturation 94-96%. On 08/09/2021 patient seen in follow-up. Patient is awake and alert, he states he is breathing easier, and right-sided pleuritic chest pain is improved although still there with deep breathing and coughing. Ultrasound the chest has been reviewed showing 2.3 centimeter pleural fluid pocket and it was not possible to market related to the pocket, lung location and internal echoes. Labs have been reviewed, white blood cell count is slightly improved and is down to 27.4, hemoglobin is 13.1, platelet count is 635, sodium is 134, depressed electrolytes and renal profile are unremarkable. Urinalysis showed small amount of blood, white blood cells, but no clear evidence of infection. COVID-19 PCR was negative. Progress note dated 08/10/2021. This is a 60-year-old male, again seen in room 457. Yesterday, Dr. Erickson did a diagnostic thoracentesis on the patient. He states that the material that he was able to get out of the right pleural space, was purulent. He sent for cytology, chemistry, and microbiology. It appears to be pus. The glucose extremely low. It is an exudate. There is a predominance of white blood cells, mostly polymorphonuclear neutrophils. We are going to ask interventional radiology to consider placing a pigtail catheter. We did ask cardiothoracic surgery to see the patient. They would prefer to avoid chest tube placement. Currently, the patient doesn't feel horrible. He remains on 3 L of oxygen. Saturations are between 94 to 97%. White count 23.4, hemoglobin 11.4, hematocrit 35, and platelet count 512,000. Sodium 133, potassium, chloride, CO2, anion gap, BUN, and creatinine all normal. Sputum was only positive for Milli. Fluid analysis reveals 28,971 white blood cells, of which 97% of PMNs. In addition, the glucose was less than 2. The protein was 4.19 g, and the LDH was greater than 2500. This is consistent with an empyema. We will ask interventional radiology consider placing a pigtail catheter. The patient is seen today 08/11/2021 in follow-up on the regular medical floor. He has been up ambulating in the room. He is still dyspneic with minimal exertion. Denies any fever, chills or night sweats. He is maintaining good O2 saturations in the mid to upper 90s on 3 L/m per nasal cannula. He remains afebrile. Hemodynamically stable. Pleural fluid cultures are pending. Sputum culture positive for Milli only. Blood cultures are showing no growth. White count 18. Hemoglobin 10.3. Platelets 455. Sodium 1:30. Potassium 3.5. Bicarb 21. Creatinine 0.5. He remains on antibiotics in the form of ceftriaxone and azithromycin. Continue bronchodilators. Heparin for DVT prophylaxis. Normal saline at 100 ML's per hour. He has been seen by CT services who are recommending INR place a pigtail catheter. He'll be nothing by mouth tonight. On 08/12/2021 patient is seen in follow-up on medical surgical floor. Patient had a right-sided pigtail chest tube catheter inserted and there was 1.5 L of purulent pleural fluid evacuated into the Pleur-evac. Chest tube remains in place, patient tolerated procedure very well. He is on 2 L of oxygen pulse ox is 94%, he is afebrile. Blood pressure stable, no altered mentation. Remains on combination of azithromycin and Rocephin. His white blood cell count is improved and is down to 17.1 on today's labs compared to 30.4 on admission, Hemoglobin is 11.2, sodium is 133, dressed electrolytes and renal profile are negative. Pleural fluid analysis has been reviewed and was consistent with empyema. Pleural fluid cultures remain negative so far. Sputum culture only showed Milli albicans, blood cultures have been negative. On 08/13/2021 patient seen in follow-up on medical surgical floor. He is breathing comfortably, sitting up in bed, he is on 2 L of oxygen, his pulse ox of 97%, yesterday he had right-sided posterior pigtail chest tube inserted by interventional radiology, with initial output of 1500 of purulent pleural fluid. There has been additional 350 mL of pleural fluid since then. Patient had first alteplase infused by CT surgery, and again today. He remains on combination of Rocephin and clindamycin. his pleural fluid cultures were positive for beta hemolytic strep group C. Fever pattern has improved, and T-max in the last 24 hours was 99.8F.his chest x-ray shows persistent moderate size right-sided pleural fluid collection with the pigtail pleural drainage catheter in place. There is associated right lower lung opacity favoring atelectatic changes. Today's labs show improvement in the white blood cell count, which is down to 16.42, hemoglobin is 11.5, platelet count is 535, sodium is 134, the rest of the electrolytes and renal profile are unremarkable. 08/14/2021, the patient is doing well. He remains on 2 L O2. Another 450 mL of fluid came out over the past 24 hours from his right-sided pigtail catheter. Another alteplase treatment was done today. Remains on IV Rocephin. Remains hemodynamically stable. His white cell count is elevated at 16.4. The rest of the electrodes are all within normal limits. He remains on IV Rocephin. He is afebrile. Pulse ox is 95% on 3 L of oxygen by nasal cannula. Repeat chest x- ray shows a tiny pneumothorax on the right. Right lower lung is still opacified and there is pigtail catheter remains in a good location. As such, we're going to continue our conservative drainage with a pigtail catheter and alteplase in an attempt to avoid surgical intervention on this patient. The patient is seen today 08/15/2021 in follow-up on the regular medical floor. He is currently sitting up in a chair at the bedside. Awake and alert in no acute distress. Chest x-ray continues to revealed persistent moderate sized right pleural effusion. Associated right lower lobe opacity favors atelectasis. Basilar opacity developing. Right-sided pigtail catheter remains in place. Continue to low continuous wall suction. No air leak present. Approximately 1000 mL of tannish serosanguineous drainage in the past 24 hours output. He is continued working well with the incentive spirometer pulling approximately 1500 ML's. He is maintaining good O2 saturations in the 90s on 2 L/m per nasal cannula. Pleural fluid cultures are positive for beta hemolytic strep group C and anaerobic gram-negative bacilli. He is continued on ceftriaxone and clindamycin. Heparin for DVT prophylaxis. Remains on bronchodilators. The patient is seen today 08/16/2021 in follow-up on the regular medical floor. He is currently sitting up in a chair at the bedside. Awake and alert in no acute distress. He is maintaining O2 saturations in the mid 90s on 3 L/m per nasal cannula. CAT scan of the chest reveals that the right-sided pigtail pleural catheter had become dislodged. There is increasing moderate right pleural effusion. Scattered foci of air within the fluid likely related to instrumentation. Worsening volume loss and consolidation throughout the right middle lobe and basilar right lower lobe. There is a 5 mm pericardial effusion. Generalized anasarca has developed in the interval; correlate for third spacing/fluid overload state. White count 13.8. Hemoglobin 10.5. Sodium 132. Potassium 4.3. BUN 10. Creatinine 0.4. Pleural fluid was positive for beta hemolytic strep group C. Bacteroides species. The plan is for interventional radiology to replace or reposition the pigtail catheter today. He will be rece iving alteplase today per CT services. He remains on ceftriaxone. Objective - Vital Signs Vital signs: Vital Signs Temp 98.4 F 08/16/21 07:48 Pulse 92 08/16/21 14:05 Resp 18 08/16/21 14:05 BP 107/64 08/16/21 14:05 Pulse Ox 95 08/16/21 14:05 Intake & Output 08/15/21 08/16/21 08/16/21 18:59 06:59 18:59 Intake Total 600 360 Output Total 1225 530 Balance -625 -530 360 Intake: Oral 600 360 Output: Drainage 825 430 Right Back 825 430 Urine 400 100 Other: Voiding Method Toilet Toilet Urinal Urinal - Exam GENERAL EXAM: Alert, active, pleasant 60-year-old male patient, on 3 L nasal cannula, comfortable in no apparent distress. HEAD: Normocephalic. EYES: Normal reaction of pupils, equal size. NOSE: Clear with pink turbinates. THROAT: No erythema or exudates. NECK: No masses, no JVD. CHEST: No chest wall deformity. Right sided pigtail catheter in place to low continuous wall suction. No leak noted. LUNGS: Equal air entry with crackles in the right lung base. Diminished. CVS: S1 and S2 normal with no audible murmur, regular rhythm. ABDOMEN: No hepatosplenomegaly, normal bowel sounds, no guarding or rigidity. SPINE: No scoliosis or deformity SKIN: No rashes CENTRAL NERVOUS SYSTEM: No focal deficits, tone is normal in all 4 extremities. EXTREMITIES: There is no peripheral edema. No clubbing, no cyanosis. Peripheral pulses are intact. - Labs CBC & Chem 7: 08/16/21 04:40 08/16/21 04:40 Labs: Abnormal Lab Results - Last 24 Hours (Table) 08/16/21 08/16/21 Range/Units 04:40 04:40 WBC 13.82 H (4.50-10.00) X 10*3/uL RBC 3.63 L (4.40-5.60) X 10*6/uL Hgb 10.5 L (13.0-17.0) g/dL Hct 32.7 L (39.6-50.0) % Plt Count 609 H (140-440) X 10*3/uL Plt Count Comment INCREASED A MPV 9.2 L (9.5-12.2) fL Neutrophils # (Manual) 12.02 H (2.00-8.90) X 10*3/uL Sodium 132 L (135-145) mmol/L Anion Gap 8.80 L (10.00-18.00) mmol/L Creatinine 0.4 L (0.6-1.5) mg/dL BUN/Creatinine Ratio 26.00 H (12.00-20.00) Ratio Calcium 8.0 L (8.7-10.3) mg/dL AST 46 H (14-35) U/L C-Reactive Protein 12.10 H (0.00-0.80) mg/dL Total Protein 4.5 L (6.2-8.2) g/dL Albumin 2.0 L (3.8-4.9) g/dL Albumin/Globulin Ratio 0.80 L (1.60-3.17) g/dL Microbiology - Last 24 Hours (Table) 08/09/21 14:20 Gram Stain - Final Pleural Fluid Body Fluid Culture - Final Beta Hemolytic Strep Group C Bacteroides species Assessment and Plan Assessment: 1 Acute hypoxemic respiratory failure secondary to community acquired pneumonia, right lower lobe, with parapneumonic effusion/empyema. Patient had diagnostic right-sided thoracentesis done by interventional radiology, and pleural fluid analysis was consistent with empyema. Patient had right-sided pigtail chest tube insertion on 08/12/2021, with evacuation of 1.5 L of purulent pleural fluid. Pleural fluid cultures were positive for beta hemolytic strep group C. Patient has been receiving alteplase, received a dose on 08/12/2021, 08/13/2021, 08/14/2021 , 08/15/2021. CAT scan this morning revealed the Catheter outside of the chest cavity. This was reinserted/replaced by interventional radiology today. There is moderate right pleural effusion, scattered foci of air within the fluid likely related to the instrumentation. Volume loss and consolidation throughout the right middle lobe and basilar right lower lobe. There is a new 5 mm small pericardial effusion. Generalized anasarca has developed in the interval. Third spacing versus fluid overload state. 2 Previous history of tobacco use. 3 Pleuritic chest pain, secondary to pneumonia within the right lung. 4 Previous bariatric surgery with stomach stapling. 5 History of CAD. 6 History of BPH. 7 History of COPD. Plan: The patient was seen and evaluated CAT scan of the chest and labs reviewed Interventional radiology to reposition/replace pigtail catheter Plan is to receive alteplase again today Pleural fluid cultures positive for beta hemolytic group strep C and anaerobic gram-negative bacilli Continue ceftriaxone and clindamycin for now We will continue to follow I have personally seen and examined the patient and reviewed the documentation. I performed a joint evaluation with the nurse practitioner in this evaluation was done more than 20 minutes. I fully agree with the documentation above and the plan of care. The case was discussed with interventional radiology. The pigtail catheter will be reinserted. Will the following this patient with somewhat alteplase treatment. Continue same antibiotic coverage.
[2021-08-16] MEDS ORDERED: DORNASE ALFA 5 MG in SODIUM CHLORIDE 0.9% 50 ML IRRIGATION ONE (15:30)
[2021-08-16] MEDS ORDERED: ALTEPLASE 10 MG in SODIUM CHLORIDE 0.9% 50 ML IRRIGATION ONE (15:30)
[2021-08-16] MEDS: FUROSEMIDE 20 MG TAB PO SCH (15:36)
--- NOTE | 2021-08-16 16:06 | P.PN ---
Subjective Progress Note Date: 08/16/21 Principal diagnosis: empyema patient is a 60-year-old male presenting to the hospital for evaluation of increasing shortness of breath and cough has been diagnosed with e mpyema, patient is status post right sided drainage catheter placement, pleural fluid culture be positive for group C strep , the patient right-sided chest pigtail catheter got dislodged and has to be reinserted on 08/16/2021 on today's evaluation that is 08/16/2021, the patient remains to be afebrile, the patient is breathing comfortably on his oxygen, the patient complaining of pain at the chest tube insertion site, the patient denies nausea no vomiting no abdominal pain and no diarrhea Objective - Vital Signs Vital signs: Vital Signs Temp 98.4 F 08/16/21 07:48 Pulse 92 08/16/21 14:05 Resp 18 08/16/21 14:05 BP 107/64 08/16/21 14:05 Pulse Ox 95 08/16/21 14:05 Intake & Output 08/15/21 08/16/21 08/16/21 18:59 06:59 18:59 Intake Total 600 360 Output Total 1225 530 Balance -625 -530 360 Intake: Oral 600 360 Output: Drainage 825 430 Right Back 825 430 Urine 400 100 Other: Voiding Method Toilet Toilet Urinal Urinal - Exam GENERAL DESCRIPTION: Middle-aged male lying in bed in no distress RESPIRATORY SYSTEM: Unlabored breathing , decreased breath sounds at bases HEART: S1 S2 regular rate and rhythm , ABDOMEN: Soft , no tenderness EXTREMITIES: No edema feet - Labs CBC & Chem 7: 08/16/21 04:40 08/16/21 04:40 Labs: Abnormal Lab Results - Last 24 Hours (Table) 08/16/21 08/16/21 Range/Units 04:40 04:40 WBC 13.82 H (4.50-10.00) X 10*3/uL RBC 3.63 L (4.40-5.60) X 10*6/uL Hgb 10.5 L (13.0-17.0) g/dL Hct 32.7 L (39.6-50.0) % Plt Count 609 H (140-440) X 10*3/uL Plt Count Comment INCREASED A MPV 9.2 L (9.5-12.2) fL Neutrophils # (Manual) 12.02 H (2.00-8.90) X 10*3/uL Sodium 132 L (135-145) mmol/L Anion Gap 8.80 L (10.00-18.00) mmol/L Creatinine 0.4 L (0.6-1.5) mg/dL BUN/Creatinine Ratio 26.00 H (12.00-20.00) Ratio Calcium 8.0 L (8.7-10.3) mg/dL AST 46 H (14-35) U/L C-Reactive Protein 12.10 H (0.00-0.80) mg/dL Total Protein 4.5 L (6.2-8.2) g/dL Albumin 2.0 L (3.8-4.9) g/dL Albumin/Globulin Ratio 0.80 L (1.60-3.17) g/dL Microbiology - Last 24 Hours (Table) 08/09/21 14:20 Gram Stain - Final Pleural Fluid Body Fluid Culture - Final Beta Hemolytic Strep Group C Bacteroides species Assessment and Plan (1) Empyema Current Visit: Yes Status: Acute Code(s): J86.9 - PYOTHORAX WITHOUT FISTULA SNOMED Code(s): 704984025 Plan: 1patient presented to hospital with right-sided empyema in this patient status post chest tube placement and the culture showing group C strep. 2patient to continue with Rocephin and clindamycin while monitoring his clinical course closely Time with Patient: Less than 30
--- NOTE | 2021-08-16 16:45 | PN ---
PROGRESS NOTE This patient had a CT scan today that showed his pigtail pleural catheter was dislodged. The loop was within the thoracic wall. He has now increasing moderate right pleural effusion. The tube was replaced volume loss with consolidation to the right middle lobe and basilar right lower lobe. Stable mild aneurysm. Background COPD. Generalized anasarca change has developed in the interval, possible third-spacing fluid overload status. He now has pitting edema in his lower legs. He is going to start on Lasix. Get Cardiology to see him for pericardial effusion. I will start him on Lasix. Prognosis is guarded. Lungs are clear. Drainage tube was readjusted. Cardiovascular S1, S2. Lungs mostly clear. Extremities 2+ edema. Will do a BMP, start him on Lasix and wait for Cardiology. Prognosis guarded. MMODL / IJN: [id number] /
[2021-08-17] MEDS: KETOROLAC 15 MG/ML 1 ML VIAL IVP PRN ×4 (00:06→21:59)
[2021-08-17] MEDS: traMADol 50 MG TAB PO PRN ×2 (03:12→15:11)
--- NOTE | 2021-08-17 06:42 | XR ---
EXAMINATION TYPE: XR chest 1V portable DATE OF EXAM: 08/17/2021 CLINICAL HISTORY: Difficulty breathing and cough progress study. TECHNIQUE: Single AP portable upright view of the chest is obtained. COMPARISON: Chest CT from one day earlier. Chest x-ray 2 days earlier. FINDINGS: Pleural pigtail drainage catheter right lung base has been repositioned in the interval. B ackground mild chronic parenchymal changes with some improved aeration in the central right mid to lo wer lung. Left lung remains predominantly clear. Cardiac silhouette size is stable and within normal limits. Underlying scoliosis redemonstrated. Degenerative changes bilateral shoulders again seen. IMPRESSION: Persistent small right basilar pleural fluid collection with right lower lung atelectasis and/or infiltrate though findings are improved after pleural pigtail catheter repositioning.
[2021-08-17] MEDS: CLINDAMYCIN 900 MG in DEXTROSE 5% IN WATER 50 ML IVPB SCH ×6 (07:41→23:17)
[2021-08-17] MEDS: FUROSEMIDE 20 MG TAB PO SCH (07:42)
[2021-08-17] MEDS: PANTOPRAZOLE 40 MG TABLET PO SCH (07:42)
[2021-08-17] MEDS: HEPARIN SODIUM,PORCINE/PF 5,000 UNIT/0.5 ML SYRINGE SQ SCH ×3 (07:42→23:17)
--- NOTE | 2021-08-17 08:04 | P.PN ---
Subjective Progress Note Date: 08/17/21 Principal diagnosis: Right lower lobe pneumonia, parapneumonic effusion, thoracentesis fluid analysis consistent with empyema. Past medical history significant for tobacco depende nce with cessation 3 years ago, daily EtOH use, occasional marijuana use, previous stomach stapling. POD #5 placement of right sided pigtail catheter by interventional radiology. The patient was seen in follow-up today 08/17/2021 at his bedside on the fourth floor medical surgical unit. Currently he is sitting up to the bedside chair, is awake, alert, oriented 3 and is in no acute distress. Denies any complaints of shortness of breath or pain at this time. He reports his pain is much better controlled with the Toradol in place. A CT Scan of his chest was completed without contrast yesterday which demonstrated his right-sided pigtail pleural catheter to be dislodged, and increasing moderate right pleural effusion with scattered foci of air within the fluid, and worsening volume loss and consolidation throughout the right middle lobe and basilar right lower lobe. Subsequently, due to the right pleural pigtail catheter being dislodged interventional radiology was consulted and a new right-sided pleural pigtail catheter was placed by interventional radiology. Status post placement of his right pleural pigtail catheter a fifth dose of alteplase/dornase was instilled and clamped for 1 hour. On evaluation this morning the right pleural pigtail catheter remains in place to low continuous wall suction -20 cm H2O. No air leak is present. 350 mL of thin serosanguineous espino colored drainage has been drained in the last 24 hours. A chest x-ray was completed this morning which shows a persistent small right basilar pleural fluid collection with right lower lobe atelectasis and/or infiltrate, though the findings are improved. T-max temperature in the last 24 hours is 99.0. Oxygen saturations are 95% on 3 L nasal cannula. He is achieving 1500 mL on his incentive spirometry with encouragement. Pleural fluid culture from 08/09/2021 shows beta-hemolytic strep group C and Bacteroides species and he remains on Rocephin and Cleocin for antibiotic coverage managed by infectious disease. Pleural fluid culture from 08/16/2021 results remain pending. There is some pitting edema to his bilateral lower extremities. Laboratory results from today remain pending, laboratory results from yesterday 08/16/2021 show his WBC count is trending down at 13.8, hemoglobin was 10.5, platelets 609, BUN 10.4, creatinine 0.4 and his C-reactive protein was 12.1. The patient also reports that he has been having some drainage from his previous right chest pleural pigtail catheter insertion site. Objective - Vital Signs Vital signs: Vital Signs Temp 99.0 F 08/17/21 02:00 Pulse 83 08/17/21 02:00 Resp 16 08/16/21 19:14 BP 92/55 08/17/21 02:00 Pulse Ox 93 L 08/17/21 02:00 Intake & Output 08/16/21 08/17/21 08/17/21 18:59 06:59 18:59 Intake Total 540 Output Total 250 Balance 540 -250 Intake: Oral 540 Output: Drainage 250 Right Back 250 Other: Voiding Method Toilet Urinal # Voids 5 # Bowel Movements 1 - Exam CONSTITUTIONAL: Sitting up to bedside chair on the fourth floor medical surgical unit. Appears comfortable, cooperative, and is in no acute distress. RESPIRATORY: Lungs sounds diminished bilaterally, right greater than left. No wheezes, rhonchi or crackles. Respirations are symmetrical and nonlabored. Currently on 3 L nasal cannula with oxygen saturation 95%. Able to achieve 1500 mL on incentive spirometry. Strong productive cough with espino thin sputum. Right-sided pigtail catheter present, connected to low continuous wall suction -20 cm H2O. No air leak is present. 350 mL of thin serosanguineous espino drainage in the last 24 hours. CARDIOVASCULAR: S1, S2 present, negative for S3, gallop or murmur. Regular rhythm and rate and rhythm. Palpable peripheral pulses bilaterally. +1 to+2 pitting edema to his bilateral lower extremities. No calf pain or tenderness noted. Knee-high CATHERINE hose in place to his bilateral lower extremities. GASTROINTESTINAL: Abdomen soft, nontender, and nondistended. Active bowel sounds present 4 quadrants. Tolerating diet. GENITOURINARY: Continues to void clear, rafael urine. INTEGUMENTARY: Skin is warm and dry, no clubbing or cyanosis. Dressing is clean, dry and intact to his right chest pigtail catheter. No redness or drainage is present. Scant serosanguineous drainage to his previous right chest pigtail insertion site. NEUROLOGIC: Cranial nerves II through XII intact, no focal deficits. MUSKULOSKELETAL: Able to move all extremities, strength equal bilaterally, gait normal. PSYCHIATRIC: Alert and oriented to person, place and time, appropriate affect, intact judgment and insight. - Allied health notes Allied health notes reviewed: nursing - Labs CBC & Chem 7: 08/16/21 04:40 08/16/21 04:40 Labs: Abnormal Lab Results - Last 24 Hours (Table) 08/16/21 08/16/21 Range/Units 04:40 04:40 WBC 13.82 H (4.50-10.00) X 10*3/uL RBC 3.63 L (4.40-5.60) X 10*6/uL Hgb 10.5 L (13.0-17.0) g/dL Hct 32.7 L (39.6-50.0) % Plt Count 609 H (140-440) X 10*3/uL Plt Count Comment INCREASED A MPV 9.2 L (9.5-12.2) fL Neutrophils # (Manual) 12.02 H (2.00-8.90) X 10*3/uL Sodium 132 L (135-145) mmol/L Anion Gap 8.80 L (10.00-18.00) mmol/L Creatinine 0.4 L (0.6-1.5) mg/dL BUN/Creatinine Ratio 26.00 H (12.00-20.00) Ratio Calcium 8.0 L (8.7-10.3) mg/dL AST 46 H (14-35) U/L C-Reactive Protein 12.10 H (0.00-0.80) mg/dL Total Protein 4.5 L (6.2-8.2) g/dL Albumin 2.0 L (3.8-4.9) g/dL Albumin/Globulin Ratio 0.80 L (1.60-3.17) g/dL Microbiology - Last 24 Hours (Table) 08/16/21 15:23 Anaerobic Culture - Preliminary Pleural Fluid 08/16/21 15:23 Body Fluid Culture - Preliminary Pleural Fluid - Imaging and Cardiology Chest x-ray: report reviewed, image reviewed Assessment and Plan Assessment: 1. Right lower lobe pneumonia, parapneumonic effusion, thoracentesis fluid analysis consistent with empyema, status post pigtail catheter placement by interventional radiology 2. Shortness of breath, right-sided pleuritic chest pain secondary to above 3. History of tobacco dependence with cessation 3 years ago 4. Daily EtOH use 5. Occasional marijuana use 6. Previous bariatric surgery with stomach stapling 7. Family history of heart and lung disease Plan: 1. The patient was instilled with another dose of alteplase/dornase equaling his fifth total dose yesterday 08/16/2021. Today 08/17/2021 we will hold any further alteplase/dornase instillation with recommendations for a right video- assisted thoracoscopic surgery, possible right thoracotomy with decortication and bronchoscopy to be scheduled on 08/19/2021 or 08/20/2021 to be performed by Dr. Claude Magallon. The treatment options have been discussed with the patient and knowing and understanding the risks, wishes to proceed with the surgical option. 2. Wean O2 as tolerated. Encourage incentive spirometry use 10 times every hour while awake. 3. Continue with antibiotics, managed by infectious disease. Pleural fluid culture positive for beta hemolytic strep group C, and Bacteroides species. Results from Pleural fluid cultures from 08/16/2021 remain pending. 4. Increase activity as tolerated. Out of bed for all meals. 5. Pain control with current medication regimen. Toradol was added for additional pain control. 6. Medical management of other comorbidities per primary care service. 7. Continue to monitor daily chest x-rays. 8. Continue right chest pigtail catheter to low continuous wall suction -20 cm H2O. Record accurate I's and O's. 9. Importance of risk modification including cessation of smoking marijuana discussed with the patient. 10. GI and DVT prophylaxis. 11. More recommendations to follow based on patient's clinical course. Time with Patient: Greater than 30
[2021-08-17] MEDS: IPRATROPIUM-ALBUTEROL 3 ML NEB INHALATION SCH ×4 (08:12→20:26)
[2021-08-17 11:23] LABS: Basophils # (A) 0.09 X 10*3/uL (0.00-0.10); Basophils % (A) 0.8 %; Eosinophils # (A) 0.08 X 10*3/uL (0.04-0.35); Eosinophils % (A) 0.7 %; HCT 30.5 % (39.6-50.0); HGB 9.7 g/dL (13.0-17.0); Lymphocytes # (A) 1.69 X 10*3/uL (0.90-5.00); Lymphocytes % (A) 14.7 %; MCHC 31.8 g/dL (32.0-37.0); Mean Platelet Volume 9.3 fL (9.5-12.2); Monocytes # (A) 0.98 X 10*3/uL (0.20-1.00); Monocytes % (A) 8.5 %; NRBC Per 100 WBC 0 /100 WBCS (0.0-0.0); Neutrophils # (A) 8.11 X 10*3/uL (1.80-7.70); Neutrophils % (A) 70.3 %; Platelet Count 587 X 10*3/uL (140-440); RBC 3.35 X 10*6/uL (4.40-5.60); RDW 14.2 % (11.5-14.5); WBC 11.53 X 10*3/uL (4.50-10.00)
[2021-08-17 11:54] LABS: African American GFR (CKD) 140.8 (60.0-200.0); Anion Gap 7.7 mmol/L (10.00-18.00); BUN/Creat Ratio 17.31 Ratio (12.00-20.00); Blood Urea Nitrogen 8.2 mg/dL (9.0-27.0); Calcium 7.8 mg/dL (8.7-10.3); Carbon Dioxide 27.1 mmol/L (20.0-27.5); Non-African American GFR(CKD) 121.5 (60.0-200.0); Potassium 4.2 mmol/L (3.5-5.5)
--- NOTE | 2021-08-17 12:57 | ECHOF ---
Referral Reason:chf MEASUREMENTS -------- HEIGHT: 162.6 cm WEIGHT: 61.2 kg BP: RVIDd: 3.3 cm (< 3.3) IVSd: 1.2 cm (0.6 - 1.1) LVIDd: 4.6 cm (3.9 - 5.3) LVPWd: 1.4 cm (0.6 - 1.1) IVSs: 1.4 cm LVIDs: 3.8 cm LVPWs: 1.2 cm LA Diam: 3.1 cm (2.7 - 3.8) Ao Diam: 3.0 cm (2.0 - 3.7) AV Cusp: 2.1 cm (1.5 - 2.6) LA Diam: 3.9 cm (2.7 - 3.8) MV EXCURSION: 17.007 mm (> 18.000) MV EF SLOPE: 89 mm/s (70 - 150) EPSS: 0.3 cm MV E Benji: 0.67 m/s MV DecT: 179 ms MV A Benji: 0.63 m/s MV E/A Ratio: 1.07 RAP: 5.00 mmHg RVSP: 27.20 mmHg FINDINGS -------- Sinus rhythm. This was a technically good study. LV size, wall thickness and systolic function are normal, with an EF greater than 55%. The left abdi tricular size is normal. The right ventricle is normal in size. The left atrial size is normal. The right atrial size is normal. The aortic valve is trileaflet, and appears structurally normal. No aortic stenosis or regurgitation. Mild mitral regurgitation is present. Mild tricuspid regurgitation present. Right ventricular systolic pressure is normal at < 35 mmHg. There is no pulmonic regurgitation present. The aortic root size is normal. There is no pericardial effusion. CONCLUSIONS -------- 1. LV size, wall thickness and systolic function are normal, with an EF greater than 55%. 2. The left ventricular size is normal. 3. The right ventricle is normal in size. 4. The left atrial size is normal. 5. The right atrial size is normal. 6. The aortic valve is trileaflet, and appears structurally normal. No aortic stenosis or regurgitati on. 7. Mild mitral regurgitation is present. 8. Mild tricuspid regurgitation present. 9. The aortic root size is normal. 10. There is no pericardial effusion. TELESALES AGENT: Edwige Reynolds RDCS
--- NOTE | 2021-08-17 13:24 | PN ---
PROGRESS NOTE 60-year-old white male who remains on DuoNeb, Rocephin, clindamycin through the IV for empyema. His white count continues to improve down to 11.53. He had his drain into his chest to be rearranged due to failure yesterday. Hemoglobin down to 9 7. Sodium is 129, potassium 4.2, calcium is 7.8. BNP is 530. Started him on Lasix yesterday for edema, third spacing of fluids and pericardial effusion. Cardiology was consulted. He is saturating on 2 L 92 on room air. Temp 98, pulse 93, respiration 18. Cardiovascular S1, S2. Lungs clear. Mild wheeze. Chest tube in place. Abdomen is soft. Extremities 2+ edema. BNP was only 550. We have to keep him on Lasix. Get Cardiology consulted. Drainage tube until not needed. Chest tube until not needed. Await for that to be pulled. Continue with antibiotics until he is improving with his white count. Suspect he will do just fine. Keep him on low-dose Lasix for now. Await for echo and Cardiology consult. MMODL / IJN: [id number] /
--- NOTE | 2021-08-17 13:55 | P.PN ---
Subjective Progress Note Date: 08/17/21 60-year-old outpatient with past medical history of bariatric surgery, stomach stapling 30 years ago, former smoker, who came into the emergency department on the 08/07/2021 with complaints of right-sided pleuritic chest pain and shortness of breath. he states initial symptom onset was about a week ago and progressively became worse, he went to the urgent care initially, chest x-ray was taken and he was told that he needed to go to the emergency department as he was right lung appear to be collapsed at the bottom. In addition patient was febrile, and coughing up some purulent phlegm. In the emergency department chest x-ray showing right basilar opacity with small pleural effusion, CTA chest showing small to moderate right pleural effusion with accompanying basilar atelectasis. Lab work showed white blood cell count of 30.4, hemoglobin of 12.9, platelet count of 682, INR of 1.1, d-dimer was 2.5 to but CTA showed no evidence of pulmonary embolism. COVID 19 PCR is negative. Patient was started on azithromycin and Rocephin. This morning he seen sitting up in bed, is still having some pleuritic right lower rib cage pain with inspiration and coughing, but appears to be in no acute distress. On 2 L of oxygen his saturation 94-96%. On 08/09/2021 patient seen in follow-up. Patient is awake and alert, he states he is breathing easier, and right-sided pleuritic chest pain is improved although still there with deep breathing and coughing. Ultrasound the chest has been reviewed showing 2.3 centimeter pleural fluid pocket and it was not possible to market related to the pocket, lung location and internal echoes. Labs have been reviewed, white blood cell count is slightly improved and is down to 27.4, hemoglobin is 13.1, platelet count is 635, sodium is 134, depressed electrolytes and renal profile are unremarkable. Urinalysis showed small amount of blood, white blood cells, but no clear evidence of infection. COVID-19 PCR was negative. Progress note dated 08/10/2021. This is a 60-year-old male, again seen in room 457. Yesterday, Dr. Erickson did a diagnostic thoracentesis on the patient. He states that the material that he was able to get out of the right pleural space, was purulent. He sent for cytology, chemistry, and microbiology. It appears to be pus. The glucose extremely low. It is an exudate. There is a predominance of white blood cells, mostly polymorphonuclear neutrophils. We are going to ask interventional radiology to consider placing a pigtail catheter. We did ask cardiothoracic surgery to see the patient. They would prefer to avoid chest tube placement. Currently, the patient doesn't feel horrible. He remains on 3 L of oxygen. Saturations are between 94 to 97%. White count 23.4, hemoglobin 11.4, hematocrit 35, and platelet count 512,000. Sodium 133, potassium, chloride, CO2, anion gap, BUN, and creatinine all normal. Sputum was only positive for Milli. Fluid analysis reveals 28,971 white blood cells, of which 97% of PMNs. In addition, the glucose was less than 2. The protein was 4.19 g, and the LDH was greater than 2500. This is consistent with an empyema. We will ask interventional radiology consider placing a pigtail catheter. The patient is seen today 08/11/2021 in follow-up on the regular medical floor. He has been up ambulating in the room. He is still dyspneic with minimal exertion. Denies any fever, chills or night sweats. He is maintaining good O2 saturations in the mid to upper 90s on 3 L/m per nasal cannula. He remains afebrile. Hemodynamically stable. Pleural fluid cultures are pending. Sputum culture positive for Milli only. Blood cultures are showing no growth. White count 18. Hemoglobin 10.3. Platelets 455. Sodium 1:30. Potassium 3.5. Bicarb 21. Creatinine 0.5. He remains on antibiotics in the form of ceftriaxone and azithromycin. Continue bronchodilators. Heparin for DVT prophylaxis. Normal saline at 100 ML's per hour. He has been seen by CT services who are recommending INR place a pigtail catheter. He'll be nothing by mouth tonight. On 08/12/2021 patient is seen in follow-up on medical surgical floor. Patient had a right-sided pigtail chest tube catheter inserted and there was 1.5 L of purulent pleural fluid evacuated into the Pleur-evac. Chest tube remains in place, patient tolerated procedure very well. He is on 2 L of oxygen pulse ox is 94%, he is afebrile. Blood pressure stable, no altered mentation. Remains on combination of azithromycin and Rocephin. His white blood cell count is improved and is down to 17.1 on today's labs compared to 30.4 on admission, Hemoglobin is 11.2, sodium is 133, dressed electrolytes and renal profile are negative. Pleural fluid analysis has been reviewed and was consistent with empyema. Pleural fluid cultures remain negative so far. Sputum culture only showed Milli albicans, blood cultures have been negative. On 08/13/2021 patient seen in follow-up on medical surgical floor. He is breathing comfortably, sitting up in bed, he is on 2 L of oxygen, his pulse ox of 97%, yesterday he had right-sided posterior pigtail chest tube inserted by interventional radiology, with initial output of 1500 of purulent pleural fluid. There has been additional 350 mL of pleural fluid since then. Patient had first alteplase infused by CT surgery, and again today. He remains on combination of Rocephin and clindamycin. his pleural fluid cultures were positive for beta hemolytic strep group C. Fever pattern has improved, and T-max in the last 24 hours was 99.8F.his chest x-ray shows persistent moderate size right-sided pleural fluid collection with the pigtail pleural drainage catheter in place. There is associated right lower lung opacity favoring atelectatic changes. Today's labs show improvement in the white blood cell count, which is down to 16.42, hemoglobin is 11.5, platelet count is 535, sodium is 134, the rest of the electrolytes and renal profile are unremarkable. 08/14/2021, the patient is doing well. He remains on 2 L O2. Another 450 mL of fluid came out over the past 24 hours from his right-sided pigtail catheter. Another alteplase treatment was done today. Remains on IV Rocephin. Remains hemodynamically stable. His white cell count is elevated at 16.4. The rest of the electrodes are all within normal limits. He remains on IV Rocephin. He is afebrile. Pulse ox is 95% on 3 L of oxygen by nasal cannula. Repeat chest x- ray shows a tiny pneumothorax on the right. Right lower lung is still opacified and there is pigtail catheter remains in a good location. As such, we're going to continue our conservative drainage with a pigtail catheter and alteplase in an attempt to avoid surgical intervention on this patient. The patient is seen today 08/15/2021 in follow-up on the regular medical floor. He is currently sitting up in a chair at the bedside. Awake and alert in no acute distress. Chest x-ray continues to revealed persistent moderate sized right pleural effusion. Associated right lower lobe opacity favors atelectasis. Basilar opacity developing. Right-sided pigtail catheter remains in place. Continue to low continuous wall suction. No air leak present. Approximately 1000 mL of tannish serosanguineous drainage in the past 24 hours output. He is continued working well with the incentive spirometer pulling approximately 1500 ML's. He is maintaining good O2 saturations in the 90s on 2 L/m per nasal cannula. Pleural fluid cultures are positive for beta hemolytic strep group C and anaerobic gram-negative bacilli. He is continued on ceftriaxone and clindamycin. Heparin for DVT prophylaxis. Remains on bronchodilators. The patient is seen today 08/16/2021 in follow-up on the regular medical floor. He is currently sitting up in a chair at the bedside. Awake and alert in no acute distress. He is maintaining O2 saturations in the mid 90s on 3 L/m per nasal cannula. CAT scan of the chest reveals that the right-sided pigtail pleural catheter had become dislodged. There is increasing moderate right pleural effusion. Scattered foci of air within the fluid likely related to instrumentation. Worsening volume loss and consolidation throughout the right middle lobe and basilar right lower lobe. There is a 5 mm pericardial effusion. Generalized anasarca has developed in the interval; correlate for third spacing/fluid overload state. White count 13.8. Hemoglobin 10.5. Sodium 132. Potassium 4.3. BUN 10. Creatinine 0.4. Pleural fluid was positive for beta hemolytic strep group C. Bacteroides species. The plan is for interventional radiology to replace or reposition the pigtail catheter today. He will be rece iving alteplase today per CT services. He remains on ceftriaxone. The 2021, the patient had another attack catheter inserted yesterday and the patient received another alteplase treatment. Mother the chest x-ray from today showing some interval improvement. Nevertheless, there is still si gnificant opacification of the right lung and output has been only 200 mL over the past 24 hours. He is achieving 1500 mL of incentive spirometer. The pleural fluid culture from 08/09/2021 was positive for bedtime with extremity group C and the patient remains on a combination of Rocephin and clindamycin. Afebrile. Hemodynamically stable. The recovery is not complete. The patient continues to have drainage although the chest x-ray findings and essentially showing significant opacification and residual pleural fluid examination the right hemithorax. The patient has felt pigtail catheter insertion and alteplase. We are considering thoracoscopic decortication of the right lung. The patient is afebrile with a temperature 99.0. White cell count of 15.2 with hemoglobin of 10.5. The BUN is at 10.4 with hemoglobin of 0.4. Objective - Vital Signs Vital signs: Vital Signs Temp 98 F 08/17/21 07:35 Pulse 93 08/17/21 07:35 Resp 18 08/17/21 08:00 BP 96/60 08/17/21 07:35 Pulse Ox 92 L 08/17/21 07:35 Intake & Output 08/16/21 08/17/21 08/17/21 18:59 06:59 18:59 Intake Total 540 180 Output Total 250 250 Balance 540 -250 -70 Intake: Oral 540 180 Output: Drainage 250 250 Right Back 250 250 Other: Voiding Method Toilet Toilet Urinal Urinal # Voids 5 # Bowel Movements 1 - Exam GENERAL EXAM: Alert, active, pleasant 60-year-old male patient, on 3 L nasal cannula, comfortable in no apparent distress. HEAD: Normocephalic. EYES: Normal reaction of pupils, equal size. NOSE: Clear with pink turbinates. THROAT: No erythema or exudates. NECK: No masses, no JVD. CHEST: No chest wall deformity. Right sided pigtail catheter in place to low continuous wall suction. No leak noted. LUNGS: Equal air entry with crackles in the right lung base. Diminished. CVS: S1 and S2 normal with no audible murmur, regular rhythm. ABDOMEN: No hepatosplenomegaly, normal bowel sounds, no guarding or rigidity. SPINE: No scoliosis or deformity SKIN: No rashes CENTRAL NERVOUS SYSTEM: No focal deficits, tone is normal in all 4 extremities. EXTREMITIES: There is no peripheral edema. No clubbing, no cyanosis. Peripher al pulses are intact. - Labs CBC & Chem 7: 08/17/21 06:34 08/17/21 06:34 Labs: Abnormal Lab Results - Last 24 Hours (Table) 08/17/21 08/17/21 Range/Units 06:34 06:34 WBC 11.53 H (4.50-10.00) X 10*3/uL RBC 3.35 L (4.40-5.60) X 10*6/uL Hgb 9.7 L (13.0-17.0) g/dL Hct 30.5 L (39.6-50.0) % MCHC 31.8 L (32.0-37.0) g/dL Plt Count 587 H (140-440) X 10*3/uL MPV 9.3 L (9.5-12.2) fL Immature Gran # 0.58 H (0.00-0.04) X 10*3/uL Neutrophils # 8.11 H (1.80-7.70) X 10*3/uL Sodium 129 L (135-145) mmol/L Chloride 94 L (96-109) mmol/L Anion Gap 7.70 L (10.00-18.00) mmol/L BUN 8.2 L (9.0-27.0) mg/dL Creatinine 0.5 L (0.6-1.5) mg/dL Calcium 7.8 L (8.7-10.3) mg/dL Microbiology - Last 24 Hours (Table) 08/16/21 15:23 Anaerobic Culture - Preliminary Pleural Fluid 08/16/21 15:23 Body Fluid Culture - Preliminary Pleural Fluid Assessment and Plan Plan: #1. Acute hypoxic respiratory failure related to right lower lobe pneumonia parapneumonic effusion, community-acquired, related to beta hemolytic strep group C. For now, the patient undergone pigtail drainage 2 with multiple alteplase treatment, at least 5. There is some interval improvement in the el evation of the right lung get the recovery is not complete. The patient has been thrombolytic strep group C and the patient remains on a combination of Rocephin and clindamycin. The plan is to proceed with a thoracoscopic decortication, possible thoracotomy early next week. She was made aware. #2. Former smoker #3. Pleuritic chest pain #4. History of bariatric surgery, with stomach stapling #5. Coronary artery disease #6. BPH #7. COPD Plan: Daily chest x-rays, there is some improvement, recovered is not complete Keep the chest tube in place Data alteplase treatment Continue incentive spirometer Patient is currently on Rocephin and clindamycin Encourage deep breathing and coughing Will continue to follow Fever is improved may ultimately need a surgical thoracoscopic drainage/decortication/80. Patient failed to show improvement. We'll continue to follow. Tentative plan is to do the surgery early next week. Pain is under good control. Clinically stable. Hemodynamically stable.
--- NOTE | 2021-08-17 19:35 | P.CRDCN ---
History of Present Illness History of present illness: HISTORY OF PRESENTING ILLNESS Patient is a pleasant 60-year-old male with a history of tobacco abuse quit 3 years ago, mild to moderate alcohol use, previous stomach stapling and family history of heart and lung disease who presented 08/07/2021 with right-sided chest pain and shortness breath. This had been going on for approximately a week and admitted to some subjective fevers as well as cough. Chest x-ray demonstrated a right infiltrate with pleural effusion. CT of the chest showed no PE however small to moderate right-sided pleural effusion and infiltrates. Patient was noted to have increased white blood cell count up to 30s and diagnosed and treated for pneumonia. Diagnostic thoracentesis which showed concern of empyema and therefore a chest tube was placed by cardiothoracic surgery with findings consistent with empyema and likely plan for VATS. He denies any prior cardiac history, no congestive heart failure, no chest pain or pressure, no CAD. One month ago he had been feeling fine without any complaints. Cardiology was consult is for possible CHF. ProBNP noted to be mildly elevated at 500. He does admit to increased lower extremity edema as well as abdominal edema and mild upper extremity edema since being hospitalized. Echocardiogram performed 08/16/2021 which showed preserved EF with normal diastolic function. Total protein noted to be low at 4.5, albumin low at 2.0 and CRP elevated at 12. He was started on Lasix with some improved urine output improvement in lower extremity edema. REVIEW OF SYSTEMS At the time of my exam: CONSTITUTIONAL: + previous fever, nochills. CARDIOVASCULAR: +previous chest pain, +shortness of breath, no orthopnea, PND or palpitations. +LE edema RESPIRATORY: Denies cough. GASTROINTESTINAL: Denies abdominal pain, diarrhea, constipation, nausea or vomiting. MUSCULOSKELETAL: Denies myalgias. NEUROLOGIC: Denies numbness, tingling or weakness. ENDOCRINE: Denies fatigue, weight change, polydipsia or polyurina. GENITOURINARY: Denies burning, hematuria or urgency with micturation. HEMATOLOGIC: Denies history of anemia or bleeding. PHYSICAL EXAMINATION Vital signs reviewed. CONSTITUTIONAL: No apparent distress. HEENT: Head is normocephalic. Pupils are equal, round. Sclerae anicteric. Mucous membranes of the mouth are moist. No JVD. No carotid bruit. CHEST EXAMINATION: Lungs are clear to auscultation. No chest wall tenderness is noted on palpation or with deep breathing. HEART EXAMINATION: Regular rate and rhythm. S1, S2 heard. No murmurs, gallops or rub. ABDOMEN: Soft, nontender. Positive bowel sounds. EXTREMITIES: 2+ peripheral pulses,+2+ lower extremity edema, and no calf tenderness. NEUROLOGIC EXAMINATION: Patient is awake, alert and oriented x3. ASSESSMENT 1. Acute right-sided pneumonia with parapneumonic effusion and empyema 2. Acute on chronic respiratory failure secondary to 1 3. Volume overload state secondary to third spacing and severe protein calorie malnutrition 4. Severe protein calorie malnutrition, albumin 2.0 likely related to acute phase reactant, infection 5. Preserved EF, normal diastolic function 6. Mildly elevated proBNP PLAN Patient's main presentation related to pneumonia and empyema. His volume overload state appears more related to protein calorie malnutrition and third spacing from his pneumonia with albumin level of 2.0. We will check urinalysis for completeness sake to rule out any nephrotic syndrome however suspect mainly related to acute phase reactant from pneumonia. Continue with Lasix as needed and if needed albumin with the Lasix. Main treatment is to improve his underlying pneumonia. Please call with any questions. Past Medical History Past Medical History: COPD, Prostate Disorder Additional Past Medical History / Comment(s): diverticulitis History of Any Multi-Drug Resistant Organisms: None Reported Past Surgical History: Appendectomy, Bariatric Surgery, Tonsillectomy Additional Past Surgical History / Comment(s): STOMACH STAPLING Past Anesthesia/Blood Transfusion Reactions: No Reported Reaction Past Psychological History: No Psychological Hx Reported Smoking Status: Former smoker Past Alcohol Use History: Daily Additional Past Alcohol Use History / Comment(s): QUIT SMOKING 2018. DRINKS 2-3 BEERS DAILY Past Drug Use History: Marijuana Additional Drug Use History / Comment(s): SMOKES MARIJUANA 2-3 TIMES A WEEK - Past Family History Mother Family Medical History: COPD Father Family Medical History: Coronary Artery Disease (CAD) Medications and Allergies Home Medications Medication Instructions Recorded Confirmed Type Omeprazole Magnesium [PriLOSEC OTC] 20 mg PO DAILY PRN 08/07/21 08/07/21 History Allergies Allergy/AdvReac Type Severity Reaction Status Date / Time No Known Allergies Allergy Verified 08/07/21 17:45 Physical Exam Vitals: Vital Signs Temp Pulse Pulse Resp BP Pulse Ox 08/17/21 13:52 99.1 F 92 19 94/57 93 L 08/17/21 08:00 18 08/17/21 07:35 98 F 93 18 96/60 92 L 08/17/21 02:00 99.0 F 83 92/55 93 L 08/16/21 19:46 80 08/16/21 19:35 77 Intake and Output 08/17/21 08/17/21 08/17/21 06:59 14:59 22:59 Intake Total 180 150 Output Total 250 250 80 Balance -250 -70 70 Intake: IV 150 Clindamycin 900 mg In 100 Dextrose 5% in Water 50 ml @ 50 mls/hr IVPB Q8HR [facility] Rx#:[id number] cefTRIAXone 2 gm In 50 Sodium Chloride 0.9% 50 ml @ 100 mls/hr IVPB Q24HR [facility] Rx#:[id number] Oral 180 Output: Drainage 250 250 80 Right Back 250 250 80 Other: Voiding Method Toilet Urinal Results 08/17/21 06:34 08/17/21 06:34 CBC 08/17/21 Range/Units 06:34 WBC 11.53 H (4.50-10.00) X 10*3/uL RBC 3.35 L (4.40-5.60) X 10*6/uL Hgb 9.7 L (13.0-17.0) g/dL Hct 30.5 L (39.6-50.0) % Plt Count 587 H (140-440) X 10*3/uL Comprehensive Metabolic Panel 08/17/21 Range/Units 06:34 Sodium 129 L (135-145) mmol/L Potassium 4.2 (3.5-5.5) mmol/L Chloride 94 L (96-109) mmol/L Carbon Dioxide 27.1 (20.0-27.5) mmol/L BUN 8.2 L (9.0-27.0) mg/dL Creatinine 0.5 L (0.6-1.5) mg/dL Glucose 109 (70-110) mg/dL Calcium 7.8 L (8.7-10.3) mg/dL Current Medications Generic Name Dose Route Start Last Admin Trade Name Freq PRN Reason Stop Dose Admin Acetaminophen 650 mg 08/07/21 19:46 08/16/21 00:41 Acetaminophen Tab 325 Mg Tab PO 650 mg Q4HR PRN Administration Fever and/ or Pain Albuterol/Ipratropium 3 ml 08/07/21 19:46 08/11/21 11:23 Ipratropium-Albuterol 3 Ml Neb INHALATION 3 ml RT-Q4H PRN Administration shortness of breath Albuterol/Ipratropium 3 ml 08/14/21 08:00 08/17/21 15:34 Ipratropium-Albuterol 3 Ml Neb INHALATION Not Given RT-QID [facility] Furosemide 20 mg 08/16/21 15:45 08/17/21 07:42 Furosemide 20 Mg Tab PO 20 mg DAILY [facility]IM[facility]DO Administration Heparin Sodium (Porcine) 5,000 unit 08/08/21 00:00 08/17/21 16:01 Heparin Sodium,Porcine/Pf 5,000 Unit/0.5 Ml Syringe SQ 5,000 unit Q8HR [facility] Administration Clindamycin Phosphate 900 mg/ 56 mls @ 50 mls/hr 08/13/21 00:00 08/17/21 16:01 Dextrose/Water IVPB 50 mls/hr Q8HR [facility] Administration Protocol Ceftriaxone Sodium 2 gm/ 50 mls @ 100 mls/hr 08/16/21 09:00 08/17/21 08:52 Sodium Chloride IVPB 100 mls/hr Q24HR [facility] Administration Protocol Ketorolac Tromethamine 15 mg 08/16/21 14:54 08/17/21 16:06 Ketorolac 15 Mg/Ml 1 Ml Vial IVP 08/19/21 14:54 15 mg Q6HR PRN Administration Mild to Moderate Pain Miscellaneous Information 1 each 08/07/21 19:46 Pneumonia Protocol Utilized 1 Each Misc PO ONCE PRN Per Protocol Pantoprazole Sodium 40 mg 08/13/21 07:30 08/17/21 07:42 Pantoprazole 40 Mg Tablet PO 40 mg DAILY [facility]IMUNDO Administration Tramadol HCl 50 mg 08/12/21 23:05 08/17/21 15:11 Tramadol 50 Mg Tab PO 50 mg QID PRN Administration Pain Intake and Output 08/17/21 08/17/21 08/17/21 06:59 14:59 22:59 Intake Total 180 150 Output Total 250 250 80 Balance -250 -70 70 Intake: IV 150 Clindamycin 900 mg In 100 Dextrose 5% in Water 50 ml @ 50 mls/hr IVPB Q8HR [facility] Rx#:[id number] cefTRIAXone 2 gm In 50 Sodium Chloride 0.9% 50 ml @ 100 mls/hr IVPB Q24HR [facility] Rx#:[id number] Oral 180 Output: Drainage 250 250 80 Right Back 250 250 80 Other: Voiding Method Toilet Urinal 08/17/21 06:34 08/17/21 06:34
--- NOTE | 2021-08-17 23:23 | P.PN ---
Subjective Progress Note Date: 08/17/21 Principal diagnosis: empyema patient is a 60-year-old male presenting to the hospital for evaluation of increasing shortness of breath and cough has been diagnosed with e mpyema, patient is status post right sided drainage catheter placement, pleural fluid culture be positive for group C strep , the patient right-sided chest pigtail catheter got dislodged and has to be reinserted on 08/16/2021 on today's evaluation that is 08/17/2021, the patient is afebrile, the patient is breathing comfortably on nasal cannula oxygen, the patient denies any worsening pain at the chest tube insertion site, the patient denies nausea no vomiting no abdominal pain and no diarrhea Objective - Vital Signs Vital signs: Vital Signs Temp 99.1 F 08/17/21 13:52 Pulse 92 08/17/21 13:52 Resp 19 08/17/21 13:52 BP 94/57 08/17/21 13:52 Pulse Ox 93 L 08/17/21 13:52 Intake & Output 08/16/21 08/17/21 08/17/21 18:59 06:59 18:59 Intake Total 540 180 Output Total 250 250 Balance 540 -250 -70 Intake: Oral 540 180 Output: Drainage 250 250 Right Back 250 250 Other: Voiding Method Toilet Toilet Urinal Urinal # Voids 5 # Bowel Movements 1 - Exam GENERAL DESCRIPTION: Middle-aged male lying in bed in no distress RESPIRATORY SYSTEM: Unlabored breathing , decreased breath sounds at bases HEART: S1 S2 regular rate and rhythm , ABDOMEN: Soft , no tenderness EXTREMITIES: No edema feet - Labs CBC & Chem 7: 08/17/21 06:34 08/17/21 06:34 Labs: Abnormal Lab Results - Last 24 Hours (Table) 08/17/21 08/17/21 Range/Units 06:34 06:34 WBC 11.53 H (4.50-10.00) X 10*3/uL RBC 3.35 L (4.40-5.60) X 10*6/uL Hgb 9.7 L (13.0-17.0) g/dL Hct 30.5 L (39.6-50.0) % MCHC 31.8 L (32.0-37.0) g/dL Plt Count 587 H (140-440) X 10*3/uL MPV 9.3 L (9.5-12.2) fL Immature Gran # 0.58 H (0.00-0.04) X 10*3/uL Neutrophils # 8.11 H (1.80-7.70) X 10*3/uL Sodium 129 L (135-145) mmol/L Chloride 94 L (96-109) mmol/L Anion Gap 7.70 L (10.00-18.00) mmol/L BUN 8.2 L (9.0-27.0) mg/dL Creatinine 0.5 L (0.6-1.5) mg/dL Calcium 7.8 L (8.7-10.3) mg/dL Microbiology - Last 24 Hours (Table) 08/16/21 15:23 Anaerobic Culture - Preliminary Pleural Fluid 08/16/21 15:23 Body Fluid Culture - Preliminary Pleural Fluid Assessment and Plan (1) Empyema Current Visit: Yes Status: Acute Code(s): J86.9 - PYOTHORAX WITHOUT FISTULA SNOMED Code(s): 073578434 Plan: 1patient presented to hospital with right-sided empyema in this patient status post chest tube placement and the culture showing group C strep and now is also growing Bacteroides species. 2patient to continue with Rocephin however we'll discontinue clindamycin and add Flagyl for better activity against Bacteroides species Time with Patient: Less than 30
[2021-08-18] MEDS: metroNIDAZOLE-NS PMX 500 MG in SALINE 1 100ML.BAG IVPB SCH ×4 (00:58→23:44)
[2021-08-18] MEDS: KETOROLAC 15 MG/ML 1 ML VIAL IVP PRN ×4 (03:12→20:38)
[2021-08-18] MEDS: PANTOPRAZOLE 40 MG TABLET PO SCH (07:07)
[2021-08-18] MEDS: FUROSEMIDE 20 MG TAB PO SCH (07:07)
[2021-08-18] MEDS: traMADol 50 MG TAB PO PRN (07:07)
[2021-08-18] MEDS: HEPARIN SODIUM,PORCINE/PF 5,000 UNIT/0.5 ML SYRINGE SQ SCH ×3 (07:07→23:43)
[2021-08-18] MEDS: IPRATROPIUM-ALBUTEROL 3 ML NEB INHALATION SCH ×4 (07:41→19:56)
[2021-08-18] MEDS ORDERED: DORNASE ALFA 5 MG in SODIUM CHLORIDE 0.9% 50 ML IRRIGATION ONE (07:44)
[2021-08-18] MEDS ORDERED: ALTEPLASE 10 MG in SODIUM CHLORIDE 0.9% 50 ML IRRIGATION ONE (07:44)
--- NOTE | 2021-08-18 07:58 | P.PN ---
Subjective Progress Note Date: 08/18/21 Principal diagnosis: Right lower lobe pneumonia, parapneumonic effusion, thoracentesis fluid analysis consistent with empyema. Past medical history significant for tobacco depende nce with cessation 3 years ago, daily EtOH use, occasional marijuana use, previous stomach stapling. POD #6 placement of right sided pigtail catheter by interventional radiology. The patient was seen in follow-up today 08/18/2021 at his bedside on the fourth floor medical surgical unit. He is sitting up to the bedside chair, is awake, alert, oriented 3 and is in no acute distress. The patient denies any complaints of pain or shortness of breath at this time. Oxygen saturations are 97% on 2 L nasal cannula and he is achieving 1500 mL on his incentive spirometry with encouragement. Right chest pigtail catheter remains in place to low continuous wall suction -20 cm H2O. Intermittent air leak is present. Continues to drain thin espino serosanguineous colored drainage with 750 mL output in the last 24 hours. His T-max temperature in the last 24 hours is 99.8. He is on antibiotic in the way of Rocephin and Flagyl which is being managed by infectious disease, for pleural fluid cultures showing beta hemolytic strep group C and Bacteroides species. The patient reports he has been up ambulating in the hallway on the fourth floor and tolerating well. Continues to have some +1 to +2 pitting edema to his bilateral lower extremities. A 2-D echocardiogram was completed yesterday 08/17/2021 which demonstrated his systolic function to be normal with an ejection fraction of 55%, mild mitral valve regurgitation, mild tricuspid valve regurgitation and no pericardial effusion. Laboratory results this morning remain pending. No new concerns. Objective - Vital Signs Vital signs: Vital Signs Temp 98.5 F 08/18/21 05:20 Pulse 85 08/18/21 01:58 Resp 18 08/18/21 01:58 BP 97/59 08/18/21 01:58 Pulse Ox 97 08/18/21 01:58 Intake & Output 08/17/21 08/18/21 08/18/21 18:59 06:59 18:59 Intake Total 330 Output Total 330 230 130 Balance 0 -230 -130 Intake: IV 150 Clindamycin 900 mg In 100 Dextrose 5% in Water 50 ml @ 50 mls/hr IVPB Q8HR [facility] Rx#:[id number] cefTRIAXone 2 gm In 50 Sodium Chloride 0.9% 50 ml @ 100 mls/hr IVPB Q24HR [facility] Rx#:[id number] Oral 180 Output: Chest Tube Drainage 230 Chest Tube Right 230 Drainage 330 130 Right Back 330 130 Other: Voiding Method Toilet Urinal # Voids 3 - Exam CONSTITUTIONAL: Sitting up to bedside chair on the fourth floor medical surgical unit. Appears comfortable, cooperative, and is in no acute distress. RESPIRATORY: Lungs sounds diminished bilaterally, right greater than left. No wheezes, rhonchi or crackles. Respirations are symmetrical and nonlabored. C urrently on 2 L nasal cannula with oxygen saturation 97%. Able to achieve 1500 mL on incentive spirometry. Strong productive cough with espino thin sputum. Right-sided pigtail catheter present, connected to low continuous wall suction -20 cm H2O. intermittent air leak is present. 700 mL of thin espino serosanguineous drainage in the last 24 hours. CARDIOVASCULAR: S1, S2 present, negative for S3, gallop or murmur. Regular rhythm and rate and rhythm. Palpable peripheral pulses bilaterally. +1 to+2 pitting edema to his bilateral lower extremities. No calf pain or tenderness noted. Knee-high CATHERINE hose in place to his bilateral lower extremities. GASTROINTESTINAL: Abdomen soft, nontender, and nondistended. Active bowel sounds present 4 quadrants. Tolerating diet. GENITOURINARY: Continues to void clear, rafael urine. INTEGUMENTARY: Skin is warm and dry, no clubbing or cyanosis. Dressing is clean, dry and intact to his right chest pigtail catheter. No redness or drainage is present. Scant serosanguineous drainage to his previous right chest pigtail insertion site. NEUROLOGIC: Cranial nerves II through XII intact, no focal deficits. MUSKULOSKELETAL: Able to move all extremities, strength equal bilaterally, gait normal. PSYCHIATRIC: Alert and oriented to person, place and time, appropriate affect, intact judgment and insight. - Allied health notes Allied health notes reviewed: nursing - Labs CBC & Chem 7: 08/17/21 06:34 08/17/21 06:34 Labs: Abnormal Lab Results - Last 24 Hours (Table) 08/17/21 08/17/21 Range/Units 06:34 06:34 WBC 11.53 H (4.50-10.00) X 10*3/uL RBC 3.35 L (4.40-5.60) X 10*6/uL Hgb 9.7 L (13.0-17.0) g/dL Hct 30.5 L (39.6-50.0) % MCHC 31.8 L (32.0-37.0) g/dL Plt Count 587 H (140-440) X 10*3/uL MPV 9.3 L (9.5-12.2) fL Immature Gran # 0.58 H (0.00-0.04) X 10*3/uL Neutrophils # 8.11 H (1.80-7.70) X 10*3/uL Sodium 129 L (135-145) mmol/L Chloride 94 L (96-109) mmol/L Anion Gap 7.70 L (10.00-18.00) mmol/L BUN 8.2 L (9.0-27.0) mg/dL Creatinine 0.5 L (0.6-1.5) mg/dL Calcium 7.8 L (8.7-10.3) mg/dL Microbiology - Last 24 Hours (Table) 08/16/21 15:23 Gram Stain - Preliminary Pleural Fluid Body Fluid Culture - Preliminary - Imaging and Cardiology Chest x-ray: report reviewed, image reviewed Assessment and Plan Assessment: 1. Right lower lobe pneumonia, parapneumonic effusion, thoracentesis fluid analysis consistent with empyema, status post pigtail catheter placement by interventional radiology 2. Shortness of breath, right-sided pleuritic chest pain secondary to above 3. History of tobacco dependence with cessation 3 years ago 4. Daily EtOH use 5. Occasional marijuana use 6. Previous bariatric surgery with stomach stapling 7. Family history of heart and lung disease Plan: 1. We will instill another dose of alteplase/dornase equaling his sixth total dose of the treatment. He will tentatively be scheduled for a bronchoscopy, right video-assisted thoracoscopic surgery with decortication, possible right thoracotomy on 08/20/2021 to be performed by Dr. Claude Magallon. 2. Wean O2 as tolerated. Encourage incentive spirometry use 10 times every hour while awake. 3. Continue with antibiotics, managed by infectious disease. Pleural fluid culture positive for beta hemolytic strep group C, and Bacteroides species. Results from Pleural fluid cultures from 08/16/2021 remain pending. 4. Increase activity as tolerated. Out of bed for all meals. 5. Pain control with current medication regimen. 6. Medical management of other comorbidities per primary care service. 7. Continue to monitor daily chest x-rays. We will obtain another computed tomography scan of his chest tomorrow 08/19/2021 to reevaluate his empyema. 8. Continue right chest pigtail catheter to low continuous wall suction -20 cm H2O. Record accurate I's and O's. 9. Importance of risk modification including cessation of smoking marijuana discussed with the patient. 10. GI and DVT prophylaxis. 11. Continue to monitor the chest pigtail tube for air leak resolution. 12. More recommendations to follow based on patient's clinical course. Time with Patient: Greater than 30
--- NOTE | 2021-08-18 08:33 | XR ---
EXAMINATION TYPE: XR chest 1V portable DATE OF EXAM: 08/18/2021 CLINICAL HISTORY: Difficulty breathing and cough. Right-sided empyema. TECHNIQUE: Single AP portable upright view of the chest is obtained. COMPARISON: Chest x-ray from one day earlier and older studies. FINDINGS: Pleural pigtail drainage catheter right lung base redemonstrated. Background mild chronic parenchymal changes with continued improved aeration in the central right mid to lower lung. Left cathy g remains predominantly clear. Cardiac silhouette size is stable and within normal limits. Underlying scoliosis upper lumbar spine redemonstrated. Degenerative changes bilateral shoulders again seen. IMPRESSION: Persistent but improving small right basilar pleural fluid collection with continued impr oving right lower lung atelectasis and/or infiltrate with basilar pleural pigtail catheter redemonstr ated.
[2021-08-18 12:34] LABS: Basophils # (A) 0.05 X 10*3/uL (0.00-0.10); Basophils % (A) 0.4 %; Eosinophils # (A) 0.05 X 10*3/uL (0.04-0.35); Eosinophils % (A) 0.4 %; HCT 31.3 % (39.6-50.0); HGB 9.7 g/dL (13.0-17.0); Immature Grans, Automated 2.5 %; Lymphocytes % (A) 13.1 %; MCH 28.7 pg (27.0-32.0); MCV 92.6 fL (80.0-97.0); Mean Platelet Volume 9.5 fL (9.5-12.2); NRBC Per 100 WBC 0 /100 WBCS (0.0-0.0); Neutrophils # (A) 10.42 X 10*3/uL (1.80-7.70); Neutrophils % (A) 75.6 %; Platelet Count 599 X 10*3/uL (140-440); RBC 3.38 X 10*6/uL (4.40-5.60); RDW 14.4 % (11.5-14.5); WBC 13.77 X 10*3/uL (4.50-10.00)
[2021-08-18 12:46] LABS: African American GFR (CKD) 140.4 (60.0-200.0); Albumin/Globulin Ratio 0.83 (1.60-3.17); Anion Gap 9.4 mmol/L (10.00-18.00); BUN/Creat Ratio 17.35 Ratio (12.00-20.00); Blood Urea Nitrogen 8.2 mg/dL (9.0-27.0); Calcium 7.8 mg/dL (8.7-10.3); Globulin 2.4 g/dL (1.6-3.3); Non-African American GFR(CKD) 121.1 (60.0-200.0); Potassium 4.6 mmol/L (3.5-5.5); Total Bilirubin 0.2 mg/dL (0.30-1.20); Total Protein 4.5 g/dL (6.2-8.2)
[2021-08-18] MEDS: ACETAMINOPHEN TAB 325 MG TAB PO PRN ×2 (13:49→17:26)
--- NOTE | 2021-08-18 15:57 | P.PN ---
Subjective Progress Note Date: 08/18/21 60-year-old outpatient with past medical history of bariatric surgery, stomach stapling 30 years ago, former smoker, who came into the emergency department on the 08/07/2021 with complaints of right-sided pleuritic chest pain and shortness of breath. he states initial symptom onset was about a week ago and progressively became worse, he went to the urgent care initially, chest x-ray was taken and he was told that he needed to go to the emergency department as he was right lung appear to be collapsed at the bottom. In addition patient was febrile, and coughing up some purulent phlegm. In the emergency department chest x-ray showing right basilar opacity with small pleural effusion, CTA chest showing small to moderate right pleural effusion with accompanying basilar atelectasis. Lab work showed white blood cell count of 30.4, hemoglobin of 12.9, platelet count of 682, INR of 1.1, d-dimer was 2.5 to but CTA showed no evidence of pulmonary embolism. COVID 19 PCR is negative. Patient was started on azithromycin and Rocephin. This morning he seen sitting up in bed, is still having some pleuritic right lower rib cage pain with inspiration and coughing, but appears to be in no acute distress. On 2 L of oxygen his saturation 94-96%. On 08/09/2021 patient seen in follow-up. Patient is awake and alert, he states he is breathing easier, and right-sided pleuritic chest pain is improved although still there with deep breathing and coughing. Ultrasound the chest has been reviewed showing 2.3 centimeter pleural fluid pocket and it was not possible to market related to the pocket, lung location and internal echoes. Labs have been reviewed, white blood cell count is slightly improved and is down to 27.4, hemoglobin is 13.1, platelet count is 635, sodium is 134, depressed electrolytes and renal profile are unremarkable. Urinalysis showed small amount of blood, white blood cells, but no clear evidence of infection. COVID-19 PCR was negative. Progress note dated 08/10/2021. This is a 60-year-old male, again seen in room 457. Yesterday, Dr. Erickson did a diagnostic thoracentesis on the patient. He states that the material that he was able to get out of the right pleural space, was purulent. He sent for cytology, chemistry, and microbiology. It appears to be pus. The glucose extremely low. It is an exudate. There is a predominance of white blood cells, mostly polymorphonuclear neutrophils. We are going to ask interventional radiology to consider placing a pigtail catheter. We did ask cardiothoracic surgery to see the patient. They would prefer to avoid chest tube placement. Currently, the patient doesn't feel horrible. He remains on 3 L of oxygen. Saturations are between 94 to 97%. White count 23.4, hemoglobin 11.4, hematocrit 35, and platelet count 512,000. Sodium 133, potassium, chloride, CO2, anion gap, BUN, and creatinine all normal. Sputum was only positive for Milli. Fluid analysis reveals 28,971 white blood cells, of which 97% of PMNs. In addition, the glucose was less than 2. The protein was 4.19 g, and the LDH was greater than 2500. This is consistent with an empyema. We will ask interventional radiology consider placing a pigtail catheter. The patient is seen today 08/11/2021 in follow-up on the regular medical floor. He has been up ambulating in the room. He is still dyspneic with minimal exertion. Denies any fever, chills or night sweats. He is maintaining good O2 saturations in the mid to upper 90s on 3 L/m per nasal cannula. He remains afebrile. Hemodynamically stable. Pleural fluid cultures are pending. Sputum culture positive for Milli only. Blood cultures are showing no growth. White count 18. Hemoglobin 10.3. Platelets 455. Sodium 1:30. Potassium 3.5. Bicarb 21. Creatinine 0.5. He remains on antibiotics in the form of ceftriaxone and azithromycin. Continue bronchodilators. Heparin for DVT prophylaxis. Normal saline at 100 ML's per hour. He has been seen by CT services who are recommending INR place a pigtail catheter. He'll be nothing by mouth tonight. On 08/12/2021 patient is seen in follow-up on medical surgical floor. Patient had a right-sided pigtail chest tube catheter inserted and there was 1.5 L of purulent pleural fluid evacuated into the Pleur-evac. Chest tube remains in place, patient tolerated procedure very well. He is on 2 L of oxygen pulse ox is 94%, he is afebrile. Blood pressure stable, no altered mentation. Remains on combination of azithromycin and Rocephin. His white blood cell count is improved and is down to 17.1 on today's labs compared to 30.4 on admission, Hemoglobin is 11.2, sodium is 133, dressed electrolytes and renal profile are negative. Pleural fluid analysis has been reviewed and was consistent with empyema. Pleural fluid cultures remain negative so far. Sputum culture only showed Milli albicans, blood cultures have been negative. On 08/13/2021 patient seen in follow-up on medical surgical floor. He is breathing comfortably, sitting up in bed, he is on 2 L of oxygen, his pulse ox of 97%, yesterday he had right-sided posterior pigtail chest tube inserted by interventional radiology, with initial output of 1500 of purulent pleural fluid. There has been additional 350 mL of pleural fluid since then. Patient had first alteplase infused by CT surgery, and again today. He remains on combination of Rocephin and clindamycin. his pleural fluid cultures were positive for beta hemolytic strep group C. Fever pattern has improved, and T-max in the last 24 hours was 99.8F.his chest x-ray shows persistent moderate size right-sided pleural fluid collection with the pigtail pleural drainage catheter in place. There is associated right lower lung opacity favoring atelectatic changes. Today's labs show improvement in the white blood cell count, which is down to 16.42, hemoglobin is 11.5, platelet count is 535, sodium is 134, the rest of the electrolytes and renal profile are unremarkable. 08/14/2021, the patient is doing well. He remains on 2 L O2. Another 450 mL of fluid came out over the past 24 hours from his right-sided pigtail catheter. Another alteplase treatment was done today. Remains on IV Rocephin. Remains hemodynamically stable. His white cell count is elevated at 16.4. The rest of the electrodes are all within normal limits. He remains on IV Rocephin. He is afebrile. Pulse ox is 95% on 3 L of oxygen by nasal cannula. Repeat chest x- ray shows a tiny pneumothorax on the right. Right lower lung is still opacified and there is pigtail catheter remains in a good location. As such, we're going to continue our conservative drainage with a pigtail catheter and alteplase in an attempt to avoid surgical intervention on this patient. The patient is seen today 08/15/2021 in follow-up on the regular medical floor. He is currently sitting up in a chair at the bedside. Awake and alert in no acute distress. Chest x-ray continues to revealed persistent moderate sized right pleural effusion. Associated right lower lobe opacity favors atelectasis. Basilar opacity developing. Right-sided pigtail catheter remains in place. Continue to low continuous wall suction. No air leak present. Approximately 1000 mL of tannish serosanguineous drainage in the past 24 hours output. He is continued working well with the incentive spirometer pulling approximately 1500 ML's. He is maintaining good O2 saturations in the 90s on 2 L/m per nasal cannula. Pleural fluid cultures are positive for beta hemolytic strep group C and anaerobic gram-negative bacilli. He is continued on ceftriaxone and clindamycin. Heparin for DVT prophylaxis. Remains on bronchodilators. The patient is seen today 08/16/2021 in follow-up on the regular medical floor. He is currently sitting up in a chair at the bedside. Awake and alert in no acute distress. He is maintaining O2 saturations in the mid 90s on 3 L/m per nasal cannula. CAT scan of the chest reveals that the right-sided pigtail pleural catheter had become dislodged. There is increasing moderate right pleural effusion. Scattered foci of air within the fluid likely related to instrumentation. Worsening volume loss and consolidation throughout the right middle lobe and basilar right lower lobe. There is a 5 mm pericardial effusion. Generalized anasarca has developed in the interval; correlate for third spacing/fluid overload state. White count 13.8. Hemoglobin 10.5. Sodium 132. Potassium 4.3. BUN 10. Creatinine 0.4. Pleural fluid was positive for beta hemolytic strep group C. Bacteroides species. The plan is for interventional radiology to replace or reposition the pigtail catheter today. He will be rece iving alteplase today per CT services. He remains on ceftriaxone. The 2021, the patient had another attack catheter inserted yesterday and the patient received another alteplase treatment. Mother the chest x-ray from today showing some interval improvement. Nevertheless, there is still si gnificant opacification of the right lung and output has been only 200 mL over the past 24 hours. He is achieving 1500 mL of incentive spirometer. The pleural fluid culture from 08/09/2021 was positive for bedtime with extremity group C and the patient remains on a combination of Rocephin and clindamycin. Afebrile. Hemodynamically stable. The recovery is not complete. The patient continues to have drainage although the chest x-ray findings and essentially showing significant opacification and residual pleural fluid examination the right hemithorax. The patient has felt pigtail catheter insertion and alteplase. We are considering thoracoscopic decortication of the right lung. The patient is afebrile with a temperature 99.0. White cell count of 15.2 with hemoglobin of 10.5. The BUN is at 10.4 with hemoglobin of 0.4. 08/18/2021, the patient is stable. The patient continues to have a pigtail catheter in his right lung. I noted that the chest x-ray from today showing improvement in aeration of the right lung with some interval diminution of the right-sided consolidation/effusion. As such, there is active drainage and another alteplase treatment was done for this patient today. Meanwhile, the patient is not having any chest pain. No reported fever or chills. He remains on 2 L of oxygen by nasal cannula with a pulse oximetry 97%. The pigtail catheter remains in place. Overall output has been around 750 mL over the past 24 hours. consolidation/effusion. I also noted that the patient has drained approximately 360 mL of purulent material over the past 8 hours. The ultimate plan is to proceed with a surgery/thoracoscopic approach along with intraoperative bronchoscopy on this patient probably by Thursday. Objective - Vital Signs Vital signs: Vital Signs Temp 98.8 F 08/18/21 14:12 Pulse 85 08/18/21 14:12 Resp 17 08/18/21 14:12 BP 98/62 08/18/21 14:12 Pulse Ox 96 08/18/21 14:12 Intake & Output 08/17/21 08/18/21 08/18/21 18:59 06:59 18:59 Intake Total 330 Output Total 330 230 540 Balance 0 -230 -540 Intake: IV 150 Clindamycin 900 mg In 100 Dextrose 5% in Water 50 ml @ 50 mls/hr IVPB Q8HR [facility] Rx#:[id number] cefTRIAXone 2 gm In 50 Sodium Chloride 0.9% 50 ml @ 100 mls/hr IVPB Q24HR [facility] Rx#:[id number] Oral 180 Output: Chest Tube Drainage 230 Chest Tube Right 230 Drainage 330 540 Right Back 330 540 Other: Voiding Method Toilet Toilet Urinal Urinal # Voids 3 - Exam GENERAL EXAM: Alert, active, pleasant 60-year-old male patient, on 3 L nasal cannula, comfortable in no apparent distress. HEAD: Normocephalic. EYES: Normal reaction of pupils, equal size. NOSE: Clear with pink turbinates. THROAT: No erythema or exudates. NECK: No masses, no JVD. CHEST: No chest wall deformity. Right sided pigtail catheter in place to low continuous wall suction. No leak noted. LUNGS: Equal air entry with crackles in the right lung base. Diminished. CVS: S1 and S2 normal with no audible murmur, regular rhythm. ABDOMEN: No hepatosplenomegaly, normal bowel sounds, no guarding or rigidity. SPINE: No scoliosis or deformity SKIN: No rashes CENTRAL NERVOUS SYSTEM: No focal deficits, tone is normal in all 4 extremities. EXTREMITIES: There is no peripheral edema. No clubbing, no cyanosis. Periphe ral pulses are intact. - Labs CBC & Chem 7: 08/18/21 03:06 08/18/21 03:06 Labs: Abnormal Lab Results - Last 24 Hours (Table) 08/18/21 08/18/21 Range/Units 03:06 03:06 WBC 13.77 H (4.50-10.00) X 10*3/uL RBC 3.38 L (4.40-5.60) X 10*6/uL Hgb 9.7 L (13.0-17.0) g/dL Hct 31.3 L (39.6-50.0) % MCHC 31.0 L (32.0-37.0) g/dL Plt Count 599 H (140-440) X 10*3/uL Immature Gran # 0.35 H (0.00-0.04) X 10*3/uL Neutrophils # 10.42 H (1.80-7.70) X 10*3/uL Monocytes # 1.10 H (0.20-1.00) X 10*3/uL Sodium 130 L (135-145) mmol/L Chloride 95 L (96-109) mmol/L Anion Gap 9.40 L (10.00-18.00) mmol/L BUN 8.2 L (9.0-27.0) mg/dL Creatinine 0.5 L (0.6-1.5) mg/dL Calcium 7.8 L (8.7-10.3) mg/dL Total Bilirubin 0.20 L (0.30-1.20) mg/dL AST 37 H (14-35) U/L Total Protein 4.5 L (6.2-8.2) g/dL Albumin 2.0 L (3.8-4.9) g/dL Albumin/Globulin Ratio 0.83 L (1.60-3.17) g/dL Microbiology - Last 24 Hours (Table) 08/16/21 15:23 Gram Stain - Preliminary Pleural Fluid Body Fluid Culture - Preliminary Assessment and Plan Plan: #1. Acute hypoxic respiratory failure related to right lower lobe pneumonia parapneumonic effusion, community-acquired, related to beta hemolytic strep group C. For now, the patient undergone pigtail drainage 2 with multiple alteplase treatment, at least 5. There is some interval improvement in the elevation of the right lung get the recovery is not complete. The patient has been thrombolytic strep group C and the patient remains on a combination of Rocephin and clindamycin. The plan is to proceed with a thoracoscopic decortication, possible thoracotomy early next week. She was made aware. Some improvement today's chest x-ray findings and the patient continues to have active drainage. #2. Former smoker #3. Pleuritic chest pain #4. History of bariatric surgery, with stomach stapling #5. Coronary artery disease #6. BPH #7. COPD Plan: Monitor chest x-ray findings Keep the chest tube in place Another alteplase treatment today Continue incentive spirometer Patient is currently on Rocephin and clindamycin Encourage deep breathing and coughing Will continue to follow Fever is improved Surgical thoracoscopic drainage/decortication/. Patient failed to show improvement. We'll continue to follow. Tentative plan is to do the surgery early next week. Pain is under good control. Clinically stable. Hemodynamically stable. The patient is tentatively scheduled to undergo surgery on Thursday.
--- NOTE | 2021-08-18 23:17 | P.PN ---
Subjective Progress Note Date: 08/18/21 Principal diagnosis: empyema patient is a 60-year-old male presenting to the hospital for evaluation of increasing shortness of breath and cough has been diagnosed with e mpyema, patient is status post right sided drainage catheter placement, pleural fluid culture be positive for group C strep , the patient right-sided chest pigtail catheter got dislodged and has to be reinserted on 08/16/2021 on today's evaluation that is 08/18/2021, the patient continues to be afebrile, the patient is breathing comfortably on 2 L nasal cannula oxygen, the patient pain at the chest tube insertion site is currently controlled, the patient denies nausea no vomiting no abdominal pain and no diarrhea 2 L Objective - Vital Signs Vital signs: Vital Signs Temp 97.7 F 08/18/21 08:00 Pulse 67 08/18/21 08:00 Resp 18 08/18/21 08:11 BP 98/60 08/18/21 08:00 Pulse Ox 96 08/18/21 08:00 Intake & Output 08/17/21 08/18/21 08/18/21 18:59 06:59 18:59 Intake Total 330 Output Total 330 230 540 Balance 0 -230 -540 Intake: IV 150 Clindamycin 900 mg In 100 Dextrose 5% in Water 50 ml @ 50 mls/hr IVPB Q8HR [facility] Rx#:[id number] cefTRIAXone 2 gm In 50 Sodium Chloride 0.9% 50 ml @ 100 mls/hr IVPB Q24HR [facility] Rx#:[id number] Oral 180 Output: Chest Tube Drainage 230 Chest Tube Right 230 Drainage 330 540 Right Back 330 540 Other: Voiding Method Toilet Toilet Urinal Urinal # Voids 3 - Exam GENERAL DESCRIPTION: Middle-aged male lying in bed in no distress RESPIRATORY SYSTEM: Unlabored breathing , decreased breath sounds at bases HEART: S1 S2 regular rate and rhythm , ABDOMEN: Soft , no tenderness EXTREMITIES: No edema feet - Labs CBC & Chem 7: 08/18/21 03:06 08/18/21 03:06 Labs: Abnormal Lab Results - Last 24 Hours (Table) 08/18/21 Range/Units 03:06 WBC 13.77 H (4.50-10.00) X 10*3/uL RBC 3.38 L (4.40-5.60) X 10*6/uL Hgb 9.7 L (13.0-17.0) g/dL Hct 31.3 L (39.6-50.0) % MCHC 31.0 L (32.0-37.0) g/dL Plt Count 599 H (140-440) X 10*3/uL Immature Gran # 0.35 H (0.00-0.04) X 10*3/uL Neutrophils # 10.42 H (1.80-7.70) X 10*3/uL Monocytes # 1.10 H (0.20-1.00) X 10*3/uL Microbiology - Last 24 Hours (Table) 08/16/21 15:23 Gram Stain - Preliminary Pleural Fluid Body Fluid Culture - Preliminary Assessment and Plan (1) Empyema Current Visit: Yes Status: Acute Code(s): J86.9 - PYOTHORAX WITHOUT FISTULA SNOMED Code(s): 327908841 Plan: 1patient presented to hospital with right-sided empyema in this patient status post chest tube placement and the culture showing group C strep and now is also growing Bacteroides species. 2patient to continue with Rocephin and Flagyl and monitor his clinical course closely Time with Patient: Less than 30
[2021-08-19] MEDS: ACETAMINOPHEN TAB 325 MG TAB PO PRN ×3 (01:37→19:35)
[2021-08-19] MEDS: KETOROLAC 15 MG/ML 1 ML VIAL IVP PRN (01:38)
[2021-08-19] MEDS: IPRATROPIUM-ALBUTEROL 3 ML NEB INHALATION SCH ×4 (07:23→20:44)
[2021-08-19] MEDS: PANTOPRAZOLE 40 MG TABLET PO SCH (08:01)
[2021-08-19] MEDS: FUROSEMIDE 20 MG TAB PO SCH (08:01)
[2021-08-19] MEDS: metroNIDAZOLE-NS PMX 500 MG in SALINE 1 100ML.BAG IVPB SCH ×2 (08:02→15:45)
[2021-08-19] MEDS: HEPARIN SODIUM,PORCINE/PF 5,000 UNIT/0.5 ML SYRINGE SQ SCH ×2 (08:02→15:46)
--- NOTE | 2021-08-19 09:07 | PN ---
PROGRESS NOTE This patient is a 60-year-old white male with right lower lobe pneumonia, empyema of the right lower lobe. He has had two chest tubes placed and he is going to have surgery for the empyema on Thursday. He is being treated for some diastolic CHF with Lasix orally. Echo is being read by Cardiology. Cardiology says they think he is doing well; just continue with the Lasix. Cardiovascular S1-S2. Lungs clear. GI soft. Right lateral chest tube. Hematology negative Homans. ASSESSMENT: 1. Diastolic congestive heart failure. 2. Empyema, right lower lobe. 3. Chronic obstructive pulmonary disease. antibiotics. White count is down to 11. Surgery on Thursday. Continue with chest tube at this point. Prognosis guarded. MMODL / IJN: [id number] /
--- NOTE | 2021-08-19 10:55 | CT ---
EXAMINATION TYPE: CT chest wo con DATE OF EXAM: 08/19/2021 INDICATION: Evaluate Rt side Empyema CT DLP: 336.6 mGy.cm Automated Exposure Control for Dose Reduction was Utilized. TECHNIQUE AND CONTRAST: CT scan of chest without IV contrast administration. COMPARISON: CT dated 08/16/2021 FINDINGS: Right-sided pigtail drainage catheter with the tip seen at the posterior aspect of the right lung bas e. Small right-sided pleural effusion, regressed compared to the previous CT scan. Better aeration of the right lower lobe. Small right pneumothorax is appreciated up to 13 mm in the right lung apex. Persistent the right basal pulmonary atelectasis with air bronchogram within, improved compared to th e previous yet not completely resolved. Atelectasis versus lung lesion at the lateral aspect of the r ight lung base, attention follow-up. COPD changes. Stable subcentimeter calcified granuloma in the le ft lung base. Minimal left pleural effusion. No gross pleural nodularity identified by this nonenhanced CT scan. No gross cardiomegaly. Arterial a nd coronary atherosclerotic calcifications. Scattered partially calcified and noncalcified mediastina l and hilar lymph nodes, stable. Small pericardial effusion. Bulky spleen. Gastric surgical sutures. Diffuse chest wall subcutaneous fat stranding and edema, please correlate for volume overload. Fecal loading of the visualized portion of the colon. Hepatic dome hypodensity, possibly artifactual and vazquez boptimally assessed. Further enhanced CT scan of the abdomen can be considered. Degenerative changes of the thoracic spine. IMPRESSION: Smaller right-sided pleural effusion associated with small right pneumothorax and improving aeration of the right lower lobe as described above. No pleural nodularity or thickening by this nonenhanced C T scan however a developing empyema can't be excluded. Other interval changes and incidental findings as detailed above.
--- NOTE | 2021-08-19 11:23 | CDI ---
Documentation Clarification Form Date: 08/19/2021 10:35:00 AM From: Lorenza Jaramillo RN, CCDS Admit Date: 08/07/2021 07:46:00 PM Patient Name: Armando Sorenson Visit Number: [id number] Discharge Date: ATTENTION: The Clinical Documentation Specialists (CDI) and [facility] Coding Staff appreciate your assistance in clarifying documentation. Please respond to the clarification below the line at the bottom and electronically sign. The CDI & [facility] Coding staff will review the response and follow-up if needed. Please note: Queries are made part of the Legal Health Record. If you have any questions, please contact the author of this message via ITS. Dr. Beka Phillips The patient presented with fever of 101.4, elevated white count on admission 30.4, heart rate 91. Additional clarification regarding the etiology/cause of the clinical indicators is requested. 08/07 Pulmonary consult: The patient does have evidence of right lower lobe pneumonia. He have a small parapneumonic effusion. History/Risk Factors: Former smoker, Alcohol daily, Marijuana use Clinical Indicators: 60-year-old male present with sob, sharp right-side chest pain with coughing, movement and deep breathing. 08/07 CXR: Right basilar opacity with small pleural effusion, concerning for infiltrates. 08/07 CTA: Small to moderate right pleural effusion with accompanying basilar opacities which may represent atelectasis or developing infiltrates. Left lower chest wall subcutaneous soft tissue nodule, nonspecific. 08/07 WBC: 30.4, 08/09 WBC 27.4 08/07 Lactic acid: 1.3 08/07 Blood cultures: No growth; Pleural fluid Gram stain: Beta hemolytic strep group C 08/07 Vital signs: 140/77 91 18 101.4, 134/77 100 36 101.1 92 % 3/L NC Treatment: 08/12 ID Consult: patient on presentation to the hospital did have a fever of 101.2, running a fever fir the last 3-4 days did have elevated white count of 27,000. Id consulted for empyema and management of antibiotic therapy. 08/12 Right sided chest tube Rocephin 2 GM IVPB DAILY 08/08-08/19; Clindamycin 900MG IVPB Q 8 HRS 08/13-08/17 Azithromycin 500 MG IVPB X1, PO DAILY 08/08-08/11 Alteplase 10 mg irrigation per orders .9NS @ 100 MLS/HR In your professional opinion, please clarify if these findings signify one of the following conditions: [ ] Sepsis POA [ ] Sepsis, Not POA [ ] Sepsis ruled out [ ] Other, please specify [ ] Unable to determine SIRS Criteria: 2 or more of the following may indicate SIRS -Temperature < 96.8F (36C) or > 101.0F (38.3C) -Heart Rate > 90 bpm -Respiratory Rate > 20 breaths/min or PaCO2 < 32 mmHg -White Blood Cell Count > 12,000 or < 4,000 cells/mm3 or > 10% bands (Template Last Reviewed: July 2020) MTDD
--- NOTE | 2021-08-19 11:52 | CDI ---
Documentation Clarification Form Date: 08/19/2021 11:26:54 AM From: Lorenza Jaramillo RN, CCDS Admit Date: 08/07/2021 07:46:00 PM Patient Name: Armando Sorenson Visit Number: [id number] Discharge Date: ATTENTION: The Clinical Documentation Specialists (CDI) and [facility] Coding Staff appreciate your assistance in clarifying documentation. Please respond to the clarification below the line at the bottom and electronically sign. The CDI & [facility] Coding staff will review the response and follow-up if needed. Please note: Queries are made part of the Legal Health Record. If you have any questions, please contact the author of this message via ITS. Dr. Renata Bermeo Small right-sided pneumothorax is documented in the progress note on 08/14/21 and patient had a right chest tube insertion with pigtail catheter placed on 08/12/21. Additional clarification is requested regarding the relationship, if any, that exists between the diagnosis and the procedure. Patients Admitting Diagnosis: Right lower lobe pneumonia paraneumonic effusion empyema Post-Operative Diagnosis: same Procedure performed: Right chest tube catheter History/Risk Factors: COPD, Former smoker, Daily alcohol use, Marijuana use Clinical Indicators: 60-year-old male present with sob, sharp right-side chest pain with coughing, movement and deep breathing. 08/07 CXR: Right basilar opacity with small pleural effusion, concerning for infiltrates. 08/07 CTA: Small to moderate right pleural effusion with accompanying basilar opacities which may represent atelectasis or developing infiltrates. 08/07 WBC: 30.4, 08/09 WBC 27.4, Lactic acid 1.3, Blood cultures: No growth Pleural fluid Gram stain: Beta hemolytic strep group C 08/07 Vital signs: 140/77 91 18 101.4, 134/77 100 36 101.1 92 % 3/L NC 08/12 Right sided chest tube Treatment: Monitor chest x-ray daily/per orders Keep chest tube in place, Alteplace treatment per orders Incentive spirometer per orders Rocephin 2 GM IVPB DAILY 08/08-08/19; Clindamycin 900MG IVPB Q 8 HRS 08/13-08/17 Azithromycin 500 MG IVPB X1, PO DAILY 08/08-08/11 Alteplase 10 mg irrigation per orders .9NS @ 100 MLS/HR What relationship, if any, exists between the diagnosis of right-side pneumothorax and the chest tube insertion procedure? [ ] Pneumothorax is a complication of the procedure [x ] Pneumothorax is an expected outcome of the surgical procedure [ ] Pneumothorax is related to patients co-morbid condition(s) of [insert co- morbid dxs] & not a complication of the procedure [ ] Pneumothorax has been ruled out [ ] Pneumothorax is small and not clinically significant [ ] Other please specify ____ [ ] Unable to determine (Template Last Revised: July 2020) MTDD
--- NOTE | 2021-08-19 12:05 | P.PN ---
Subjective Progress Note Date: 08/19/21 Principal diagnosis: Right lower lobe pneumonia, parapneumonic effusion, thoracentesis fluid analysis consistent with empyema. Past medical history significant for tobacco depende nce with cessation 3 years ago, daily EtOH use, occasional marijuana use, previous stomach stapling. POD #7 placement of right sided pigtail catheter by interventional radiology. The patient was seen in follow-up today 08/19/2021 at his bedside on the fourth floor medical surgical unit. He is currently sitting up to the bedside chair eating his breakfast, is awake, alert, oriented 3 and is in no acute distress. Denies any complaints of pain or shortness of breath at this time, states he feels somewhat improved today. He reports he has been ambulating in the fourth floor medical surgical hallway 2-3 yesterday without difficulty. Room air oxygen saturation are 94% and he is achieving 1500 mL to 1750 mL on his incentive spirometry with encouragement. Right chest pigtail catheter remains in place to low continuous wall suction -20 cm H2O. No air leak is present. A dose of alteplase/dornase was instilled through the right chest pigtail catheter yesterday and it is draining thin espino serosanguineous drainage with 500 mL output in the last 24 hours. Computed tomography scan of the chest without contrast is pending. Pleural fluid culture from 08/09/2021 showed beta- hemolytic strep group C and Bacteroides species. He remains on antibiotic coverage in the way of Rocephin and Flagyl managed by infectious disease. Pleural fluid culture from 08/16/2021 remains pending. T-max temperature in the last 24 hours is 99.0F. He is tentatively scheduled for a right-sided VATS with decortication, possible thoracotomy with intraoperative bronchoscopy tomorrow 08/20/2021 to be performed by Dr. Magallon. Objective - Vital Signs Vital signs: Vital Signs Temp 99.0 F 08/19/21 02:00 Pulse 62 08/19/21 02:00 Resp 17 08/18/21 20:00 BP 101/64 08/19/21 02:00 Pulse Ox 99 08/19/21 02:00 Intake & Output 08/18/21 08/19/21 08/19/21 18:59 06:59 18:59 Intake Total 490 Output Total 650 200 Balance -160 -200 Intake: IV 250 cefTRIAXone 2 gm In 50 Sodium Chloride 0.9% 50 ml @ 100 mls/hr IVPB Q24HR [facility] Rx#:[id number] metroNIDAZOLE-NS PMX 500 200 mg In Saline 1 100ml.bag @ 100 mls/hr IVPB Q8HR [facility] Rx#:[id number] Oral 240 Output: Drainage 650 Right Back 650 Urine 200 Other: Voiding Method Toilet Urinal # Voids 1 - Exam CONSTITUTIONAL: Sitting up to bedside chair on the fourth floor medical surgical unit eating his breakfast. Appears comfortable, cooperative, and is in no acute distress. RESPIRATORY: Lungs sounds diminished bilaterally, right greater than left. No wheezes, rhonchi or crackles. Respirations are symmetrical and nonlabored. Currently on room air with oxygen saturation 94%. Able to achieve 1500 mL on incentive spirometry. Strong productive cough. Right-sided pigtail catheter present, connected to low continuous wall suction -20 cm H2O. No air leak is present. 500 mL of thin espino serosanguineous drainage in the last 24 hours. CARDIOVASCULAR: S1, S2 present, negative for S3, gallop or murmur. Regular rhythm and rate and rhythm. Palpable peripheral pulses bilaterally. +1 pitting edema to his bilateral lower extremities. No calf pain or tenderness noted. Knee-high CATHERINE hose in place to his bilateral lower extremities. GASTROINTESTINAL: Abdomen soft, nontender, and nondistended. Active bowel sounds present 4 quadrants. Tolerating diet. GENITOURINARY: Continues to void clear, rafael urine. INTEGUMENTARY: Skin is warm and dry, no clubbing or cyanosis. Dressing is clean, dry and intact to his right chest pigtail catheter. No redness or drainage is present. Dressing to his previous right chest pigtail catheter site is clean, dry and intact. No drainage present. NEUROLOGIC: Cranial nerves II through XII intact, no focal deficits. MUSKULOSKELETAL: Able to move all extremities, strength equal bilaterally, gait normal. PSYCHIATRIC: Alert and oriented to person, place and time, appropriate affect, intact judgment and insight. - Allied health notes Allied health notes reviewed: nursing - Labs CBC & Chem 7: 08/18/21 03:06 08/18/21 03:06 Labs: Abnormal Lab Results - Last 24 Hours (Table) 08/18/21 08/18/21 Range/Units 03:06 03:06 WBC 13.77 H (4.50-10.00) X 10*3/uL RBC 3.38 L (4.40-5.60) X 10*6/uL Hgb 9.7 L (13.0-17.0) g/dL Hct 31.3 L (39.6-50.0) % MCHC 31.0 L (32.0-37.0) g/dL Plt Count 599 H (140-440) X 10*3/uL Immature Gran # 0.35 H (0.00-0.04) X 10*3/uL Neutrophils # 10.42 H (1.80-7.70) X 10*3/uL Monocytes # 1.10 H (0.20-1.00) X 10*3/uL Sodium 130 L (135-145) mmol/L Chloride 95 L (96-109) mmol/L Anion Gap 9.40 L (10.00-18.00) mmol/L BUN 8.2 L (9.0-27.0) mg/dL Creatinine 0.5 L (0.6-1.5) mg/dL Calcium 7.8 L (8.7-10.3) mg/dL Total Bilirubin 0.20 L (0.30-1.20) mg/dL AST 37 H (14-35) U/L Total Protein 4.5 L (6.2-8.2) g/dL Albumin 2.0 L (3.8-4.9) g/dL Albumin/Globulin Ratio 0.83 L (1.60-3.17) g/dL Microbiology - Last 24 Hours (Table) 08/16/21 15:23 Gram Stain - Preliminary Pleural Fluid Body Fluid Culture - Preliminary Assessment and Plan Assessment: 1. Right lower lobe pneumonia, parapneumonic effusion, thoracentesis fluid analysis consistent with empyema, status post right chest pigtail catheter placement by interventional radiology, pleural fluid culture from 08/09/2021 shows beta-hemolytic strep group C and Bacteroides species 2. Shortness of breath, right-sided pleuritic chest pain secondary to above 3. History of tobacco dependence with cessation 3 years ago 4. Daily EtOH use 5. Occasional marijuana use 6. Previous bariatric surgery with stomach stapling 7. Family history of heart and lung disease Plan: 1. The patient is tentatively scheduled for an intraoperative bronchoscopy, right video-assisted thoracoscopic surgery with decortication, possible right th oracotomy on 08/20/2021 to be performed by Dr. Claude Magallon. The computed tomography scan of his chest today showed a smaller right-sided pleural effusion associated with a small right pneumothorax and improving aeration of the right lower lobe. A decision regarding the surgery will be discussed with the patient by Dr. Magallon in the morning of 08/20/2021. The patient will be nothing by mouth after midnight. 2. Encourage incentive spirometry use 10 times every hour while awake. His ox ygen has been weaned off and his oxygen saturations on room air are 94%. 3. Continue with antibiotics, managed by infectious disease. Pleural fluid culture positive for beta hemolytic strep group C, and Bacteroides species. Results from Pleural fluid cultures from 08/16/2021 remain pending. 4. Increase activity as tolerated. Out of bed for all meals. 5. Pain control with current medication regimen. 6. Medical management of other comorbidities per primary care service. 7. Continue to monitor daily chest x-rays. 8. Continue right chest pigtail catheter to low continuous wall suction -20 cm H2O. Record accurate I's and O's. 9. Importance of risk modification including cessation of smoking marijuana discussed with the patient. 10. GI and DVT prophylaxis. 11. More recommendations to follow based on patient's clinical course. Time with Patient: Greater than 30
--- NOTE | 2021-08-19 17:54 | P.PN ---
Subjective Progress Note Date: 08/19/21 Principal diagnosis: Acute hypoxic respiratory failure secondary to right lower lobe pneumonia and complicated parapneumonic pleural effusion. Possible empyema. Patient was reevaluated today on 08/19/21, patient seems to be doing better, he is on room air, continues to have a pigtail catheter in place. There is definite improvement in the fluid/pleural effusion, continues to drain, remains on antibiotics, he is developing more consolidation in the right lower lobe, patient remains on antibiotics, clinically he is responding well to treatment. Cultures have been positive for Streptococcus beta-hemolytic strep, group C, and Bacteroides species. Considering the results of the CT of the chest today, no need for decortication, and no need for bronchoscopy. The main issue right now is to continue antibiotics. In reviewing the CT of the chest, there is evidence of a small tiny pneumothorax, not seen on chest x-ray, this is again most likely iatrogenic and related to the pigtail catheter/chest tube insertion by interventional radiology and it is an expected potential complication Objective - Vital Signs Vital signs: Vital Signs Temp 98.4 F 08/19/21 14:00 Pulse 81 08/19/21 14:00 Resp 16 08/19/21 14:00 BP 108/71 08/19/21 14:00 Pulse Ox 97 08/19/21 14:00 Intake & Output 08/18/21 08/19/21 08/19/21 18:59 06:59 18:59 Intake Total 490 Output Total 650 200 Balance -160 -200 Intake: IV 250 cefTRIAXone 2 gm In 50 Sodium Chloride 0.9% 50 ml @ 100 mls/hr IVPB Q24HR [facility] Rx#:[id number] metroNIDAZOLE-NS PMX 500 200 mg In Saline 1 100ml.bag @ 100 mls/hr IVPB Q8HR [facility] Rx#:[id number] Oral 240 Output: Drainage 650 Right Back 650 Urine 200 Other: Voiding Method Toilet Urinal # Voids 1 - Exam GENERAL EXAM: Revealed a 60-year-old white male on room air, in no distress. HEAD: Normocephalic. ENT: PERRLA, EOMI, anicteric, no neck masses no JVD. CHEST: No chest wall deformity. Right sided pigtail catheter in place to low continuous wall suction. No leak noted. LUNGS: Equal air entry with crackles in the right lung base. Diminished. Right-sided pigtail catheter is noted. CVS: S1 and S2 normal with no audible murmur, regular rhythm. ABDOMEN: No hepatosplenomegaly, normal bowel sounds, no guarding or rigidity. Musculoskeletal: No deformities noted limitation range of motion SKIN: No rashes CENTRAL alert oriented 3 no gross focal deficit EXTREMITIES: There is no peripheral edema. No clubbing, no cyanosis. Peripheral pulses are intact. Psychiatric: Normal mood affect and normal mental status examination. - Labs CBC & Chem 7: 08/18/21 03:06 08/18/21 03:06 Labs: Microbiology - Last 24 Hours (Table) 08/09/21 14:20 Acid Fast Bacilli Smear - Final Pleural Fluid Acid Fast Bacilli Culture - Preliminary 08/16/21 15:23 Gram Stain - Preliminary Pleural Fluid Body Fluid Culture - Preliminary Assessment and Plan Assessment: Impression: Acute hypoxic respiratory failure secondary to pneumonia secondary to beta hemolytic strep with complicated parapneumonic pleural effusion/empyema. Acute iatrogenic pneumothorax, related to chest tube insertion, expected, and no need for any intervention it will clear on its own since the pigtail catheter is already draining. Pleuritic chest pain, resolved. Former smoker. History of bariatric surgery and stomach stapling Coronary artery disease History of underlying COPD Recommendation: Continue antibiotics Continue chest tube in place No need for further thrombolytic injections Continue incentive spirometry No need for bronchoscopy Encourage deep coughing and deep breathing No need for surgical decortication Patient will likely need IV antibiotics on outpatient basis, may need a PICC line We'll continue to follow. Time with Patient: Less than 30
--- NOTE | 2021-08-19 19:00 | PN ---
PROGRESS NOTE This 60-year-old white male with right lower lobe pneumonia complicated with parapneumonic effusion and empyema has had two chest tubes placed. Tomorrow he is going to have some lung procedure. He is walking down the [place]. He has a chest tube coming out of his back. He is able to walk. His white count is down. Psych fair mood and affect. Cardiovascular S1-S2. Lungs with rales at the base. White count 13.7, hemoglobin 9.7. Will continue with antibiotics. Chest tube in place. Incentive spirometry. expected some kind of intervention tomorrow, but we will see what they recommend doing tomorrow. Otherwise we will continue with current antibiotics per infectious disease and pulmonary recommendations. MMODL / IJN: [id number] /
--- NOTE | 2021-08-19 21:24 | P.PN ---
Subjective Progress Note Date: 08/19/21 Principal diagnosis: Shortness of breath, right chest pleuritic pain 60-year-old outpatient with past medical history of bariatric surgery, stomach stapling 30 years ago, former smoker, who came into the emergency department on the 08/07/2021 with complaints of right-sided pleuritic chest pain and shortness of breath. he states initial symptom onset was about a week ago and progressively became worse, he went to the urgent care initially, chest x-ray was taken and he was told that he needed to go to the emergency department as he was right lung appear to be collapsed at the bottom. In addition patient was febrile, and coughing up some purulent phlegm. In the emergency department chest x-ray showing right basilar opacity with small pleural effusion, CTA chest showing small to moderate right pleural effusion with accompanying basilar atelectasis. Lab work showed white blood cell count of 30.4, hemoglobin of 12.9, platelet count of 682, INR of 1.1, d-dimer was 2.5 to but CTA showed no evidence of pulmonary embolism. COVID 19 PCR is negative. Patient was started on azithromycin and Rocephin. This morning he seen sitting up in bed, is still having some pleuritic right lower rib cage pain with inspiration and coughing, but appears to be in no acute distress. On 2 L of oxygen his saturation 94-96%. On 08/09/2021 patient seen in follow-up. Patient is awake and alert, he states he is breathing easier, and right-sided pleuritic chest pain is improved alt mitch still there with deep breathing and coughing. Ultrasound the chest has been reviewed showing 2.3 centimeter pleural fluid pocket and it was not possible to market related to the pocket, lung location and internal echoes. Labs have been reviewed, white blood cell count is slightly improved and is down to 27.4, hemoglobin is 13.1, platelet count is 635, sodium is 134, depressed electrolytes and renal profile are unremarkable. Urinalysis showed small amount of blood, white blood cells, but no clear evidence of infection. COVID-19 PCR was negative. On 08/12/2021 patient is seen in follow-up on medical surgical floor. Patient had a right-sided pigtail chest tube catheter inserted and there was 1.5 L of purulent pleural fluid evacuated into the Pleur-evac. Chest tube remains in place, patient tolerated procedure very well. He is on 2 L of oxygen pulse ox is 94%, he is afebrile. Blood pressure stable, no altered mentation. Remains on combination of azithromycin and Rocephin. His white blood cell count is improved and is down to 17.1 on today's labs compared to 30.4 on admission, Hemoglobin is 11.2, sodium is 133, dressed electrolytes and renal profile are negative. Pleural fluid analysis has been reviewed and was consistent with empyema. Pleural fluid cultures remain negative so far. Sputum culture only showed Milli albicans, blood cultures have been negative. On 08/13/2021 patient seen in follow-up on medical surgical floor. He is breathing comfortably, sitting up in bed, he is on 2 L of oxygen, his pulse ox of 97%, yesterday he had right-sided posterior pigtail chest tube inserted by interventional radiology, with initial output of 1500 of purulent pleural fluid. There has been additional 350 mL of pleural fluid since then. Patient had first alteplase infused by CT surgery, and again today. He remains on combination of Rocephin and clindamycin. his pleural fluid cultures were positive for beta hemolytic strep group C. Fever pattern has improved, and T-max in the last 24 hours was 99.8F.his chest x-ray shows persistent moderate size right-sided pleural fluid collection with the pigtail pleural drainage catheter in place. There is associated right lower lung opacity favoring atelectatic changes. Today's labs show improvement in the white blood cell count, which is down to 16.42, hemoglobin is 11.5, platelet count is 535, sodium is 134, the rest of the electrolytes and renal profile are unremarkable. On 08/19/2021 patient is seen in follow-up on medical surgical floor, he is awake and alert, in no acute distress, he is sitting up in the recliner, currently on 3 L of oxygen his pulse ox is 93-99%. Computed tomography scan of the chest was completed showing smaller right-sided pleural effusion associated with small right pneumothorax and improving aeration of the right lower lobe, no pleural nodularity. This was a noncontrast film, this was reviewed with Dr. Gonzalez, and it was felt that there was mainly right lower lobe consolidation. Patient has a right-sided pigtail chest tube in place, received dornase/alteplase instillation yesterday per CT surgery. There has been a total of 330 mL of drainage out of the right-sided chest tube in the last 24 hours. Today's lab 7 reviewed, white blood cell count is 13.7, hemoglobin is 9.7, sodium is 1:30, potassium is 4.6, chloride is 95, CO2 is 26, BUN is 8.2, creatinine is 0.5. T-max in last 24 hours is 99F. Objective - Vital Signs Vital signs: Vital Signs Temp 98.3 F 08/19/21 07:57 Pulse 75 08/19/21 07:57 Resp 18 08/19/21 07:57 BP 118/74 08/19/21 07:57 Pulse Ox 93 L 08/19/21 07:57 Intake & Output 08/18/21 08/19/21 08/19/21 18:59 06:59 18:59 Intake Total 490 Output Total 650 200 Balance -160 -200 Intake: IV 250 cefTRIAXone 2 gm In 50 Sodium Chloride 0.9% 50 ml @ 100 mls/hr IVPB Q24HR [facility] Rx#:[id number] metroNIDAZOLE-NS PMX 500 200 mg In Saline 1 100ml.bag @ 100 mls/hr IVPB Q8HR [facility] Rx#:[id number] Oral 240 Output: Drainage 650 Right Back 650 Urine 200 Other: Voiding Method Toilet Urinal # Voids 1 - Exam GENERAL EXAM: Alert, very pleasant, 60-year-old white male, on 2 L of oxygen pulse ox of 97%, comfortable in no apparent distress. HEAD: Normocephalic/atraumatic. EYES: Normal reaction of pupils, equal size. Conjunctiva pink, sclera white. NOSE: Clear with pink turbinates. THROAT: No erythema or exudates. NECK: No masses, no JVD, no thyroid enlargement, no adenopathy. CHEST: No chest wall deformity. Symmetrical expansion. Right-sided PICC down chest catheter connected to a Pleur-evac with purulent colored pleural fluid LUNGS: Equal air entry with diminished breath sounds on the right lower base CVS: Regular rate and rhythm, normal S1 and S2, no gallops, no murmurs, no rubs ABDOMEN: Soft, nontender. No hepatosplenomegaly, normal bowel sounds, no guarding or rigidity. EXTREMITIES: No clubbing, no edema, no cyanosis, 2+ pulses and upper and lower extremities. MUSCULOSKELETAL: Muscle strength and tone normal. SPINE: No scoliosis or deformity SKIN: No rashes CENTRAL NERVOUS SYSTEM: Alert and oriented -3. No focal deficits, tone is normal in all 4 extremities. PSYCHIATRIC: Alert and oriented -3. Appropriate affect. Intact judgment and insight. - Labs CBC & Chem 7: 08/18/21 03:06 08/18/21 03:06 Labs: Microbiology - Last 24 Hours (Table) 08/09/21 14:20 Acid Fast Bacilli Smear - Final Pleural Fluid Acid Fast Bacilli Culture - Preliminary 08/16/21 15:23 Gram Stain - Preliminary Pleural Fluid Body Fluid Culture - Preliminary Assessment and Plan Plan: Assessment: #1. Acute hypoxic respiratory failure related to right lower lobe pneumonia parapneumonic effusion, community-acquired, related to beta hemolytic strep group C. Ultrasound of the chest showed a 2.3 cm fluid pocket with internal echoes. Patient had diagnostic right-sided thoracentesis done by interventional radiology, and pleural fluid analysis was consistent with empyema. Patient had right-sided pigtail chest tube insertion on 08/12/2021, with evacuation of 1.5 L of purulent pleural fluid. Pleural fluid cultures were positive for beta hemolytic strep group C. Patient has been receiving alteplase, received a dose on 08/12/2021 and again today on 08/13/2021 #2. Former smoker #3. Pleuritic chest pain #4. History of bariatric surgery, with stomach stapling #5. Coronary artery disease #6. BPH #7. COPD Plan: Today's CT chest has been reviewed with Dr. Gonzalez, showing small right pneumothorax, smaller right-sided pleural effusion and right lower lobe consolidation No additional dose of alteplase Continue monitoring pleural drainage Continue current antibiotics We'll continue to follow his clinical course Will need a PICC line for outpatient IV antibiotic infusions Continue GI and DVT prophylaxis Follow-up chest x-ray tomorrow I have personally seen and examined the patient, performed the documentation and the assessment and plan as written. Number of minutes spent on the visit: [10] Time with Patient: Less than 30
--- NOTE | 2021-08-19 22:23 | P.PN ---
Subjective Progress Note Date: 08/19/21 Principal diagnosis: empyema patient is a 60-year-old male presenting to the hospital for evaluation of increasing shortness of breath and cough has been diagnosed with e mpyema, patient is status post right sided drainage catheter placement, pleural fluid culture be positive for group C strep , the patient right-sided chest pigtail catheter got dislodged and has to be reinserted on 08/16/2021 on today's evaluation that is 08/19/2021, the patient remains to be afebrile, the patient is breathing comfortably on 3 L nasal cannula oxygen, the patient pain at the chest tube insertion site is currently controlled, the patient denies nausea no vomiting no abdominal pain and no diarrhea and is feeling slightly better 2 L Objective - Vital Signs Vital signs: Vital Signs Temp 98.3 F 08/19/21 07:57 Pulse 75 08/19/21 07:57 Resp 18 08/19/21 07:57 BP 118/74 08/19/21 07:57 Pulse Ox 93 L 08/19/21 07:57 Intake & Output 08/18/21 08/19/21 08/19/21 18:59 06:59 18:59 Intake Total 490 Output Total 650 200 Balance -160 -200 Intake: IV 250 cefTRIAXone 2 gm In 50 Sodium Chloride 0.9% 50 ml @ 100 mls/hr IVPB Q24HR [facility] Rx#:[id number] metroNIDAZOLE-NS PMX 500 200 mg In Saline 1 100ml.bag @ 100 mls/hr IVPB Q8HR [facility] Rx#:[id number] Oral 240 Output: Drainage 650 Right Back 650 Urine 200 Other: Voiding Method Toilet Urinal # Voids 1 - Exam GENERAL DESCRIPTION: Middle-aged male lying in bed in no distress RESPIRATORY SYSTEM: Unlabored breathing , decreased breath sounds at bases HEART: S1 S2 regular rate and rhythm , ABDOMEN: Soft , no tenderness EXTREMITIES: No edema feet - Labs CBC & Chem 7: 08/18/21 03:06 08/18/21 03:06 Labs: Microbiology - Last 24 Hours (Table) 08/09/21 14:20 Acid Fast Bacilli Smear - Final Pleural Fluid Acid Fast Bacilli Culture - Preliminary 08/16/21 15:23 Gram Stain - Preliminary Pleural Fluid Body Fluid Culture - Preliminary Assessment and Plan (1) Empyema Current Visit: Yes Status: Acute Code(s): J86.9 - PYOTHORAX WITHOUT FISTULA SNOMED Code(s): 062937374 Plan: 1patient presented to hospital with right-sided empyema in this patient status post chest tube placement and the culture grew group C strep and Bacteroides species. 2patient to continue with Rocephin and Flagyl along with supportive care Time with Patient: Less than 30
[2021-08-20] MEDS: metroNIDAZOLE-NS PMX 500 MG in SALINE 1 100ML.BAG IVPB SCH ×3 (00:55→16:14)
[2021-08-20] MEDS: HEPARIN SODIUM,PORCINE/PF 5,000 UNIT/0.5 ML SYRINGE SQ SCH ×3 (00:56→16:14)
[2021-08-20] MEDS: ACETAMINOPHEN TAB 325 MG TAB PO PRN (01:08)
[2021-08-20] MEDS: IPRATROPIUM-ALBUTEROL 3 ML NEB INHALATION SCH ×4 (07:12→19:28)
[2021-08-20] MEDS: PANTOPRAZOLE 40 MG TABLET PO SCH (07:51)
[2021-08-20] MEDS: FUROSEMIDE 20 MG TAB PO SCH (07:51)
--- NOTE | 2021-08-20 07:59 | XR ---
EXAMINATION TYPE: XR chest 1V portable DATE OF EXAM: 08/20/2021 COMPARISON: X-ray dated 08/18/2021 HISTORY: Right-sided empyema TECHNIQUE: Single frontal view of the chest is obtained. FINDINGS: Unchanged position of the pigtail drainage catheter with the tip is seen at the medial aspect of the right midlung zone. Persistent right-sided pleural effusion, slightly improved compared to the previo us, still of moderate size. Thick atelectasis is seen in the right mid and lower lung zones, associated infection cannot be exclu ded. Questionable minimal left-sided pleural effusion. Stable calcified granuloma in the left lower l beth zone. Unchanged cardiomediastinal silhouette and bony thoracic cage. IMPRESSION: Mild interval changes as compared to the previous x-ray as described above.
[2021-08-20] MEDS ORDERED: IV FLUID CONTINUATION 200 ML IV ONE (08:22)
[2021-08-20] MEDS ORDERED: IV FLUID CONTINUATION 100 ML IV ONE (08:22)
[2021-08-20] MEDS ORDERED: ONDANSETRON 4 MG/2 ML VIAL ONE (08:28)
[2021-08-20] MEDS ORDERED: DEXAMETHASONE SOD PHOSPHATE 4 MG/ML 1 ML VIAL IVP ONE (08:43)
[2021-08-20] MEDS ORDERED: ONDANSETRON 4 MG/2 ML VIAL IVP ONE (08:43)
[2021-08-20] MEDS ORDERED: MIDAZOLAM HCL 10 MG/10 ML VIAL IVP ONE (08:46)
[2021-08-20] MEDS ORDERED: LACTATED RINGERS 1,000 ML IV ONE ×4 (09:12→13:07)
[2021-08-20] MEDS ORDERED: GLYCOPYRROLATE 0.2 MG/ML 2 ML VIAL ONE (10:25)
[2021-08-20] MEDS ORDERED: SUCCINYLCHOLINE CHLORIDE 100 MG/5 ML SYR IV ONE (10:25)
[2021-08-20] MEDS ORDERED: NEOSTIGMINE 1 MG/ML 10 ML VIAL ONE (10:25)
[2021-08-20] MEDS ORDERED: fentaNYL (PF) 50 MCG/ML 2 ML AMP ONE (10:25)
[2021-08-20] MEDS ORDERED: MIDAZOLAM 2 MG/2 ML VIAL ONE (10:25)
[2021-08-20] MEDS ORDERED: ROCURONIUM 10 MG/ML (5 ML VIAL) IV ONE (10:25)
[2021-08-20] MEDS ORDERED: PROPOFOL 10 MG/ML 20 ML VIAL IV ONE (10:25)
[2021-08-20] MEDS ORDERED: BUPIVACAIN-EPI 0.25%-1:200,000 30 ML VIAL SQ ONE ×2 (11:24→13:00)
[2021-08-20] MEDS ORDERED: NALOXONE 0.4 MG/ML 1 ML VIAL IV PRN (11:46)
--- NOTE | 2021-08-20 11:51 | P.ANPRN ---
Procedure Note - Anesthesia - Epidural/Spinal Epidural Continuous Time Out Performed: Yes Date of Procedure: 08/20/21 Procedure Start Time: 08:45 Procedure Stop Time: 08:55 Location of Patient: PreOp Indication: Acute Post-Operative Pain, Requested by Surgeon Sedation Type: Sedate with meaningful contact maintained Preparation: Sterile Dressing Position: Sitting Catheter: Indwelling Needle Guage: 18 Injectate: Test Dose Lidocaine1.5% w/1:200,000 epi Blood Aspirated: No Pain Paresthesia on Injection Noted: No Events: Uneventful and Well Tolerated (test 3cc given no adverse effect noted)
[2021-08-20] MEDS: ROPIVACAINE 250 MG, HYDROMORPHONE (PF) 5 MG in SODIUM CHLORIDE 0.9% 200 ML EPIDURAL PRN ×2 (13:28→14:24)
--- NOTE | 2021-08-20 13:30 | P.OP ---
Date of Procedure: 08/20/21 Preoperative Diagnosis: Empyema - Right Lung Postoperative Diagnosis: Same Procedure(s) Performed: 1. Bronchoscopy 2. Right thoracotomy with decortication of all three lobes Implants: None Anesthesia: SOUMYAA Surgeon: Claude Magallon Estimated Blood Loss (ml): 350 Pathology: other (Right pleural rind) Condition: stable Disposition: ICU Indications for Procedure: This patient is a 60 year-old daily marijuana smoker who presented to the hospital with chest pain. CT scan revealed empyema of the right chest. He underwent IR guided pigtail placement with several rounds of tPA/Dornase. Despite conservative measures, his repeat imaging showed a pleural rind constricting the lower and middle lobe with atelectasis. We recommended open decortication given that he was otherwise healthy and young to prevent future problems. The patient was in agreement and informed consent was obtained. Operative Findings: Thick pleural rind of right upper and lower lobe 90% evacuated. Very thin pleural rind of right middle lobe most of which was left alone. Both fissures were freed up and decorticated. Description of Procedure: The patient underwent epidural placement in the pre-operative suite. He was brought back to the operating room and placed in the supine position. General anesthesia was inducted with a double lumen endotracheal tube. A diagnostic bronchoscopy was performed to confirm tube placement. The lashawn was sharp. The right sided airways were patent with minimal sections. The left mainstem bronchus and secondary airways were edematous and inflamed. There were no endobronchial lesions noted on either side. A macias catheter was placed. The patient was placed in the left lateral decubitus position, all pressure points were padded and the ETT was checked once again. The previous pigtail was removed and the right chest was prepped and draped in the usual sterile fashion. A time- out was performed and antibiotics were given. We began by making a posterolateral thoracotomy underneath the scaupla. The subcutaneous tissues and fascia was divided with electrocautery. The latismus dorsi was then divided using electrocautery. The serratus anterior was spared and retracted medially. We then isolated the right lung and gained entry into the pleural space. There was a dense fibrous reaction noted along the chest wall. Blunt dissection was used with a spongestick and peanuts to free up the up per lobe. The pleural rind was identified and peeled off the upper lobe. We obtained a great result here. The lower lobe was then peeled off the diaphragm. 80% of the lower lobe was decorticated. There was a very thin rind (<1mm) on the medial portion of the lower lobe to prevent severe air leak and bleeding. Next the middle lobe was freed up and decorticated off the pericardium. The right chest was irrigated with warm saline. Hemostasis was secured. A 32F right angled tube was then tunneled from an incision anteriorly on the chest wall. A 28F straight chest tube was directed towards the apex from an incision posteriorly on the chest. The right lung was inflated and positive pressure was applied. There was a mild air leak but all three lobes came up nicely. Two lung ventilation was resumed. The ribs were re-approximated with #1 vicryl x 5. The fascia and deep dermis was re-approximated with 0 and 2-0 PDS, Skin was closed with 3-0 monocryl and steristrips and an island dressing was ap plied. The patient tolerated the procedure well and was extubated at the end. All counts were correct.
[2021-08-20] MEDS ORDERED: ONDANSETRON 4 MG/2 ML VIAL IVP PRN (14:10)
[2021-08-20] MEDS ORDERED: DEXTROSE 5%-0.45% NACL 1,000 ML IV SCH (14:10)
--- NOTE | 2021-08-20 14:11 | XR ---
EXAMINATION TYPE: XR chest 1V portable DATE OF EXAM: 08/20/2021 COMPARISON: 08/20/2021 HISTORY: Right-sided pain TECHNIQUE: Single frontal view of the chest is obtained. FINDINGS: Interval placement of two chest tubes and removal of pigtail catheter. Right perihilar and lower lobe consolidation. There is a small approximately 5% right-sided pneumothorax. There is signi ficant interval reduction in amount of pleural fluid. Subcutaneous emphysema noted. Hypertrophic and degenerative change of the spine. IMPRESSION: 1. Bilateral consolidation and small effusion 2. There is interval approximately 5% right-sided pneumothorax with reduction in amount of pleural fl uid. There are 2 chest tube seen in position.
--- NOTE | 2021-08-20 14:42 | P.PN ---
Subjective Progress Note Date: 08/20/21 Principal diagnosis: Shortness of breath, right chest pleuritic pain 60-year-old outpatient with past medical history of bariatric surgery, stomach stapling 30 years ago, former smoker, who came into the emergency department on the 08/07/2021 with complaints of right-sided pleuritic chest pain and shortness of breath. he states initial symptom onset was about a week ago and progressively became worse, he went to the urgent care initially, chest x-ray was taken and he was told that he needed to go to the emergency department as he was right lung appear to be collapsed at the bottom. In addition patient was febrile, and coughing up some purulent phlegm. In the emergency department chest x-ray showing right basilar opacity with small pleural effusion, CTA chest showing small to moderate right pleural effusion with accompanying basilar atelectasis. Lab work showed white blood cell count of 30.4, hemoglobin of 12.9, platelet count of 682, INR of 1.1, d-dimer was 2.5 to but CTA showed no evidence of pulmonary embolism. COVID 19 PCR is negative. Patient was started on azithromycin and Rocephin. This morning he seen sitting up in bed, is still having some pleuritic right lower rib cage pain with inspiration and coughing, but appears to be in no acute distress. On 2 L of oxygen his saturation 94-96%. On 08/09/2021 patient seen in follow-up. Patient is awake and alert, he states he is breathing easier, and right-sided pleuritic chest pain is improved alt mitch still there with deep breathing and coughing. Ultrasound the chest has been reviewed showing 2.3 centimeter pleural fluid pocket and it was not possible to market related to the pocket, lung location and internal echoes. Labs have been reviewed, white blood cell count is slightly improved and is down to 27.4, hemoglobin is 13.1, platelet count is 635, sodium is 134, depressed electrolytes and renal profile are unremarkable. Urinalysis showed small amount of blood, white blood cells, but no clear evidence of infection. COVID-19 PCR was negative. On 08/12/2021 patient is seen in follow-up on medical surgical floor. Patient had a right-sided pigtail chest tube catheter inserted and there was 1.5 L of purulent pleural fluid evacuated into the Pleur-evac. Chest tube remains in place, patient tolerated procedure very well. He is on 2 L of oxygen pulse ox is 94%, he is afebrile. Blood pressure stable, no altered mentation. Remains on combination of azithromycin and Rocephin. His white blood cell count is improved and is down to 17.1 on today's labs compared to 30.4 on admission, Hemoglobin is 11.2, sodium is 133, dressed electrolytes and renal profile are negative. Pleural fluid analysis has been reviewed and was consistent with empyema. Pleural fluid cultures remain negative so far. Sputum culture only showed Milli albicans, blood cultures have been negative. On 08/13/2021 patient seen in follow-up on medical surgical floor. He is breathing comfortably, sitting up in bed, he is on 2 L of oxygen, his pulse ox of 97%, yesterday he had right-sided posterior pigtail chest tube inserted by interventional radiology, with initial output of 1500 of purulent pleural fluid. There has been additional 350 mL of pleural fluid since then. Patient had first alteplase infused by CT surgery, and again today. He remains on combination of Rocephin and clindamycin. his pleural fluid cultures were positive for beta hemolytic strep group C. Fever pattern has improved, and T-max in the last 24 hours was 99.8F.his chest x-ray shows persistent moderate size right-sided pleural fluid collection with the pigtail pleural drainage catheter in place. There is associated right lower lung opacity favoring atelectatic changes. Today's labs show improvement in the white blood cell count, which is down to 16.42, hemoglobin is 11.5, platelet count is 535, sodium is 134, the rest of the electrolytes and renal profile are unremarkable. On 08/19/2021 patient is seen in follow-up on medical surgical floor, he is awake and alert, in no acute distress, he is sitting up in the recliner, currently on 3 L of oxygen his pulse ox is 93-99%. Computed tomography scan of the chest was completed showing smaller right-sided pleural effusion associated with small right pneumothorax and improving aeration of the right lower lobe, no pleural nodularity. This was a noncontrast film, this was reviewed with Dr. Gonzalez, and it was felt that there was mainly right lower lobe consolidation. Patient has a right-sided pigtail chest tube in place, received dornase/alteplase instillation yesterday per CT surgery. There has been a total of 330 mL of drainage out of the right-sided chest tube in the last 24 hours. Today's lab 7 reviewed, white blood cell count is 13.7, hemoglobin is 9.7, sodium is 1:30, potassium is 4.6, chloride is 95, CO2 is 26, BUN is 8.2, creatinine is 0.5. T-max in last 24 hours is 99F. On 08/20/2021 patient seen in follow-up. This morning chest x-ray showed persistent right-sided pleural effusion although improving but still of moderate size. Patient has received multiple rounds of dornase/alteplase. Pleural fluid cultures were positive for beta hemolytic strep group C and anaerobic gram- negative bacilli, current antibiotic coverage includes Rocephin and Flagyl. Clinically he is breathing comfortably. Currently on 2 L of oxygen pulse ox the 100%. Afebrile. Case was discussed with cardiothoracic surgery, who has decided to proceed with right lung decortication, with thoracic epidural placement. During the procedure thick pleural rind of right upper and lower lobe was evacuated, very thin pleural rind of right middle lobe most of which was left alone, both fissures were freed up and decorticated. Patient is seen in the recovery room following his procedure, he is currently on a nonrebreather mask, still sedated, but comfortable, patient has [address], right apical and right basal chest tubes, and there is minimal sanguinous output, with a total of 50 out of the apical and 45 mL out of the basal chest tube. There is mild intermittent leak out of the basilar chest tube. Follow-up chest x-ray showing bilateral consolidation and small effusion, and 5% right-sided pneumothorax with the reduction in amount of pleural fluid. Patient is awaiting a bed in the intensive care Objective - Vital Signs Vital signs: Vital Signs Temp 99.0 F 08/20/21 08:23 Pulse 70 08/20/21 09:16 Resp 16 08/20/21 09:16 BP 118/67 08/20/21 09:16 Pulse Ox 100 08/20/21 09:16 Intake & Output 08/19/21 08/20/21 08/20/21 18:59 06:59 18:59 Intake Total 200 Output Total 200 Balance -200 200 Intake: IV 200 Output: Urine 200 Other: # Voids 1 - Exam GENERAL EXAM: Alert, very pleasant, 60-year-old white male, on 2 L of oxygen pulse ox of 97%, comfortable in no apparent distress. HEAD: Normocephalic/atraumatic. EYES: Normal reaction of pupils, equal size. Conjunctiva pink, sclera white. NOSE: Clear with pink turbinates. THROAT: No erythema or exudates. NECK: No masses, no JVD, no thyroid enlargement, no adenopathy. CHEST: No chest wall deformity. Symmetrical expansion. Right chest incision is covered with surgical dressing, right-sided chest tube is in place to wall suction and small amount of serosanguineous output LUNGS: Equal air entry with diminished breath sounds on the right lower base CVS: Regular rate and rhythm, normal S1 and S2, no gallops, no murmurs, no rubs ABDOMEN: Soft, nontender. No hepatosplenomegaly, normal bowel sounds, no guarding or rigidity. EXTREMITIES: No clubbing, no edema, no cyanosis, 2+ pulses and upper and lower extremities. MUSCULOSKELETAL: Muscle strength and tone normal. SPINE: No scoliosis or deformity SKIN: No rashes CENTRAL NERVOUS SYSTEM: Alert and oriented -3. No focal deficits, tone is normal in all 4 extremities. PSYCHIATRIC: Alert and oriented -3. Appropriate affect. Intact judgment and insight. - Labs CBC & Chem 7: 08/18/21 03:06 08/18/21 03:06 Labs: Microbiology - Last 24 Hours (Table) 08/16/21 15:23 Anaerobic Culture - Final Pleural Fluid Anaerobic Gm Negative Bacilli 08/16/21 15:23 Gram Stain - Preliminary Pleural Fluid Body Fluid Culture - Preliminary 08/09/21 14:20 Acid Fast Bacilli Smear - Final Pleural Fluid Acid Fast Bacilli Culture - Preliminary Assessment and Plan Plan: Assessment: #1. Acute hypoxic respiratory failure related to right lower lobe pneumonia with right lung empyema related to beta hemolytic strep group C. Ultrasound of the chest showed a 2.3 cm fluid pocket with internal echoes. Patient had diagnostic right-sided thoracentesis done by interventional radiology, and pleural fluid analysis was consistent with empyema. Patient had right-sided pigtail chest tube insertion on 08/12/2021, with evacuation of 1.5 L of purulent pleural fluid. Pleural fluid cultures were positive for beta hemolytic strep group C. Patient has been receiving alteplase, received a dose on 08/12/2021 and again today on 08/13/2021 #2. Persistent right-sided pleural effusion, slight improvement but still of moderate size, and right-sided pneumothorax seen on the computed tomography scan of the 08/19/2021. Patient is status post right thoracotomy with decortication of all 3 right lobes today on 08/20/2021. #3. Former smoker #4. Pleuritic chest pain #5. History of bariatric surgery, with stomach stapling #6. Coronary artery disease #7. BPH #8. COPD #9. Small 5% pneumothorax on postoperative chest x-ray, there is [address] right apical and right basal to wall suction. This will be followed Plan: Patient chest x-ray has been reviewed Patient is seen after right thoracotomy with decortication His resting comfortably, Right-sided chest tubes in place Small right-sided pneumothorax noted Vital signs are stable Thoracic epidural in place, anesthesia managing Provide incentive spirometer, encouraged to breathing and coughing Continue same antibiotics We'll continue to follow Follow-up chest x-ray and labs in the morning Patient will be monitored in the intensive care unit for next 24 hours I have personally seen and examined the patient, performed the documentation and the assessment and plan as written. Number of minutes spent on the visit: [10] Time with Patient: Less than 30
[2021-08-20 14:56] LABS: Glucose,Whole Blood 117 mg/dL (75-99)
[2021-08-20] MEDS ORDERED: ACETAMINOPHEN IV (For NPO) 1,000 MG in EMPTY BAG 1 BAG IVPB PRN (15:13)
[2021-08-20] MEDS: ACETAMINOPHEN IV (For NPO) 1,000 MG in EMPTY BAG 1 BAG IVPB SCH (15:29)
[2021-08-20] MEDS ORDERED: ARTIFICIAL TEARS-HYPROMELLOSE DROPS 15 ML BTL BOTH EYES PRN (16:10)
[2021-08-20] MEDS ORDERED: ACETAMINOPHEN IV (For NPO) 1,000 MG in EMPTY BAG 1 BAG IVPB SCH (18:00)
[2021-08-20] MEDS: KETOROLAC 15 MG/ML 1 ML VIAL IVP PRN (18:49)
--- NOTE | 2021-08-20 22:57 | PN ---
PROGRESS NOTE This 60-year-old is status post bronchoscopy with right thoracotomy and decortication of 3 lobes today. Bronchus with secondary edematous, inflamed. No endobronchial lesions were seen. Decorticated the lung. The patient continues on current treatment. He will follow up as an outpatient once cleared by chest surgeon for surgery. Postop showed bilateral consolidations, small effusion, interval 5% right pneumothorax reduction. Continue current treatments and wait for Infectious Disease and Pulmonary to clear him for discharge after decortication was done today. Lungs are clear. Cardiovascular S1-S2. Hematology negative Homans. Psych fair mood and affect. Labs reviewed. ASSESSMENT: 1. Bilateral pneumonia, beta-hemolytic strep group C. 2. Persistent right-sided effusion. 3. Nicotine addiction. 4. History of bariatric surgery. 5. Pneumothorax 5%. Right-sided chest tube in place. Epidural in place. Anesthesia managing. Continue antibiotics. He is in the ICU for the next 24 hours. PROGNOSIS: Guarded. MMODL / IJN: [id number] /
--- NOTE | 2021-08-20 23:09 | P.PN ---
Subjective Progress Note Date: 08/20/21 Principal diagnosis: empyema patient is a 60-year-old male presenting to the hospital for evaluation of increasing shortness of breath and cough has been diagnosed with e mpyema, patient is status post right sided drainage catheter placement, pleural fluid culture be positive for group C strep , the patient right-sided chest pigtail catheter got dislodged and has to be reinserted on 08/16/2021, patient is status post right chest thoracotomy and placement of 2 chest tubes on 08/20/2021 on today's evaluation that is 08/20/2021, the patient denies any fever or chills, the patient is breathing comfortably on nasal cannula oxygen, the patient is complaining of pain at the chest tube insertion site , the patient denies nausea no vomiting no abdominal pain and no diarrhea Objective - Vital Signs Vital signs: Vital Signs Temp 97.8 F 08/20/21 16:00 Pulse 90 08/20/21 17:00 Resp 15 08/20/21 17:00 BP 110/76 08/20/21 17:00 Pulse Ox 96 08/20/21 17:00 Intake & Output 08/19/21 08/20/21 08/20/21 18:59 06:59 18:59 Intake Total 2855 Output Total 200 1850 Balance -200 1005 Intake: IV 2855 Output: Urine 200 1450 Estimated Blood Loss 400 Other: # Voids 1 ABP, PAP, CO, CI - Last Documented Arterial Blood Pressure 113/71 - Exam GENERAL DESCRIPTION: Middle-aged male lying in bed in no distress RESPIRATORY SYSTEM: Unlabored breathing , decreased breath sounds at bases HEART: S1 S2 regular rate and rhythm , ABDOMEN: Soft , no tenderness EXTREMITIES: No edema feet - Labs CBC & Chem 7: 08/18/21 03:06 08/18/21 03:06 Labs: Abnormal Lab Results - Last 24 Hours (Table) 08/20/21 Range/Units 14:55 POC Glucose (mg/dL) 117 H (75-99) mg/dL Microbiology - Last 24 Hours (Table) 08/16/21 15:23 Anaerobic Culture - Final Pleural Fluid Anaerobic Gm Negative Bacilli 08/16/21 15:23 Gram Stain - Preliminary Pleural Fluid Body Fluid Culture - Preliminary Assessment and Plan (1) Empyema Current Visit: Yes Status: Acute Code(s): J86.9 - PYOTHORAX WITHOUT FISTULA SNOMED Code(s): 132392610 Plan: 1patient presented to hospital with right-sided empyema in this patient status post chest tube placement and the culture grew group C strep and Bacteroides species patient is subsequently status post right chest thoracotomy with repeat cultures currently pending. 2patient to continue with Rocephin and Flagyl and will monitor clinical course closely Time with Patient: Less than 30
[2021-08-20] MEDS ORDERED: LIDOCAINE 1%/EPI 1:200,000 MPF 10 ML VIAL SQ ONE (23:15)
[2021-08-21] MEDS: HEPARIN SODIUM,PORCINE/PF 5,000 UNIT/0.5 ML SYRINGE SQ SCH ×4 (03:36→16:04)
[2021-08-21] MEDS: ACETAMINOPHEN IV (For NPO) 1,000 MG in EMPTY BAG 1 BAG IVPB SCH (03:40)
[2021-08-21] MEDS ORDERED: ACETAMINOPHEN IV (For NPO) 1,000 MG in EMPTY BAG 1 BAG IVPB PRN (04:00)
[2021-08-21 04:01] LABS: Basophils # (A) 0.1 k/uL (0-0.2); Basophils % (A) 0 %; Eosinophils % (A) 0 %; HCT 35.2 % (39.0-53.0); HGB 10.8 gm/dL (13.0-17.5); Lymphocytes # (A) 1.8 k/uL (1.0-4.8); Lymphocytes % (A) 12 %; MCH 28.6 pg (25.0-35.0); MCHC 30.7 g/dL (31.0-37.0); MCV 93.3 fL (80.0-100.0); Mean Platelet Volume 6.8; Monocytes % (A) 7 %; Neutrophils # (A) 11.6 k/uL (1.3-7.7); Neutrophils % (A) 79 %; Platelet Count 771 k/uL (150-450); RBC 3.77 m/uL (4.30-5.90); WBC 14.8 k/uL (3.8-10.6)
[2021-08-21 04:11] LABS: African American GFR (CKD) >90 (>60 ml/min/1.73 sqM); Anion Gap 4 mmol/L; Blood Urea Nitrogen 11 mg/dL (9-20); Carbon Dioxide 27 mmol/L (22-30); Chloride 97 mmol/L (98-107); Glucose 119 mg/dL (74-99); Non-African American GFR(CKD) >90 (>60 ml/min/1.73 sqM); Potassium 4.4 mmol/L (3.5-5.1); Sodium 128 mmol/L (137-145)
[2021-08-21] MEDS: SODIUM CHLORIDE 0.9% 500 ML 500 ML IV SCH (07:05)
--- NOTE | 2021-08-21 07:47 | P.PN ---
Subjective Progress Note Date: 08/21/21 Principal diagnosis: Right lower lobe pneumonia, parapneumonic effusion, thoracentesis fluid analysis consistent with empyema. Previous medical history of tobacco dependence with cessation 3 years ago, daily EtOH use, occasional marijuana use, previous stomach stapling POD #1 bronchoscopy, right thoracotomy with decortication of all 3 lobes The patient was seen and examined sitting up in bed this morning in the ICU in no acute distress eating breakfast. Right-sided apical and basilar chest tubes placed yesterday remain present to continuous wall suction, small intermittent air leak present in basilar chest tube, both draining serosanguineous drainage. Currently on room air, actively using incentive spirometry and achieving 2000 mL. Remains on IV antibiotics. Epidural in place for pain control. No other new concerns. Objective - Vital Signs Vital signs: Vital Signs Temp 98.0 F 08/21/21 04:00 Pulse 87 08/21/21 07:00 Resp 16 08/21/21 07:00 BP 84/59 08/21/21 07:00 Pulse Ox 92 L 08/21/21 07:00 Intake & Output 08/20/21 08/21/21 08/21/21 18:59 06:59 18:59 Intake Total 3305 700 50 Output Total 2400 340 135 Balance 905 360 -85 Weight 69.9 kg Intake: IV 3305 550 50 ACETAMINOPHEN IV (For NPO 100 ) 1,000 mg In Empty Bag 1 bag @ 400 mls/hr IVPB Q6H RAIMUNDO Rx#:[id number] Dextrose 5%-0.45% NaCl 1, 250 550 50 000 ml @ 50 mls/hr IV . Q20H RAIMUNDO Rx#:[id number] metroNIDAZOLE-NS PMX 500 100 mg In Saline 1 100ml.bag @ 100 mls/hr IVPB Q8HR RAIMUNDO Rx#:[id number] Oral 150 Output: Chest Tube Drainage 230 30 120 Chest Tube Right - A 90 30 50 Chest Tube Right - B 140 70 Urine 1770 310 15 Estimated Blood Loss 400 Other: Voiding Method Indwelling Catheter Indwelling Catheter ABP, PAP, CO, CI - Last Documented Arterial Blood Pressure 97/58 - Exam CONSTITUTIONAL: Appears comfortable, cooperative, no acute distress RESPIRATORY: Lungs sounds diminished bilaterally. Respirations even, nonlabored. Currently on room air with oxygen saturation 94%. Able to achieve 2000 mL on incentive spirometry. Strong cough. CARDIOVASCULAR: S1, S2 present. Regular rate and rhythm, sinus rhythm on telemetry. Palpable peripheral pulses bilaterally. No edema present. No calf pain or tenderness noted. SCDs present. GASTROINTESTINAL: Abdomen soft, nontender, nondistended. Active bowel sounds present 4 quadrants. Tolerating diet GENITOURINARY: Patel present draining clear, yellow urine INTEGUMENTARY: Skin is warm and dry with evidence of good perfusion. Thoracic incision well approximated and covered with dry intact dressing. NEUROLOGIC: Cranial nerves II through XII intact MUSKULOSKELETAL: Able to move all extremities, strength equal bilaterally PSYCHIATRIC: Alert and oriented to person place and time, appropriate affect, intact judgment and insight INVASIVE LINES AND TUBES: Right pleural chest tubes present and connected to wall suction, small intermittent air leak present basilar chest tube. Apical chest tube with 50 mL serosanguineous drainage overnight, 140 mL since surgery. Basilar pleural chest tube with 70 mL serosanguineous drainage overnight, 210 mL since surgery. - Allied health notes Allied health notes reviewed: nursing - Labs CBC & Chem 7: 08/21/21 03:50 08/21/21 03:50 Labs: Abnormal Lab Results - Last 24 Hours (Table) 08/20/21 08/21/21 08/21/21 Range/Units 14:55 03:50 03:50 WBC 14.8 H (3.8-10.6) k/uL RBC 3.77 L (4.30-5.90) m/uL Hgb 10.8 L (13.0-17.5) gm/dL Hct 35.2 L (39.0-53.0) % MCHC 30.7 L (31.0-37.0) g/dL Plt Count 771 H (150-450) k/uL Neutrophils # 11.6 H (1.3-7.7) k/uL Sodium 128 L (137-145) mmol/L Chloride 97 L (98-107) mmol/L Creatinine 0.59 L (0.66-1.25) mg/dL Glucose 119 H (74-99) mg/dL POC Glucose (mg/dL) 117 H (75-99) mg/dL Calcium 8.0 L (8.4-10.2) mg/dL Microbiology - Last 24 Hours (Table) 08/16/21 15:23 Gram Stain - Final Pleural Fluid Body Fluid Culture - Final 08/20/21 13:00 Anaerobic Culture - Preliminary Lung - Right 08/20/21 13:00 Tissue Culture - Preliminary Lung - Right - Imaging and Cardiology Chest x-ray: image reviewed Assessment and Plan Assessment: 1. Right lower lobe pneumonia, parapneumonic effusion, thoracentesis fluid analysis consistent with empyema, status post bronchoscopy and surgical decortication 2. Shortness of breath, right-sided chest pain secondary to above 3. History of tobacco dependence with cessation 3 years ago 4. Daily EtOH use 5. Occasional marijuana use 6. Previous stomach stapling 7. Family history of heart and lung disease Plan: 1. Continue pleural chest tubes to continuous wall suction. Monitor drainage and await air leak resolution 2. Encourage incentive spirometry use 10 times every hour while awake 3. Continue with antibiotics for infectious disease 4. Increase activity as tolerated 5. Pain control with epidural, tramadol/Toradol ordered for breakthrough pain 6. Medical management of other comorbidities per primary care service 7. May transfer out of ICU from our standpoint 8. More recommendations to follow
--- NOTE | 2021-08-21 08:02 | XR ---
EXAMINATION TYPE: XR chest 1V DATE OF EXAM: 08/21/2021 COMPARISON: X-ray dated 08/20/2021 HISTORY: Postthoracotomy TECHNIQUE: Single frontal view of the chest is obtained. FINDINGS: Unchanged position of the right 2 intercostal drainage tubes. Progressive soft tissue emphysema mainl y at the superior aspect of the right chest wall and supraclavicular region obscuring the previously seen right-sided pneumothorax. Small residual pneumothorax can't be excluded. Minimal atelectasis/infiltration in the lung bases bilaterally. Slightly more elevated right hemidiap hragm. Unremarkable remainder of the left lung. Unchanged cardiomediastinal silhouette and bony thora cic cage. IMPRESSION: Interval changes as described above.
[2021-08-21] MEDS: IPRATROPIUM-ALBUTEROL 3 ML NEB INHALATION SCH ×4 (08:03→19:28)
--- NOTE | 2021-08-21 08:26 | P.PN ---
Progress Note - Text Progress Note Date: 08/21/21 Patient was seen and evaluated at bedside. Postop day #1 status post Right thoracotomy with decortication of all three lobes. Patient developed numbness in his right upper extremity numbness, and weakness on 08/20/2021 evening. Patient began solution disconnected for 2 hours. Patient upper extremity numbness, weakness completely resolved. Catheter pulled back, and fixed at 12 cm skin level under sterile conditions. Patient was given lidocaine 1.5% with 1: 200, 000 epinephrine 5 mill of test dose. After that epidural solution continued at the rate of 5 mL per hour. Patient is comfortably lying on the bed. Rated pain levels are 2-3 out of 10 in severity. Moving extremities well without any difficulty. He denied any red flag symptoms, pain over the catheter site. Physical exam: Vital signs: stable, afebrile Catheter site: Clean, and intact Dressing. no tenderness over the catheter area. Moving lower extremities without difficulty. Assessment: Acute postoperative pain secondary to Right thoracotomy with decortication of all three lobes Plan: Continue epidural infusion solution of Ropivacaine 0.1% and Dilaudid 20 g per ml at the rate of 5 mL per hour. We will continue epidural catheter for couple more day unless primary team planned to send the patient home then we will discontinue. Call anesthesia as needed
[2021-08-21] MEDS ORDERED: SODIUM CHLORIDE 0.9% 500 ML 500 ML IV ONE (08:41)
[2021-08-21] MEDS: metroNIDAZOLE-NS PMX 500 MG in SALINE 1 100ML.BAG IVPB SCH ×3 (08:48→16:04)
[2021-08-21] MEDS: PANTOPRAZOLE 40 MG TABLET PO SCH (08:48)
[2021-08-21] MEDS: FUROSEMIDE 20 MG TAB PO SCH (08:54)
--- NOTE | 2021-08-21 11:13 | P.PN ---
Subjective Progress Note Date: 08/21/21 Principal diagnosis: Acute hypoxic respiratory failure secondary to right lower lobe pneumonia and complicated parapneumonic pleural effusion. Possible empyema. Patient was reevaluated today on 08/19/21, patient seems to be doing better, he is on room air, continues to have a pigtail catheter in place. There is definite improvement in the fluid/pleural effusion, continues to drain, remains on antibiotics, he is developing more consolidation in the right lower lobe, patient remains on antibiotics, clinically he is responding well to treatment. Cultures have been positive for Streptococcus beta-hemolytic strep, group C, and Bacteroides species. Considering the results of the CT of the chest today, no need for decortication, and no need for bronchoscopy. The main issue right now is to continue antibiotics. In reviewing the CT of the chest, there is evidence of a small tiny pneumothorax, not seen on chest x-ray, this is again most likely iatrogenic and related to the pigtail catheter/chest tube insertion by interventional radiology and it is an expected potential complication On 08/20/2021 patient seen in follow-up. This morning chest x-ray showed persistent right-sided pleural effusion although improving but still of moderate size. Patient has received multiple rounds of dornase/alteplase. Pleural fluid cultures were positive for beta hemolytic strep group C and anaerobic gram- negative bacilli, current antibiotic coverage includes Rocephin and Flagyl. Clinically he is breathing comfortably. Currently on 2 L of oxygen pulse ox the 100%. Afebrile. Case was discussed with cardiothoracic surgery, who has decided to proceed with right lung decortication, with thoracic epidural placement. During the procedure thick pleural rind of right upper and lower lobe was evacuated, very thin pleural rind of right middle lobe most of which was left alone, both fissures were freed up and decorticated. Patient is seen in the recovery room following his procedure, he is currently on a nonrebreather mask, still sedated, but comfortable, patient has [address], right apical and right basal chest tubes, and there is minimal sanguinous output, with a total of 50 out of the apical and 45 mL out of the basal chest tube. There is mild intermittent leak out of the basilar chest tube. Follow-up chest x-ray showing bilateral consolidation and small effusion, and 5% right-sided pneumothorax with the reduction in amount of pleural fluid. Patient is awaiting a bed in the intensive care Reevaluated today on 08/22/19 patient remains in the ICU post decortication of empyema. He is on room air, does not seem to be in any distress, O2 sats is 95%. Continues to have epidural in place. Remains on Flagyl and Rocephin. He is doing well with incentive spirometry incentive spirometry and she 1500 mL. Chest x-ray is reassuring, no evidence of pneumothorax. Continues to have [address] one is in the apex of the right lung and one in the base of the right lung. The apical chest tube drained 200 mL overnight, and the basal drained 280 of thin serosanguineous fluid. Earlier scan is 14.8 hemoglobin is 10.8 electrolytes are normal except for sodium and bit low at 128, ranging between 128 up to 132 at best. We will discontinue diuretics, and maintain patient on 0.9 normal saline at 50 mL per hour. Objective - Vital Signs Vital signs: Vital Signs Temp 98.0 F 08/21/21 09:00 Pulse 97 08/21/21 11:00 Resp 17 08/21/21 10:00 BP 84/59 08/21/21 07:00 Pulse Ox 94 L 08/21/21 10:00 Intake & Output 08/20/21 08/21/21 08/21/21 18:59 06:59 18:59 Intake Total 3305 700 590 Output Total 2400 340 380 Balance 905 360 210 Weight 69.9 kg Intake: IV 3305 550 590 0.9 NACL 540 ACETAMINOPHEN IV (For NPO 100 ) 1,000 mg In Empty Bag 1 bag @ 400 mls/hr IVPB Q6H RAIMUNDO Rx#:[id number] Dextrose 5%-0.45% NaCl 1, 250 550 50 000 ml @ 50 mls/hr IV . Q20H RAIMUNDO Rx#:[id number] metroNIDAZOLE-NS PMX 500 100 mg In Saline 1 100ml.bag @ 100 mls/hr IVPB Q8HR RAIMUNDO Rx#:[id number] Oral 150 Output: Chest Tube Drainage 230 30 235 Chest Tube Right - A 90 30 95 Chest Tube Right - B 140 140 Urine 1770 310 145 Estimated Blood Loss 400 Other: Voiding Method Indwelling Catheter Indwelling Catheter Indwelling Catheter ABP, PAP, CO, CI - Last Documented Arterial Blood Pressure 94/62 - Exam GENERAL EXAM: Revealed a 60-year-old white male on room air, in no distress. HEAD: Normocephalic. ENT: PERRLA, EOMI, anicteric, no neck masses no JVD. CHEST: No chest wall deformity LUNGS: Equal air entry diminished breath sounds at the bases, 2 right-sided chest tubes were noted, minimal air leak in the bottom/basilar chest tube noted. CVS: S1 and S2 normal with no audible murmur, regular rhythm. ABDOMEN: No hepatosplenomegaly, normal bowel sounds, no guarding or rigidity. Musculoskeletal: No deformities noted limitation range of motion SKIN: No rashes CENTRAL alert oriented 3 no gross focal deficit EXTREMITIES: There is no peripheral edema. No clubbing, no cyanosis. Peripheral pulses are intact. Psychiatric: Normal mood affect and normal mental status examination. - Labs CBC & Chem 7: 08/21/21 03:50 08/21/21 03:50 Labs: Abnormal Lab Results - Last 24 Hours (Table) 08/20/21 08/21/21 08/21/21 Range/Units 14:55 03:50 03:50 WBC 14.8 H (3.8-10.6) k/uL RBC 3.77 L (4.30-5.90) m/uL Hgb 10.8 L (13.0-17.5) gm/dL Hct 35.2 L (39.0-53.0) % MCHC 30.7 L (31.0-37.0) g/dL Plt Count 771 H (150-450) k/uL Neutrophils # 11.6 H (1.3-7.7) k/uL Sodium 128 L (137-145) mmol/L Chloride 97 L (98-107) mmol/L Creatinine 0.59 L (0.66-1.25) mg/dL Glucose 119 H (74-99) mg/dL POC Glucose (mg/dL) 117 H (75-99) mg/dL Calcium 8.0 L (8.4-10.2) mg/dL Microbiology - Last 24 Hours (Table) 08/20/21 13:00 Gram Stain - Preliminary Lung - Right Tissue Culture - Preliminary 08/16/21 15:23 Gram Stain - Final Pleural Fluid Body Fluid Culture - Final 08/20/21 13:00 Anaerobic Culture - Preliminary Lung - Right Assessment and Plan Assessment: Impression: Status post right sided thoracotomy and decortication of all 3 lobes, postoperative day #1. Acute hypoxic respiratory failure secondary to pneumonia secondary to beta hemolytic strep with complicated parapneumonic pleural effusion/empyema. Required decortication on 08/20/2021 Acute iatrogenic pneumothorax, related to chest tube insertion, resolved. Expected. Pleuritic chest pain, resolved. Former smoker. History of bariatric surgery and stomach stapling Coronary artery disease History of underlying COPD Recommendation: Continue antibiotics Continue both chest tubes in place Continue incentive spirometer. Encourage deep coughing and deep breathing Consider transferring the patient out of the ICU to regular medical floor. We'll continue to follow. Time with Patient: Less than 30
[2021-08-21] MEDS ORDERED: LIDOCAINE 1% INJ 10MG/ML (20 ML MDV) SQ ONE (13:51)
--- NOTE | 2021-08-21 14:34 | IR ---
PICC LINE PLACEMENT: HISTORY: Infection requiring long-term antibiotic therapy PROCEDURE: Ultrasound and fluoroscopic guidance of PICC line placement. COMPLICATIONS: None ANESTHESIA: 1. 1% Lidocaine locally. FINDINGS/TECHNIQUE: The procedure was explained to the patient. The risks, complications, benefits and alternatives were discussed and any questions were answered. Informed consent was obtained. The patient was placed supine on the fluoroscopic table and prepped and draped in the usual sterile fash ion. Utilizing a 21 gauge needle and sonographic and fluoroscopic guidance, access in the left basi lic vein was achieved and there is placement of a 0.018 guidewire. The vein is patent. A 4-F sheath was placed over the guidewire. The guidewire and dilator were removed and a 4-F. PICC line was plac ed through the sheath with the tip at the level of the SVC. The sheath was removed, the catheter was flushed and sutured into position. The patient was stable throughout the procedure and remained sta ble upon discharge from the Department of Radiology. The vein puncture was patent under ultrasound. A mcconnell scale image was obtained to document patency of the vein punctured. All elements of the maximal barrier technique were utilized. FLUOROSCOPY TIME: 0.1 minutes and 1 minute images IMPRESSION: Successful PICC line placement under ultrasound and fluoroscopic guidance.
[2021-08-21] MEDS: ACETAMINOPHEN TAB 325 MG TAB PO PRN ×2 (16:01→21:35)
--- NOTE | 2021-08-21 16:31 | P.PN ---
Subjective Progress Note Date: 08/21/21 Principal diagnosis: empyema patient is a 60-year-old male presenting to the hospital for evaluation of increasing shortness of breath and cough has been diagnosed with e mpyema, patient is status post right sided drainage catheter placement, pleural fluid culture be positive for group C strep , the patient right-sided chest pigtail catheter got dislodged and has to be reinserted on 08/16/2021, patient is status post right chest thoracotomy and placement of 2 chest tubes on 08/20/2021 on today's evaluation that is 08/21/2021, the patient remains to be afebrile, the patient is breathing comfortably on nasal cannula oxygen, the patient chest pain is currently controlled denies any worsening cough or sputum production , the patient denies nausea no vomiting no abdominal pain and no diarrhea Objective - Vital Signs Vital signs: Vital Signs Temp 98.0 F 08/21/21 09:00 Pulse 107 H 08/21/21 12:00 Resp 12 08/21/21 12:00 BP 106/69 08/21/21 12:00 Pulse Ox 91 L 08/21/21 12:00 Intake & Output 08/20/21 08/21/21 08/21/21 18:59 06:59 18:59 Intake Total 3305 700 1630 Output Total 2400 340 490 Balance 793 313 7302 Weight 69.9 kg Intake: IV 3305 550 630 0.9 NACL 580 ACETAMINOPHEN IV (For NPO 100 ) 1,000 mg In Empty Bag 1 bag @ 400 mls/hr IVPB Q6H RAIMUNDO Rx#:[id number] Dextrose 5%-0.45% NaCl 1, 250 550 50 000 ml @ 50 mls/hr IV . Q20H RAIMUNDO Rx#:[id number] metroNIDAZOLE-NS PMX 500 100 mg In Saline 1 100ml.bag @ 100 mls/hr IVPB Q8HR RAIMUNDO Rx#:[id number] Oral 150 1000 Output: Chest Tube Drainage 230 30 245 Chest Tube Right - A 90 30 95 Chest Tube Right - B 140 150 Urine 1770 310 245 Estimated Blood Loss 400 Other: Voiding Method Indwelling Catheter Indwelling Catheter Indwelling Catheter ABP, PAP, CO, CI - Last Documented Arterial Blood Pressure 97/61 - Exam GENERAL DESCRIPTION: Middle-aged male lying in bed in no distress RESPIRATORY SYSTEM: Unlabored breathing , decreased breath sounds at bases HEART: S1 S2 regular rate and rhythm , ABDOMEN: Soft , no tenderness EXTREMITIES: No edema feet - Labs CBC & Chem 7: 08/21/21 03:50 08/21/21 03:50 Labs: Abnormal Lab Results - Last 24 Hours (Table) 08/20/21 08/21/21 08/21/21 Range/Units 14:55 03:50 03:50 WBC 14.8 H (3.8-10.6) k/uL RBC 3.77 L (4.30-5.90) m/uL Hgb 10.8 L (13.0-17.5) gm/dL Hct 35.2 L (39.0-53.0) % MCHC 30.7 L (31.0-37.0) g/dL Plt Count 771 H (150-450) k/uL Neutrophils # 11.6 H (1.3-7.7) k/uL Sodium 128 L (137-145) mmol/L Chloride 97 L (98-107) mmol/L Creatinine 0.59 L (0.66-1.25) mg/dL Glucose 119 H (74-99) mg/dL POC Glucose (mg/dL) 117 H (75-99) mg/dL Calcium 8.0 L (8.4-10.2) mg/dL Microbiology - Last 24 Hours (Table) 08/20/21 13:00 Gram Stain - Preliminary Lung - Right Tissue Culture - Preliminary 08/16/21 15:23 Gram Stain - Final Pleural Fluid Body Fluid Culture - Final 08/20/21 13:00 Anaerobic Culture - Preliminary Lung - Right Assessment and Plan (1) Empyema Current Visit: Yes Status: Acute Code(s): J86.9 - PYOTHORAX WITHOUT FISTULA SNOMED Code(s): 281427786 Plan: 1patient presented to hospital with right-sided empyema in this patient status post chest tube placement and the culture grew group C strep and Bacteroides species patient is subsequently status post right chest thoracotomy with repeat cultures currently growing anaerobic gram-negative bacilli more likely Bacteroides species 2patient is currently being treated with Rocephin and Flagyl to continue and will monitor clinical course closely Time with Patient: Less than 30
--- NOTE | 2021-08-21 17:59 | PN ---
PROGRESS NOTE This 60-year-old white male is status post open thoracotomy. He was transferred up out of the ICU to the third floor. Cardiovascular S1, S2. Lungs clear. GI soft. Hematology negative Homans. Status post thoracotomy with mild minimal pneumothorax, chest tube insertion, resolved pneumothorax. Coronary artery disease, COPD, history of bariatric surgery. Continue with antibiotics. Chest tubes. Incentive spirometry. Once he is stable and the chest tubes are pulled out and he is stabilized, he can go home. He is much improved with antibiotics. Labs today show white count of 14.8, hemoglobin is 10.7, sodium 128, potassium 4.4, BUN 11, creatinine 0.9. Please see further orders. MMODL / IJN: [id number] /
[2021-08-22] MEDS: metroNIDAZOLE-NS PMX 500 MG in SALINE 1 100ML.BAG IVPB SCH ×4 (00:01→23:13)
[2021-08-22] MEDS: ACETAMINOPHEN TAB 325 MG TAB PO PRN (02:50)
[2021-08-22] MEDS: HYDROmorphone 0.5 MG/0.5 ML SYRINGE IVP PRN ×2 (06:51→12:36)
--- NOTE | 2021-08-22 07:01 | P.PN ---
Progress Note - Text Progress Note Date: 08/22/21 Patient was seen and evaluated at bedside. Postop day #2, epidural catheter day #3 status post Right thoracotomy with decortication of all three lobes. Patient was evaluated the previous night for right hand numbness, adjustments to the epidural catheter were made and it resolved. However, this morning patient was complaining of right sided chest pain 6-8/10 in severity. His pain has been well controlled with epidural. Upon inspection of the catheter, it was at 1-2 cm at the skin and out of the epidural space. Physical exam: Vital signs: stable, afebrile Catheter site: Clean, and intact Dressing. no tenderness over the catheter area. Moving lower extremities without difficulty. Assessment: Acute postoperative pain secondary to Right thoracotomy with decortication of all three lobes Plan: Discussed with patient that catheter is no longer in the epidural space and will remove it.
[2021-08-22 07:52] LABS: Basophils % (A) 0 %; Eosinophils # (A) 0.1 k/uL (0-0.7); Eosinophils % (A) 1 %; HCT 31.6 % (39.0-53.0); HGB 9.8 gm/dL (13.0-17.5); Lymphocytes # (A) 1.7 k/uL (1.0-4.8); Lymphocytes % (A) 16 %; MCHC 31.1 g/dL (31.0-37.0); MCV 93.3 fL (80.0-100.0); Monocytes # (A) 0.9 k/uL (0-1.0); Monocytes % (A) 8 %; Neutrophils # (A) 7.9 k/uL (1.3-7.7); Neutrophils % (A) 74 %; Platelet Count 594 k/uL (150-450); RBC 3.39 m/uL (4.30-5.90); WBC 10.8 k/uL (3.8-10.6)
[2021-08-22 08:07] LABS: ALT 18 U/L (4-49); AST 29 U/L (17-59); African American GFR (CKD) >90 (>60 ml/min/1.73 sqM); Albumin 2.1 g/dL (3.5-5.0); Alkaline Phosphatase 50 U/L (38-126); Anion Gap 5 mmol/L; Blood Urea Nitrogen 14 mg/dL (9-20); Calcium 7.7 mg/dL (8.4-10.2); Carbon Dioxide 27 mmol/L (22-30); Chloride 99 mmol/L (98-107); Glucose 95 mg/dL (74-99); Non-African American GFR(CKD) >90 (>60 ml/min/1.73 sqM); Potassium 4.4 mmol/L (3.5-5.1); Sodium 131 mmol/L (137-145); Total Bilirubin 0.5 mg/dL (0.2-1.3); Total Protein 4.9 g/dL (6.3-8.2)
--- NOTE | 2021-08-22 08:11 | XR ---
EXAMINATION TYPE: XR chest 1V portable DATE OF EXAM: 08/22/2021 COMPARISON: X-ray dated 08/21/2021 HISTORY: Postthoracotomy TECHNIQUE: Single frontal view of the chest is obtained. FINDINGS: Unchanged position of the right intercostal drainage tubes. Interval insertion of a left-sided PICC l ine with the tip is seen at the superior aspect of the SVC. Persistent soft tissue emphysema in the right upper chest wall obscuring the possible underlying mini mal pneumothorax. Slightly more prominent infiltration/atelectasis in the right lower lung zone, plea se correlate clinically for infection. Unchanged left lung, cardiomediastinal silhouette and bony thoracic cage. IMPRESSION: Interval changes as described above.
[2021-08-22] MEDS: SODIUM CHLORIDE 0.9% 500 ML 500 ML IV SCH (08:19)
[2021-08-22] MEDS: PANTOPRAZOLE 40 MG TABLET PO SCH (08:26)
[2021-08-22] MEDS: traMADol 50 MG TAB PO PRN ×3 (08:28→20:28)
[2021-08-22] MEDS: HEPARIN SODIUM,PORCINE/PF 5,000 UNIT/0.5 ML SYRINGE SQ SCH ×4 (08:28→23:12)
[2021-08-22] MEDS: IPRATROPIUM-ALBUTEROL 3 ML NEB INHALATION SCH ×4 (09:14→21:03)
--- NOTE | 2021-08-22 11:01 | P.PN ---
Subjective Progress Note Date: 08/22/21 Principal diagnosis: Right lower lobe pneumonia, parapneumonic effusion, thoracentesis fluid analysis consistent with empyema. Previous medical history of tobacco dependence with cessation 3 years ago, daily EtOH use, occasional marijuana use, previous stomach stapling POD #2 bronchoscopy, right thoracotomy with decortication of all 3 lobes The patient was seen and examined sitting up in a recliner this morning on the cardiac stepdown unit in in mild pain. Right-sided apical and basilar chest tubes remain present to continuous wall suction, no air leaks present, both dr dave serosanguineous drainage. Currently on room air, actively using incentive spirometry and achieving 4378-7009 mL. Remains on IV antibiotics. Epidural discontinued as it became dislodged. No other new concerns. Objective - Vital Signs Vital signs: Vital Signs Temp 98.3 F 08/22/21 08:25 Pulse 82 08/22/21 08:25 Resp 16 08/22/21 08:25 BP 110/60 08/22/21 08:25 Pulse Ox 95 08/22/21 08:25 Intake & Output 08/21/21 08/22/21 08/22/21 18:59 06:59 18:59 Intake Total 1750 Output Total 830 1590 600 Balance 920 -1590 -600 Intake: IV 630 0.9 NACL 580 Dextrose 5%-0.45% NaCl 1, 50 000 ml @ 50 mls/hr IV . Q20H [facility] Rx#:[id number] Oral 1120 Output: Chest Tube Drainage 285 90 Chest Tube Right - A 95 30 Chest Tube Right - B 190 60 Urine 545 1500 600 Coude 300 Other: Voiding Method Indwelling Catheter Indwelling Catheter Indwelling Catheter ABP, PAP, CO, CI - Last Documented Arterial Blood Pressure 97/61 - Exam CONSTITUTIONAL: Appears mildly uncomfortable but had just received pain medication, cooperative, no acute distress RESPIRATORY: Lungs sounds diminished bilaterally. Respirations even, nonlabored. Currently on room air with oxygen saturation 95%. Able to achieve 5474-6345 mL on incentive spirometry. Strong cough. CARDIOVASCULAR: S1, S2 present. Regular rate and rhythm, sinus rhythm on telemetry. Palpable peripheral pulses bilaterally. No edema present. No calf pain or tenderness noted. GASTROINTESTINAL: Abdomen soft, nontender, nondistended. Active bowel sounds present 4 quadrants. Tolerating diet GENITOURINARY: Patel present draining clear, yellow urine INTEGUMENTARY: Skin is warm and dry with evidence of good perfusion. Thoracic incision well approximated and covered with dry intact dressing. NEUROLOGIC: Cranial nerves II through XII intact MUSKULOSKELETAL: Able to move all extremities, strength equal bilaterally PSYCHIATRIC: Alert and oriented to person place and time, appropriate affect, intact judgment and insight INVASIVE LINES AND TUBES: Right pleural chest tubes present and connected to wall suction, no air leak present. Apical chest tube with 30 mL serosanguineous drainage overnight, 110 mL in the last 24 hours. Basilar pleural chest tube with 60 mL serosanguineous drainage overnight, 190 mL in the last 24 hours. - Allied health notes Allied health notes reviewed: nursing - Labs CBC & Chem 7: 08/22/21 07:11 08/22/21 07:11 Labs: Abnormal Lab Results - Last 24 Hours (Table) 08/22/21 08/22/21 Range/Units 07:11 07:11 WBC 10.8 H (3.8-10.6) k/uL RBC 3.39 L (4.30-5.90) m/uL Hgb 9.8 L (13.0-17.5) gm/dL Hct 31.6 L (39.0-53.0) % Plt Count 594 H (150-450) k/uL Neutrophils # 7.9 H (1.3-7.7) k/uL Sodium 131 L (137-145) mmol/L Creatinine 0.57 L (0.66-1.25) mg/dL Calcium 7.7 L (8.4-10.2) mg/dL Total Protein 4.9 L (6.3-8.2) g/dL Albumin 2.1 L (3.5-5.0) g/dL Microbiology - Last 24 Hours (Table) 08/20/21 13:00 Gram Stain - Preliminary Lung - Right Tissue Culture - Preliminary 08/16/21 15:23 Anaerobic Culture - Final Pleural Fluid Bacteroides thetaiotaomicron - Imaging and Cardiology Chest x-ray: report reviewed, image reviewed Assessment and Plan Assessment: 1. Right lower lobe pneumonia, parapneumonic effusion, thoracentesis fluid analysis consistent with empyema, status post bronchoscopy and surgical decortication 2. Shortness of breath, right-sided chest pain secondary to above 3. History of tobacco dependence with cessation 3 years ago 4. Daily EtOH use 5. Occasional marijuana use 6. Previous stomach stapling 7. Family history of heart and lung disease Plan: 1. Continue pleural chest tubes to water seal. Monitor drainage 2. Encourage incentive spirometry use 10 times every hour while awake 3. Continue with antibiotics per infectious disease 4. Increase activity as tolerated 5. Pain control per current medication regimen 6. Will monitor daily x-rays 7. Medical management of other comorbidities per primary care service 8. More recommendations to follow
--- NOTE | 2021-08-22 13:30 | P.PN ---
Subjective Progress Note Date: 08/22/21 Principal diagnosis: Acute hypoxic respiratory failure secondary to right lower lobe pneumonia and complicated parapneumonic pleural effusion. Possible empyema. Patient was reevaluated today on 08/19/21, patient seems to be doing better, he is on room air, continues to have a pigtail catheter in place. There is definite improvement in the fluid/pleural effusion, continues to drain, remains on antibiotics, he is developing more consolidation in the right lower lobe, patient remains on antibiotics, clinically he is responding well to treatment. Cultures have been positive for Streptococcus beta-hemolytic strep, group C, and Bacteroides species. Considering the results of the CT of the chest today, no need for decortication, and no need for bronchoscopy. The main issue right now is to continue antibiotics. In reviewing the CT of the chest, there is evidence of a small tiny pneumothorax, not seen on chest x-ray, this is again most likely iatrogenic and related to the pigtail catheter/chest tube insertion by interventional radiology and it is an expected potential complication On 08/20/2021 patient seen in follow-up. This morning chest x-ray showed persistent right-sided pleural effusion although improving but still of moderate size. Patient has received multiple rounds of dornase/alteplase. Pleural fluid cultures were positive for beta hemolytic strep group C and anaerobic gram- negative bacilli, current antibiotic coverage includes Rocephin and Flagyl. Clinically he is breathing comfortably. Currently on 2 L of oxygen pulse ox the 100%. Afebrile. Case was discussed with cardiothoracic surgery, who has decided to proceed with right lung decortication, with thoracic epidural placement. During the procedure thick pleural rind of right upper and lower lobe was evacuated, very thin pleural rind of right middle lobe most of which was left alone, both fissures were freed up and decorticated. Patient is seen in the recovery room following his procedure, he is currently on a nonrebreather mask, still sedated, but comfortable, patient has [address], right apical and right basal chest tubes, and there is minimal sanguinous output, with a total of 50 out of the apical and 45 mL out of the basal chest tube. There is mild intermittent leak out of the basilar chest tube. Follow-up chest x-ray showing bilateral consolidation and small effusion, and 5% right-sided pneumothorax with the reduction in amount of pleural fluid. Patient is awaiting a bed in the intensive care Reevaluated today on 08/21/21 patient remains in the ICU post decortication of empyema. He is on room air, does not seem to be in any distress, O2 sats is 95%. Continues to have epidural in place. Remains on Flagyl and Rocephin. He is doing well with incentive spirometry incentive spirometry and she 1500 mL. Chest x-ray is reassuring, no evidence of pneumothorax. Continues to have [address] one is in the apex of the right lung and one in the base of the right lung. The apical chest tube drained 200 mL overnight, and the basal drained 280 of thin serosanguineous fluid. Earlier scan is 14.8 hemoglobin is 10.8 electrolytes are normal except for sodium and bit low at 128, ranging between 128 up to 132 at best. We will discontinue diuretics, and maintain patient on 0.9 normal saline at 50 mL per hour. Reevaluated today on 08/22/21, patient continues to do well, remains on room air, continues to have 2 right-sided chest tubes in place, he is now postoperative day #2 underwent a right sided thoracotomy and decortication. No air leak noted from the chest tubes, continues to have some serosanguineous drainage. Doing quite well with incentive spirometry remains on antibiotics. Epidural has been discontinued. CBC is relatively normal hemoglobin is 9.8 electrolytes are normal renal profile is normal Objective - Vital Signs Vital signs: Vital Signs Temp 98.3 F 08/22/21 08:25 Pulse 98 08/22/21 12:34 Resp 16 08/22/21 12:34 BP 100/71 08/22/21 12:34 Pulse Ox 95 08/22/21 12:34 Intake & Output 08/21/21 08/22/21 08/22/21 18:59 06:59 18:59 Intake Total 1750 Output Total 830 1590 600 Balance 920 -1590 -600 Intake: IV 630 0.9 NACL 580 Dextrose 5%-0.45% NaCl 1, 50 000 ml @ 50 mls/hr IV . Q20H [facility] Rx#:[id number] Oral 1120 Output: Chest Tube Drainage 285 90 Chest Tube Right - A 95 30 Chest Tube Right - B 190 60 Urine 545 1500 600 Coude 300 Other: Voiding Method Indwelling Catheter Indwelling Catheter Indwelling Catheter ABP, PAP, CO, CI - Last Documented Arterial Blood Pressure 97/61 - Exam GENERAL EXAM: Revealed a 60-year-old white male on room air, in no distress. HEAD: Normocephalic. ENT: PERRLA, EOMI, anicteric, no neck masses no JVD. CHEST: No chest wall deformity LUNGS: Equal air entry diminished breath sounds at the bases, 2 right-sided chest tubes were noted, no air leak noted today. Serosanguineous drainage noted in both pleural vacs. CVS: S1 and S2 normal with no audible murmur, regular rhythm. ABDOMEN: No hepatosplenomegaly, normal bowel sounds, no guarding or rigidity. Musculoskeletal: No deformities noted limitation range of motion SKIN: No rashes CENTRAL alert oriented 3 no gross focal deficit EXTREMITIES: There is no peripheral edema. No clubbing, no cyanosis. Peripher al pulses are intact. Psychiatric: Normal mood affect and normal mental status examination. - Labs CBC & Chem 7: 08/22/21 07:11 08/22/21 07:11 Labs: Abnormal Lab Results - Last 24 Hours (Table) 08/22/21 08/22/21 Range/Units 07:11 07:11 WBC 10.8 H (3.8-10.6) k/uL RBC 3.39 L (4.30-5.90) m/uL Hgb 9.8 L (13.0-17.5) gm/dL Hct 31.6 L (39.0-53.0) % Plt Count 594 H (150-450) k/uL Neutrophils # 7.9 H (1.3-7.7) k/uL Sodium 131 L (137-145) mmol/L Creatinine 0.57 L (0.66-1.25) mg/dL Calcium 7.7 L (8.4-10.2) mg/dL Total Protein 4.9 L (6.3-8.2) g/dL Albumin 2.1 L (3.5-5.0) g/dL Microbiology - Last 24 Hours (Table) 08/20/21 13:00 Anaerobic Culture - Preliminary Lung - Right 08/20/21 13:00 Gram Stain - Preliminary Lung - Right Tissue Culture - Preliminary 08/16/21 15:23 Anaerobic Culture - Final Pleural Fluid Bacteroides thetaiotaomicron Assessment and Plan Assessment: Impression: Status post right sided thoracotomy and decortication of all 3 lobes, postoperative day #2 Acute hypoxic respiratory failure secondary to pneumonia secondary to beta hemolytic strep with complicated parapneumonic pleural effusion/empyema. Required decortication on 08/20/2021 Pleuritic chest pain, resolved. Former smoker. History of bariatric surgery and stomach stapling Coronary artery disease History of underlying COPD Recommendation: Continue antibiotics Continue both chest tubes in place Continue incentive spirometer. Encourage deep coughing and deep breathing We'll continue to follow. Time with Patient: Less than 30
--- NOTE | 2021-08-22 17:14 | P.PN ---
Progress Note - Text Progress Note Date: 08/22/21 Presenting complaint: Chest pain, shortness of breath Hospital course: I'm rounding for Dr. Beka Phillips. Patient presented to the right empyema. Initiate a pigtail catheter. Multiple rounds of alteplase were done. Subsequently on August 20: Patient underwent right thoracotomy with decortication of all 3 lobes. August 21: Decreased appetite. Epidural: Dislodged last night. Has right-sided to just use. Up in a chair. Tired Active Medications Acetaminophen (Acetaminophen Tab 325 Mg Tab) 650 mg PO Q4HR PRN PRN Reason: Fever and/ or mild Pain Last Admin: 08/22/21 02:50 Dose: 650 mg Documented by: Albuterol/Ipratropium (Ipratropium-Albuterol 3 Ml Neb) 3 ml INHALATION RT-Q4H PRN PRN Reason: shortness of breath Last Admin: 08/11/21 11:23 Dose: 3 ml Documented by: Albuterol/Ipratropium (Ipratropium-Albuterol 3 Ml Neb) 3 ml INHALATION RT-QID RAIMUNDO Last Admin: 08/22/21 16:46 Dose: Not Given Documented by: Artificial Tears (Artificial Tears-Hypromellose Drops 15 Ml Btl) 2 drops BOTH EYES QID PRN PRN Reason: Dry Eye(s) Last Admin: 08/20/21 17:05 Dose: 2 drops Documented by: Heparin Sodium (Porcine) (Heparin Sodium,Porcine/Pf 5,000 Unit/0.5 Ml Syringe) 5,000 unit SQ Q8HR RAIMUNDO Last Admin: 08/22/21 16:02 Dose: 5,000 unit Documented by: Hydromorphone HCl (Hydromorphone 0.5 Mg/0.5 Ml Syringe) 0.5 mg IVP Q4HR PRN PRN Reason: Pain Last Admin: 08/22/21 12:36 Dose: 0.5 mg Documented by: Ceftriaxone Sodium 2 gm/ (Sodium Chloride) 50 mls @ 100 mls/hr IVPB Q24HR RAIMUNDO; Protocol Last Admin: 08/22/21 12:36 Dose: 100 mls/hr Documented by: Metronidazole 500 mg/ IV (Solution) 100 mls @ 100 mls/hr IVPB Q8HR RAIMUNDO; Protocol Last Admin: 08/22/21 16:01 Dose: 100 mls/hr Documented by: Sodium Chloride (Saline 0.9%) 500 mls @ 50 mls/hr IV .Q10H [facility] Last Admin: 08/22/21 08:19 Dose: Not Given Documented by: Ketorolac Tromethamine (Ketorolac 15 Mg/Ml 1 Ml Vial) 15 mg IVP Q6HR PRN PRN Reason: Moderate Pain Stop: 08/23/21 15:11 Last Admin: 08/20/21 18:49 Dose: 15 mg Documented by: Miscellaneous Information (Pneumonia Protocol Utilized 1 Each [facility]) 1 each PO ONCE PRN PRN Reason: Per Protocol Naloxone HCl (Naloxone 0.4 Mg/Ml 1 Ml Vial) 0.2 mg IV Q2M PRN PRN Reason: Opioid Reversal Ondansetron HCl (Ondansetron 4 Mg/2 Ml Vial) 4 mg IVP Q8HR PRN PRN Reason: Nausea And Vomiting Pantoprazole Sodium (Pantoprazole 40 Mg Tablet) 40 mg PO DAILY [facility] Last Admin: 08/22/21 08:26 Dose: 40 mg Documented by: Tramadol HCl (Tramadol 50 Mg Tab) 50 mg PO QID PRN PRN Reason: Pain Last Admin: 08/22/21 14:51 Dose: 50 mg Documented by: On examination: VITAL SIGNS: 98.2, 89, 16, 112/70, 96% room air GENERAL APPEARANCE: Sitting up in chair, awake . Right-sided chest tube 2 HEENT: Normal external appearance of nose and ear. Oral cavity normal EYES: Pupils equal. Conjunctiva normal. NECK: JVD not raised. Mass not palpable. RESPIRATORY: Respiratory effort increased. Lungs decreased breath sounds. CARDIOVASCULAR: First and second sounds normal. No edema. ABDOMEN: Soft. Liver and spleen not palpable. No tenderness. No mass palpable. PSYCHIATRY: Alert and oriented x3. Mood and affect normal. INVESTIGATIONS, reviewed in the clinical context: August 22: White count 10.8 hemoglobin 9.8 potassium 4.4 creatinine 0.57 Pleural fluid: Beta-hemolytic streptococcus group C and bacteroids Assessment and plan: -Acute hypoxic respiratory failure secondary to pneumonia and empyema: Better Off oxygen -Right-sided pneumonia with empyema from beta-hemolytic streptococcus group C and bacteroids IV ceftriaxone, IV Flagyl -Right-sided empyema: Slow to respond . Pigtail catheter discontinued. Alteplase. Right-sided 2 chest tubes falling decortication on August 20.. -COPD in a previous smoker DuoNeb -Recreational marijuana use -Pediatric surgery with a history of stomach stapling -Normocytic anemia of chronic disease Check iron stores, B12 folate -Hyponatremia. Encourage oral intake -Hypoalbuminemia. Likely acute phase reactant Encourage oral intake. Continue with IV ceftriaxone IV Flagyl. Check iron studies B12 and folate. Discussed with patient.
[2021-08-22 23:43] LABS: % Iron Saturation 10.65 (15.00-50.00)
[2021-08-23] MEDS: KETOROLAC 15 MG/ML 1 ML VIAL IVP PRN (00:51)
[2021-08-23] MEDS: IPRATROPIUM-ALBUTEROL 3 ML NEB INHALATION SCH ×4 (07:24→19:25)
--- NOTE | 2021-08-23 08:28 | XR ---
EXAMINATION TYPE: XR chest 2V DATE OF EXAM: 08/23/2021 COMPARISON: Chest x-ray from yesterday and older studies. HISTORY: Post thoracotomy. TECHNIQUE: Frontal and lateral views of the chest are obtained. FINDINGS: Stable left-sided PICC line. Stable right sided chest tubes. Right-sided volume loss with b asilar opacity consistent with small pleural effusion and associated atelectasis and/or infiltrate. N o pneumothorax seen. Adjacent subcutaneous emphysema redemonstrated. Left lung remains clear. Cardiac silhouettes are stable and within normal limits. Underlying scoliosis redemonstrated. IMPRESSION: As above. No significant change from one day earlier.
[2021-08-23] MEDS: SODIUM CHLORIDE 0.9% 500 ML 500 ML IV SCH (09:01)
[2021-08-23] MEDS: HEPARIN SODIUM,PORCINE/PF 5,000 UNIT/0.5 ML SYRINGE SQ SCH ×3 (09:05→23:04)
[2021-08-23] MEDS: traMADol 50 MG TAB PO PRN ×2 (09:05→17:28)
[2021-08-23] MEDS: metroNIDAZOLE-NS PMX 500 MG in SALINE 1 100ML.BAG IVPB SCH ×3 (09:07→23:04)
[2021-08-23] MEDS: PANTOPRAZOLE 40 MG TABLET PO SCH (09:07)
--- NOTE | 2021-08-23 10:59 | P.PN ---
Subjective Progress Note Date: 08/23/21 Principal diagnosis: Right lower lobe pneumonia, parapneumonic effusion, thoracentesis fluid analysis consistent with empyema. Previous medical history of tobacco dependence with cessation 3 years ago, daily EtOH use, occasional marijuana use, previous stomach stapling POD #3 bronchoscopy, right thoracotomy with decortication of all 3 lobes The patient was seen and examined this morning sitting up in a recliner this morning on the cardiac stepdown unit. Right-sided apical and basilar chest tubes remain present to waterseal, no air leaks present, both draining minimal serosanguineous drainage. Currently on room air, actively using incentive spirometry and achieving 3463-9799 mL. Remains on IV antibiotics. No other new concerns. Objective - Vital Signs Vital signs: Vital Signs Temp 98.3 F 08/23/21 09:00 Pulse 85 08/23/21 09:00 Resp 16 08/23/21 09:00 BP 118/74 08/23/21 09:00 Pulse Ox 99 08/23/21 09:00 Intake & Output 08/22/21 08/23/21 08/23/21 18:59 06:59 18:59 Intake Total 240 Output Total 660 570 Balance -420 -570 Intake: Oral 240 Output: Chest Tube Drainage 60 20 Chest Tube Right - A 20 0 Chest Tube Right - B 40 20 Urine 600 550 Other: Voiding Method Indwelling Catheter Urinal ABP, PAP, CO, CI - Last Documented Arterial Blood Pressure 97/61 - Exam CONSTITUTIONAL: Appears comfortable, cooperative, no acute distress RESPIRATORY: Lungs sounds diminished bilaterally. Respirations even, nonlabored. Currently on room air with oxygen saturation 99%. Able to achieve 5711-8992 mL on incentive spirometry. Strong cough. CARDIOVASCULAR: S1, S2 present. Regular rate and rhythm, sinus rhythm on telemetry. Palpable peripheral pulses bilaterally. No edema present. No calf pain or tenderness noted. GASTROINTESTINAL: Abdomen soft, nontender, nondistended. Active bowel sounds present 4 quadrants. Tolerating diet GENITOURINARY: Continues to void INTEGUMENTARY: Skin is warm and dry with evidence of good perfusion. Thoracic incision well approximated and covered with dry intact dressing. NEUROLOGIC: Cranial nerves II through XII intact MUSKULOSKELETAL: Able to move all extremities, strength equal bilaterally PSYCHIATRIC: Alert and oriented to person place and time, appropriate affect, intact judgment and insight INVASIVE LINES AND TUBES: Right pleural chest tubes present and connected to wall suction, no air leak present. Apical chest tube with no drainage overnight, 50 mL in the last 24 hours. Basilar pleural chest tube with no drainage overnight, 100 mL in the last 24 hours. - Allied health notes Allied health notes reviewed: nursing - Labs CBC & Chem 7: 08/22/21 07:11 08/22/21 07:11 Labs: Abnormal Lab Results - Last 24 Hours (Table) 08/22/21 Range/Units 07:11 Iron 16 L (65-175) ug/dL TIBC 148 L (228-460) ug/dL % Saturation 10.65 L (15.00-50.00) Transferrin 106.0 L (204.0-354.0) mg/dL Ferritin 792.0 H (22.0-322.0) ng/mL Microbiology - Last 24 Hours (Table) 08/20/21 13:00 Gram Stain - Preliminary Lung - Right Tissue Culture - Preliminary 08/20/21 13:00 Anaerobic Culture - Preliminary Lung - Right - Imaging and Cardiology Chest x-ray: report reviewed, image reviewed Assessment and Plan Assessment: 1. Right lower lobe pneumonia, parapneumonic effusion, thoracentesis fluid analysis consistent with empyema, status post bronchoscopy and surgical decortication 2. Shortness of breath, right-sided chest pain secondary to above 3. History of tobacco dependence with cessation 3 years ago 4. Daily EtOH use 5. Occasional marijuana use 6. Previous stomach stapling 7. Family history of heart and lung disease Plan: 1. Will discontinue apical chest tube. Continue basalar chest tubes to water seal for another 24 hours. Monitor drainage 2. Encourage incentive spirometry use 10 times every hour while awake 3. Continue with antibiotics per infectious disease 4. Increase activity as tolerated 5. Pain control per current medication regimen 6. Will monitor daily x-rays 7. Medical management of other comorbidities per primary care service 8. More recommendations to follow
--- NOTE | 2021-08-23 12:39 | P.PN ---
Subjective Progress Note Date: 08/23/21 Principal diagnosis: Shortness of breath, right chest pleuritic pain 60-year-old outpatient with past medical history of bariatric surgery, stomach stapling 30 years ago, former smoker, who came into the emergency department on the 08/07/2021 with complaints of right-sided pleuritic chest pain and shortness of breath. he states initial symptom onset was about a week ago and progressively became worse, he went to the urgent care initially, chest x-ray was taken and he was told that he needed to go to the emergency department as he was right lung appear to be collapsed at the bottom. In addition patient was febrile, and coughing up some purulent phlegm. In the emergency department chest x-ray showing right basilar opacity with small pleural effusion, CTA chest showing small to moderate right pleural effusion with accompanying basilar atelectasis. Lab work showed white blood cell count of 30.4, hemoglobin of 12.9, platelet count of 682, INR of 1.1, d-dimer was 2.5 to but CTA showed no evidence of pulmonary embolism. COVID 19 PCR is negative. Patient was started on azithromycin and Rocephin. This morning he seen sitting up in bed, is still having some pleuritic right lower rib cage pain with inspiration and coughing, but appears to be in no acute distress. On 2 L of oxygen his saturation 94-96%. On 08/09/2021 patient seen in follow-up. Patient is awake and alert, he states he is breathing easier, and right-sided pleuritic chest pain is improved alt mitch still there with deep breathing and coughing. Ultrasound the chest has been reviewed showing 2.3 centimeter pleural fluid pocket and it was not possible to market related to the pocket, lung location and internal echoes. Labs have been reviewed, white blood cell count is slightly improved and is down to 27.4, hemoglobin is 13.1, platelet count is 635, sodium is 134, depressed electrolytes and renal profile are unremarkable. Urinalysis showed small amount of blood, white blood cells, but no clear evidence of infection. COVID-19 PCR was negative. On 08/12/2021 patient is seen in follow-up on medical surgical floor. Patient had a right-sided pigtail chest tube catheter inserted and there was 1.5 L of purulent pleural fluid evacuated into the Pleur-evac. Chest tube remains in place, patient tolerated procedure very well. He is on 2 L of oxygen pulse ox is 94%, he is afebrile. Blood pressure stable, no altered mentation. Remains on combination of azithromycin and Rocephin. His white blood cell count is improved and is down to 17.1 on today's labs compared to 30.4 on admission, Hemoglobin is 11.2, sodium is 133, dressed electrolytes and renal profile are negative. Pleural fluid analysis has been reviewed and was consistent with empyema. Pleural fluid cultures remain negative so far. Sputum culture only showed Milli albicans, blood cultures have been negative. On 08/13/2021 patient seen in follow-up on medical surgical floor. He is breathing comfortably, sitting up in bed, he is on 2 L of oxygen, his pulse ox of 97%, yesterday he had right-sided posterior pigtail chest tube inserted by interventional radiology, with initial output of 1500 of purulent pleural fluid. There has been additional 350 mL of pleural fluid since then. Patient had first alteplase infused by CT surgery, and again today. He remains on combination of Rocephin and clindamycin. his pleural fluid cultures were positive for beta hemolytic strep group C. Fever pattern has improved, and T-max in the last 24 hours was 99.8F.his chest x-ray shows persistent moderate size right-sided pleural fluid collection with the pigtail pleural drainage catheter in place. There is associated right lower lung opacity favoring atelectatic changes. Today's labs show improvement in the white blood cell count, which is down to 16.42, hemoglobin is 11.5, platelet count is 535, sodium is 134, the rest of the electrolytes and renal profile are unremarkable. On 08/19/2021 patient is seen in follow-up on medical surgical floor, he is awake and alert, in no acute distress, he is sitting up in the recliner, currently on 3 L of oxygen his pulse ox is 93-99%. Computed tomography scan of the chest was completed showing smaller right-sided pleural effusion associated with small right pneumothorax and improving aeration of the right lower lobe, no pleural nodularity. This was a noncontrast film, this was reviewed with Dr. Gonzalez, and it was felt that there was mainly right lower lobe consolidation. Patient has a right-sided pigtail chest tube in place, received dornase/alteplase instillation yesterday per CT surgery. There has been a total of 330 mL of drainage out of the right-sided chest tube in the last 24 hours. Today's lab 7 reviewed, white blood cell count is 13.7, hemoglobin is 9.7, sodium is 1:30, potassium is 4.6, chloride is 95, CO2 is 26, BUN is 8.2, creatinine is 0.5. T-max in last 24 hours is 99F. On 08/20/2021 patient seen in follow-up. This morning chest x-ray showed persistent right-sided pleural effusion although improving but still of moderate size. Patient has received multiple rounds of dornase/alteplase. Pleural fluid cultures were positive for beta hemolytic strep group C and anaerobic gram- negative bacilli, current antibiotic coverage includes Rocephin and Flagyl. Clinically he is breathing comfortably. Currently on 2 L of oxygen pulse ox the 100%. Afebrile. Case was discussed with cardiothoracic surgery, who has decided to proceed with right lung decortication, with thoracic epidural placement. During the procedure thick pleural rind of right upper and lower lobe was evacuated, very thin pleural rind of right middle lobe most of which was left alone, both fissures were freed up and decorticated. Patient is seen in the recovery room following his procedure, he is currently on a nonrebreather mask, still sedated, but comfortable, patient has [address], right apical and right basal chest tubes, and there is minimal sanguinous output, with a total of 50 out of the apical and 45 mL out of the basal chest tube. There is mild intermittent leak out of the basilar chest tube. Follow-up chest x-ray showing bilateral consolidation and small effusion, and 5% right-sided pneumothorax with the reduction in amount of pleural fluid. Patient is awaiting a bed in the intensive care On 08/23/2021 patient seen in follow-up on medical surgical floor, he sitting up in the chair, in no acute distress, he states his right-sided chest wall pain is much better controlled today. Thoracic epidural has been discontinued, patient is on combination of Toradol, tramadol, and IV Dilaudid for breakthrough pain, vital signs have been stable overnight. Patient has been afebrile, room air pulse ox is 95-99%, blood pressure is been stable, patient has right apical and right basal chest tubes in place to waterseal, and patient had 20 ML out of the apical and 60 ML out of the right basal chest tubes in the last 24 hours. Chest x-ray today showing right-sided volume loss with basilar opacity, small right pleural effusion with associated atelectasis. No pneumothorax, there is adjacent subcutaneous emphysema, stable right-sided chest tubes in place. Left lung is clear. Patient remains on Flagyl and Rocephin for antibiotic coverage. Today's white blood cell count is improved and is down to 10.8, hemoglobin is 9.8, platelet count is 594, serum sodium is 131, dressed electrolytes and renal profile are unremarkable. Objective - Vital Signs Vital signs: Vital Signs Temp 98.3 F 08/23/21 09:00 Pulse 95 08/23/21 12:00 Resp 16 08/23/21 12:00 BP 118/79 08/23/21 12:00 Pulse Ox 95 08/23/21 12:00 Intake & Output 08/22/21 08/23/21 08/23/21 18:59 06:59 18:59 Intake Total 240 Output Total 660 570 Balance -420 -570 Intake: Oral 240 Output: Chest Tube Drainage 60 20 Chest Tube Right - A 20 0 Chest Tube Right - B 40 20 Urine 600 550 Other: Voiding Method Indwelling Catheter Urinal ABP, PAP, CO, CI - Last Documented Arterial Blood Pressure 97/61 - Exam GENERAL EXAM: Alert, very pleasant, 60-year-old white male, on room air with a pulse ox of 95-99%, comfortable in no apparent distress. HEAD: Normocephalic/atraumatic. EYES: Normal reaction of pupils, equal size. Conjunctiva pink, sclera white. NOSE: Clear with pink turbinates. THROAT: No erythema or exudates. NECK: No masses, no JVD, no thyroid enlargement, no adenopathy. CHEST: No chest wall deformity. Symmetrical expansion. Right chest incision is covered with surgical dressing, right-sided chest tubes is in place to waterseal and small amount of serosanguineous output LUNGS: Equal air entry with diminished breath sounds on the right lower base CVS: Regular rate and rhythm, normal S1 and S2, no gallops, no murmurs, no rubs ABDOMEN: Soft, nontender. No hepatosplenomegaly, normal bowel sounds, no guarding or rigidity. EXTREMITIES: No clubbing, no edema, no cyanosis, 2+ pulses and upper and lower extremities. MUSCULOSKELETAL: Muscle strength and tone normal. SPINE: No scoliosis or deformity SKIN: No rashes CENTRAL NERVOUS SYSTEM: Alert and oriented -3. No focal deficits, tone is normal in all 4 extremities. PSYCHIATRIC: Alert and oriented -3. Appropriate affect. Intact judgment and insight. - Labs CBC & Chem 7: 08/22/21 07:11 08/22/21 07:11 Labs: Abnormal Lab Results - Last 24 Hours (Table) 08/22/21 Range/Units 07:11 Iron 16 L (65-175) ug/dL TIBC 148 L (228-460) ug/dL % Saturation 10.65 L (15.00-50.00) Transferrin 106.0 L (204.0-354.0) mg/dL Ferritin 792.0 H (22.0-322.0) ng/mL Microbiology - Last 24 Hours (Table) 08/20/21 13:00 Gram Stain - Preliminary Lung - Right Tissue Culture - Preliminary 08/20/21 13:00 Anaerobic Culture - Preliminary Lung - Right Assessment and Plan Plan: Assessment: #1. Acute hypoxic respiratory failure related to right lower lobe pneumonia with right lung empyema related to beta hemolytic strep group C. Ultrasound of the chest showed a 2.3 cm fluid pocket with internal echoes. Patient had diagnostic right-sided thoracentesis done by interventional radiology, and pleural fluid analysis was consistent with empyema. Patient had right-sided pigtail chest tube insertion on 08/12/2021, with evacuation of 1.5 L of purulent pleural fluid. Pleural fluid cultures were positive for beta hemolytic strep group C. Patient has been receiving alteplase, received a dose on 08/12/2021 and again today on 08/13/2021 #2. Persistent right-sided pleural effusion, slight improvement but still of moderate size, and right-sided pneumothorax seen on the computed tomography scan of the 08/19/2021. Patient is status post right thoracotomy with decortication of all 3 right lobes today on 08/20/2021. #3. Former smoker #4. Pleuritic chest pain #5. History of bariatric surgery, with stomach stapling #6. Coronary artery disease #7. BPH #8. COPD #9. Small 5% pneumothorax on postoperative chest x-ray, there is [address] right apical and right basal to wall suction. Resolved Plan: Continue encouraging deep breathing and coughing Vital signs are stable Right-sided chest tubes to water seal No pneumothorax on today's chest x-ray Continue with antibiotics, patient remains on Flagyl and Rocephin Maintain pain control Encourage ambulation We'll continue to follow I have personally seen and examined the patient, performed the documentation and the assessment and plan as written. Number of minutes spent on the visit: [10] Time with Patient: Less than 30
[2021-08-23] MEDS: ACETAMINOPHEN TAB 325 MG TAB PO PRN (14:45)
--- NOTE | 2021-08-23 16:15 | P.PN ---
Progress Note - Text Progress Note Date: 08/23/21 Presenting complaint: Chest pain, shortness of breath Hospital course: I'm rounding for Dr. Beka Phillips. Patient presented to the right empyema. Initiate a pigtail catheter. Multiple rounds of alteplase were done. Subsequently on August 20: Patient underwent right thoracotomy with decortication of all 3 lobes. August 22: Decreased appetite. Epidural: Dislodged last night. Has right-sided to just use. Up in a chair. Tired August 23: Eating better. One chest tube removal from right site. Slight bloody sputum. Breathing stable. Up in a chair. Active Medications Acetaminophen (Acetaminophen Tab 325 Mg Tab) 650 mg PO Q4HR PRN PRN Reason: Fever and/ or mild Pain Last Admin: 08/23/21 14:45 Dose: 650 mg Documented by: Albuterol/Ipratropium (Ipratropium-Albuterol 3 Ml Neb) 3 ml INHALATION RT-Q4H PRN PRN Reason: shortness of breath Last Admin: 08/11/21 11:23 Dose: 3 ml Documented by: Albuterol/Ipratropium (Ipratropium-Albuterol 3 Ml Neb) 3 ml INHALATION RT-QID RAIMUNDO Last Admin: 08/23/21 11:25 Dose: Not Given Documented by: Artificial Tears (Artificial Tears-Hypromellose Drops 15 Ml Btl) 2 drops BOTH EYES QID PRN PRN Reason: Dry Eye(s) Last Admin: 08/20/21 17:05 Dose: 2 drops Documented by: Heparin Sodium (Porcine) (Heparin Sodium,Porcine/Pf 5,000 Unit/0.5 Ml Syringe) 5,000 unit SQ Q8HR RAIMUNDO Last Admin: 08/23/21 09:05 Dose: 5,000 unit Documented by: Hydromorphone HCl (Hydromorphone 0.5 Mg/0.5 Ml Syringe) 0.5 mg IVP Q4HR PRN PRN Reason: Pain Last Admin: 08/22/21 12:36 Dose: 0.5 mg Documented by: Ceftriaxone Sodium 2 gm/ (Sodium Chloride) 50 mls @ 100 mls/hr IVPB Q24HR RAIMUNDO; Protocol Last Admin: 08/23/21 12:50 Dose: 100 mls/hr Documented by: Metronidazole 500 mg/ IV (Solution) 100 mls @ 100 mls/hr IVPB Q8HR RAIMUNDO; Protocol Last Admin: 08/23/21 09:07 Dose: 100 mls/hr Documented by: Sodium Chloride (Saline 0.9%) 500 mls @ 50 mls/hr IV .Q10H [facility] Last Admin: 08/23/21 09:01 Dose: Not Given Documented by: Miscellaneous Information (Pneumonia Protocol [facility] 1 each PO ONCE PRN PRN Reason: Per Protocol Naloxone HCl (Naloxone 0.4 Mg/Ml 1 Ml Vial) 0.2 mg IV Q2M PRN PRN Reason: Opioid Reversal Ondansetron HCl (Ondansetron 4 Mg/2 Ml Vial) 4 mg IVP Q8HR PRN PRN Reason: Nausea And Vomiting Pantoprazole Sodium (Pantoprazole 40 Mg Tablet) 40 mg PO DAILY [facility] Last Admin: 08/23/21 09:07 Dose: 40 mg Documented by: Tramadol HCl (Tramadol 50 Mg Tab) 50 mg PO QID PRN PRN Reason: Pain Last Admin: 08/23/21 09:05 Dose: 50 mg Documented by: On examination: VITAL SIGNS: He 5, 16, 118/74, 99% room air GENERAL APPEARANCE: Sitting up in chair, awake . Right-sided chest tube 1 HEENT: Normal external appearance of nose and ear. Oral cavity normal EYES: Pupils equal. Conjunctiva normal. NECK: JVD not raised. Mass not palpable. RESPIRATORY: Respiratory effort increased. Lungs decreased breath sounds. CARDIOVASCULAR: First and second sounds normal. No edema. ABDOMEN: Soft. Liver and spleen not palpable. No tenderness. No mass palpable. PSYCHIATRY: Alert and oriented x3. Mood and affect normal. INVESTIGATIONS, reviewed in the clinical context: August 22: White count 10.8 hemoglobin 9.8 potassium 4.4 creatinine 0.57 I 16 TIBC 148% saturation 10.65 ferritin 792 B12 584 folate 8.4 Pleural fluid: Beta-hemolytic streptococcus group C and bacteroids Assessment and plan: -Acute hypoxic respiratory failure secondary to pneumonia and empyema: Better Off oxygen -Right-sided pneumonia with empyema from beta-hemolytic streptococcus group C and bacteroids IV ceftriaxone, IV Flagyl -Right-sided empyema: Slow to respond . Pigtail catheter discontinued. Alteplase. Right-sided 2 chest tubes following decortication on August 20.. One chest tube removed. -COPD in a previous smoker DuoNeb -Recreational marijuana use -Bariatric surgery with a history of stomach stapling -Normocytic anemia of chronic disease iron stores, B12 folate: Normal -Hyponatremia. Encourage oral intake -Hypoalbuminemia. Likely acute phase reactant -Full code Continue with IV ceftriaxone IV Flagyl. Other medications to continue. 1 right-sided chest tube removed.
--- NOTE | 2021-08-23 21:09 | P.PN ---
Subjective Progress Note Date: 08/22/21 Principal diagnosis: empyema patient is a 60-year-old male presenting to the hospital for evaluation of increasing shortness of breath and cough has been diagnosed with e mpyema, patient is status post right sided drainage catheter placement, pleural fluid culture be positive for group C strep , the patient right-sided chest pigtail catheter got dislodged and has to be reinserted on 08/16/2021, patient is status post right chest thoracotomy and placement of 2 chest tubes on 08/20/2021 on today's evaluation that is 08/22/2021, the patient continues to be afebrile, the patient is breathing comfortably on room air, the patient chest pain is controlled with the pain medication, the patient denies any worsening cough or sputum production , the patient denies nausea no vomiting no abdominal pain and no diarrhea Objective - Vital Signs Vital signs: Vital Signs Temp 98.3 F 08/22/21 08:25 Pulse 84 08/22/21 11:49 Resp 16 08/22/21 08:25 BP 110/60 08/22/21 08:25 Pulse Ox 95 08/22/21 08:25 Intake & Output 08/21/21 08/22/21 08/22/21 18:59 06:59 18:59 Intake Total 1750 Output Total 830 1590 600 Balance 920 -1590 -600 Intake: IV 630 0.9 NACL 580 Dextrose 5%-0.45% NaCl 1, 50 000 ml @ 50 mls/hr IV . Q20H [facility] Rx#:[id number] Oral 1120 Output: Chest Tube Drainage 285 90 Chest Tube Right - A 95 30 Chest Tube Right - B 190 60 Urine 545 1500 600 Coude 300 Other: Voiding Method Indwelling Catheter Indwelling Catheter Indwelling Catheter ABP, PAP, CO, CI - Last Documented Arterial Blood Pressure 97/61 - Exam GENERAL DESCRIPTION: Middle-aged male lying in bed in no distress RESPIRATORY SYSTEM: Unlabored breathing , decreased breath sounds at bases HEART: S1 S2 regular rate and rhythm , ABDOMEN: Soft , no tenderness EXTREMITIES: No edema feet - Labs CBC & Chem 7: 08/22/21 07:11 08/22/21 07:11 Labs: Abnormal Lab Results - Last 24 Hours (Table) 08/22/21 08/22/21 Range/Units 07:11 07:11 WBC 10.8 H (3.8-10.6) k/uL RBC 3.39 L (4.30-5.90) m/uL Hgb 9.8 L (13.0-17.5) gm/dL Hct 31.6 L (39.0-53.0) % Plt Count 594 H (150-450) k/uL Neutrophils # 7.9 H (1.3-7.7) k/uL Sodium 131 L (137-145) mmol/L Creatinine 0.57 L (0.66-1.25) mg/dL Calcium 7.7 L (8.4-10.2) mg/dL Total Protein 4.9 L (6.3-8.2) g/dL Albumin 2.1 L (3.5-5.0) g/dL Microbiology - Last 24 Hours (Table) 08/20/21 13:00 Gram Stain - Preliminary Lung - Right Tissue Culture - Preliminary 08/16/21 15:23 Anaerobic Culture - Final Pleural Fluid Bacteroides thetaiotaomicron Assessment and Plan (1) Empyema Current Visit: Yes Status: Acute Code(s): J86.9 - PYOTHORAX WITHOUT FISTULA SNOMED Code(s): 109251104 Plan: 1patient presented to hospital with right-sided empyema in this patient status post chest tube placement and the culture grew group C strep and Bacteroides species patient is subsequently status post right chest thoracotomy with repeat cultures currently growing anaerobic gram-negative bacilli likely Bacteroides species with final ID pending 2patient to continue with Rocephin and Flagyl and will monitor clinical course closely Time with Patient: Less than 30
--- NOTE | 2021-08-23 21:11 | P.PN ---
Subjective Progress Note Date: 08/23/21 Principal diagnosis: empyema patient is a 60-year-old male presenting to the hospital for evaluation of increasing shortness of breath and cough has been diagnosed with e mpyema, patient is status post right sided drainage catheter placement, pleural fluid culture be positive for group C strep , the patient right-sided chest pigtail catheter got dislodged and has to be reinserted on 08/16/2021, patient is status post right chest thoracotomy and placement of 2 chest tubes on 08/20/2021, 1 of the chest tube was removed on 08/23/2021 on today's evaluation that is 08/23/2021, the patient denies any fever or any chills, the patient is breathing comfortably on room air, the patient denies chest pain, the patient denies any worsening cough or sputum production , the patient denies nausea no vomiting no abdominal pain and no diarrhea Objective - Vital Signs Vital signs: Vital Signs Temp 98.3 F 08/23/21 09:00 Pulse 95 08/23/21 12:00 Resp 16 08/23/21 12:00 BP 118/79 08/23/21 12:00 Pulse Ox 95 08/23/21 12:00 Intake & Output 08/22/21 08/23/21 08/23/21 18:59 06:59 18:59 Intake Total 240 Output Total 660 570 Balance -420 -570 Intake: Oral 240 Output: Chest Tube Drainage 60 20 Chest Tube Right - A 20 0 Chest Tube Right - B 40 20 Urine 600 550 Other: Voiding Method Indwelling Catheter Urinal ABP, PAP, CO, CI - Last Documented Arterial Blood Pressure 97/61 - Exam GENERAL DESCRIPTION: Middle-aged male lying in bed in no distress RESPIRATORY SYSTEM: Unlabored breathing , decreased breath sounds at bases HEART: S1 S2 regular rate and rhythm , ABDOMEN: Soft , no tenderness EXTREMITIES: No edema feet - Labs CBC & Chem 7: 08/22/21 07:11 08/22/21 07:11 Labs: Abnormal Lab Results - Last 24 Hours (Table) 08/22/21 Range/Units 07:11 Iron 16 L (65-175) ug/dL TIBC 148 L (228-460) ug/dL % Saturation 10.65 L (15.00-50.00) Transferrin 106.0 L (204.0-354.0) mg/dL Ferritin 792.0 H (22.0-322.0) ng/mL Microbiology - Last 24 Hours (Table) 08/20/21 13:00 Gram Stain - Preliminary Lung - Right Tissue Culture - Preliminary 08/20/21 13:00 Anaerobic Culture - Preliminary Lung - Right Assessment and Plan (1) Empyema Current Visit: Yes Status: Acute Code(s): J86.9 - PYOTHORAX WITHOUT FISTULA SNOMED Code(s): 805760051 Plan: 1patient presented to hospital with right-sided empyema in this patient status post chest tube placement and the culture grew group C strep and Bacteroides s pecies patient is subsequently status post right chest thoracotomy with repeat cultures grew Bacteroides species 2patient is currently being treated with Rocephin and Flagyl and seemed to have shown some clinical improvement, will continue with Rocephin and Flagyl and will monitor clinical course closely Time with Patient: Less than 30
[2021-08-23] MEDS: HYDROmorphone 0.5 MG/0.5 ML SYRINGE IVP PRN (21:52)
[2021-08-24] MEDS: traMADol 50 MG TAB PO PRN ×4 (01:33→23:43)
[2021-08-24] MEDS: HYDROmorphone 0.5 MG/0.5 ML SYRINGE IVP PRN (04:11)
[2021-08-24] MEDS: SODIUM CHLORIDE 0.9% 500 ML 500 ML IV SCH (06:08)
--- NOTE | 2021-08-24 07:14 | XR ---
EXAMINATION TYPE: XR chest 2V DATE OF EXAM: 08/24/2021 6:26 AM COMPARISON:Chest radiograph from one day prior. TECHNIQUE: XR chest 2V Frontal and lateral views of the chest. CLINICAL INDICATION:Male, 60 years old with history of Postthoracotomy; FINDINGS: Lungs/Pleura: Similar small right pleural effusion. No evidence of pneumothorax. Stable nodular densi ty in the left lung base. Pulmonary vascularity: Unremarkable. Heart/mediastinum: Cardiomediastinal silhouette is unremarkable. Musculoskeletal: No acute osseous pathology. Other findings: Subcutaneous emphysema over the right shoulder. Lines/Tubes: Right thoracotomy tube is present without evidence of pneumothorax. IMPRESSION: 1. Stable interval right thoracotomy tube without evidence of pneumothorax. Small right pleural effus ion. 2. Similar subcutaneous emphysema over the right shoulder.
[2021-08-24] MEDS: IPRATROPIUM-ALBUTEROL 3 ML NEB INHALATION SCH ×4 (07:17→19:31)
--- NOTE | 2021-08-24 08:01 | P.PN ---
Subjective Progress Note Date: 08/24/21 Principal diagnosis: Right lower lobe pneumonia, parapneumonic effusion, thoracentesis fluid analysis consistent with empyema. Previous medical history of tobacco dependence with cessation 3 years ago, daily EtOH use, occasional marijuana use, previous stomach stapling POD #4 bronchoscopy, right thoracotomy with decortication of all 3 lobes The patient was seen and examined this morning sitting up in a recliner this morning on the cardiac stepdown unit. Right-sided basilar chest tubes remains present to waterseal, no air leaks present, draining minimal serous drainage. Currently on room air, actively using incentive spirometry and achieving 2250 mL. Remains on IV antibiotics. No other new concerns. Objective - Vital Signs Vital signs: Vital Signs Temp 97.6 F 08/24/21 04:00 Pulse 71 08/24/21 04:00 Resp 16 08/24/21 04:00 BP 110/67 08/24/21 04:00 Pulse Ox 96 08/24/21 04:00 Intake & Output 08/23/21 08/24/21 08/24/21 18:59 06:59 18:59 Intake Total 840 Output Total 0 Balance 840 0 Intake: Oral 840 Output: Chest Tube Drainage 0 Chest Tube Right - B 0 Other: Voiding Method Urinal # Voids 3 2 ABP, PAP, CO, CI - Last Documented Arterial Blood Pressure 97/61 - Exam CONSTITUTIONAL: Appears comfortable, cooperative, no acute distress RESPIRATORY: Lungs sounds diminished bilaterally. Respirations even, nonlabored. Currently on room air with oxygen saturation 96%. Able to achieve 2250 mL on incentive spirometry. Strong cough. CARDIOVASCULAR: S1, S2 present. Regular rate and rhythm, sinus rhythm on telemetry. Palpable peripheral pulses bilaterally. No edema present. No calf pain or tenderness noted. GASTROINTESTINAL: Abdomen soft, nontender, nondistended. Active bowel sounds present 4 quadrants. Tolerating diet GENITOURINARY: Continues to void INTEGUMENTARY: Skin is warm and dry with evidence of good perfusion. Thoracic incision well approximated and covered with dry intact dressing. NEUROLOGIC: Cranial nerves II through XII intact MUSKULOSKELETAL: Able to move all extremities, strength equal bilaterally PSYCHIATRIC: Alert and oriented to person place and time, appropriate affect, intact judgment and insight INVASIVE LINES AND TUBES: Right pleural chest tube present to water seal, no air leak present. Basilar pleural chest tube with no drainage overnight, 20 mL in the last 24 hours. - Allied health notes Allied health notes reviewed: nursing - Labs CBC & Chem 7: 08/22/21 07:11 08/22/21 07:11 Labs: Microbiology - Last 24 Hours (Table) 08/09/21 14:20 Fungal Culture - Preliminary Pleural Fluid 08/20/21 13:00 Gram Stain - Preliminary Lung - Right Tissue Culture - Preliminary - Imaging and Cardiology Chest x-ray: report reviewed, image reviewed Assessment and Plan Assessment: 1. Right lower lobe pneumonia, parapneumonic effusion, thoracentesis fluid analysis consistent with empyema, status post bronchoscopy and surgical decortication 2. Shortness of breath, right-sided chest pain secondary to above 3. History of tobacco dependence with cessation 3 years ago 4. Daily EtOH use 5. Occasional marijuana use 6. Previous stomach stapling 7. Family history of heart and lung disease Plan: 1. Will discontinue basilar chest tube 2. Encourage incentive spirometry use 10 times every hour while awake 3. Continue with antibiotics per infectious disease 4. Increase activity as tolerated 5. Pain control per current medication regimen 6. Repeat CXR tomorrow morning unless plan is for DC to home today, then CXR before discharge. If stable will sign off. Patient will follow up in our office 08/30/21 7. Medical management of other comorbidities per primary care service
[2021-08-24] MEDS: PANTOPRAZOLE 40 MG TABLET PO SCH (08:09)
[2021-08-24] MEDS: metroNIDAZOLE-NS PMX 500 MG in SALINE 1 100ML.BAG IVPB SCH ×3 (08:09→23:43)
[2021-08-24] MEDS: HEPARIN SODIUM,PORCINE/PF 5,000 UNIT/0.5 ML SYRINGE SQ SCH ×3 (08:09→23:42)
[2021-08-24 09:53] LABS: HCT 31.3 % (39.0-53.0); HGB 9.6 gm/dL (13.0-17.5); Hypochromasia Slight; MCH 28.4 pg (25.0-35.0); MCHC 30.8 g/dL (31.0-37.0); MCV 92.3 fL (80.0-100.0); Mean Platelet Volume 6.9; Platelet Count 634 k/uL (150-450); RBC 3.39 m/uL (4.30-5.90); RDW 14.8 % (11.5-15.5); WBC 6.3 k/uL (3.8-10.6)
[2021-08-24 10:02] LABS: African American GFR (CKD) >90 (>60 ml/min/1.73 sqM); Anion Gap 2 mmol/L; Blood Urea Nitrogen 12 mg/dL (9-20); Calcium 7.7 mg/dL (8.4-10.2); Carbon Dioxide 29 mmol/L (22-30); Chloride 99 mmol/L (98-107); Glucose 96 mg/dL (74-99); Non-African American GFR(CKD) >90 (>60 ml/min/1.73 sqM); Potassium 4.3 mmol/L (3.5-5.1); Sodium 130 mmol/L (137-145)
--- NOTE | 2021-08-24 12:12 | P.PN ---
Subjective Progress Note Date: 08/24/21 The patient is seen today 08/24/2021 in follow-up on the selective care unit. He is awake and alert in no acute distress. He's been up ambulating in the hallway. Chest x-ray revealed stable interval right thoracotomy tube with no evidence of pneumothorax. Small right effusion. Subsequently, his right-sided chest tube was discontinued this morning per CT services. Follow-up chest x-ray pending. He is maintaining good O2 saturations in the 90s on room air. White count 6.3. Hemoglobin 9.6. Platelets 634. Sodium 130. Potassium 4.3. Bicarb 29. BUN 12. Creatinine 0.55. He continues working well with the incentive spirometer. He remains on bronchodilators. Antibiotics in the form of ceft riaxone and Flagyl. Heparin for DVT prophylaxis. Objective - Vital Signs Vital signs: Vital Signs Temp 98.3 F 08/24/21 11:45 Pulse 75 08/24/21 11:45 Resp 16 08/24/21 11:45 BP 117/73 08/24/21 08:23 Pulse Ox 94 L 08/24/21 11:45 Intake & Output 08/23/21 08/24/21 08/24/21 18:59 06:59 18:59 Intake Total 840 410 Output Total 0 0 Balance 840 0 410 Intake: IV 170 Invasive Line 1 10 Invasive Line 8 10 cefTRIAXone 2 gm In 50 Sodium Chloride 0.9% 50 ml @ 100 mls/hr IVPB Q24HR RAIMUNDO Rx#:[id number] metroNIDAZOLE-NS PMX 500 100 mg In Saline 1 100ml.bag @ 100 mls/hr IVPB Q8HR RAIMUNDO Rx#:[id number] Oral 840 240 Output: Chest Tube Drainage 0 0 Chest Tube Right - B 0 0 Other: Voiding Method Urinal Toilet Urinal # Voids 3 2 ABP, PAP, CO, CI - Last Documented Arterial Blood Pressure 97/61 - Exam GENERAL EXAM: Alert, active, pleasant 60-year-old male patient, on room air, comfortable in no apparent distress. HEAD: Normocephalic. EYES: Normal reaction of pupils, equal size. NOSE: Clear with pink turbinates. THROAT: No erythema or exudates. NECK: No masses, no JVD. CHEST: No chest wall deformity. Right sided chest tube removed. LUNGS: Equal air entry with crackles in the right lung base. Diminished. CVS: S1 and S2 normal with no audible murmur, regular rhythm. ABDOMEN: No hepatosplenomegaly, normal bowel sounds, no guarding or rigidity. SPINE: No scoliosis or deformity SKIN: No rashes CENTRAL NERVOUS SYSTEM: No focal deficits, tone is normal in all 4 extremities. EXTREMITIES: There is no peripheral edema. No clubbing, no cyanosis. Peripheral pulses are intact. - Labs CBC & Chem 7: 08/24/21 09:08 08/24/21 09:08 Labs: Abnormal Lab Results - Last 24 Hours (Table) 08/24/21 08/24/21 Range/Units 09:08 09:08 RBC 3.39 L (4.30-5.90) m/uL Hgb 9.6 L (13.0-17.5) gm/dL Hct 31.3 L (39.0-53.0) % MCHC 30.8 L (31.0-37.0) g/dL Plt Count 634 H (150-450) k/uL Sodium 130 L (137-145) mmol/L Creatinine 0.55 L (0.66-1.25) mg/dL Calcium 7.7 L (8.4-10.2) mg/dL Microbiology - Last 24 Hours (Table) 08/20/21 13:00 Gram Stain - Final Lung - Right Tissue Culture - Final 08/09/21 14:20 Fungal Culture - Preliminary Pleural Fluid Assessment and Plan Assessment: 1 Acute hypoxemic respiratory failure secondary to community acquired pneumonia, right lower lobe, with parapneumonic effusion/empyema. Patient had diagnostic right-sided thoracentesis done by interventional radiology, and pleural fluid analysis was consistent with empyema. Status post bronchoscopy and surgical decortication, chest tube placement. Continued on ceftriaxone and Flagyl. Improved and chest tube was removed today per CT services. Follow-up chest x- ray in a.m.. Stable and on room air 2 Previous history of tobacco use. 3 Pleuritic chest pain, secondary to pneumonia within the right lung. 4 Previous bariatric surgery with stomach stapling. 5 History of CAD. 6 History of BPH. 7 History of COPD. Plan: The patient was seen and evaluated Chest x-ray and labs reviewed Chest tube removed today per CT services Follow up chest x-ray in a.m. Continue ceftriaxone and Flagyl for now Continues to work well with the incentive spirometer Increase his activity as tolerated We will continue to follow I have personally seen and examined the patient, performed the documentation and the assessment and plan as written. Number of minutes spent on the visit: 10.
--- NOTE | 2021-08-24 16:25 | P.PN ---
Progress Note - Text Progress Note Date: 08/24/21 Presenting complaint: Chest pain, shortness of breath Hospital course: I'm rounding for Dr. Beka Phillips. Patient presented to the right empyema. Initiate a pigtail catheter. Multiple rounds of alteplase were done. Subsequently on August 20: Patient underwent right thoracotomy with decortication of all 3 lobes. August 22: Decreased appetite. Epidural: Dislodged last night. Has right-sided to just use. Up in a chair. Tired August 23: Eating better. One chest tube removal from right site. Slight bloody sputum. Breathing stable. Up in a chair. August 24: Second chest tube was removed from the right side. On IV ceftriaxone and Flagyl. Breathing better. Oral intake fair. Home antibiotics are being arranged per ID. Active Medications Acetaminophen (Acetaminophen Tab 325 Mg Tab) 650 mg PO Q4HR PRN PRN Reason: Fever and/ or mild Pain Last Admin: 08/23/21 14:45 Dose: 650 mg Documented by: Albuterol/Ipratropium (Ipratropium-Albuterol 3 Ml Neb) 3 ml INHALATION RT-Q4H PRN PRN Reason: shortness of breath Last Admin: 08/11/21 11:23 Dose: 3 ml Documented by: Albuterol/Ipratropium (Ipratropium-Albuterol 3 Ml Neb) 3 ml INHALATION RT-QID RAIMUNDO Last Admin: 08/24/21 15:36 Dose: Not Given Documented by: Artificial Tears (Artificial Tears-Hypromellose Drops 15 Ml Btl) 2 drops BOTH EYES QID PRN PRN Reason: Dry Eye(s) Last Admin: 08/20/21 17:05 Dose: 2 drops Documented by: Heparin Sodium (Porcine) (Heparin Sodium,Porcine/Pf 5,000 Unit/0.5 Ml Syringe) 5,000 unit SQ Q8HR RAIMUNDO Last Admin: 08/24/21 14:53 Dose: 5,000 unit Documented by: Hydromorphone HCl (Hydromorphone 0.5 Mg/0.5 Ml Syringe) 0.5 mg IVP Q4HR PRN PRN Reason: Pain Last Admin: 08/24/21 04:11 Dose: 0.5 mg Documented by: Ceftriaxone Sodium 2 gm/ (Sodium Chloride) 50 mls @ 100 mls/hr IVPB Q24HR RAIMUNDO; Protocol Last Admin: 08/24/21 08:09 Dose: 100 mls/hr Documented by: Metronidazole 500 mg/ IV (Solution) 100 mls @ 100 mls/hr IVPB Q8HR [facility]; Protocol Last Admin: 08/24/21 14:53 Dose: 100 mls/hr Documented by: Miscellaneous Information (Pneumonia Protocol Utilized 1 Each Misc) 1 each PO ONCE PRN PRN Reason: Per Protocol Naloxone HCl (Naloxone 0.4 Mg/Ml 1 Ml Vial) 0.2 mg IV Q2M PRN PRN Reason: Opioid Reversal Ondansetron HCl (Ondansetron 4 Mg/2 Ml Vial) 4 mg IVP Q8HR PRN PRN Reason: Nausea And Vomiting Pantoprazole Sodium (Pantoprazole 40 Mg Tablet) 40 mg PO DAILY [facility] Last Admin: 08/24/21 08:09 Dose: 40 mg Documented by: Tramadol HCl (Tramadol 50 Mg Tab) 50 mg PO QID PRN PRN Reason: Pain Last Admin: 08/24/21 14:53 Dose: 50 mg Documented by: On examination: VITAL SIGNS: 8.5, 87, 16, 117/73, 96% room air GENERAL APPEARANCE: Sitting up in bed, awake . Chest tube removed HEENT: Normal external appearance of nose and ear. Oral cavity normal EYES: Pupils equal. Conjunctiva normal. NECK: JVD not raised. Mass not palpable. RESPIRATORY: Respiratory effort normal. decreased breath sounds. CARDIOVASCULAR: First and second sounds normal. No edema. ABDOMEN: Soft. Liver and spleen not palpable. No tenderness. No mass palpable. PSYCHIATRY: Alert and oriented x3. Mood and affect normal. INVESTIGATIONS, reviewed in the clinical context: August 24: White count 6.8. Globin 9.6 sodium 1:30 potassium 4.3 creatinine 0.55 August 22: White count 10.8 hemoglobin 9.8 potassium 4.4 creatinine 0.57 I 16 TIBC 148% saturation 10.65 ferritin 792 B12 584 folate 8.4 Pleural fluid: Beta-hemolytic streptococcus group C and bacteroids Assessment and plan: -Acute hypoxic respiratory failure secondary to pneumonia and empyema: Better Off oxygen -Right-sided pneumonia with empyema from beta-hemolytic streptococcus group C and bacteroids IV ceftriaxone, IV Flagyl -Right-sided empyema: Slow to respond . Pigtail catheter discontinued. Alteplase. Right-sided 2 chest tubes following decortication on August 20.. Both chest tubes removed -COPD in a previous smoker DuoNeb -Recreational marijuana use -Bariatric surgery with a history of stomach stapling -Normocytic anemia of chronic disease iron stores, B12 folate: Normal -Hyponatremia. Encourage oral intake -Hypoalbuminemia. Likely acute phase reactant -Full code Continue with IV ceftriaxone IV Flagyl. Home antibiotics are being arranged by ID. Has a PICC line. Discussed with patient.
[2021-08-24] MEDS: ACETAMINOPHEN TAB 325 MG TAB PO PRN (20:28)
--- NOTE | 2021-08-24 22:14 | P.PN ---
Subjective Progress Note Date: 08/24/21 Principal diagnosis: empyema patient is a 60-year-old male presenting to the hospital for evaluation of increasing shortness of breath and cough has been diagnosed with e mpyema, patient is status post right sided drainage catheter placement, pleural fluid culture be positive for group C strep , the patient right-sided chest pigtail catheter got dislodged and has to be reinserted on 08/16/2021, patient is status post right chest thoracotomy and placement of 2 chest tubes on 08/20/2021, 1 of the chest tube was removed on 08/23/2021, the second chest tube was removed 08/24/2021 on today's evaluation that is 08/24/2021, the patient denies any fever or chills, the patient is breathing comfortably on room air, the patient denies chest pain, the patient did have mild dry cough , the patient denies nausea no vomiting no abdominal pain and no diarrhea Objective - Vital Signs Vital signs: Vital Signs Temp 98.3 F 08/24/21 11:45 Pulse 75 08/24/21 11:45 Resp 16 08/24/21 11:45 BP 117/73 08/24/21 08:23 Pulse Ox 94 L 08/24/21 11:45 Intake & Output 08/23/21 08/24/21 08/24/21 18:59 06:59 18:59 Intake Total 840 410 Output Total 0 0 Balance 840 0 410 Intake: IV 170 Invasive Line 1 10 Invasive Line 8 10 cefTRIAXone 2 gm In 50 Sodium Chloride 0.9% 50 ml @ 100 mls/hr IVPB Q24HR RAIMUNDO Rx#:[id number] metroNIDAZOLE-NS PMX 500 100 mg In Saline 1 100ml.bag @ 100 mls/hr IVPB Q8HR RAIMUNDO Rx#:[id number] Oral 840 240 Output: Chest Tube Drainage 0 0 Chest Tube Right - B 0 0 Other: Voiding Method Urinal Toilet Urinal # Voids 3 2 ABP, PAP, CO, CI - Last Documented Arterial Blood Pressure 97/61 - Exam GENERAL DESCRIPTION: Middle-aged male lying in bed in no distress RESPIRATORY SYSTEM: Unlabored breathing , decreased breath sounds at bases HEART: S1 S2 regular rate and rhythm , ABDOMEN: Soft , no tenderness EXTREMITIES: No edema feet - Labs CBC & Chem 7: 08/24/21 09:08 08/24/21 09:08 Labs: Abnormal Lab Results - Last 24 Hours (Table) 08/24/21 08/24/21 Range/Units 09:08 09:08 RBC 3.39 L (4.30-5.90) m/uL Hgb 9.6 L (13.0-17.5) gm/dL Hct 31.3 L (39.0-53.0) % MCHC 30.8 L (31.0-37.0) g/dL Plt Count 634 H (150-450) k/uL Sodium 130 L (137-145) mmol/L Creatinine 0.55 L (0.66-1.25) mg/dL Calcium 7.7 L (8.4-10.2) mg/dL Microbiology - Last 24 Hours (Table) 08/20/21 13:00 Gram Stain - Final Lung - Right Tissue Culture - Final 08/09/21 14:20 Fungal Culture - Preliminary Pleural Fluid Assessment and Plan (1) Empyema Current Visit: Yes Status: Acute Code(s): J86.9 - PYOTHORAX WITHOUT FISTULA SNOMED Code(s): 122729584 Plan: 1patient presented to hospital with right-sided empyema in this patient status post chest tube placement and the culture grew group C strep and Bacteroides species patient is subsequently status post right chest thoracotomy with repeat cultures grew Bacteroides species 2plan is to continue with Rocephin and Flagyl 2-3 weeks on discharge and close outpatient follow-up Time with Patient: Less than 30
[2021-08-25] MEDS: ACETAMINOPHEN TAB 325 MG TAB PO PRN ×3 (03:24→20:10)
[2021-08-25] MEDS: traMADol 50 MG TAB PO PRN (06:37)
--- NOTE | 2021-08-25 07:52 | P.PN ---
Subjective Progress Note Date: 08/25/21 Principal diagnosis: Right lower lobe pneumonia, parapneumonic effusion, thoracentesis fluid analysis consistent with empyema. Previous medical history of tobacco dependence with cessation 3 years ago, daily EtOH use, occasional marijuana use, previous stomach stapling POD #5 bronchoscopy, right thoracotomy with decortication of all 3 lobes The patient was seen and examined this morning sitting up in a recliner this morning on the cardiac stepdown unit. Currently on room air, actively using incentive spirometry and achieving 2250 mL. Remains on IV antibiotics. Anticip ates discharge to home tomorrow. No other new concerns. Objective - Vital Signs Vital signs: Vital Signs Temp 98.5 F 08/24/21 20:00 Pulse 82 08/25/21 03:54 Resp 18 08/25/21 03:54 BP 113/81 08/25/21 03:54 Pulse Ox 94 L 08/25/21 03:54 Intake & Output 08/24/21 08/25/21 08/25/21 18:59 06:59 18:59 Intake Total 646 100 Output Total 0 Balance 646 100 Intake: IV 170 100 Invasive Line 1 10 Invasive Line 8 10 cefTRIAXone 2 gm In 50 Sodium Chloride 0.9% 50 ml @ 100 mls/hr IVPB Q24HR RAIMUNDO Rx#:[id number] metroNIDAZOLE-NS PMX 500 100 100 mg In Saline 1 100ml.bag @ 100 mls/hr IVPB Q8HR RAIMUNDO Rx#:[id number] Oral 476 Output: Chest Tube Drainage 0 Chest Tube Right - B 0 Other: Voiding Method Toilet Toilet Urinal Urinal # Voids 1 ABP, PAP, CO, CI - Last Documented Arterial Blood Pressure 97/61 - Exam CONSTITUTIONAL: Appears comfortable, cooperative, no acute distress RESPIRATORY: Lungs sounds diminished bilaterally. Respirations even, no nlabored. Currently on room air with oxygen saturation 94%. Able to achieve 2250 mL on incentive spirometry. Strong cough. CARDIOVASCULAR: S1, S2 present. Regular rate and rhythm, sinus rhythm on telemetry. Palpable peripheral pulses bilaterally. No edema present. No calf pain or tenderness noted. GASTROINTESTINAL: Abdomen soft, nontender, nondistended. Active bowel sounds present 4 quadrants. Tolerating diet GENITOURINARY: Continues to void INTEGUMENTARY: Skin is warm and dry with evidence of good perfusion. Thoracic incision well approximated, Steri-Strips present and intact NEUROLOGIC: Cranial nerves II through XII intact MUSKULOSKELETAL: Able to move all extremities, strength equal bilaterally PSYCHIATRIC: Alert and oriented to person place and time, appropriate affect, intact judgment and insight - Allied health notes Allied health notes reviewed: nursing - Labs CBC & Chem 7: 08/24/21 09:08 08/24/21 09:08 Labs: Abnormal Lab Results - Last 24 Hours (Table) 08/24/21 08/24/21 Range/Units 09:08 09:08 RBC 3.39 L (4.30-5.90) m/uL Hgb 9.6 L (13.0-17.5) gm/dL Hct 31.3 L (39.0-53.0) % MCHC 30.8 L (31.0-37.0) g/dL Plt Count 634 H (150-450) k/uL Sodium 130 L (137-145) mmol/L Creatinine 0.55 L (0.66-1.25) mg/dL Calcium 7.7 L (8.4-10.2) mg/dL Microbiology - Last 24 Hours (Table) 08/20/21 13:00 Anaerobic Culture - Final Lung - Right 08/20/21 13:00 Gram Stain - Final Lung - Right Tissue Culture - Final - Imaging and Cardiology Chest x-ray: image reviewed Assessment and Plan Assessment: 1. Right lower lobe pneumonia, parapneumonic effusion, thoracentesis fluid analysis consistent with empyema, status post bronchoscopy and surgical decortication 2. Shortness of breath, right-sided chest pain secondary to above 3. History of tobacco dependence with cessation 3 years ago 4. Daily EtOH use 5. Occasional marijuana use 6. Previous stomach stapling 7. Family history of heart and lung disease Plan: 1. Chest x-ray reviewed. Patient may be discharged to home from our standpoint. He has a follow-up appointment in our office 08/30/2021 2. Encourage incentive spirometry use 10 times every hour while awake 3. Continue with antibiotics per infectious disease 4. Increase activity as tolerated 5. Pain control per current medication regimen 6. Medical management of other comorbidities per primary care service
[2021-08-25] MEDS: IPRATROPIUM-ALBUTEROL 3 ML NEB INHALATION SCH ×4 (08:08→19:02)
[2021-08-25] MEDS: HEPARIN SODIUM,PORCINE/PF 5,000 UNIT/0.5 ML SYRINGE SQ SCH ×3 (08:27→22:57)
[2021-08-25] MEDS: metroNIDAZOLE-NS PMX 500 MG in SALINE 1 100ML.BAG IVPB SCH ×3 (08:27→22:57)
[2021-08-25] MEDS: PANTOPRAZOLE 40 MG TABLET PO SCH (08:27)
--- NOTE | 2021-08-25 09:21 | XR ---
EXAMINATION TYPE: XR chest 2V DATE OF EXAM: 08/25/2021 COMPARISON: 08/24/2021 INDICATION: Post chest tube removal TECHNIQUE: Single frontal view of the chest is obtained. FINDINGS: The heart size is normal. The pulmonary vasculature is normal. There is a small to moderate right pleural effusion. Subcutaneous emphysema is over the right apex. N o pneumothorax is evident. Right-sided chest tube is been removed. Small granuloma may be at the left base. Follow-up exams to confirm stability over the course of 2 ye ars is recommended. IMPRESSION: 1. Small to moderate right pleural fluid stable. 2. No pneumothorax post chest tube removal. Follow-up can be performed as clinically indicated.
--- NOTE | 2021-08-25 14:46 | P.PN ---
Progress Note - Text Progress Note Date: 08/25/21 Presenting complaint: Chest pain, shortness of breath Hospital course: I'm rounding for Dr. Beka Phillips. Patient presented to the right empyema. Initiate a pigtail catheter. Multiple rounds of alteplase were done. Subsequently on August 20: Patient underwent right thoracotomy with decortication of all 3 lobes. August 22: Decreased appetite. Epidural: Dislodged last night. Has right-sided to just use. Up in a chair. Tired August 23: Eating better. One chest tube removal from right site. Slight bloody sputum. Breathing stable. Up in a chair. August 24: Second chest tube was removed from the right side. On IV ceftriaxone and Flagyl. Breathing better. Oral intake fair. Home antibiotics are being arranged per ID. August 25: Sitting up or chair. Eating better. Oral intake good. Awaiting home antibiotics to be arranged.. Ambulating. Active Medications Acetaminophen (Acetaminophen Tab 325 Mg Tab) 650 mg PO Q4HR PRN PRN Reason: Fever and/ or mild Pain Last Admin: 08/25/21 11:24 Dose: 650 mg Documented by: Albuterol/Ipratropium (Ipratropium-Albuterol 3 Ml Neb) 3 ml INHALATION RT-Q4H PRN PRN Reason: shortness of breath Last Admin: 08/11/21 11:23 Dose: 3 ml Documented by: Albuterol/Ipratropium (Ipratropium-Albuterol 3 Ml Neb) 3 ml INHALATION RT-QID RAIMUNDO Last Admin: 08/25/21 11:18 Dose: Not Given Documented by: Artificial Tears (Artificial Tears-Hypromellose Drops 15 Ml Btl) 2 drops BOTH EYES QID PRN PRN Reason: Dry Eye(s) Last Admin: 08/20/21 17:05 Dose: 2 drops Documented by: Heparin Sodium (Porcine) (Heparin Sodium,Porcine/Pf 5,000 Unit/0.5 Ml Syringe) 5,000 unit SQ Q8HR RAIMUNDO Last Admin: 08/25/21 08:27 Dose: 5,000 unit Documented by: Hydromorphone HCl (Hydromorphone 0.5 Mg/0.5 Ml Syringe) 0.5 mg IVP Q4HR PRN PRN Reason: Pain Last Admin: 08/24/21 04:11 Dose: 0.5 mg Documented by: Ceftriaxone Sodium 2 gm/ (Sodium Chloride) 50 mls @ 100 mls/hr IVPB Q24HR [facility]; Protocol Last Admin: 08/25/21 08:27 Dose: 100 mls/hr Documented by: Metronidazole 500 mg/ IV (Solution) 100 mls @ 100 mls/hr IVPB Q8HR [facility]; Protocol Last Admin: 08/25/21 08:27 Dose: 100 mls/hr Documented by: Miscellaneous Information (Pneumonia Protocol Utilized 1 [facility]) 1 each PO ONCE PRN PRN Reason: Per Protocol Naloxone HCl (Naloxone 0.4 Mg/Ml 1 Ml Vial) 0.2 mg IV Q2M PRN PRN Reason: Opioid Reversal Ondansetron HCl (Ondansetron 4 Mg/2 Ml Vial) 4 mg IVP Q8HR PRN PRN Reason: Nausea And Vomiting Pantoprazole Sodium (Pantoprazole 40 Mg Tablet) 40 mg PO DAILY [facility] Last Admin: 08/25/21 08:27 Dose: 40 mg Documented by: Tramadol HCl (Tramadol 50 Mg Tab) 50 mg PO QID PRN PRN Reason: Pain Last Admin: 08/25/21 06:37 Dose: 50 mg Documented by: On examination: VITAL SIGNS: 98.1, 75, 18, 122/81, 97% room air GENERAL APPEARANCE: Sitting up in bed, awake . HEENT: Normal external appearance of nose and ear. Oral cavity normal EYES: Pupils equal. Conjunctiva normal. NECK: JVD not raised. Mass not palpable. RESPIRATORY: Respiratory effort normal. decreased breath sounds. CARDIOVASCULAR: First and second sounds normal. No edema. ABDOMEN: Soft. Liver and spleen not palpable. No tenderness. No mass palpable. PSYCHIATRY: Alert and oriented x3. Mood and affect normal. INVESTIGATIONS, reviewed in the clinical context: August 24: White count 6.8. Globin 9.6 sodium 1:30 potassium 4.3 creatinine 0.55 August 22: White count 10.8 hemoglobin 9.8 potassium 4.4 creatinine 0.57 I 16 TIBC 148% saturation 10.65 ferritin 792 B12 584 folate 8.4 Pleural fluid: Beta-hemolytic streptococcus group C and bacteroids Assessment and plan: -Acute hypoxic respiratory failure secondary to pneumonia and empyema: Better Off oxygen -Right-sided pneumonia with empyema from beta-hemolytic streptococcus group C and bacteroids IV ceftriaxone, IV Flagyl -Right-sided empyema: Slow to respond . Pigtail catheter discontinued. Alteplase. Right-sided 2 chest tubes following decortication on August 20.. Both chest tubes removed -COPD in a previous smoker DuoNeb -Recreational marijuana use -Bariatric surgery with a history of stomach stapling -Normocytic anemia of chronic disease iron stores, B12 folate: Normal -Hyponatremia. Encourage oral intake -Hypoalbuminemia. Likely acute phase reactant -Full code Continue with IV ceftriaxone IV Flagyl. Home antibiotics are being arranged by ID. continue the medications. Hopefully discharge tomorrow.
--- NOTE | 2021-08-25 22:42 | P.PN ---
Subjective Progress Note Date: 08/25/21 Principal diagnosis: empyema patient is a 60-year-old male presenting to the hospital for evaluation of increasing shortness of breath and cough has been diagnosed with e mpyema, patient is status post right sided drainage catheter placement, pleural fluid culture be positive for group C strep , the patient right-sided chest pigtail catheter got dislodged and has to be reinserted on 08/16/2021, patient is status post right chest thoracotomy and placement of 2 chest tubes on 08/20/2021, 1 of the chest tube was removed on 08/23/2021, the second chest tube was removed 08/24/2021 on today's evaluation that is 08/25/2021, the patient remains to be afebrile, the patient is breathing comfortably on room air, the patient denies chest pain, the patient cough is decreased intensity is mostly dry in nature , the patient denies nausea no vomiting no abdominal pain and no diarrhea Objective - Vital Signs Vital signs: Vital Signs Temp 98.1 F 08/25/21 11:25 Pulse 92 08/25/21 15:42 Resp 18 08/25/21 11:25 BP 122/81 08/25/21 11:25 Pulse Ox 97 08/25/21 11:25 Intake & Output 08/24/21 08/25/21 08/25/21 18:59 06:59 18:59 Intake Total 945 925 2071 Output Total 0 Balance 083 891 3589 Intake: IV 170 100 160 Invasive Line 1 10 10 Invasive Line 8 10 cefTRIAXone 2 gm In 50 50 Sodium Chloride 0.9% 50 ml @ 100 mls/hr IVPB Q24HR RAIMUNDO Rx#:[id number] metroNIDAZOLE-NS PMX 500 100 100 100 mg In Saline 1 100ml.bag @ 100 mls/hr IVPB Q8HR RAIMUNDO Rx#:[id number] Oral 476 920 Output: Chest Tube Drainage 0 Chest Tube Right - B 0 Other: Voiding Method Toilet Toilet Toilet Urinal Urinal Urinal # Voids 1 ABP, PAP, CO, CI - Last Documented Arterial Blood Pressure 97/61 - Exam GENERAL DESCRIPTION: Middle-aged male lying in bed in no distress RESPIRATORY SYSTEM: Unlabored breathing , decreased breath sounds at bases HEART: S1 S2 regular rate and rhythm , ABDOMEN: Soft , no tenderness EXTREMITIES: No edema feet - Labs CBC & Chem 7: 08/24/21 09:08 08/24/21 09:08 Labs: Microbiology - Last 24 Hours (Table) 08/20/21 13:00 Anaerobic Culture - Final Lung - Right Assessment and Plan (1) Empyema Current Visit: Yes Status: Acute Code(s): J86.9 - PYOTHORAX WITHOUT FISTULA SNOMED Code(s): 532413810 Plan: 1patient presented to hospital with right-sided empyema in this patient status post chest tube placement and the culture grew group C strep and Bacteroides species patient is subsequently status post right chest thoracotomy with repeat cultures grew Bacteroides species 2patient is currently being treated with Rocephin and Flagyl which will be continued for 2-3 weeks on discharge depending upon his clinical response Time with Patient: Less than 30
[2021-08-26] MEDS: ACETAMINOPHEN TAB 325 MG TAB PO PRN (00:26)
[2021-08-26] MEDS: traMADol 50 MG TAB PO PRN (04:07)
[2021-08-26] MEDS: IPRATROPIUM-ALBUTEROL 3 ML NEB INHALATION SCH ×3 (08:14→16:00)
[2021-08-26] MEDS: metroNIDAZOLE-NS PMX 500 MG in SALINE 1 100ML.BAG IVPB SCH ×2 (09:34→16:26)
[2021-08-26] MEDS: HEPARIN SODIUM,PORCINE/PF 5,000 UNIT/0.5 ML SYRINGE SQ SCH ×2 (09:34→16:26)
[2021-08-26] MEDS: PANTOPRAZOLE 40 MG TABLET PO SCH (09:34)
[2021-08-26 12:23] VITALS: RESP 16
[2021-08-26] MEDS ORDERED: IRON PS CMPLX/VIT B12/FA 1 EACH CAP PO SCH (16:45)
[2021-08-26 18:47] VITALS: BP 115/72; PULSE 54; TEMP 98.1
--- NOTE | 2021-08-27 18:15 | CDI ---
Documentation Clarification Form Date: 08/19/2021 10:35:00 AM From: Lorenza Jaramillo RN, CCDS Admit Date: 08/07/2021 07:46:00 PM Patient Name: Armando Sorenson Visit Number: [id number] Discharge Date: 08/26/2021 06:47:00 PM ATTENTION: The Clinical Documentation Specialists (CDI) and [facility] Coding Staff appreciate your assistance in clarifying documentation. Please respond to the clarification below the line at the bottom and electronically sign. The CDI & [facility] Coding staff will review the response and follow-up if needed. Please note: Queries are made part of the Legal Health Record. If you have any questions, please contact the author of this message via ITS. Dr. Beka Phillips The patient presented with fever of 101.4, elevated white count on admission 30.4, heart rate 91. Additional clarification regarding the etiology/cause of the clinical indicators is requested. 08/07 Pulmonary consult: The patient does have evidence of right lower lobe pneumonia. He have a small parapneumonic effusion. History/Risk Factors: Former smoker, Alcohol daily, Marijuana use Clinical Indicators: 60-year-old male present with sob, sharp right-side chest pain with coughing, movement and deep breathing. 08/07 CXR: Right basilar opacity with small pleural effusion, concerning for infiltrates. 08/07 CTA: Small to moderate right pleural effusion with accompanying basilar opacities which may represent atelectasis or developing infiltrates. Left lower chest wall subcutaneous soft tissue nodule, nonspecific. 08/07 WBC: 30.4, 08/09 WBC 27.4 08/07 Lactic acid: 1.3 08/07 Blood cultures: No growth 08/07 Vital signs: 140/77 91 18 101.4, 134/77 100 36 101.1 92 % 3/L NC Treatment: 08/12 ID Consult: patient on presentation to the hospital did have a fever of 101.2, running a fever fir the last 3-4 days did have elevated white count of 27,000. Id consulted for empyema and management of antibiotic therapy. 08/12 Right sided chest tube Rocephin 2 GM IVPB DAILY 08/08-08/19; Clindamycin 900MG IVPB Q 8 HRS 08/13-08/17 Zithromycin 500 MG IVPB X1, PO DAILY 08/08-08/11 Alteplase 10 mg irrigation per orders .9NS @ 100 MLS/HR In your professional opinion, please clarify if these findings signify one of the following conditions: [ ] Sepsis POA, Resolved [ ] Sepsis, Not POA [ ] Sepsis ruled out [ ] Other, please specify [ ] Unable to determine SIRS Criteria: 2 or more of the following may indicate SIRS -Temperature < 96.8F (36C) or > 101.0F (38.3C) -Heart Rate > 90 bpm -Respiratory Rate > 20 breaths/min or PaCO2 < 32 mmHg -White Blood Cell Count > 12,000 or < 4,000 cells/mm3 or > 10% bands (Template Last Reviewed: July 2020) MTDD
--- NOTE | 2021-08-28 17:20 | DS ---
DISCHARGE SUMMARY DATE OF DISCHARGE: 08/26/2021. DISCHARGE MEDICINES: 1. Flagyl 500 t.i.d. for 6 weeks. 2. Rocephin 2000 mg IV piggyback for 14 days. 3. Continue on Prilosec 20 mg daily. 4. Multiple iron pills. 5. Ferrex 150 for 90 days due to iron deficiency anemia. We will get workup for a scope as an outpatient. Condition stable. Prognosis guarded. He does not need anything for his breathing. He is breathing fine. He was admitted with empyema. He had a thoracotomy done by a chest surgeon. He had chest tubes placed in for severe pneumonia and sepsis. For multiple days in the hospital with IV he grew out Beta strep group C Bacteroides, Milli albicans and bacteroides . He was stable on room air, 99% on room air. When he left his white count was down from 30,000 to 7.7 on discharge. Saturating 99% on room air. Blood pressure 150/72, pulse 54, respiratory rate 16 to 18, temperature 98.1. Prognosis is guarded. Follow up as an outpatient in Dr. Phillips's office. Diet regular. Ambulate as tolerated. General workup as an outpatient. MMODL / IJN: [id number] /
== END 2021-08-26 18:47 | disposition home or self-care (01) | DRG 853 ==
LOC: EC 17:05 → 4SSUR 19:46 → 2SICU 08-20 11:47 → 3SCARD 08-21 13:32
PROVIDERS: ADMIT Family Medicine; ATTEND Family Medicine
PROC: 0W993ZX Drainage of Right Pleural Cavity, Percutaneous Approach, Diagnostic (ICD-10-PCS; 2021-08-09)
PROC: 0W9930Z Drainage of Right Pleural Cavity with Drainage Device, Percutaneous Approach (ICD-10-PCS; 2021-08-12)
PROC: 0W9930Z Drainage of Right Pleural Cavity with Drainage Device, Percutaneous Approach (ICD-10-PCS; 2021-08-16)
PROC: 0BJ08ZZ Inspection of Tracheobronchial Tree, Via Natural or Artificial Opening Endoscopic (ICD-10-PCS; principal; 2021-08-20 09:30)
PROC: 0BNC0ZZ Release Right Upper Lung Lobe, Open Approach (ICD-10-PCS; principal; 2021-08-20 09:30)
PROC: 0BNF0ZZ Release Right Lower Lung Lobe, Open Approach (ICD-10-PCS; principal; 2021-08-20 09:30)
PROC: 0BND0ZZ Release Right Middle Lung Lobe, Open Approach (ICD-10-PCS; principal; 2021-08-20 09:30)
PROC: 02HV33Z Insertion of Infusion Device into Superior Vena Cava, Percutaneous Approach (ICD-10-PCS; 2021-08-21)
DX: A41.9 Sepsis, unspecified organism (principal); J86.9 Pyothorax without fistula; E43 Unspecified severe protein-calorie malnutrition; J96.21 Acute and chronic respiratory failure with hypoxia; B37.1 Pulmonary candidiasis; J15.4 Pneumonia due to other streptococci; E87.1 Hypo-osmolality and hyponatremia; I31.3 Pericardial effusion (noninflammatory); I50.30 Unspecified diastolic (congestive) heart failure; J44.0 Chronic obstructive pulmonary disease with (acute) lower respiratory infection; J93.9 Pneumothorax, unspecified; J98.11 Atelectasis; J90 Pleural effusion, not elsewhere classified; B95.4 Other streptococcus as the cause of diseases classified elsewhere; Z87.891 Personal history of nicotine dependence; D50.9 Iron deficiency anemia, unspecified; D63.8 Anemia in other chronic diseases classified elsewhere; Z68.26 Body mass index [BMI] 26.0-26.9, adult; E88.09 Other disorders of plasma-protein metabolism, not elsewhere classified; F10.10 Alcohol abuse, uncomplicated; R79.1 Abnormal coagulation profile; I25.10 Atherosclerotic heart disease of native coronary artery without angina pectoris; N40.0 Benign prostatic hyperplasia without lower urinary tract symptoms; Z20.822 Contact with and (suspected) exposure to COVID-19; Z82.49 Family history of ischemic heart disease and other diseases of the circulatory system; Z82.5 Family history of asthma and other chronic lower respiratory diseases; Z98.84 Bariatric surgery status; Z90.89 Acquired absence of other organs; Z90.49 Acquired absence of other specified parts of digestive tract; Z98.890 Other specified postprocedural states
CPT/HCPCS: 32551; 32555; 36415; 36573; 71045; 71046; 71250; 71275; 76604; 76942; 77012; 80048; 80053; 81001; 82607; 82728; 82746; 82945; 83540; 83550; 83605; 83615; 83735; 83880; 84157; 84484; 85025; 85027; 85379; 85610; 85730; 86140; 87040; 87070; 87075; 87102; 87116; 87205; 87206; 87635; 88108; 88305; 88341; 88342; 89050; 93005; 93306; 94640; 94760; 96374; 96375; 99285

== ENCOUNTER → 2021-09-12 | Outpatient (CLI) | payer BC ==
--- NOTE | 2021-09-12 13:14 | XR ---
EXAMINATION TYPE: XR chest 2V DATE OF EXAM: 09/12/2021 COMPARISON: X-ray dated 08/25/2021 HISTORY: Follow-up TECHNIQUE: Frontal and lateral views of the chest are obtained. FINDINGS: Persistent small right-sided pleural effusion, stable. Minimal adjacent pulmonary atelectasis, improv ed compared to the previous. No left-sided pleural effusion. No pneumothorax. Suspected COPD changes. No gross cardiomegaly. Aortic atherosclerotic calcifications. Degenerative ch anges of the thoracic spine. IMPRESSION: Mild interval changes as described above.
== END | disposition home or self-care (01) ==
LOC: RADXRMAIN 10:57
PROVIDERS: ATTEND Internal Medicine Infectious Disease
DX: A49.1 Streptococcal infection, unspecified site (principal); A49.8 Other bacterial infections of unspecified site
CPT/HCPCS: 71046

== ENCOUNTER → 2022-08-28 | Outpatient (CLI) | payer BC ==
--- NOTE | 2022-08-28 10:39 | FL ---
EXAMINATION TYPE: FL barium swallow DATE OF EXAM: 08/28/2022 9:28 AM COMPARISON: Chest radiograph from 09/12/2021. CLINICAL INDICATION:Male, 61 years old with history of R13.10 DYSPHAGIA; TECHNIQUE: The procedure was explained and patient history elicited. All patient questions were ans wered prior to start of procedure. Multiple spot fluoroscopic images of the esophagus were obtained a fter the oral ingestion of effervescent crystals and liquid barium as the contrast agent. Fluoroscopic time: 40 seconds Fluoroscopic images: 0 Radiographs taken: 133 DAP: 1253.56 FINDINGS: The esophagus demonstrates normal primary and secondary peristalsis. There is postsurgical changes to the stomach. The esophageal mucosa is smooth without evidence of focal stricture, ulceration, or abn ormal outpouching. There was gastroesophageal reflux disease was identified standing. Tertiary contra ctions are present. Small hiatal hernia is present. IMPRESSION: 1. Moderate gastroesophageal reflux. 2. Esophageal dysmotility. 3. Small hiatal hernia.
== END | disposition home or self-care (01) ==
LOC: RADUSWWP 08:45
PROVIDERS: ATTEND Family Medicine
DX: K21.9 Gastro-esophageal reflux disease without esophagitis (principal); K44.9 Diaphragmatic hernia without obstruction or gangrene; K22.4 Dyskinesia of esophagus; R13.10 Dysphagia, unspecified
CPT/HCPCS: 74220

== ENCOUNTER → 2022-09-09 | Outpatient (CLI) | payer BC ==
[2022-09-09 19:57] LABS: African American GFR (CKD) 83.5 (60.0-200.0); Anion Gap 10.7 mmol/L (10.00-18.00); Blood Urea Nitrogen 14.9 mg/dL (9.0-27.0); Carbon Dioxide 25.3 mmol/L (20.0-27.5); Non-African American GFR(CKD) 72.1 (60.0-200.0); Potassium 3.9 mmol/L (3.5-5.5)
[2022-09-09 20:02] LABS: HCT 46.5 % (39.6-50.0); HGB 15.3 g/dL (13.0-17.0); MCH 30.2 pg (27.0-32.0); MCHC 32.9 g/dL (32.0-37.0); MCV 91.9 fL (80.0-97.0); Mean Platelet Volume 9.8 fL (9.5-12.2); NRBC Per 100 WBC 0 /100 WBCS (0.0-0.0); Platelet Count 365 X 10*3/uL (140-440); RBC 5.06 X 10*6/uL (4.40-5.60); RDW 13.5 % (11.5-14.5); WBC 10.39 X 10*3/uL (4.50-10.00)
== END | disposition home or self-care (01) ==
LOC: LABWHC1 14:52
PROVIDERS: ATTEND Internal Medicine
DX: Z01.812 Encounter for preprocedural laboratory examination (principal); R94.31 Abnormal electrocardiogram [ECG] [EKG]; R06.02 Shortness of breath
CPT/HCPCS: 36415; 80051; 82565; 84520; 85027

== ENCOUNTER 2022-09-12 10:45 | Day surgery (SDC) | payer BC ==
[~2022-09-12 10:45] MED LIST changes: +ALPRAZolam 0.25 MG TAB PO PRN; +ALPRAZolam 0.5 MG TAB PO PRN; +ASPIRIN 325 MG TAB PO STA; -LACTATED RINGERS 1,000 ML IV SCH; -LIDOCAINE 1% (10MG/ML) FOR IV START INTRADERMA PRN; +NITROGLYCERIN SL TABS 0.4 MG TAB SUBLINGUAL PRN; +SODIUM CHLORIDE 0.9% 1,000 ML in EMPTY BAG 1 BAG IV SCH
[2022-09-12 11:25] VITALS: TEMP 97.3
[2022-09-12] MEDS ORDERED: VERAPAMIL 2.5 MG/ML 2 ML AMP ONE (11:45)
[2022-09-12] MEDS ORDERED: fentaNYL (PF) 50 MCG/ML 2 ML AMP ONE (11:49)
[2022-09-12] MEDS ORDERED: HEPARIN SODIUM 1,000 UN/ML (10ML VL) ONE (11:49)
[2022-09-12] MEDS ORDERED: fentaNYL (PF) 50 MCG/ML 2 ML AMP IV ONE (12:03)
[2022-09-12] MEDS ORDERED: MIDAZOLAM 2 MG/2 ML VIAL IV ONE (12:03)
[2022-09-12] MEDS ORDERED: LIDOCAINE 1% INJ 10MG/ML (5 ML VIAL-PF) SQ ONE (12:05)
[2022-09-12] MEDS: VERAPAMIL SYRINGE (5 MG/10 ML) INTRAARTER ONE ×2 (12:07→12:16)
[2022-09-12] MEDS ORDERED: HEPARIN SODIUM 1,000 UN/ML (10ML VL) IV ONE (12:17)
[2022-09-12] MEDS ORDERED: IOPAMIDOL-370 125ML BTL INJ ONE (12:25)
--- NOTE | 2022-09-12 12:29 | P.CARDCATH ---
Description of Procedure: PROCEDURES PERFORMED: Left heart catheterization, bilateral coronary angiography INDICATION: Abnormal stress test CONSENT:I have discussed the risks, benefits and alternative therapies for the above-mentioned procedure and for both sedation/analgesia as well as necessary blood product administration, if indicated, as they pertain to this patient. The patient has indicated understanding and acceptance of the risks and procedures discussed. PROCEDURE: After the risks, benefits and alternatives of the above mentioned procedure explained in detail with the patient, informed consent was obtained. Patient was taken to the catheterization lab and prepped and draped in usual fashion. 1% lidocaine was used to anesthetize the right radial artery. A 6- Sammarinese sheath was placed in the right radial artery using modified Seldinger technique. Left coronary angiography was performed with a 5-Sammarinese JL 3.5 catheter and right coronary angiography was performed with a 5-Sammarinese JR5 catheter in various views. A 5-Sammarinese FR5 catheter was inserted into the left ventricle and pressure measurements were obtained. The right radial sheath was removed and a TR band was placed with hemostasis achieved. The patient tolerated the procedure well. Patient was transported back to the post catheterization holding area in stable condition. Conscious Sedation: Patient was monitored under the direct supervision of myself for conscious sedation using Versed and fentanyl for a total duration of 19 minutes HEMODYNAMICS: Aorta: 134/72 LV: 131/5, LVEDP 14 SELECTIVE CORONARY ARTERIOGRAPHY: LEFT MAIN: The left main is a large caliber vessel which bifurcates into the LAD and circumflex. There is no significant stenosis. LEFT ANTERIOR DESCENDING CORONARY ARTERY: LAD is a large caliber vessel which wraps around to the apex. There is a mid LAD 30% stenosis and otherwise normal LEFT CIRCUMFLEX CORONARY ARTERY: Left circumflex is a moderate caliber vessel without significant stenosis. RIGHT CORONARY ARTERY: The right coronary artery is a large caliber vessel which gives off a PDA and PLV branch and is the dominant vessel. There is no significant stenosis. FINAL IMPRESSION: 1. Relatively normal coronary arteries other than a mid LAD 30% stenosis 2. Normal left sided filling pressures PLAN: 1. Aggressive risk factor modification per most recent ACC/AHA guidelines. 2. Follow-up in the office in 1-2 weeks.
[2022-09-12 12:49] VITALS: RESP 16
[2022-09-12 14:29] VITALS: BP 136/74; PULSE 66
== END 2022-09-12 15:35 | disposition home or self-care (01) ==
LOC: CATHCVL 10:45
PROVIDERS: ATTEND Internal Medicine
DX: I25.10 Atherosclerotic heart disease of native coronary artery without angina pectoris (principal); J44.9 Chronic obstructive pulmonary disease, unspecified; F17.210 Nicotine dependence, cigarettes, uncomplicated; F10.20 Alcohol dependence, uncomplicated; E78.5 Hyperlipidemia, unspecified; Z82.49 Family history of ischemic heart disease and other diseases of the circulatory system; Z79.899 Other long term (current) drug therapy
CPT/HCPCS: 93458; 99152; C1769 ×2; C1894; J2250; J2001; J3010; J1644; Q9967

== ENCOUNTER 2023-06-21 07:34 | Emergency (ER) | payer BC ==
--- NOTE | 2023-06-21 08:11 | ED ---
General Adult HPI - General Chief complaint: Chest Pain Stated complaint: fell R rib pain Time Seen by Provider: 06/21/23 07:45 Source: patient, RN notes reviewed, old records reviewed Mode of arrival: ambulatory Limitations: no limitations - History of Present Illness Initial comments: 62-year-old male presents with right rib pain status post fall which occurred 2 days prior. Patient states he slipped on the ice and fell onto his back which she was carrying onto the right side of his ribs and chest wall. He's had pain worse with movement and inspiration at the site of injury. No head or neck trauma. No other complaints. - Related Data Home Medications Medication Instructions Recorded Confirmed Omeprazole Magnesium [PriLOSEC OTC] 20 mg PO DAILY 08/07/21 09/12/22 Aspirin 81 mg PO DAILY 09/08/22 09/12/22 Previous Rx's Medication Instructions Recorded HYDROcodone/APAP 5-325MG [W[place]ron 1 tab PO Q6HR PRN #12 tab 06/21/23 5-325] Allergies Allergy/AdvReac Type Severity Reaction Status Date / Time No Known Allergies Allergy Verified 06/21/23 07:52 Review of Systems ROS Statement: Those systems with pertinent positive or pertinent negative responses have been documented in the HPI. ROS Other: All systems not noted in ROS Statement are negative. Past Medical History Past Medical History: COPD, GERD/Reflux, Osteoarthritis (OA), Pneumonia Additional Past Medical History / Comment(s): diverticulitis, pneumonia July 2021, recent stress test & echo, SOB w/exertion History of Any Multi-Drug Resistant Organisms: None Reported Past Surgical History: Appendectomy, Bariatric Surgery, Tonsillectomy Additional Past Surgical History / Comment(s): STOMACH STAPLING, bronch, right thoracotomy w/decortication July 2021 Past Anesthesia/Blood Transfusion Reactions: No Reported Reaction Past Psychological History: No Psychological Hx Reported Smoking Status: Former smoker Past Alcohol Use History: Daily Past Drug Use History: Marijuana - Past Family History Mother Family Medical History: COPD Father Family Medical History: Coronary Artery Disease (CAD) General Exam Limitations: no limitations General appearance: alert, in no apparent distress Head exam: Present: atraumatic, normocephalic Eye exam: Present: normal appearance, PERRL ENT exam: Present: normal exam Neck exam: Present: normal inspection. Absent: tenderness, meningismus Respiratory exam: Present: chest wall tenderness. Absent: respiratory distress Cardiovascular Exam: Present: regular rate, normal rhythm GI/Abdominal exam: Present: soft. Absent: distended, tenderness, guarding Extremities exam: Present: normal inspection, normal capillary refill Neurological exam: Present: alert, oriented X3 Skin exam: Present: warm, dry, intact Course Vital Signs 06/21/23 06/21/23 07:49 08:20 Temperature 98.0 F Pulse Rate 79 Respiratory 16 Rate Blood Pressure 146/93 O2 Sat by Pulse 98 98 Oximetry Medical Decision Making - Medical Decision Making Was pt. sent in by a medical professional or institution (, PA, DIRECTOR OF PATIENT SAFETY, urgent care, hospital, or residential...) When possible be specific @ -No Did you speak to anyone other than the patient for history (EMS, parent, family, police, friend...)? What history was obtained from this source @ -No Did you review nursing and triage notes (agree or disagree)? Why? @ -I reviewed and agree with nursing and triage notes Were old charts reviewed (outside hosp., previous admission, EMS record, old EKG, old radiological studies, urgent care reports/EKG's, residential records)? Report findings @ -No old charts were reviewed Differential Diagnosis (chest pain, altered mental status, abdominal pain women, abdominal pain men, vaginal bleeding, weakness, fever, dyspnea, syncope, headache, dizziness, GI bleed, back pain, seizure, CVA, palpatations, mental health, musculoskeletal)? @ Differential Musculoskeletal Muscular strain, contusion, ligament sprain, fracture, arthritis, septic arthritis, bursitis, cellulitis, muscle spasm, nerve compression, DVT, arterial occlusion, herpes zoster, electrolyte abnormality, tumor.... This is not meant to be in all inclusive list EKG interpreted by me (3pts min.). @ -As above X-rays interpreted by me (1pt min.). @ -This x-ray with rib films, showing a nondisplaced 11th rib fracture. No pneumothorax. CT interpreted by me (1pt min.). @ -None done U/S interpreted by me (1pt. min.). @ -None done What testing was considered but not performed or refused? (CT, X-rays, U/S, labs)? Why? @ -None What meds were considered but not given or refused? Why? @ -None Did you discuss the management of the patient with other professionals (professionals i.e. , PA, DIRECTOR OF PATIENT SAFETY, lab, RT, psych nurse, medical social worker, party planner, teacher, aoc aadc operations staff officer, case specialist)? Give summary @ -No Was smoking cessation discussed for >3mins.? @ -No Was critical care preformed (if so, how long)? @ -No Were there social determinants of health that impacted care today? How? (Homelessness, low income, unemployed, alcoholism, drug addiction, transportation, low edu. Level, literacy, decrease access to med. care, fpc, rehab)? @ -No Was there de-escalation of care discussed even if they declined (Discuss DNR or withdrawal of care, Hospice)? DNR status @ -No What co-morbidities impacted this encounter? (DM, HTN, Smoking, COPD, CAD, Cancer, CVA, ARF, Chemo, Hep., AIDS, mental health diagnosis, sleep apnea, morbid obesity)? @ -None Was patient admitted / discharged? Hospital course, mention meds given and route, prescriptions, significant lab abnormalities, going to OR and other pertinent info. @ -62-year-old male with mechanical fall and right rib pain for the past 2 days. He has a nondisplaced 11th rib fracture without associated pneumothorax or acute findings. Patient's given an incentive spirometer and pain medication. He will follow-up with primary care provider. Undiagnosed new problem with uncertain prognosis? @ -No Drug Therapy requiring intensive monitoring for toxicity (Heparin, Nitro, Insulin, Cardizem)? @ -No Were any procedures done? @ -No Diagnosis/symptom? @Rib fracture Acute, or Chronic, or Acute on Chronic? @ Acute Uncomplicated (without systemic symptoms) or Complicated (systemic symptoms)? @ -default Side effects of treatment? @ -No Exacerbation, Progression, or Severe Exacerbation? @ -No Poses a threat to life or bodily function? How? (Chest pain, [place], MA, pneumonia, PE, COPD, DKA, ARF, appy, cholecystitis, CVA, Diverticulitis, Homicidal, Suicidal, threat to staff... and all critical care pts) @ -[Low risk Disposition Clinical Impression: Fracture of rib Disposition: HOME SELF-CARE Condition: Fair Instructions (If sedation given, give patient instructions): Rib Fracture (ED) Prescriptions: HYDROcodone/APAP 5-325MG [W[place]ron 5-325] 1 tab PO Q6HR PRN #12 tab PRN Reason: Pain Is patient prescribed a controlled substance at d/c from ED?: No Referrals: Beka Phillips MD [Primary Care Provider] - 1-2 days Time of Disposition: 08:44
--- NOTE | 2023-06-21 08:25 | XR ---
PA chest and right RIBS HISTORY: Fall. COMPARISON: Chest dated 09/12/2021. TECHNIQUE: 5 views were obtained including AP view the chest and 4 views of right ribs. FINDINGS: There is a slightly displaced fracture of the right distal 11th rib. There is mild blunting of the right costophrenic angle possibly indicating a trace pleural effusion. There is no pneumothorax. The left lung is clear. The heart and pulmonary vasculature are normal. There is a chronic rotator cuff tear of the right shoulder. IMPRESSION: 1. Fracture of the distal right 11th rib as described. 2. Probable tiny right pleural effusion. 3. No pneumothorax. 4. Chronic rotator cuff tear of the right shoulder.
[2023-06-21 09:12] VITALS: BP 128/81; PULSE 77; RESP 18; TEMP 97.9
== END 2023-06-21 09:00 | disposition home or self-care (01) ==
LOC: EC 07:34
DX: S22.31XA Fracture of one rib, right side, initial encounter for closed fracture (principal); J44.9 Chronic obstructive pulmonary disease, unspecified; K21.9 Gastro-esophageal reflux disease without esophagitis; F12.90 Cannabis use, unspecified, uncomplicated; Z79.899 Other long term (current) drug therapy; Z87.891 Personal history of nicotine dependence; Z90.49 Acquired absence of other specified parts of digestive tract; W00.0XXA Fall on same level due to ice and snow, initial encounter
CPT/HCPCS: 99283